=== PATIENT | male | born 1945 | race Two or more races ===

== ENCOUNTER 2022-11-18 09:07 | Inpatient (IN) | payer MEDICARE, MEDICAID ==
[~2022-11-18] VITALS: Ht 175.3 cm; Wt 85.5 kg
[2022-11-18 09:43] LABS: Basophils # (auto) 0.1 10 ^3/uL (0-0.2); Basophils % (auto) 0.6 % (0.0-2.0); Eosinophils # (auto) 0.1 10 ^3/uL (0-0.8); Eosinophils % (auto) 1.3 % (0.0-7.0); Hematocrit 41.9 % (41.0-53.0); Hemoglobin 14.8 g/dL (13.5-17.5); Lymphocytes # (auto) 1.4 10 ^3/uL (0.4-5.4); Lymphocytes % (auto) 14.1 % (10.0-50.0); Mean Corpuscular Hemoglobin 32.8 pg (28.0-32.0); Mean Corpuscular Hgb Conc. 35.3 g/dL (32.0-36.0); Monocytes # (auto) 0.7 10 ^3/uL (0-1.3); Monocytes % (auto) 6.7 % (0.0-12.0); Neutrophils # (auto) 7.6 10 ^3/uL (1.6-8.6); Neutrophils % (auto) 77.3 % (37.0-80.0); Nucleated Red Blood Cells % 0.5 %; Red Blood Cells 4.51 10^6/uL (4.5-5.90); White Blood Cell 9.8 10^3/uL (4.4-10.8)
[2022-11-18 09:56] LABS: Calcium 8.8 mg/dL (8.5-10.1); Magnesium 2.2 mg/dL (1.6-2.6); Potassium 4.4 mmol/L (3.5-5.1)
[2022-11-18 09:59] LABS: BUN/Creatinine Ratio 16.9; INR 1.05 (0.9-1.15); Partial Thromboplastin Time 28.8 sec (24.6-33.4)
[2022-11-18] MEDS ORDERED: LABETALOL HCL 5 MG/ML 4ML SYRINGE IV ONE (10:15)
[2022-11-18] MEDS ORDERED: methylPREDNISolone SOD SUCC 125 MG/2 ML VL IV ONE (11:00)
[2022-11-18] MEDS ORDERED: CLOPIDOGREL BISULFATE 75 MG TAB PO ONE (11:00)
[2022-11-18] MEDS ORDERED: ACETAMINOPHEN 325 MG TAB PO PRN (11:45)
[2022-11-18] MEDS ORDERED: NITROGLYCERIN 0.4 MG SL TAB SL PRN (11:45)
[2022-11-18] MEDS ORDERED: MORPHINE SULFATE INJ 2 MG/ml SYRG IV PRN (11:45)
[2022-11-18] MEDS: SODIUM CHLORIDE 0.9% 1,000 ML IV SCH (12:29)
[2022-11-18 12:54] LABS: Urine Bacteria FEW /hpf (None Seen); Urine Blood Negative /uL (Negative); Urine Specific Gravity 1.009 (1.001-1.035); Urine WBC 2 /hpf (0 - 3)
[2022-11-18 13:16] LABS: Alcohol, Urine < 3.0 mg/dL (0-10); Amphetamine Screen, Urine NEGATIVE (NEGATIVE); Barbiturate Scree,Urine NEGATIVE (NEGATIVE); Benzodiazephine Screen, Urine NEGATIVE (NEGATIVE); Cannabinoid Screen, Urine NEGATIVE (NEGATIVE); Cocaine Screen, Urine NEGATIVE (NEGATIVE); Opiate Scree,Urine NEGATIVE (NEGATIVE); Phencyclidine Screen, Urine NEGATIVE (NEGATIVE)
[2022-11-18] MEDS: hydrALAZINE HCL 20 MG/ML VL IV PRN ×2 (14:20→20:30)
[2022-11-18] MEDS ORDERED: ENAL20TA8 PO (21:30)
[2022-11-18] MEDS ORDERED: LORazepam 2MG/ML-1ML VIAL IV PRN (21:30)
[2022-11-18 22:00] VITALS: BP 161/85
[2022-11-19 01:00] VITALS: BP 139/76
[2022-11-19] MEDS: SODIUM CHLORIDE 0.9% 1,000 ML IV SCH ×2 (01:05→15:24)
[2022-11-19 05:00] VITALS: BP 140/85
[2022-11-19 06:31] LABS: Basophils # (auto) 0 10 ^3/uL (0-0.2); Basophils % (auto) 0.1 % (0.0-2.0); Eosinophils # (auto) 0 10 ^3/uL (0-0.8); Hematocrit 39.3 % (41.0-53.0); Hemoglobin 13.7 g/dL (13.5-17.5); Lymphocytes # (auto) 0.8 10 ^3/uL (0.4-5.4); Lymphocytes % (auto) 6.8 % (10.0-50.0); Mean Corpuscular Hemoglobin 32.4 pg (28.0-32.0); Mean Corpuscular Volume 92.6 fL (80.0-100.0); Monocytes # (auto) 0.4 10 ^3/uL (0-1.3); Monocytes % (auto) 3.4 % (0.0-12.0); Neutrophils % (auto) 89.7 % (37.0-80.0); Nucleated Red Blood Cells % 0.1 %; Red Blood Cells 4.24 10^6/uL (4.5-5.90); Red Cell Distribution Width 13.1 % (11.8-14.3); White Blood Cell 12.3 10^3/uL (4.4-10.8)
[2022-11-19 06:48] LABS: Calcium 8.2 mg/dL (8.5-10.1); Potassium 3.7 mmol/L (3.5-5.1)
[2022-11-19 06:51] LABS: Albumin 3.2 g/dL (3.4-5.0); BUN/Creatinine Ratio 21.1
[2022-11-19 06:54] LABS: Bilirubin, Total 0.7 mg/dL (0.2-1.0); Total Protein 6.5 g/dL (6.4-8.2)
[2022-11-19] MEDS: hydrALAZINE HCL 20 MG/ML VL IV PRN (08:02)
[2022-11-19 10:00] VITALS: BP 163/83
[2022-11-19] MEDS: CLOPIDOGREL BISULFATE 75 MG TAB PO SCH (10:06)
[2022-11-19] MEDS: ENOXAPARIN SOD 40 MG/0.4 ML SYRINGE SC SCH (10:06)
[2022-11-19] MEDS ORDERED: METOPROLOL TARTRATE 50 MG TAB PO ONE (11:00)
[2022-11-19] MEDS ORDERED: ASPirin 81 mg TAB PO ONE (11:00)
[2022-11-19] MEDS: chlordiazePOXIDE HCL 25 MG CAP PO SCH ×2 (11:34→20:39)
[2022-11-19 11:47] LABS: Cholesterol 187 mg/dL (< 200); HDL Cholesterol 62 mg/dL (40-59); LDL Cholesterol 113 mg/dL (< 100); Triglycerides 98 mg/dL (< 150)
[2022-11-19] MEDS: FOLIC ACID 1 MG, MULTIPLE VITAMIN 10 ML, MAGNESIUM SULF SDV 50% 8 MEQ, THIAMINE INJ 100... INJ SCH ×5 (12:10)
[2022-11-19 17:00] VITALS: BP 155/85
[2022-11-19] MEDS: METOPROLOL TARTRATE 50 MG TAB PO SCH (21:41)
[2022-11-19 22:00] VITALS: BP 164/79
[2022-11-20] MEDS ORDERED: PRED1SUS4 OP (02:37)
[2022-11-20] MEDS: chlordiazePOXIDE HCL 25 MG CAP PO SCH ×3 (04:03→23:06)
[2022-11-20] MEDS: SODIUM CHLORIDE 0.9% 1,000 ML IV SCH (04:04)
[2022-11-20 05:00] VITALS: BP 147/80
[2022-11-20] MEDS: prednisoLONE ACETATE 1% OPTH SUSP 5ML LEFTEYE SCH ×4 (06:57→23:06)
[2022-11-20 08:30] VITALS: BP 148/81
[2022-11-20] MEDS ORDERED: IOHEXOL 350 MG/ML 100ML IJ ONE (08:59)
[2022-11-20] MEDS: ASPirin 81 mg TAB PO SCH (09:43)
[2022-11-20] MEDS: METOPROLOL TARTRATE 50 MG TAB PO SCH ×2 (09:43→23:06)
[2022-11-20] MEDS: CLOPIDOGREL BISULFATE 75 MG TAB PO SCH (09:43)
[2022-11-20] MEDS: ENOXAPARIN SOD 40 MG/0.4 ML SYRINGE SC SCH (09:43)
[2022-11-20] MEDS: hydrALAZINE HCL 20 MG/ML VL IV PRN (12:18)
[2022-11-20] MEDS: FOLIC ACID 1 MG, MULTIPLE VITAMIN 10 ML, MAGNESIUM SULF SDV 50% 8 MEQ, THIAMINE INJ 100... INJ SCH ×5 (12:20)
[2022-11-20 12:30] VITALS: BP 157/82
[2022-11-20 16:25] VITALS: BP 124/61
[2022-11-20 22:00] VITALS: BP 135/75
[2022-11-21 05:00] VITALS: BP 144/77
[2022-11-21] MEDS: prednisoLONE ACETATE 1% OPTH SUSP 5ML LEFTEYE SCH ×4 (06:05→22:15)
[2022-11-21] MEDS: CLOPIDOGREL BISULFATE 75 MG TAB PO SCH (08:34)
[2022-11-21] MEDS: ENOXAPARIN SOD 40 MG/0.4 ML SYRINGE SC SCH (08:34)
[2022-11-21] MEDS: ASPirin 81 mg TAB PO SCH (08:34)
[2022-11-21] MEDS: METOPROLOL TARTRATE 50 MG TAB PO SCH ×2 (08:35→22:09)
[2022-11-21 09:00] VITALS: BP 162/96
[2022-11-21] MEDS ORDERED: CLOPIDOGREL BISULFATE 75 MG TAB PO SCH (09:45)
[2022-11-21] MEDS ORDERED: chlordiazePOXIDE HCL 25 MG CAP PO SCH ×2 (09:45→10:00)
[2022-11-21] MEDS: PANTOPRAZOLE 40 MG TAB PO SCH (10:35)
[2022-11-21] MEDS: predniSONE 20 MG TAB PO SCH (10:35)
[2022-11-21] MEDS: FOLIC ACID 1 MG, MULTIPLE VITAMIN 10 ML, MAGNESIUM SULF SDV 50% 8 MEQ, THIAMINE INJ 100... INJ SCH ×5 (12:29)
[2022-11-21 13:00] VITALS: BP 145/75
[2022-11-21 16:50] VITALS: BP 142/87
[2022-11-21 22:00] VITALS: BP 147/65
[2022-11-21] MEDS ORDERED: ATORVASTATIN 20 MG TAB PO SCH (22:00)
[2022-11-21] MEDS: chlordiazePOXIDE HCL 25 MG CAP PO SCH (22:08)
[2022-11-22 05:00] VITALS: BP 167/105
[2022-11-22] MEDS: hydrALAZINE HCL 20 MG/ML VL IV PRN (05:31)
[2022-11-22] MEDS: prednisoLONE ACETATE 1% OPTH SUSP 5ML LEFTEYE SCH ×2 (05:31→12:00)
[2022-11-22] MEDS ORDERED: chlordiazePOXIDE HCL 25 MG CAP PO SCH (07:00)
[2022-11-22 08:37] VITALS: BP 118/67
[2022-11-22] MEDS ORDERED: THIA100T5 PO (08:48)
[2022-11-22] MEDS ORDERED: CHL25C PO (08:48)
[2022-11-22] MEDS ORDERED: ASPI-463 PO (08:48)
[2022-11-22] MEDS ORDERED: ATO40T PO (08:48)
[2022-11-22] MEDS ORDERED: FOLI1TAB6 PO (08:48)
[2022-11-22] MEDS ORDERED: MET50T PO (08:48)
[2022-11-22] MEDS ORDERED: MULT1TAB95 PO (08:48)
[2022-11-22] MEDS ORDERED: CLOP75TA28 PO (08:48)
[2022-11-22] MEDS ORDERED: PRED20TA2 PO (08:50)
[2022-11-22] MEDS: predniSONE 20 MG TAB PO SCH (09:24)
[2022-11-22] MEDS: chlordiazePOXIDE HCL 25 MG CAP PO SCH (09:24)
[2022-11-22] MEDS: ASPirin 81 mg TAB PO SCH (09:24)
[2022-11-22] MEDS: ENOXAPARIN SOD 40 MG/0.4 ML SYRINGE SC SCH (09:24)
[2022-11-22] MEDS: PANTOPRAZOLE 40 MG TAB PO SCH (09:25)
[2022-11-22] MEDS: METOPROLOL TARTRATE 50 MG TAB PO SCH (09:25)
[2022-11-22] MEDS ORDERED: CLOPIDOGREL BISULFATE 75 MG TAB PO SCH (10:00)
[2022-11-22 11:20] VITALS: BP 118/67
[2022-11-22] MEDS: FOLIC ACID 1 MG, MULTIPLE VITAMIN 10 ML, MAGNESIUM SULF SDV 50% 8 MEQ, THIAMINE INJ 100... INJ SCH ×5 (12:00)
[2022-11-22 12:34] VITALS: BP 142/81
== END 2022-11-22 14:16 | disposition home health service (06) | DRG 45 ==
LOC: ER 09:07 → TELE 11:33 → TELE-WESTW 20:59
PROVIDERS: ADMIT Nurse Practitioner Family; ATTEND Family Medicine
DX: I63.9 Cerebral infarction, unspecified (principal); G81.94 Hemiplegia, unspecified affecting left nondominant side; I27.20 Pulmonary hypertension, unspecified; E78.00 Pure hypercholesterolemia, unspecified; G51.0 Bell's palsy; I10 Essential (primary) hypertension; I65.21 Occlusion and stenosis of right carotid artery; K14.8 Other diseases of tongue; F10.239 Alcohol dependence with withdrawal, unspecified; R82.4 Acetonuria; F17.200 Nicotine dependence, unspecified, uncomplicated; M19.09 Primary osteoarthritis, other specified site; Z20.822 Contact with and (suspected) exposure to COVID-19; Z82.49 Family history of ischemic heart disease and other diseases of the circulatory system; Z83.3 Family history of diabetes mellitus; Z79.899 Other long term (current) drug therapy; Z79.82 Long term (current) use of aspirin; Z79.02 Long term (current) use of antithrombotics/antiplatelets; Z98.42 Cataract extraction status, left eye; Z82.61 Family history of arthritis; Z88.8 Allergy status to other drugs, medicaments and biological substances
CPT/HCPCS: 36415; 70450; 70498; 70551; 71045; 80053; 80061; 80307; 81001; 83735; 83880; 84484; 85025; 85610; 85730; 87426; 93005; 93306; 93886; 96374; 96375; 97110; 97116; 97163; 97530; 99291; G0378; J3490

== ENCOUNTER → 2022-12-21 | Outpatient (CLI) | payer MEDICARE, MEDICAID ==
[~2022-12-21] MED LIST: ASPI-463 PO; ATO40T PO; CHL25C PO; CLOP75TA28 PO; ENAL20TA8 PO; FOLI1TAB6 PO; MET50T PO; MULT1TAB95 PO; PRED1SUS4 OP; PRED20TA2 PO; THIA100T5 PO
[2022-12-21 07:45] LABS: Basophils # (auto) 0.1 10 ^3/uL (0-0.2); Eosinophils # (auto) 0.5 10 ^3/uL (0-0.8); Monocytes # (auto) 0.6 10 ^3/uL (0-1.3)
[2022-12-21 07:47] LABS: Basophils % (auto) 1.4 % (0.0-2.0); Eosinophils % (auto) 7.1 % (0.0-7.0); Hematocrit 42.1 % (41.0-53.0); Lymphocytes # (auto) 1.8 10 ^3/uL (0.4-5.4); Lymphocytes % (auto) 23.2 % (10.0-50.0); Mean Corpuscular Hemoglobin 32.5 pg (28.0-32.0); Mean Corpuscular Hgb Conc. 35.6 g/dL (32.0-36.0); Mean Corpuscular Volume 91.2 fL (80.0-100.0); Monocytes % (auto) 8.3 % (0.0-12.0); Neutrophils # (auto) 4.6 10 ^3/uL (1.6-8.6); Nucleated Red Blood Cells % 0.2 %; Red Blood Cells 4.61 10^6/uL (4.5-5.90); Red Cell Distribution Width 12.8 % (11.8-14.3); White Blood Cell 7.6 10^3/uL (4.4-10.8)
== END | disposition home or self-care (01) ==
LOC: LAB 07:33
PROVIDERS: ATTEND Internal Medicine
DX: I10 Essential (primary) hypertension (principal); D64.9 Anemia, unspecified; D75.839 Thrombocytosis, unspecified; Z86.73 Personal history of transient ischemic attack (TIA), and cerebral infarction without residual deficits
CPT/HCPCS: 36415; 80061; 83540; 84550; 85025

== ENCOUNTER → 2023-01-10 | Outpatient (CLI) | payer MEDICARE, MEDICAID | END | disposition home or self-care (01) | LOC: XYW 07:55 | PROVIDERS: ATTEND Internal Medicine | DX: R06.00 Dyspnea, unspecified (principal) | CPT/HCPCS: 78582; A9540; A9558 ==

== ENCOUNTER → 2023-08-27 | Outpatient (CLI) | payer MEDICARE, MEDICAID ==
[~2023-08-27] MED LIST changes: +ENAL1TAB48 PO; -ENAL20TA8 PO; +FOLI-119 PO; -FOLI1TAB6 PO
== END | disposition home or self-care (01) ==
LOC: XYW 10:30
PROVIDERS: ATTEND Internal Medicine
DX: I34.0 Nonrheumatic mitral (valve) insufficiency (principal); I27.20 Pulmonary hypertension, unspecified
CPT/HCPCS: 93306

== ENCOUNTER → 2024-02-05 | Outpatient (CLI) | payer MEDICARE, MEDICAID ==
[~2024-02-05] MED LIST changes: -ATO40T PO; +ATOR-507 PO
[2024-02-05 09:27] LABS: Eosinophils # (auto) 0.2 10 ^3/uL (0-0.8); Hemoglobin 13.1 g/dL (13.5-17.5); Lymphocytes # (auto) 1.5 10 ^3/uL (0.4-5.4); Mean Corpuscular Hgb Conc. 33.5 g/dL (32.0-36.0); Monocytes # (auto) 0.7 10 ^3/uL (0-1.3)
[2024-02-05 09:28] LABS: Basophils # (auto) 0 10 ^3/uL (0-0.2); Basophils % (auto) 0.5 % (0.0-2.0); Eosinophils % (auto) 2.1 % (0.0-7.0); Lymphocytes % (auto) 17.9 % (10.0-50.0); Mean Corpuscular Hemoglobin 29.2 pg (28.0-32.0); Mean Corpuscular Volume 87.1 fL (80.0-100.0); Monocytes % (auto) 7.7 % (0.0-12.0); Neutrophils # (auto) 6.2 10 ^3/uL (1.6-8.6); Neutrophils % (auto) 71.8 % (37.0-80.0); Nucleated Red Blood Cells % 0.1 %; Red Blood Cells 4.48 10^6/uL (4.5-5.90); Red Cell Distribution Width 15.1 % (11.8-14.3); White Blood Cell 8.6 10^3/uL (4.4-10.8)
[2024-02-05 10:01] LABS: Alanine Aminotransferase 14 U/L (7-40); Albumin 4.5 g/dL (3.2-4.8); Alkaline Phosphatase 72 U/L (46-116); Anion Gap 5 (5-15); Aspartate Aminotransferase 16 U/L (13-40); BUN/Creatinine Ratio 8.8 (10.0-20.0); Bilirubin, Total 0.8 mg/dL (0.2-1.0); Blood Urea Nitrogen 9 mg/dL (9-23); Calcium 9.6 mg/dL (8.5-10.1); Carbon Dioxide 27 mmol/L (20-30); Chloride 106 mmol/L (98-107); Glucose 111 mg/dL (74-106); Potassium 4.4 mmol/L (3.5-5.1); Sodium 138 mmol/L (136-145); Total Protein 6.8 g/dL (5.7-8.2)
[2024-02-05 10:54] LABS: Erythrocyte Sedimentation Rate 5 mm/hr (0-20)
[2024-02-05 11:00] LABS: % Iron Saturation 11.6 % (20-55)
[2024-02-05 11:18] LABS: Prostate Specific Antigen 0.81 ng/mL (0.0-4.0)
[2024-02-05 11:22] LABS: Free T4 (Free Thyroxine) 0.91 ng/dL (0.89-1.76)
[2024-02-05 12:43] LABS: Urine Bacteria FEW /hpf (None Seen); Urine Blood Negative /uL (Negative); Urine Clarity Turbid (Clear); Urine Color Yellow (Yellow); Urine Hyaline Cast MOD /lpf (0 - 2); Urine Mucus FEW (None Seen); Urine Protein, UAD 1+ (Negative); Urine Specific Gravity 1.021 (1.001-1.035); Urine Urobilinogen 2 mg/dL (Negative); Urine WBC 97 /hpf (0 - 3)
== END | disposition home or self-care (01) ==
LOC: LAB 08:46
PROVIDERS: ATTEND Internal Medicine
DX: Z12.5 Encounter for screening for malignant neoplasm of prostate (principal); I10 Essential (primary) hypertension; E83.10 Disorder of iron metabolism, unspecified; D75.839 Thrombocytosis, unspecified
CPT/HCPCS: 36415; 80053; 81001; 82728; 83540; 83550; 84153; 84439; 84443; 85025; 85652

== ENCOUNTER → 2024-07-14 | Outpatient (CLI) | payer MEDICARE, MEDICAID ==
[2024-07-14 09:42] LABS: Eosinophils # (auto) 0.2 10 ^3/uL (0-0.8); Eosinophils % (auto) 2.1 % (0.0-7.0); Hemoglobin 15.1 g/dL (13.5-17.5); Lymphocytes # (auto) 1.3 10 ^3/uL (0.4-5.4); Monocytes # (auto) 0.5 10 ^3/uL (0-1.3); Neutrophils # (auto) 6.1 10 ^3/uL (1.6-8.6); White Blood Cell 8.1 10^3/uL (4.4-10.8)
[2024-07-14 09:46] LABS: Basophils # (auto) 0 10 ^3/uL (0-0.2); Basophils % (auto) 0.4 % (0.0-2.0); Hematocrit 43.7 % (41.0-53.0); Lymphocytes % (auto) 15.7 % (10.0-50.0); Mean Corpuscular Hemoglobin 33.4 pg (28.0-32.0); Mean Corpuscular Hgb Conc. 34.6 g/dL (32.0-36.0); Mean Corpuscular Volume 96.4 fL (80.0-100.0); Monocytes % (auto) 6.5 % (0.0-12.0); Neutrophils % (auto) 75.3 % (37.0-80.0); Platelet Count (auto) 605 10^3/uL (140-450); Red Blood Cells 4.53 10^6/uL (4.5-5.90)
[2024-07-14 10:01] LABS: Alanine Aminotransferase 22 U/L (7-40); Albumin 4.4 g/dL (3.2-4.8); Alkaline Phosphatase 71 U/L (46-116); Anion Gap 7 (5-15); Aspartate Aminotransferase 23 U/L (13-40); BUN/Creatinine Ratio 14.8 (10.0-20.0); Blood Urea Nitrogen 13 mg/dL (9-23); Calcium 9.6 mg/dL (8.7-10.4); Carbon Dioxide 27 mmol/L (20-31); Chloride 108 mmol/L (98-107); Cholesterol 132 mg/dL (< 200); Glucose 111 mg/dL (74-106); HDL Cholesterol 42 mg/dL (40-59); LDL Cholesterol 69 mg/dL (< 100); Potassium 4.4 mmol/L (3.5-5.1); Sodium 142 mmol/L (136-145); Triglycerides 148 mg/dL (< 150)
[2024-07-14 10:02] LABS: Total Protein 6.8 g/dL (5.7-8.2)
[2024-07-14 10:30] LABS: % Iron Saturation 24.7 % (20-55)
[2024-07-14 11:03] LABS: Free T4 (Free Thyroxine) 1.06 ng/dL (0.89-1.76)
== END | disposition home or self-care (01) ==
LOC: LAB 08:50
PROVIDERS: ATTEND Internal Medicine
DX: I10 Essential (primary) hypertension (principal); D75.839 Thrombocytosis, unspecified; D47.3 Essential (hemorrhagic) thrombocythemia; Z79.899 Other long term (current) drug therapy
CPT/HCPCS: 36415; 80053; 80061; 82607; 83036; 83540; 83550; 84439; 84443; 85025

== ENCOUNTER → 2024-09-30 | Outpatient (CLI) | payer MEDICARE, MEDICAID | END | disposition home or self-care (01) | LOC: LAB 12:29 | PROVIDERS: ATTEND Internal Medicine | DX: Z12.11 Encounter for screening for malignant neoplasm of colon (principal) | CPT/HCPCS: 82270 ==

== ENCOUNTER 2025-06-17 12:15 | Inpatient (IN) | payer MEDICARE, MEDICAID ==
[~2025-06-17] VITALS: Ht 175.3 cm; Wt 95.5 kg
[2025-06-17] MEDS: POTASSIUM CHLORIDE 40 MEQ, LIDOCAINE 1% (LOCAL ANESTH.) 4 ML in SODIUM CHL 0.9% 250 ML IV ONE (08:00)
[2025-06-17] MEDS: GASTROGRAFIN 120 ML SOL ONE (12:21)
--- NOTE | 2025-06-17 13:03 | ED.PDOC ---
History of Present Illness HPI Comments 79-year-old male who is Indian-speaking presents to the ER with daughter who is translating it did that the patient has prior medical history of hypertension and a chief complaint of abdominal pain/distention. Daughter reports on the patient having abdominal pain 06/03/2025 for which the patient has been given [id number] medications in his not working. The patient currently complaining of abdomen is distention/constipation. Daughter talked to the patient's PCP and stating with the patient's has diarrhea, loss of appetite, low blood pressure of yesterday being 80s systolic and the PCP informed them to come to the ER. Denies chills, fever, N/V, SOB, CP. No other associated symptoms, modifiers, recent injuries or sick contacts present at this time. Chief Complaint: Abdominal Pain Time Seen by MD: 13:00 Reviewed Notes: Nurses Notes, Medications, Allergies Allergies: Coded Allergies: NO KNOWN ALLERGIES (Unverified , 11/18/22) Home Meds Active Scripts Prednisone (Prednisone) 20 Mg Tab, 60 MG PO DAILY for 10 Days, #30 MG Prov:HIGINIO ORTIZ MD 11/22/22 Multiple Vitamin (Multi Vitamin) 1 Tab Tab, 1 TAB PO DAILY, #30 TAB Prov:HIGINIO ORTIZ MD 11/22/22 Folic Acid (Folic Acid) 1 Mg Tab, 1 MG PO DAILY, #30 TAB Prov:HIGINIO ORTIZ MD 11/22/22 Thiamine Hcl (Thiamine Hcl) 100 Mg Tab, 1 TAB PO DAILY, #30 TAB 3 Refills Prov:HIGINIO ORTIZ MD 11/22/22 Chlordiazepoxide Hcl (Librium) 25 Mg Cp, 25 MG PO TID, #30 CAP Prov:HIGINIO ORTIZ MD 11/22/22 Metoprolol Tartrate (LOPRESSOR TABLET) 50 Mg Tb, 1 TAB PO BID, #180 TAB 1 Refill Prov:HIGINIO ORTIZ MD 11/22/22 Atorvastatin Calcium (Lipitor) 40 Mg Tab, 1 TAB PO QPM, #90 TAB 3 Refills Prov:HIGINIO ORTIZ MD 11/22/22 Clopidogrel Bisulfate (Plavix) 75 Mg Tab, 1 TAB PO DAILY, #21 TAB 1 Refill Prov:HIGINIO ORTIZ MD 11/22/22 Aspirin (ASPIRIN/ENTERIC) 81 Mg Tab, 81 MG PO DAILY, #90 TAB Prov:HIGINIO ORTIZ MD 11/22/22 Reported Medications Prednisolone Acetate (Ophth) (Pred Forte) 1 % Ara, 1 % OP QID, ML 11/20/22 Enalapril Maleate (Enalapril Maleate) 20 Mg Tab, 1 TAB PO DAILY 11/18/22 Information Source: Patient Mode of Arrival: Ambulatory Severity: Moderate Timing: Weeks Duration: Since onset Prehospital treatment: None Past Medical History PAST MEDICAL HISTORY: HTN Surgical History: Denies all surgeries Family History Family History: Reviewed,noncontributory to illness, Unknown Social History Smoker: Non-Smoker Alcohol: Denies ETOH Use Drugs: Denies Drug Use Lives In: Home Constitutional: denies: chills, diaphoresis, fatigue, fever, malaise, sweats, weakness, others EENTM: denies: blurred vision, double vision, ear bleeding, ear discharge, ear drainage, ear pain, ear ringing, eye pain, eye redness, hearing loss, mouth pain, mouth swelling, nasal discharge, nose bleeding, nose congestion, nose pain, photophobia, tearing, throat pain, throat swelling, voice changes, others Respiratory: denies: cough, hemoptysis, orthopnea, SOB at rest, shortness of breath, SOB with excertion, stridor, wheezing, others Cardiovascular: denies: chest pain, dizzy spells, diaphoresis, Dyspnea on exertion, edema, irregular heart beat, left arm pain, lightheadedness, palpitations, PND, syncope, others Gastrointestinal: reports: abdomen distended, abdominal pain, diarrhea, poor appetite; denies: blood streaked bowels, constipated, dysphagia, difficulty swallowing, hematemesis, melena, nausea, poor fluid intake, rectal bleeding, rectal pain, vomiting, others Genitourinary: denies: burning, dysuria, flank pain, frequency, hematuria, incontinence, penile discharge, penile sore, pain, testicle pain, testicle swelling, urgency, others Neurological: denies: dizziness, fainting, headache, left sided numbness, left sided weakness, numbness, paresthesia, pre-existing deficit, right sided numbness, right sided weakness, seizure, speech problems, tingling, tremors, weakness, others Musculoskeletal: denies: back pain, gout, joint pain, joint swelling, muscle pain, muscle stiffness, neck pain, others Integumetry: denies: bruises, change in color, change in hair/nails, dryness, laceration, lesions, lumps, rash, wounds, others Allergic/Immunocompromised: denies: Difficulty Healing, Frequent Infections, Hives, Itching, others Hematologic/Lymphatic: denies: anemia, blood clots, easy bleeding, easy bruising, swollen glands, others Endocrine: denies: excessive hunger, excessive sweating, excessive thirst, excessive urination, flushing, intolerance to cold, intolerance to heat, unexplained weight gain, unexplained weight loss, others Psychiatric: denies: anxiety, bipolar disorder, depression, hopeless, panic disorder, schizophrenia, sleepless, suicidal, others All Other Systems: Reviewed and Negative Physical Exam General Appearance: No Apparent Distress, Normal HEENT: Normal ENT Inspection, Pharynx Normal, TMs Normal Neck: Full Range of Motion, Non-Tender, Normal, Normal Inspection Respiratory: Chest Non-Tender, Lungs Clear, No Accessory Muscle Use, No Respiratory Distress, Normal Breath Sounds Cardiovascular: No Edema, No JVD, No Murmur, No Gallop, Normal Peripheral Pulses, Regular Rate/Rhythm Breast Exam: Deferred Gastrointestinal: No Organomegaly, Non Tender, No Pulsatile Mass, Normal Bowel Sounds, Soft Genitalia: Deferred Pelvic: Deferred Rectal: Deferred Extremities: No calf tenderness, Normal capillary refill, Normal inspection, Normal range of motion, Non-tender, No pedal edema Musculoskeletal : Apperance: Normal Neurologic: Alert, special events assistant II-XII nml as Tested, No Motor Deficits, Normal Affect, Normal Mood, No Sensory Deficits Cerebellar Function: Normal Reflexes: Normal Skin: Dry, Normal Color, Warm Lymphatic: No Adenopathy Was a procedure done? Was a procedure done?: No Differential Dx Considerations may include: Electrolyte abnormality, infectious etiology, malignancy, constipation X-Ray, Labs, Meds, VS Vital Signs Date Time Temp Pulse Resp B/P (MAP) Pulse Ox O2 Delivery O2 Flow Rate FiO2 06/17/25 15:52 99 16 133/76 (95) 97 06/17/25 12:23 97.7 122 18 134/85 94 97.7 Lab Test 06/17/25 13:07 Range/Units White Blood Count 7.6 4.4-10.8 10^3/uL Red Blood Count 3.95 L 4.5-5.90 10^6/uL Hemoglobin 14.5 13.5-17.5 g/dL Hematocrit 41.1 41.0-53.0 % Mean Corpuscular Volume 104.1 H 80.0-100.0 fL Mean Corpuscular Hemoglobin 36.7 H 28.0-32.0 pg Mean Corpuscular Hemoglobin Concent 35.2 32.0-36.0 g/dL Red Cell Distribution Width 15.7 H 11.8-14.3 % Platelet Count 728 H 140-450 10^3/uL Mean Platelet Volume 6.8 L 6.9-10.8 fL Neutrophils (%) (Auto) 73.8 37.0-80.0 % Lymphocytes (%) (Auto) 17.1 10.0-50.0 % Monocytes (%) (Auto) 7.7 0.0-12.0 % Eosinophils (%) (Auto) 0.9 0.0-7.0 % Basophils (%) (Auto) 0.5 0.0-2.0 % Neutrophils # (Auto) 5.6 1.6-8.6 10 ^3/uL Lymphocytes # (Auto) 1.3 0.4-5.4 10 ^3/uL Monocytes # (Auto) 0.6 0-1.3 10 ^3/uL Eosinophils # (Auto) 0.1 0-0.8 10 ^3/uL Basophils # (Auto) 0 0-0.2 10 ^3/uL Nucleated Red Blood Cells 0.1 % Sodium Level 138 136-145 mmol/L Potassium Level 4.1 3.5-5.1 mmol/L Chloride Level 101 98-107 mmol/L Carbon Dioxide Level 25 20-31 mmol/L Anion Gap 12 5-15 Blood Urea Nitrogen 34 H 9-23 mg/dL Creatinine 1.30 0.700-1.30 mg/dL Glomerular Filtration Rate Calc 57 >90 mL/min BUN/Creatinine Ratio 26.2 H 10.0-20.0 Serum Glucose 118 H 74-106 mg/dL Calcium Level 8.8 8.7-10.4 mg/dL Time of 1ST Reevaluation: 13:30 Reevaluation 1ST: Unchanged Patient Education/Counseling: Diagnosis, Treatment, Prognosis Family Education/Counseling: Diagnosis, Treatment, Prognosis SEPSIS Sepsis Screen Date sepsis recognized/suspect: Jun 17, 2025 Time Sepsis recognized/suspect: 1224 Recent Procedure: No On Antibiotic Therapy: No Respiratory Rate >20: No Heart Rate >90: Yes Temp<36 C (96.8 F) or >38.3 C: No SBP <90 or MAP <65 mmHG: No New Acute Mental Status Change: No Is the patient on CPAP, BIPAP,: No Physician Orders Ct Ab Pel With Iv Con Only (06/17/25 12:53) Vital Signs Date Time Temp Pulse Resp B/P (MAP) Pulse Ox O2 Delivery O2 Flow Rate FiO2 06/17/25 15:52 99 16 133/76 (95) 97 06/17/25 12:23 97.7 122 18 134/85 94 97.7 Laboratory Tests Test 06/17/25 13:07 White Blood Count 7.6 10^3/uL (4.4-10.8) Departure 1 Departure Time of Disposition: 16:35 (Patient presented with abdominal pain that was concerning for possible appendicits, gastritis, cholecystitis, colitis, gastroenteritis, sbo, or orther possible surgical emergency. Data: 1. I ordered and reviewed the result of at least 3 labs including a CBC, BMP, and Urinalysis. 2. I independently interpreted the following tests: CT Abdomen and Pelvis is concerning for malignancy .Risk:This patient has a high risk of morbidity due to further diagnostic testing or treatment and may suffer from an acute abdominal process disorder. Workup reveals concern for malignancy and intractable abdominal pain and patient should be admitted for further workup. and possible expert consultation. ) Impression: Primary Impression: Intractable abdominal pain Additional Impression: Suspected malignant neoplasm Disposition: ADMITTED INPATIENT Admit to: Med Surg Condition: Serious Critical Care Note Critical Care Time?: Yes Critical care comment: Intractable abdominal pain Authorized and Performed by: Maurice Galaviz MD Total critical care time: Approximately 38 minutes Due to a high probability of clinically significant, life threatening deterioration, the patient required my highest level of preparedness to inte rvene emergently and I personally spent this critical care time directly and personally managing the patient. This critical care time included obtaining a history; examining the patient; pulse oximetry; ordering and review of studies; arranging urgent treatment with development of a management plan; evaluation of patient's response to treatment; frequent reassessment; and, discussions with other providers. This critical care time was performed to assess and manage the high probability of imminent, life-threatening deterioration that could result in multi-organ failure. It was exclusive of separately billable procedures and treating other patients and teaching time. Please see my other sections and the rest of the note for further information on patient assessment and treatment. Stability Stability form required: No I personally scribed for MAURICE GALAVIZ MD ([email or web address]) on 06/17/25 at 13:03. Electronically submitted by Melchor Neri ([email or web address]). MAURICE GALAVIZ MD Jun 17, 2025 13:03
[2025-06-17 13:36] LABS: Hemoglobin 14.5 g/dL (13.5-17.5)
[2025-06-17 13:39] LABS: Hematocrit 41.1 % (41.0-53.0); Mean Corpuscular Hemoglobin 36.7 pg (28.0-32.0); Mean Corpuscular Volume 104.1 fL (80.0-100.0); Nucleated Red Blood Cells % 0.1 %
[2025-06-17 13:49] LABS: Anion Gap 12 (5-15); Carbon Dioxide 25 mmol/L (20-31); Chloride 101 mmol/L (98-107); Potassium 4.1 mmol/L (3.5-5.1); Sodium 138 mmol/L (136-145)
[2025-06-17 13:50] LABS: Calcium 8.8 mg/dL (8.7-10.4)
[2025-06-17 13:55] LABS: BUN/Creatinine Ratio 26.2 (10.0-20.0)
[2025-06-17 13:59] LABS: Blood Urea Nitrogen 34 mg/dL (9-23); Glucose 118 mg/dL (74-106)
--- NOTE | 2025-06-17 15:31 | DVH ---
Indication: abdominal pain Technique: CT axial images of the abdomen and pelvis are obtained with intravenous contrast. Coronal and sagittal reformats were obtained. Radiation Dose Information: CTDI volume is 18.17 mGy. Dose-length product is 1110.97 mGy*cm Comparison: None FINDINGS: The lung bases demonstrate no pleural effusion. Cardiomegaly. Adrenal glands, spleen and pancreas unremarkable. No enhancing hepatic lesion. No CT evidence for c holelithiasis. No hydronephrosis. Stomach is partially distended. Small bowel loops are moderately distended. There is bowel wall thickening and fluid distention of the ascending and transverse colon. There is l uminal narrowing of the splenic flexure of the colon with tiny surrounding nodes up to 10 mm. Abdominal aorta normal in caliber. Atherosclerotic disease. Bladder is partially distended. No cameron e pelvic fluid. No inguinal lymphadenopathy. Fat containing left inguinal hernia measuring 2.5 x 2.1 cm. [id number] bilateral sacroiliac degenerative joint disease IMPRESSION: There is irregular bowel wall narrowing in the region of the splenic flexure of the colon with surrou nding lymph nodes up to 10 mm, highly concerning for colon neoplasm. Recommend GI consultation for c olonoscopy to evaluate. More proximal distention of the ascending and transverse colon with bowel wall thickening and fluid d istention, likely secondary to the underlying colonic neoplasm resulting in obstruction Cardiomegaly. Other findings as described.
[2025-06-17] MEDS: SODIUM CHLORIDE 0.9% 1,000 ML IV ONE ×2 (16:45→17:30)
[2025-06-17] MEDS: IOHEXOL 300 MG/ML 100ML BOTTLE IJ ONE (17:28)
[2025-06-17] MEDS: ONDANSETRON HCL 4 MG/2 ML VIAL IV ONE ×2 (17:30→17:31)
[2025-06-17] MEDS: MORPHINE SULFATE 4 MG/ML SYR/VIAL IV ONE (17:30)
[2025-06-17 17:35] VITALS: PULSE 84; PULSE 85; RESP 19; O2SAT 95
[2025-06-17] MEDS ORDERED: HYDROcodone-ACET 5/325MG TAB PO PRN (19:45)
[2025-06-17] MEDS ORDERED: ACETAMINOPHEN 325 MG TAB PO PRN (19:45)
[2025-06-17] MEDS ORDERED: ONDANSETRON HCL 4 MG/2 ML VIAL IV PRN (19:45)
--- NOTE | 2025-06-17 19:56 | DVHHPRES ---
History of Present Illness Resident Creating Document: JHHumaVikramANDREE SueCALEB RESIDENT Reason for Visit: Abdominal pain and constipation History of Present Illness Patient is a 79-year-old male with a medical history of hypertension,, thrombocytosis since to the ER with a chief complaint of abdominal pain and con stipation with the last 2 weeks. Patient has a complaint daughter who translated and reported that the patient has had abdominal pain for the last 2 weeks associated with a difficulty in passing stools. Initially patient was passing very hard stools with straining to point that he would have sweating while defecation. In the last few days patient has been passing loose watery st ools and his last bowel movement was 2 days ago. They also reported 2 episodes of vomiting about 4 days ago. Patient denies having a colonoscopy ever before and a couple of months ago he had some blood in stool. They deny any history of inflammatory bowel disease, colon cancer in the family. Patient denies any fever, night sweats, significant weight loss. Initial CT abdomen pelvis with the IV contrast showed narrowing near the splenic flexure of the colon with tiny surrounding nodes measuring up to 10 mm with wall thickening and fluid distention of ascending and transverse colon. Past medical history: As per HPI Past surgical history: none Social history: Patient lives with the family and denies smoking, alcohol, drug use Family history: No relevant history of colon cancer, inflammatory bowel disease Home medications: Plavix, valsartan 160 mg, atorvastatin 40 mg Review of Systems Gastrointestinal: Abdominal Pain, Constipation Allergies: Coded Allergies: NO KNOWN ALLERGIES (Unverified , 11/18/22) Medications Current Medications Medications Dose Ordered Sig/Babak Route Start Time Stop Time Status Last Admin Dose Admin Atorvastatin Calcium 40 mg HS PO 06/17/25 22:00 Valsartan 160 mg DAILY PO 06/18/25 10:00 Metoprolol Tartrate 50 mg BID PO 06/17/25 22:00 Clopidogrel Bisulfate 75 mg DAILY PO 06/18/25 10:00 Acetaminophen/ Hydrocodone Bitart 1 tab Q4HP PRN PO 06/17/25 19:45 Ondansetron HCl 4 mg Q4HP PRN IV 06/17/25 19:45 Acetaminophen 650 mg Q6HP PRN PO 06/17/25 19:45 Pantoprazole Sodium 40 mg DAILY IV 06/18/25 10:00 UNV Ceftriaxone Sodium 50 ml @ 100 mls/hr DAILY@09 IV 06/18/25 09:00 UNV Metronidazole 100 ml @ 100 mls/hr Q8HR IV 06/17/25 22:00 UNV Sodium Chloride 1,000 ml @ 100 mls/hr Q10H IV 06/17/25 19:30 UNV Ondansetron HCl 4 mg Q6HPRN PRN IV 06/17/25 19:30 UNV Morphine Sulfate 2 mg Q6HPRN PRN IV 06/17/25 19:30 UNV Exam Vital Signs Vital Signs Date Time Temp Pulse Resp B/P (MAP) Pulse Ox O2 Delivery O2 Flow Rate FiO2 06/17/25 18:59 95 Room Air* 0 21 06/17/25 17:35 85 19 06/17/25 17:26 98.0 142/66 (91) 98.0 Exam Gen - no pallor, no icterus, no LAD, no edema . Skin - Patients skin is warm and dry. HEENT - normocephalic, atraumatic, moist mucous membranes. Neck - full ROM, no LAD, no JVD Pulmonary - B/L equal breath sounds, no crackles, no wheezing cardiovascular - regular S1,S2 heard, no added sounds, no murmurs heard. GI - distended, nontender abdomen. no hepatospleenomegaly. Bowel sounds normoactive Neurological - Patient is A/O X 3 . Bilateral upper extremity strength 5/5, bilateral lower extremity strength 5/5, no facial droop, normal speech, no tremor, no sensory deficiets. Labs/Xrays Labs Test 06/17/25 13:07 Range/Units White Blood Count 7.6 4.4-10.8 10^3/uL Red Blood Count 3.95 L 4.5-5.90 10^6/uL Hemoglobin 14.5 13.5-17.5 g/dL Hematocrit 41.1 41.0-53.0 % Mean Corpuscular Volume 104.1 H 80.0-100.0 fL Mean Corpuscular Hemoglobin 36.7 H 28.0-32.0 pg Mean Corpuscular Hemoglobin Concent 35.2 32.0-36.0 g/dL Red Cell Distribution Width 15.7 H 11.8-14.3 % Platelet Count 728 H 140-450 10^3/uL Mean Platelet Volume 6.8 L 6.9-10.8 fL Neutrophils (%) (Auto) 73.8 37.0-80.0 % Lymphocytes (%) (Auto) 17.1 10.0-50.0 % Monocytes (%) (Auto) 7.7 0.0-12.0 % Eosinophils (%) (Auto) 0.9 0.0-7.0 % Basophils (%) (Auto) 0.5 0.0-2.0 % Neutrophils # (Auto) 5.6 1.6-8.6 10 ^3/uL Lymphocytes # (Auto) 1.3 0.4-5.4 10 ^3/uL Monocytes # (Auto) 0.6 0-1.3 10 ^3/uL Eosinophils # (Auto) 0.1 0-0.8 10 ^3/uL Basophils # (Auto) 0 0-0.2 10 ^3/uL Nucleated Red Blood Cells 0.1 % Sodium Level 138 136-145 mmol/L Potassium Level 4.1 3.5-5.1 mmol/L Chloride Level 101 98-107 mmol/L Carbon Dioxide Level 25 20-31 mmol/L Anion Gap 12 5-15 Blood Urea Nitrogen 34 H 9-23 mg/dL Creatinine 1.30 0.700-1.30 mg/dL Glomerular Filtration Rate Calc 57 >90 mL/min BUN/Creatinine Ratio 26.2 H 10.0-20.0 Serum Glucose 118 H 74-106 mg/dL Calcium Level 8.8 8.7-10.4 mg/dL SEPSIS Sepsis Screen Date sepsis recognized/suspect: Jun 17, 2025 Time Sepsis recognized/suspect: 1857 Recent Procedure: No On Antibiotic Therapy: No Respiratory Rate >20: No Heart Rate >90: No Temp<36 C (96.8 F) or >38.3 C: No SBP <90 or MAP <65 mmHG: No New Acute Mental Status Change: No Is the patient on CPAP, BIPAP,: No Physician Orders Ct Ab Pel With Iv Con Only (06/17/25 12:53) * Gi Dvh Plumber Assistant (06/17/25 19:31) Atorvastatin (Lipitor) (06/17/25 22:00) Valsartan (Diovan) (06/18/25 10:00) Metoprolol Tartrate Tablet (Lopressor Ta (06/17/25 22:00) Clopidogrel Bisulfate (Plavix) (06/18/25 10:00) Basic Metabolic Panel (06/18/25 04:00) Admit (06/17/25:31) Hydrocodone-Acet 5/325mg Tab (Mccrory 5/32 (06/17/25 19:45) Ondansetron Hcl (Zofran) (06/17/25 19:45) Complete Blood Count (06/18/25 04:00) Condition: Stable (06/17/25:31) Acetaminophen Tablet (Tylenol Tablet) (06/17/25 19:45) Clear Liq Diet (06/18/25 Breakfast) Bedrest With Bathroom Privileg (06/17/25:) Admit (06/17/25:) Oxygen By Nasal Cannula (06/17/25:) Stat Ekg For Chest Pain (06/17/25:) Notify Md Of Changes From Base (06/17/25:) Basic Metabolic Panel (06/17/25:) Lactic Acid W/ Reflex Order (06/17/25:25) Stool Occult Blood (06/17/25:) Urinalysis (06/17/25:25) Pantoprazole (Protonix) (06/17/25 19:30) Pantoprazole (Protonix) (06/18/25 10:00) Ceftriaxone 1gm/50ml (Rocephin) (06/18/25 09:00) Ceftriaxone 1gm/50ml (Rocephin) (06/17/25 19:30) Metronidazole 500mg/100ml (Flagyl 500mg/ (06/17/25 22:00) Sodium Chloride 0.9% (06/17/25 19:30) Ondansetron Hcl (Zofran) (06/17/25 19:30) Morphine Sulfate Injection (06/17/25 19:30) * Surgical Consult (06/17/25 ) Vital Signs Date Time Temp Pulse Resp B/P (MAP) Pulse Ox O2 Delivery O2 Flow Rate FiO2 06/17/25 18:59 95 Room Air* 0 21 06/17/25 17:35 85 19 95 Room Air* 0 21 06/17/25 17:26 98.0 82 17 142/66 (91) 96 98.0 06/17/25 15:52 99 16 133/76 (95) 97 06/17/25 12:23 97.7 122 18 134/85 94 97.7 Laboratory Tests Test 06/17/25 13:07 White Blood Count 7.6 10^3/uL (4.4-10.8) Medications Medications Dose Ordered Sig/Babak Route Start Time Stop Time Status Last Admin Dose Admin Sodium Chloride 1,000 ml @ 1,000 mls/hr Q1H ONCE IV 06/17/25 13:00 06/17/25 13:59 DC 06/17/25 17:30 1,000 MLS/HR Sodium Chloride 1,000 ml @ 1,000 mls/hr Q1H ONCE IV 06/17/25 16:45 06/17/25 17:44 DC 06/17/25 16:45 1,000 MLS/HR Assessment/Plan Assessment/Plan Acute intractable abdominal pain Possible large bowel obstruction with colonic neoplasm Severe constipation Acute colitis History of hypertensive heart disease - CT abdomen pelvis with the contrast showed irregular bowel wall narrowing in t he region of the splenic flexure of the colon with surrounding lymph nodes up to 10 mm, highly concerning for colon neoplasm. - IV fluids - GI consultation - GoLYTELY for bowel prep - IV antibiotics PUD prophylaxis: Protonix Goals of care discussed with the patient and the daughter for over 25 minutes. Full code Time spent: 43 minutes Plan discussed with Dr. Mitchell Plan discussed with: Patient, Daughter My Orders Orders - LASHA OVALLE RESIDENT Procedure Category Date Status Time Admit ADMIT 06/17/25 Transmitted 19:25 Oxygen By Nasal RT 06/17/25 Transmitted Cannula 19:25 Stat Ekg For Chest JULIETTE 06/17/25 In Process Pain 19:25 Notify Md Of Changes JULIETTE 06/17/25 In Process From Base 19:25 Basic Metabolic Panel LAB 06/17/25 Logged 19:25 Lactic Acid W/ Reflex LAB 06/17/25 Logged Order 19:25 Stool Occult Blood LAB 06/17/25 Logged 19:25 Urinalysis LAB 06/17/25 Logged 19:25 Pantoprazole PHA 06/17/25 Logged (Protonix) 19:30 Pantoprazole PHA 06/18/25 Logged (Protonix) 10:00 Ceftriaxone 1gm/50ml PHA 06/18/25 Logged (Rocephin) 09:00 Ceftriaxone 1gm/50ml PHA 06/17/25 Logged (Rocephin) 19:30 Metronidazole PHA 06/17/25 Logged 500mg/100ml (Flagyl 22:00 Sodium Chloride 0.9% PHA 06/17/25 Logged 19:30 Ondansetron Hcl PHA 06/17/25 Logged (Zofran) 19:30 Morphine Sulfate PHA 06/17/25 Logged Injection 19:30 * Surgical Consult CONS 06/17/25 Transmitted Date of Service: Jun 18, 2025 Billing Provider: HONG MITCHELL MD Common Visit Codes: [id number] INP/OBS CARE (HIGH) Secondary Visit Codes: [id number] CARE PLAN 30 MINUTES LASHA OVALLE RESIDENT Jun 17, 2025 19:56 HONG MITCHELL MD Jun 20, 2025 21:11
[2025-06-17] MEDS: SODIUM CHLORIDE 0.9% 1,000 ML IV SCH (20:30)
[2025-06-17] MEDS ORDERED: MORPHINE SULFATE 4 MG/ML SYR/VIAL IV PRN (20:30)
[2025-06-17] MEDS: PANTOPRAZOLE 40 MG/10 ML VIAL INJ IV ONE (20:35)
[2025-06-17 20:38] LABS: Chloride 105 mmol/L (98-107); Sodium 140 mmol/L (136-145)
[2025-06-17 20:39] LABS: Anion Gap 12 (5-15); Carbon Dioxide 23 mmol/L (20-31)
[2025-06-17 20:40] LABS: Calcium 8.0 mg/dL (8.7-10.4); Potassium 3.4 mmol/L (3.5-5.1)
[2025-06-17 20:44] LABS: BUN/Creatinine Ratio 26.5 (10.0-20.0); Blood Urea Nitrogen 27 mg/dL (9-23); Glucose 101 mg/dL (74-106)
[2025-06-17] MEDS ORDERED: GOLYTELY 4L KIT PO ONE (21:15)
[2025-06-17] MEDS ORDERED: ATORVASTATIN 20 MG TAB PO SCH (22:00)
[2025-06-17] MEDS ORDERED: METOPROLOL TARTRATE 50 MG TAB PO SCH (22:00)
[2025-06-17 23:09] VITALS: BP 149/90; PULSE 89; RESP 17; TEMP 98.1; O2SAT 97
[2025-06-18] VITALS (8 sets, daily range): BP systolic 134–169; BP diastolic 71–95; PULSE 78–87; RESP 16–18; TEMP 97.2–98.4; O2SAT 93–97
[2025-06-18] MEDS ORDERED: LACTULOSE 20Gm/30ML SOLN PO PRN (00:15)
[2025-06-18 07:18] LABS: Anion Gap 10 (5-15); Carbon Dioxide 24 mmol/L (20-31); Potassium 3.7 mmol/L (3.5-5.1); Sodium 142 mmol/L (136-145)
[2025-06-18 07:24] LABS: BUN/Creatinine Ratio 22.8 (10.0-20.0); Blood Urea Nitrogen 21 mg/dL (9-23); Glucose 87 mg/dL (74-106)
[2025-06-18 07:27] LABS: Calcium 7.8 mg/dL (8.7-10.4); Chloride 108 mmol/L (98-107)
[2025-06-18 07:31] LABS: Hemoglobin 12.3 g/dL (13.5-17.5); Nucleated Red Blood Cells % 0.0 %
[2025-06-18 07:40] LABS: Hematocrit 34.4 % (41.0-53.0); Mean Corpuscular Hemoglobin 37.5 pg (28.0-32.0); Mean Corpuscular Volume 104.9 fL (80.0-100.0)
[2025-06-18] MEDS ORDERED: VALS1TAB58 PO (08:39)
[2025-06-18] MEDS ORDERED: HYDR500C3 PO (08:39)
[2025-06-18] MEDS ORDERED: CYAN100042 PO (08:39)
--- NOTE | 2025-06-18 08:39 | DVHPNRES ---
Progress Note Date Seen: Jun 18, 2025 Resident Creating Document: PACO THOMAS RESIDENT Medical Necessity Reason Pt with a Central, PICC or Fol: No (RN) Subjective Review of Systems Patient is a 79-year-old male with a medical history of hypertension,, thrombocytosis since to the ER with a chief complaint of abdominal pain and constipation with the last 2 weeks. Patient has a complaint daughter who translated and reported that the patient has had abdominal pain for the last 2 weeks associated with a difficulty in passing stools. Initially patient was passing very hard stools with straining to point that he would have sweating while defecation. In the last few days patient has been passing loose watery stools and his last bowel movement was 2 days ago. They also reported 2 episodes of vomiting about 4 days ago. Patient denies having a colonoscopy ever before and a couple of months ago he had some blood in stool. They deny any history of inflammatory bowel disease, colon cancer in the family. Patient denies any fever, night sweats, significant weight loss. Initial CT abdomen pelvis with the IV contrast showed narrowing near the splenic flexure of the colon with tiny surrounding nodes measuring up to 10 mm with wall thickening and fluid distention of ascending and transverse colon. Past medical history: As per HPI Past surgical history: none Social history: Patient lives with the family and denies smoking, alcohol, drug use Family history: No relevant history of colon cancer, inflammatory bowel disease Home medications: Plavix, valsartan 160 mg, atorvastatin 40 mg Patient was seen and examined at bedside. He reports having constipation for 10 days, he also reports having per rectal blood on straining for defecation. He did not have a bowel movement. The daughter was at bedside. All the questions were answered and the plan was explained. Objective vital signs Vital Sign Date Time Temp Pulse Resp B/P (MAP) Pulse Ox O2 Delivery O2 Flow Rate FiO2 06/18/25 05:00 97.2 78 18 144/83 (103) 95 97.2 06/17/25 23:09 Room Air* 0 21 Total Intake and Output 06/17/25 06/17/25 06/18/25 15:00 23:00 07:00 Intake Total 2000 ml 0 ml Balance 2000 ml 0 ml medications Current Medications Medications Dose Ordered Sig/Babak Route Start Time Stop Time Status Last Admin Dose Admin Pantoprazole Sodium 40 mg DAILY IV 06/18/25 10:00 Ceftriaxone Sodium 50 ml @ 100 mls/hr DAILY@09 IV 06/18/25 09:00 Metronidazole 100 ml @ 100 mls/hr Q8HR IV 06/17/25 22:00 06/18/25 06:23 100 MLS/HR Sodium Chloride 1,000 ml @ 100 mls/hr Q10H IV 06/17/25 19:30 06/17/25 20:30 100 MLS/HR Ondansetron HCl 4 mg Q6HPRN PRN IV 06/17/25 19:30 Morphine Sulfate 2 mg Q6HPRN PRN IV 06/17/25 20:30 Lactulose 15 ml DAILY PRN PO 06/18/25 00:15 Examination Exam Gen - no pallor, no icterus, no LAD, no edema . Skin - Patients skin is warm and dry. HEENT - normocephalic, atraumatic, moist mucous membranes. Neck - full ROM, no LAD, no JVD Pulmonary - B/L equal breath sounds, no crackles, no wheezing cardiovascular - regular S1,S2 heard, no added sounds, no murmurs heard. GI - distended, nontender abdomen. no hepatospleenomegaly. Bowel sounds increased, Neurological - Patient is A/O X 3 . Bilateral upper extremity strength 5/5, bilateral lower extremity strength 5/5, no facial droop, normal speech, no tremor, no sensory deficiets. laboratory and microbiology Laboratory Tests 06/18/25 05:24 Test 06/18/25 05:24 Range/Units Serum Glucose 87 74-106 mg/dL Labs and/or images reviewed: Labs reviewed by me, Image(s) reviewed by me Problem List/Assessment/Plan Problem List/Assessment/Plan Acute intractable abdominal pain Possible large bowel obstruction with colonic neoplasm Severe constipation Acute colitis History of hypertensive heart disease - CT abdomen pelvis with the contrast showed irregular bowel wall narrowing in the region of the splenic flexure of the colon with surrounding lymph nodes up to 10 mm, highly concerning for colon neoplasm. -surgery and GI on board -NG tube placed - IV fluids - GI consultation appreciated -Colonoscopy scheduled for tomorrow (06/19/2025) - GoLYTELY for bowel prep - IV antibiotics PUD prophylaxis: Protonix DVT prophylaxis: Goals of care discussed with the patient and the daughter for over 25 minutes. Full code Time spent: 43 minutes Plan discussed with Dr. Wetzel Plan discussed with: Patient, Daughter Plan discussed with: Patient, Daughter, Other (RN) My Orders My Orders Orders - PACO THOMAS RESIDENT Procedure Category Date Status Time Potassium Chl PHA 06/18/25 In Process 20meq/100ml 07:15 Date of Service: Jun 18, 2025 Billing Provider: HONG WETZEL MD Common Visit Codes: [id number] INP/OBS CARE(HIGH) PACO THOMAS Jun 18, 2025 08:38 HONG WETZEL MD Jun 20, 2025 21:12
[2025-06-18] MEDS: PANTOPRAZOLE 40 MG/10 ML VIAL INJ IV SCH (09:37)
[2025-06-18 09:38] LABS: Urine Protein, UAD TRACE (Negative)
[2025-06-18 09:54] LABS: Alanine Aminotransferase 19.0 U/L (7-40); Albumin 3.6 g/dL (3.2-4.8); Alkaline Phosphatase 105.0 U/L (46-116); Bilirubin, Direct 0.3 mg/dL (<0.3); Bilirubin, Total 0.7 mg/dL (0.2-1.0); Total Protein 5.8 g/dL (5.7-8.2)
[2025-06-18] MEDS ORDERED: VALSARTAN 80 MG TAB PO SCH (10:00)
[2025-06-18] MEDS ORDERED: CLOPIDOGREL BISULFATE 75 MG TAB PO SCH (10:00)
[2025-06-18] MEDS: GOLYTELY 4L KIT PO ONE ×2 (14:00→15:54)
--- NOTE | 2025-06-18 14:43 | DVHINCON2 ---
GI Consult Consult Note GI consult note Date of Consultation: 06/18/2025 Chief Complaint: Possible malignant neoplasm Referring Physician: Nestor TORRES H&P: 79-year-old male admitted with complains of abdominal pain and constipation for the last two weeks. Patient daughter at bedside is translating. Patient was starting to have very hard stool, but recently is having watery loose stool in the last two days. Today patient attempted bowel movement but no stool slight red blood only. No nausea or vomiting at this time. Admits to having some weight loss unsure how much weight that the patient has lost. No colonoscopy in past. Patient on Plavix which has been stopped at this time Past Medical History: HTN, thrombocytosis Past Surgical History: Denies Social History: NO smoking, drinking ETOH and use of illegal drugs. Family History: Noncontributory Review of Systems: Constitutional: no fever, chill, weight loss HEENT: no eye pain, no hearing loss, no oral lesion, no scleral icterus Heart: no chest pain, no chest pressure Lung: no cough, no dyspnea with exertion Abdomen: see HPI Physical exam: General: NAD, AAOX3 Chest: lung elena clear to auscultation Heart: RRR, no murmur Abdomen: Mild-distended, no tenderness to palpation, +BS Labs: Labs Test 06/18/25 08:30 06/18/25 05:24 06/17/25 20:02 Range/Units Urine Color Yellow Yellow Urine Clarity Clear Clear Urine pH 5.5 5.0-9.0 Urine Specific [place] 1.044 H 1.001-1.035 Urine Protein Trace H Negative Urine Ketones 1+ H Negative Urine Blood Negative Negative /uL Urine Nitrite 2+ H Negative Urine Bilirubin Negative Negative Urine Urobilinogen Normal Negative mg/dL Urine Leukocyte Esterase 2+ Negative /uL Urine RBC 2 0 - 3 /hpf Urine Microscopic WBC 67 H 0-3 /HPF Urine Squamous Epithelial Cells Few <5 /hpf Urine Bacteria Many H None Seen /hpf Urine Mucus Few None Seen Urine Glucose Normal Normal mg/dL White Blood Count 7.6 4.4-10.8 10^3/uL Red Blood Count 3.28 L 4.5-5.90 10^6/uL Hemoglobin 12.3 #L 13.5-17.5 g/dL Hematocrit 34.4 #L 41.0-53.0 % Mean Corpuscular Volume 104.9 H 80.0-100.0 fL Mean Corpuscular Hemoglobin 37.5 H 28.0-32.0 pg Mean Corpuscular Hemoglobin Concent 35.8 32.0-36.0 g/dL Red Cell Distribution Width 16.2 H 11.8-14.3 % Platelet Count 557 H 140-450 10^3/uL Mean Platelet Volume 6.7 L 6.9-10.8 fL Neutrophils (%) (Auto) 73.7 37.0-80.0 % Lymphocytes (%) (Auto) 17.5 10.0-50.0 % Monocytes (%) (Auto) 6.9 0.0-12.0 % Eosinophils (%) (Auto) 1.3 0.0-7.0 % Basophils (%) (Auto) 0.6 0.0-2.0 % Neutrophils # (Auto) 5.6 1.6-8.6 10 ^3/uL Lymphocytes # (Auto) 1.3 0.4-5.4 10 ^3/uL Monocytes # (Auto) 0.5 0-1.3 10 ^3/uL Eosinophils # (Auto) 0.1 0-0.8 10 ^3/uL Basophils # (Auto) 0 0-0.2 10 ^3/uL Nucleated Red Blood Cells 0.0 % Sodium Level 142 136-145 mmol/L Potassium Level 3.7 3.5-5.1 mmol/L Chloride Level 108 H 98-107 mmol/L Carbon Dioxide Level 24 20-31 mmol/L Anion Gap 10 5-15 Blood Urea Nitrogen 21 9-23 mg/dL Creatinine 0.92 0.700-1.30 mg/dL Glomerular Filtration Rate Calc 86 >90 mL/min BUN/Creatinine Ratio 22.8 H 10.0-20.0 Serum Glucose 87 74-106 mg/dL Calcium Level 7.8 L 8.7-10.4 mg/dL Total Bilirubin 0.7 0.2-1.0 mg/dL Direct Bilirubin 0.3 <0.3 mg/dL Aspartate Amino Transferase (AST) 22 13-40 U/L Alanine Aminotransferase (ALT) 19 7-40 U/L Alkaline Phosphatase 105 46-116 U/L Total Protein 5.8 5.7-8.2 g/dL Albumin 3.6 3.2-4.8 g/dL Lactic Acid Level 1.6 0.4-2.0 mmol/L Magnesium Level 2.4 1.6-2.6 mg/dL Imaging: CT abdomen pelvis IMPRESSION: There is irregular bowel wall narrowing in the region of the splenic flexure of the colon with surrounding lymph nodes up to 10 mm, highly concerning for colon neoplasm. Recommend GI consultation for colonoscopy to evaluate. More proximal distention of the ascending and transverse colon with bowel wall thickening and fluid distention, likely secondary to the underlying colonic neoplasm resulting in obstruction Cardiomegaly. Other findings as described. Assessment: Abdominal pain Abnormal CT findings narrowing of colon splenic flexure Plan: Discussed with Dr. Salmon - Pt will be scheduled for colonoscopy tomorrow 06/19/2025. Pt was informed of the risks (bleeding, infection, perforation, reaction to sedation medications and cardiopulmonary arrest) and benefit and is agreeable to undergo the procedures. Discussed plan with patient, daughter at bedside and hospital team Thank you for this consult Date of Service: Jun 18, 2025 Billing Provider: SCOTT ORTIZ Common Visit Codes: CONSULT ONLY Consultation Codes: [id number] CONSULT <60MIN SCOTT ORTIZ Jun 18, 2025 14:43
[2025-06-18] MEDS: POTASSIUM CHL 20MEQ/100ML 100 ML IV ONE (15:52)
[2025-06-18 16:24] LABS: INR 1.09 (0.9-1.15); Prothrombin Time 11.5 sec (9.3-11.8)
--- NOTE | 2025-06-18 22:12 | DVHINCON2 ---
Consultation - Surgical Date Seen: Jun 18, 2025 Referring Physician Reason for Consultation CT concerning for large bowel obstruction History of Present Illness History of Present Illness Mr. Lebron is a 79-year-old male who presented to the hospital due to abdominal distention and pain that has been going on since June 03. States that the pain was on and off but then it intensified in the last few da ys. Since his distention started he has lost appetite and has been more constipated. His last bowel movement was on June 16 and it was loose, states that he is passing flatus. Before all this started he had daily bowel movements. Denies any weight loss, has a associated loss of appetite due to feeling bloated. Denies any blood in the stool. Denies any past history of abdominal issues. Denied history of colonoscopy. Denies fevers, chills, changes in urinary habits. Denies any personal or family history of colon cancer or cancer of any kind. Past Medical/Surgical History Past Medical/Surgical History PMH hypertension elevated platelets on hydroxy urea PSH denies Family and Social History Family and Social History Family history noncontributory for any GI malignancy or cancers in general. ETOH past heavy beer drinker T Ob/drugs denies Allergies and medications Allergies: Coded Allergies: NO KNOWN ALLERGIES (Unverified , 11/18/22) Home Meds Active Scripts Prednisone (Prednisone) 20 Mg Tab, 60 MG PO DAILY for 10 Days, #30 MG Prov:HIGINIO ORTIZ MD 11/22/22 Multiple Vitamin (Multi Vitamin) 1 Tab Tab, 1 TAB PO DAILY, #30 TAB Prov:HIGINIO ORTIZ MD 11/22/22 Folic Acid (Folic Acid) 1 Mg Tab, 1 MG PO DAILY, #30 TAB Prov:HIGINIO ORTIZ MD 11/22/22 Thiamine Hcl (Thiamine Hcl) 100 Mg Tab, 1 TAB PO DAILY, #30 TAB 3 Refills Prov:HIGINIO ORTIZ MD 11/22/22 Chlordiazepoxide Hcl (Librium) 25 Mg Cp, 25 MG PO TID, #30 CAP Prov:HIGINIO ORTIZ MD 11/22/22 Metoprolol Tartrate (LOPRESSOR TABLET) 50 Mg Tb, 1 TAB PO BID, #180 TAB 1 Refill Prov:HIGINIO ORTIZ MD 11/22/22 Atorvastatin Calcium (Lipitor) 40 Mg Tab, 1 TAB PO QPM, #90 TAB 3 Refills Prov:HIGINIO ORTIZ MD 11/22/22 Clopidogrel Bisulfate (Plavix) 75 Mg Tab, 1 TAB PO DAILY, #21 TAB 1 Refill Prov:HIGINIO ORTIZ MD 11/22/22 Aspirin (ASPIRIN/ENTERIC) 81 Mg Tab, 81 MG PO DAILY, #90 TAB Prov:HIGINIO ORTIZ MD 11/22/22 Reported Medications Cyanocobalamin (Vitamin B-12) 1,000 Mcg Tab, 1 TAB PO DAILY 06/18/25 Valsartan (Valsartan) 160 Mg Tab, 1 TAB PO DAILY 06/18/25 Hydroxyurea (Hydroxyurea) 500 Mg Cap, CAP PO 06/18/25 Prednisolone Acetate (Ophth) (Pred Forte) 1 % Ara, 1 % OP QID, ML 11/20/22 Enalapril Maleate (Enalapril Maleate) 20 Mg Tab, 1 TAB PO DAILY 11/18/22 Review of systems Review of Systems: HEENT:Normal, CVS:Normal, RESPIRATORY:Normal, GI:Abnormal (See HPI), :Normal, MSK:Normal, NEURO:Normal Examination Vital signs Vital Signs Date Time Temp Pulse Resp B/P (MAP) Pulse Ox O2 Delivery O2 Flow Rate FiO2 06/18/25 16:36 98.3 78 17 145/84 (104) 93 98.3 06/18/25 08:00 Room Air* 0 21 Medications Current Medications Medications (Trade) Dose Ordered Sig/Babak Route PRN Reason Start Time Stop Time Status Last Admin Valsartan (Diovan) 160 mg DAILY PO 06/18/25 10:00 06/17/25 19:55 DC Clopidogrel Bisulfate (Plavix) 75 mg DAILY PO 06/18/25 10:00 06/17/25 19:55 DC Pantoprazole Sodium (Protonix) 40 mg DAILY IV 06/18/25 10:00 06/18/25 09:37 Ceftriaxone Sodium 50 ml @ 100 mls/hr DAILY@09 IV 06/18/25 09:00 06/18/25 09:38 Lactulose 15 ml DAILY PRN PO FOR STOMACH DISTRESS 06/18/25 00:15 Laboratory Labs Test 06/18/25 15:40 06/18/25 08:30 06/18/25 05:24 06/17/25 20:02 Range/Units Prothrombin Time 11.5 9.3-11.8 sec Prothrombin Time INR 1.09 0.9-1.15 Urine Color Yellow Yellow Urine Clarity Clear Clear Urine pH 5.5 5.0-9.0 Urine Specific [place] 1.044 H 1.001-1.035 Urine Protein Trace H Negative Urine Ketones 1+ H Negative Urine Blood Negative Negative /uL Urine Nitrite 2+ H Negative Urine Bilirubin Negative Negative Urine Urobilinogen Normal Negative mg/dL Urine Leukocyte Esterase 2+ Negative /uL Urine RBC 2 0 - 3 /hpf Urine Microscopic WBC 67 H 0-3 /HPF Urine Squamous Epithelial Cells Few <5 /hpf Urine Bacteria Many H None Seen /hpf Urine Mucus Few None Seen Urine Glucose Normal Normal mg/dL White Blood Count 7.6 4.4-10.8 10^3/uL Red Blood Count 3.28 L 4.5-5.90 10^6/uL Hemoglobin 12.3 #L 13.5-17.5 g/dL Hematocrit 34.4 #L 41.0-53.0 % Mean Corpuscular Volume 104.9 H 80.0-100.0 fL Mean Corpuscular Hemoglobin 37.5 H 28.0-32.0 pg Mean Corpuscular Hemoglobin Concent 35.8 32.0-36.0 g/dL Red Cell Distribution Width 16.2 H 11.8-14.3 % Platelet Count 557 H 140-450 10^3/uL Mean Platelet Volume 6.7 L 6.9-10.8 fL Neutrophils (%) (Auto) 73.7 37.0-80.0 % Lymphocytes (%) (Auto) 17.5 10.0-50.0 % Monocytes (%) (Auto) 6.9 0.0-12.0 % Eosinophils (%) (Auto) 1.3 0.0-7.0 % Basophils (%) (Auto) 0.6 0.0-2.0 % Neutrophils # (Auto) 5.6 1.6-8.6 10 ^3/uL Lymphocytes # (Auto) 1.3 0.4-5.4 10 ^3/uL Monocytes # (Auto) 0.5 0-1.3 10 ^3/uL Eosinophils # (Auto) 0.1 0-0.8 10 ^3/uL Basophils # (Auto) 0 0-0.2 10 ^3/uL Nucleated Red Blood Cells 0.0 % Sodium Level 142 136-145 mmol/L Potassium Level 3.7 3.5-5.1 mmol/L Chloride Level 108 H 98-107 mmol/L Carbon Dioxide Level 24 20-31 mmol/L Anion Gap 10 5-15 Blood Urea Nitrogen 21 9-23 mg/dL Creatinine 0.92 0.700-1.30 mg/dL Glomerular Filtration Rate Calc 86 >90 mL/min BUN/Creatinine Ratio 22.8 H 10.0-20.0 Serum Glucose 87 74-106 mg/dL Calcium Level 7.8 L 8.7-10.4 mg/dL Total Bilirubin 0.7 0.2-1.0 mg/dL Direct Bilirubin 0.3 <0.3 mg/dL Aspartate Amino Transferase (AST) 22 13-40 U/L Alanine Aminotransferase (ALT) 19 7-40 U/L Alkaline Phosphatase 105 46-116 U/L Total Protein 5.8 5.7-8.2 g/dL Albumin 3.6 3.2-4.8 g/dL Lactic Acid Level 1.6 0.4-2.0 mmol/L Magnesium Level 2.4 1.6-2.6 mg/dL Examination: GENERAL:Normal, HEENT:Normal (No icterus), ABDOMEN:Normal (Distended, no scars, no masses, soft, depressible, left upper quadrant ten derness, no rebound, no guarding) Problem List/Assessment/Plan Problems: (1) Suspected malignant neoplasm Assessment and Plan Mr. Lebron is a 79-year-old male who presented to the ED with abdominal pain. CT was reviewed and shows colonic distention from cecum to splenic flexure, pass the splenic flexure ther is an area of distal decompression, possibly caused by a mass. Given the patient is still passing flatus and had a bowel movement yesterday I recommend GI for colonoscopy. We will discuss additional plan once I have colonoscopy results. 1. We will follow-up colonoscopy results 2. Tumor markers: CEA, CA 19 9, CA 125 3. NPO except medications Plan discussed with Plan discussed with: Patient, Daughter Visit Coding Surgery Date of Service if different f: Jun 18, 2025 Billing Provider: JEANMARIE RAY MD Surgery Visit Codes: [id number] - INP CONSULT <110 MIN JEANMARIE RAY MD Jun 18, 2025 22:12
[2025-06-19] VITALS (8 sets, daily range): BP systolic 129–155; BP diastolic 82–94; PULSE 85–135; RESP 17–21; TEMP 97.4–98.3; O2SAT 92–98
[2025-06-19] MEDS: MAGNESIUM CITRATE SOLUTION 300 ML BTL PO ONE (05:24)
--- NOTE | 2025-06-19 05:48 | DVH ---
CHEST RADIOGRAPH Indication: PRE OP Technique: Single frontal view of the chest was obtained COMPARISON: XY CHEST TWO VIEWS ROUTINE on DOS: 12/04/22, XY CHEST XRAY 1 VIEW on DOS: 11/18/22 FINDINGS: Lines and Tubes: None Lungs: Clear Pleura: No effusion. No pneumothorax. Cardiomediastinal contours: Unremarkable Bones: Unremarkable IMPRESSION: 1. No acute disease.
[2025-06-19] MEDS: GOLYTELY 4L KIT PO ONE (06:00)
[2025-06-19 06:45] LABS: Hemoglobin 12.9 g/dL (13.5-17.5); Mean Corpuscular Hemoglobin 37.5 pg (28.0-32.0); Nucleated Red Blood Cells % 0.0 %
[2025-06-19 06:47] LABS: Hematocrit 35.9 % (41.0-53.0); Mean Corpuscular Volume 104.3 fL (80.0-100.0)
[2025-06-19 07:07] LABS: INR 1.09 (0.9-1.15); Partial Thromboplastin Time 28.1 SEC (24.5-34.5); Prothrombin Time 11.5 sec (9.3-11.8)
[2025-06-19 07:17] LABS: Potassium 3.9 mmol/L (3.5-5.1); Sodium 142 mmol/L (136-145)
[2025-06-19 07:18] LABS: Anion Gap 12 (5-15); Carbon Dioxide 22 mmol/L (20-31)
[2025-06-19 07:23] LABS: BUN/Creatinine Ratio 15.6 (10.0-20.0); Blood Urea Nitrogen 12 mg/dL (9-23); Glucose 81 mg/dL (74-106)
[2025-06-19 07:24] LABS: Calcium 8.3 mg/dL (8.7-10.4); Chloride 108 mmol/L (98-107)
[2025-06-19] MEDS ORDERED: PROPOFOL 10 MG/ML 20 ML IV ONE (10:52)
[2025-06-19] MEDS ORDERED: METOCLOPRAMIDE HCL 5MG/ml INJ 2ml VIAL ONE (10:52)
[2025-06-19] MEDS ORDERED: ONDANSETRON HCL 4 MG/2 ML VIAL ONE (10:52)
[2025-06-19] MEDS ORDERED: LIDOCAINE 2% (LOCAL ANESTH.) PF 5ml SDV ONE (10:52)
[2025-06-19] MEDS ORDERED: SODIUM CHLORIDE LOCK 10 ML ONE (11:06)
--- NOTE | 2025-06-19 11:08 | DVHOP2 ---
Operative Report DATE OF OPERATION: 06/19/25 PROCEDURE: Incomplete Colonoscopy/sigmoidoscopy PREOPERATIVE INDICATION: The patient is a 79 -year-old male undergoing colonoscopy for colonic distention and abnormal finding GI tract imaging POSTOPERATIVE DIAGNOSES: 1. Incomplete colonoscopy examination up to the descending colon because of a large amount of formed residual stool in the rectosigmoid and also in the descending colon beyond which the colonoscope could not be advanced Gentle colonic decompression was performed PROCEDURE PERFORMED BY: Waqar Salmon M.D. SCOPE: Olympus videocolonoscope. ASA CLASS: 3 PREOPERATIVE MEDICATIONS: Mac sedation, Yevgeniy figueroa PROCEDURE IN DETAIL: After obtaining an informed consent, the patient was placed on left lateral decubitus position. He was then sedated with the above medications. A rectal examination was performed that was normal. The colonoscope was then passed through the anus into the rectosigmoid upto the descending colon The patient had a large amount of solid formed residual stool in the rectosigmoid and the descending colon limiting visualization I could not advance the colonoscope safely beyond this area. Gentle colonic decompression was performed. The colonoscope was then withdrawn. The patient tolerated the procedure well without difficulty. WITHDRAWAL TIME: Not Applicable QUALITY OF THE PREP: [place] Bowel Prep score: Poor prep COMPLICATIONS : None SPECIMENS: None DISPOSITION: Transfer back to the floor Stable PLAN: 1. Repeat colonoscopy after further attempts at a bowel prep including tap water enemas 2. If the patient continues to have abdominal distention we can insert NG tube to low intermittent suction and possibly give him the bowel prep through there WAQAR SALMON MD Jun 19, 2025 11:08
--- NOTE | 2025-06-19 15:05 | DVHPN2 ---
Progress Note - Surgical Date Seen: Jun 19, 2025 Post op day Post op day: 0 Subjective Patient reports: No new complaints (Patient is still distended, stated that he had a very small bowel movement this morning, no complaints of the pain.) Review of Systems: Deferred Objective Vital signs Vital Sign Date Time Temp Pulse Resp B/P (MAP) Pulse Ox O2 Delivery O2 Flow Rate FiO2 06/19/25 11:54 114 19 129/74 (92) 94 06/19/25 11:06 98.0 98.0 06/19/25 11:06 Mask 6.0 06/19/25 07:40 21 Total Intake and Output 06/18/25 06/18/25 06/19/25 15:00 23:00 07:00 Intake Total 1250 ml 0 ml 100 ml Balance 1250 ml 0 ml 100 ml Medications Current Medications Medications Dose Ordered Sig/Babak Route Start Time Stop Time Status Last Admin Dose Admin Pantoprazole Sodium 40 mg DAILY IV 06/18/25 10:00 06/19/25 13:28 40 MG Ceftriaxone Sodium 50 ml @ 100 mls/hr DAILY@09 IV 06/18/25 09:00 06/19/25 13:29 100 MLS/HR Metronidazole 100 ml @ 100 mls/hr Q8HR IV 06/17/25 22:00 06/19/25 13:28 100 MLS/HR Sodium Chloride 1,000 ml @ 100 mls/hr Q10H IV 06/17/25 19:30 06/19/25 13:28 100 MLS/HR Ondansetron HCl 4 mg Q6HPRN PRN IV 06/17/25 19:30 Morphine Sulfate 2 mg Q6HPRN PRN IV 06/17/25 20:30 Lactulose 15 ml DAILY PRN PO 06/18/25 00:15 Laboratory Laboratory Tests 06/19/25 05:20 Test 06/19/25 05:20 Range/Units Serum Glucose 81 74-106 mg/dL Examination: GENERAL:Normal, ABDOMEN:Abnormal (Distended, soft, depressible, nontender) Labs and/or images reviewed: Labs reviewed by me (No leukocytosis) Problem List/Assessment/Plan Problems: (1) Suspected malignant neoplasm Assessment and Plan Mr. Lebron is a 79-year-old male who presented to the ED with abdominal pain. CT was reviewed and shows colonic distention from cecum to splenic flexure, pass the splenic flexure ther is an area of distal decompression, possibly caused by a mass. Given the patient is still passing flatus and had a bowel movement yesterday I recommend GI for colonoscopy. We will discuss additional plan once I have colonoscopy results. Interval: Patient went down for colonoscopy today, but it could not be completed due to the amount of stool proximal to the presumed lesion. Colonoscopy was aborted. Patient is currently getting bowel prep for repeat colonoscopy. Patient does not recall having flatus but they have a small bowel movement this morning without the use of cathartics. We will continue to monitor patient's progression and we will await colonoscopy results. Discussed with the patient and daughter that if his health starts declining I may need to perform an emergency surgery, which in his case would be exploratory laparotomy and likely bowel resection. 1. We will follow-up colonoscopy results 2. Tumor markers: CEA, CA 19 9, CA 125 3. NPO except medications My Orders My Orders Orders - JEANMARIE RAY MD Procedure Category Date Status Time Carbohydrate Antigen LAB 06/19/25 In Process 19-9 04:00 Cancer Antigen (Ca) LAB 06/19/25 In Process 125 04:00 Plan discussed with Plan discussed with: Patient, Daughter Visit Coding Surgery Date of Service if different f: Jun 19, 2025 Billing Provider: JEANMARIE RAY MD Surgery Visit Codes: [id number] INP/OBS CARE(HIGH) JEANMARIE RAY MD Jun 19, 2025 15:05
--- NOTE | 2025-06-19 15:14 | DVH ---
CHEST RADIOGRAPH Indication: NG Tube placement Technique: Single frontal view of the chest was obtained Comparison: XY CHEST PORTABLE on DOS: 06/19/25, XY CHEST XRAY 1 VIEW on DOS: 11/18/22 FINDINGS: Lines and Tubes: Enteric tube below the left diaphragm in the stomach. Lungs: No focal consolidation. Pleura: No effusion. No pneumothorax. Cardiomediastinal contours: Unremarkable Bones: No acute osseous abnormality. IMPRESSION: 1. Enteric tube in the stomach.
--- NOTE | 2025-06-19 20:09 | DVHPNRES ---
Progress Note Date Seen: Jun 19, 2025 Resident Creating Document: PACO THOMAS RESIDENT Medical Necessity Reason Pt with a Central, PICC or Fol: No (RN) Subjective Review of Systems Patient is a 79-year-old male with a medical history of hypertension,, thrombocytosis since to the ER with a chief complaint of abdominal pain and constipation with the last 2 weeks. Patient has a complaint daughter who translated and reported that the patient has had abdominal pain for the last 2 weeks associated with a difficulty in passing stools. Initially patient was passing very hard stools with straining to point that he would have sweating while defecation. In the last few days patient has been passing loose watery stools and his last bowel movement was 2 days ago. They also reported 2 episodes of vomiting about 4 days ago. Patient denies having a colonoscopy ever before and a couple of months ago he had some blood in stool. They deny any history of inflammatory bowel disease, colon cancer in the family. Patient denies any fever, night sweats, significant weight loss. Initial CT abdomen pelvis with the IV contrast showed narrowing near the splenic flexure of the colon with tiny surrounding nodes measuring up to 10 mm with wall thickening and fluid distention of ascending and transverse colon. Past medical history: As per HPI Past surgical history: none Social history: Patient lives with the family and denies smoking, alcohol, drug use Family history: No relevant history of colon cancer, inflammatory bowel disease Home medications: Plavix, valsartan 160 mg, atorvastatin 40 mg The patient was seen and examined at bedside. Overnight events were reviewed. The patient reports feeling 'muy mal" or very bad, it was difficult to tolerate the colonoscopy preparation, with very minimal bowel movement.No other new complaints reported. Objective vital signs Vital Sign Date Time Temp Pulse Resp B/P (MAP) Pulse Ox O2 Delivery O2 Flow Rate FiO2 06/19/25 13:00 98.1 118 20 129/87 (101) 92 98.1 06/19/25 11:06 Mask 6.0 06/19/25 07:40 21 Total Intake and Output 06/18/25 06/18/25 06/19/25 15:00 23:00 07:00 Intake Total 1250 ml 0 ml 100 ml Balance 1250 ml 0 ml 100 ml medications Current Medications Medications Dose Ordered Sig/Babak Route Start Time Stop Time Status Last Admin Dose Admin Pantoprazole Sodium 40 mg DAILY IV 06/18/25 10:00 06/19/25 13:28 40 MG Ceftriaxone Sodium 50 ml @ 100 mls/hr DAILY@09 IV 06/18/25 09:00 06/19/25 13:29 100 MLS/HR Metronidazole 100 ml @ 100 mls/hr Q8HR IV 06/17/25 22:00 06/19/25 13:28 100 MLS/HR Sodium Chloride 1,000 ml @ 100 mls/hr Q10H IV 06/17/25 19:30 06/19/25 13:28 100 MLS/HR Ondansetron HCl 4 mg Q6HPRN PRN IV 06/17/25 19:30 Morphine Sulfate 2 mg Q6HPRN PRN IV 06/17/25 20:30 Lactulose 15 ml DAILY PRN PO 06/18/25 00:15 Examination Exam Gen - no pallor, no icterus, no LAD, no edema . Skin - Patients skin is warm and dry. HEENT - normocephalic, atraumatic, moist mucous membranes. Neck - full ROM, no LAD, no JVD Pulmonary - B/L equal breath sounds, no crackles, no wheezing cardiovascular - regular S1,S2 heard, no added sounds, no murmurs heard. GI - distended, nontender abdomen. no hepatospleenomegaly. Bowel sounds increased, Neurological - Patient is A/O X 3 . Bilateral upper extremity strength 5/5, bilateral lower extremity strength 5/5, no facial droop, normal speech, no tremor, no sensory deficiets. laboratory and microbiology Laboratory Tests 06/19/25 05:20 Test 06/19/25 05:20 Range/Units Serum Glucose 81 74-106 mg/dL Labs and/or images reviewed: Labs reviewed by me, Image(s) reviewed by me Problem List/Assessment/Plan Problem List/Assessment/Plan Acute intractable abdominal pain Possible large bowel obstruction with colonic neoplasm Severe constipation Acute colitis History of hypertensive heart disease - CT abdomen pelvis with the contrast showed irregular bowel wall narrowing in the region of the splenic flexure of the colon with surrounding lymph nodes up to 10 mm, highly concerning for colon neoplasm. -surgery and GI on board -The patient is scheduled for colonoscopy tomorrow (06/19/2025) - IV fluids - GI consultation-appreciated -Patient was taken for colonoscopy, however, it was aborted due to stool burden proximal to the possible lesion. -Bowel preparation for repaeat colonoscopy. -Surgery follow up. -CEA-normal, Ca-19-9 and Ca 125 pending. - GoLYTELY for bowel prep - IV antibiotics PUD prophylaxis: Protonix Goals of care discussed with the patient and the daughter for over 25 minutes. Full code Time spent: 43 minutes Plan discussed with Plan discussed with: Patient, Daughter Plan discussed with: Patient, Other (RN) My Orders My Orders Orders - PACO THOMAS Procedure Category Date Status Time Chest Portable XY 06/19/25 Resulted 05:00 Basic Metabolic Panel LAB 06/20/25 Verified 04:00 Complete Blood Count LAB 06/20/25 Verified 04:00 PACO THOMAS Jun 19, 2025 20:09
[2025-06-20] VITALS (8 sets, daily range): BP systolic 134–158; BP diastolic 81–96; PULSE 85–106; RESP 15–21; TEMP 97.2–98.2; O2SAT 92–98
[2025-06-20 06:10] LABS: Hematocrit 34.1 % (41.0-53.0); Hemoglobin 12.2 g/dL (13.5-17.5); Mean Corpuscular Hemoglobin 37.7 pg (28.0-32.0); Mean Corpuscular Volume 105.4 fL (80.0-100.0); Nucleated Red Blood Cells % 0.0 %
[2025-06-20 06:19] LABS: Anion Gap 13 (5-15); Carbon Dioxide 23 mmol/L (20-31); Potassium 3.8 mmol/L (3.5-5.1); Sodium 144 mmol/L (136-145)
[2025-06-20 06:23] LABS: Calcium 8.2 mg/dL (8.7-10.4); Chloride 108 mmol/L (98-107)
[2025-06-20 06:25] LABS: Glucose 92 mg/dL (74-106)
[2025-06-20 06:26] LABS: BUN/Creatinine Ratio 12.7 (10.0-20.0); Blood Urea Nitrogen 10 mg/dL (9-23)
--- NOTE | 2025-06-20 10:50 | DVHPN2 ---
Progress Note - Surgical Date Seen: Jun 20, 2025 Post op day Post op day: 0 Subjective Patient reports: No new complaints (Patient states abdomen is less distended, nonpainful, had a liquid bowel movement this morning.) Review of Systems: Deferred Objective Vital signs Vital Sign Date Time Temp Pulse Resp B/P (MAP) Pulse Ox O2 Delivery O2 Flow Rate FiO2 06/20/25 09:10 97.2 106 17 147/88 (107) 98 97.2 06/19/25 20:00 Room Air* 0 21 Total Intake and Output 06/19/25 06/19/25 06/20/25 15:00 23:00 07:00 Intake Total 200 ml 50 ml 820 ml Output Total 170 ml Balance 200 ml -120 ml 820 ml Medications Current Medications Medications Dose Ordered Sig/Babak Route Start Time Stop Time Status Last Admin Dose Admin Pantoprazole Sodium 40 mg DAILY IV 06/18/25 10:00 06/20/25 10:23 40 MG Ceftriaxone Sodium 50 ml @ 100 mls/hr DAILY@09 IV 06/18/25 09:00 06/20/25 10:23 100 MLS/HR Metronidazole 100 ml @ 100 mls/hr Q8HR IV 06/17/25 22:00 06/20/25 05:48 100 MLS/HR Sodium Chloride 1,000 ml @ 100 mls/hr Q10H IV 06/17/25 19:30 06/19/25 21:30 100 MLS/HR Ondansetron HCl 4 mg Q6HPRN PRN IV 06/17/25 19:30 Morphine Sulfate 2 mg Q6HPRN PRN IV 06/17/25 20:30 Lactulose 15 ml DAILY PRN PO 06/18/25 00:15 Hydromorphone HCl 0.25 mg Q6HR PRN IV 06/20/25 09:45 UNV Laboratory Laboratory Tests 06/20/25 05:13 Test 06/20/25 05:13 Range/Units Serum Glucose 92 74-106 mg/dL Examination: GENERAL:Normal, HEENT:Normal, ABDOMEN:Abnormal (Distended (but much improved), soft, depressible, no scars, no tenderness) Labs and/or images reviewed: Labs reviewed by me (No leukocytosis CMP within normal limits, tumor markers negative) Problem List/Assessment/Plan Assessment and Plan Mr. Lebron is a 79-year-old male who presented to the ED with abdominal pain. CT was reviewed and shows colonic distention from cecum to splenic flexure, pass the splenic flexure ther is an area of distal decompression, possibly caused by a mass. Given the patient is still passing flatus and had a bowel movement yesterday I recommend GI for colonoscopy. We will discuss additional plan once I have colonoscopy results. Interval: Patient is currently getting prepped for possible colonoscopy on Sunday. I recommend instilling GoLYTELY through the NG tube via feeding tube pump and give the gal in 24 hours. The rate should be set at 5.3 ounces/hour. If patient starts getting abdominal pain, more distended, and feeling sick stop the bowel prep. Tumor markers are all negative. 1. We will follow-up colonoscopy results 2. Run GoLYTELY with a feeding pump via the NG tube at a rate of 5.3 ounces/hour 3. NPO except medications 4. Stop the GoLYTELY infusion if patient starts getting more distended, starts getting abdominal pain or feeling sick. Plan discussed with Plan discussed with: Patient, Daughter Visit Coding Surgery Date of Service if different f: Jun 20, 2025 Billing Provider: JEANMARIE RAY MD Surgery Visit Codes: [id number] INP/OBS CARE(HIGH) JEANMARIE RAY MD Jun 20, 2025 10:50
--- NOTE | 2025-06-20 13:21 | DVHPNRES ---
Progress Note Date Seen: Jun 20, 2025 Resident Creating Document: FLORENCIO HORTA RESIDENT Medical Necessity Reason Pt with a Central, PICC or Fol: No (RN) Subjective Review of Systems Patient was seen and examined at bedside. She states feeling well, denies any significant abdominal pain, nausea, vomiting. She has NG tube to suction draining brownish material. Colonoscopy was unsuccessful today due to poor bowel prep, patient will undergo a repeat colonoscopy after adequate bowel regimen. In Service Coordinator and surgeon are following. Plan was comprehensively explained to family member. Objective vital signs Vital Sign Date Time Temp Pulse Resp B/P (MAP) Pulse Ox O2 Delivery O2 Flow Rate FiO2 06/20/25 13:00 97.2 91 15 157/92 (113) 92 97.2 06/19/25 20:00 Room Air* 0 21 Total Intake and Output 06/19/25 06/19/25 06/20/25 15:00 23:00 07:00 Intake Total 200 ml 50 ml 820 ml Output Total 170 ml Balance 200 ml -120 ml 820 ml medications Current Medications Medications Dose Ordered Sig/Babak Route Start Time Stop Time Status Last Admin Dose Admin Pantoprazole Sodium 40 mg DAILY IV 06/18/25 10:00 06/20/25 10:23 40 MG Ceftriaxone Sodium 50 ml @ 100 mls/hr DAILY@09 IV 06/18/25 09:00 06/20/25 10:23 100 MLS/HR Metronidazole 100 ml @ 100 mls/hr Q8HR IV 06/17/25 22:00 06/20/25 05:48 100 MLS/HR Sodium Chloride 1,000 ml @ 100 mls/hr Q10H IV 06/17/25 19:30 06/19/25 21:30 100 MLS/HR Ondansetron HCl 4 mg Q6HPRN PRN IV 06/17/25 19:30 Morphine Sulfate 2 mg Q6HPRN PRN IV 06/17/25 20:30 Lactulose 15 ml DAILY PRN PO 06/18/25 00:15 Hydromorphone HCl 0.25 mg Q6HR PRN IV 06/20/25 11:00 Examination Gen - no pallor, no icterus, no LAD, no edema . Skin - Patients skin is warm and dry. HEENT - normocephalic, atraumatic, moist mucous membranes. Neck - full ROM, no LAD, no JVD Pulmonary - B/L equal breath sounds, no crackles, no wheezing cardiovascular - regular S1,S2 heard, no added sounds, no murmurs heard. GI - distended, nontender abdomen. no hepatospleenomegaly. Bowel sounds increased, Neurological - Patient is A/O X 3 . Bilateral upper extremity strength 5/5, bilateral lower extremity strength 5/5 laboratory and microbiology Laboratory Tests 06/20/25 05:13 Test 06/20/25 05:13 Range/Units Serum Glucose 92 74-106 mg/dL Labs and/or images reviewed: Labs reviewed by me, Image(s) reviewed by me Problem List/Assessment/Plan Problem List/Assessment/Plan Acute intractable abdominal pain Possible large bowel obstruction with colonic neoplasm Severe constipation Acute colitis History of hypertensive heart disease - CT abdomen pelvis with the contrast showed irregular bowel wall narrowing in the region of the splenic flexure of the colon with surrounding lymph nodes up to 10 mm, highly concerning for colon neoplasm. -surgery and GI on board -The patient underwent colonoscopy (06/19/2025), but was unsuccessful due to poor bowel prep, GI will attempt another colonoscopy after Golytely be administer thru NG tube. -Bowel preparation for repeat colonoscopy thru NG tube. Run GoLYTELY with a feeding pump via the NG tube at a rate of 5.3 ounces/hour NPO except medications Stop the GoLYTELY infusion if patient starts getting more distended, starts getting abdominal pain or feeling sick. -Surgery follow up. -CEA-normal, Ca-19-9 and Ca 125 normal. - IV antibiotics - IV fluids PUD prophylaxis: Protonix Goals of care discussed with the patient and the daughter for over 25 minutes. Full code Time spent: 43 minutes Plan discussed with Plan discussed with: Patient, Other (RN) My Orders My Orders Orders - FLORENCIO HORTA RESIDENT Procedure Category Date Status Time Hydromorphone Hcl Inj PHA 06/20/25 In Process (Dilaudid Injectio 11:00 Labetalol Hcl PHA 06/20/25 Logged (Labetalol Hcl) 12:45 Hemoglobin & LAB 06/21/25 Verified Hematocrit 04:00 Basic Metabolic Panel LAB 06/21/25 Verified 04:00 Date of Service: Jun 20, 2025 Billing Provider: PASHA LANG MD Common Visit Codes: [id number] INP/OBS CARE(HIGH) FLORENCIO HORTA RESIDENT Jun 20, 2025 13:21 PASHA LANG MD Jun 21, 2025 00:10
[2025-06-20] MEDS: LABETALOL HCL 20 MG/4 ML VL IV ONE ×2 (14:15→18:45)
[2025-06-20] MEDS: LABETALOL HCL 20 MG/4 ML VL IV PRN (18:45)
--- NOTE | 2025-06-20 21:28 | DVHPN2 ---
Progress Note - Dictate Date Seen: Jun 20, 2025 Medical Necessity Reason Pt with a Central, PICC or Fol: No (RN) Subjective Patient seen at bedside, he had an NG tube inserted last night NG tube output is about a L since yesterday currently meza bile and green bile Patient had a small bowel movement Tumor markers negative vital signs Vital Sign Date Time Temp Pulse Resp B/P (MAP) Pulse Ox O2 Delivery O2 Flow Rate FiO2 06/20/25 21:00 98.2 87 18 154/87 (109) 94 98.2 06/20/25 08:00 Room Air* 0 21 Total Intake and Output 06/19/25 06/19/25 06/20/25 15:00 23:00 07:00 Intake Total 200 ml 50 ml 820 ml Output Total 170 ml Balance 200 ml -120 ml 820 ml medications Current Medications Medications Dose Ordered Sig/Babak Route Start Time Stop Time Status Last Admin Dose Admin Pantoprazole Sodium 40 mg DAILY IV 06/18/25 10:00 06/20/25 10:23 40 MG Ceftriaxone Sodium 50 ml @ 100 mls/hr DAILY@09 IV 06/18/25 09:00 06/20/25 10:23 100 MLS/HR Metronidazole 100 ml @ 100 mls/hr Q8HR IV 06/17/25 22:00 06/20/25 21:13 100 MLS/HR Sodium Chloride 1,000 ml @ 100 mls/hr Q10H IV 06/17/25 19:30 06/20/25 18:30 100 MLS/HR Ondansetron HCl 4 mg Q6HPRN PRN IV 06/17/25 19:30 Morphine Sulfate 2 mg Q6HPRN PRN IV 06/17/25 20:30 Lactulose 15 ml DAILY PRN PO 06/18/25 00:15 Hydromorphone HCl 0.25 mg Q6HR PRN IV 06/20/25 11:00 Labetalol HCl 5 mg Q6HPRN PRN IV 06/20/25 15:15 06/20/25 18:45 5 MG objective GENERAL:Normal, HEENT:Normal, ABDOMEN:Abnormal (Distended (but much improved), soft, depressible, no scars, no tenderness) laboratory and microbiology Laboratory Tests 06/20/25 05:13 Test 06/20/25 05:13 Range/Units Serum Glucose 92 74-106 mg/dL Problems(with codes): (1) Constipation (2) Suspected malignant neoplasm (3) Intractable abdominal pain (4) CVA (cerebral vascular accident) (5) Garcia's palsy Prognosis Plan I discussed the case with surgical consult Patient appeared to have large formed stool beyond the suspected area of narrowing or obstruction which likely suggests no significant obstruction Patient will be started on a bowel prep via the NG tube and I will going to clamp the NG tube We will give him fleets enema or tap water enema Patient will undergo bowel prep starting tonight and also through tomorrow I will schedule him for a tentative repeat attempt at a colonoscopy on 06/22/2025 Plan discussed with: Patient, Daughter, Other (Nurse and Dr Cota) WAQAR CUEVAS MD Jun 20, 2025 21:28
[2025-06-21] VITALS (8 sets, daily range): BP systolic 146–175; BP diastolic 89–103; PULSE 76–92; RESP 17–20; TEMP 97.7–98.6; O2SAT 92–96
[2025-06-21] MEDS: MAGNESIUM CITRATE SOLUTION 300 ML BTL PO ONE (00:36)
[2025-06-21] MEDS: hydrALAZINE HCL 20 MG/ML VL IV ONE (00:41)
[2025-06-21 05:23] LABS: Hematocrit 35.6 % (41.0-53.0)
[2025-06-21 05:24] LABS: Potassium 3.7 mmol/L (3.5-5.1)
[2025-06-21 05:25] LABS: Anion Gap 13 (5-15); Carbon Dioxide 22 mmol/L (20-31); Hemoglobin 12.6 g/dL (13.5-17.5)
[2025-06-21 05:30] LABS: Calcium 8.1 mg/dL (8.7-10.4); Chloride 111 mmol/L (98-107); Glucose 95 mg/dL (74-106); Sodium 146 mmol/L (136-145)
[2025-06-21 05:31] LABS: BUN/Creatinine Ratio 8.9 (10.0-20.0); Blood Urea Nitrogen 7 mg/dL (9-23)
[2025-06-21] MEDS: D5W/SOD CHL 0.45% 1,000 ML IV SCH (09:15)
--- NOTE | 2025-06-21 10:20 | DVHPN2 ---
Progress Note - Surgical Date Seen: Jun 21, 2025 Post op day Post op day: 0 Subjective Patient reports: No new complaints (complaining of distentiion, had 2 BMs yesterday (liquid)) Review of Systems: Deferred Objective Vital signs Vital Sign Date Time Temp Pulse Resp B/P (MAP) Pulse Ox O2 Delivery O2 Flow Rate FiO2 06/21/25 09:00 98.2 92 20 148/89 (108) 96 98.2 06/20/25 20:00 Room Air* 0 21 Total Intake and Output 06/20/25 06/20/25 06/21/25 14:59 22:59 06:59 Intake Total 100 ml 500 ml Output Total 500 ml Balance -400 ml 500 ml Medications Current Medications Medications Dose Ordered Sig/Babak Route Start Time Stop Time Status Last Admin Dose Admin Pantoprazole Sodium 40 mg DAILY IV 06/18/25 10:00 06/20/25 10:23 40 MG Ceftriaxone Sodium 50 ml @ 100 mls/hr DAILY@09 IV 06/18/25 09:00 06/20/25 10:23 100 MLS/HR Metronidazole 100 ml @ 100 mls/hr Q8HR IV 06/17/25 22:00 06/21/25 05:16 100 MLS/HR Ondansetron HCl 4 mg Q6HPRN PRN IV 06/17/25 19:30 Morphine Sulfate 2 mg Q6HPRN PRN IV 06/17/25 20:30 Lactulose 15 ml DAILY PRN PO 06/18/25 00:15 Hydromorphone HCl 0.25 mg Q6HR PRN IV 06/20/25 11:00 Labetalol HCl 5 mg Q6HPRN PRN IV 06/20/25 15:15 06/21/25 05:04 5 MG Dextrose/Sodium Chloride 1,000 ml @ 75 mls/hr [id number] IV 06/21/25 09:15 Laboratory Laboratory Tests 06/21/25 04:15 06/20/25 05:13 Test 06/21/25 04:15 Range/Units Serum Glucose 95 74-106 mg/dL Examination: GENERAL:Normal, ABDOMEN:Abnormal (Distended, soft, depressible, nontender) Problem List/Assessment/Plan Assessment and Plan Mr. Lebron is a 79-year-old male who presented to the ED with abdominal pain. CT was reviewed and shows colonic distention from cecum to splenic flexure, pass the splenic flexure ther is an area of distal decompression, possibly caused by a mass. Given the patient is still passing flatus and had a bowel movement yesterday I recommend GI for colonoscopy. We will discuss additional plan once I have colonoscopy results. Interval: Patient is currently getting prepped for possible colonoscopy on Sunday. I recommend instilling GoLYTELY through the NG tube via feeding tube pump and give the gal in 24 hours. The rate should be set at 5.3 ounces/hour. If patient starts getting abdominal pain, more distended, and feeling sick stop the bowel prep. Tumor markers are all negative. 1. We will follow-up colonoscopy results 2. Run GoLYTELY with a feeding pump via the NG tube at a rate of 5.3 ounces/hour, which equals 128oz in 24 hrs 3. NPO except medications 4. Stop the GoLYTELY infusion if patient starts getting more distended, starts getting abdominal pain or feeling sick. Plan discussed with Plan discussed with: Patient, Daughter Visit Coding Surgery Date of Service if different f: Jun 21, 2025 Billing Provider: JEANMARIE RAY MD Surgery Visit Codes: [id number] INP/OBS CARE(HIGH) JEANMARIE RAY MD Jun 21, 2025 10:20
[2025-06-21] MEDS: GOLYTELY 4L KIT PO ONE (11:45)
--- NOTE | 2025-06-21 13:20 | DVH ---
Date: 06/21/2025 12:52 PM Examination: XY KUB ABDOMEN SINGLE VIEW History: possible large bowel obstruction Comparison: None TECHNIQUE: Frontal views of the abdomen was obtained. FINDINGS: Enteric tube below the diaphragm appears to be in the 2nd portion of the duodenum. Bowel gas pattern is unremarkable. The lung bases are unremarkable. No acute osseous abnormality identified. IMPRESSION: 1. Nonobstructive bowel gas pattern. 2. Enteric tube appears to be in the 2nd portion of the duodenum.
--- NOTE | 2025-06-21 15:30 | DVHPNRES ---
Progress Note Date Seen: Jun 21, 2025 Resident Creating Document: PACO THOMAS RESIDENT Medical Necessity Reason Pt with a Central, PICC or Fol: No (RN) Subjective Review of Systems Patient is a 79-year-old male with a medical history of hypertension,, thrombocytosis since to the ER with a chief complaint of abdominal pain and constipation with the last 2 weeks. Patient has a complaint daughter who translated and reported that the patient has had abdominal pain for the last 2 weeks associated with a difficulty in passing stools. Initially patient was passing very hard stools with straining to point that he would have sweating while defecation. In the last few days patient has been passing loose watery stools and his last bowel movement was 2 days ago. They also reported 2 episodes of vomiting about 4 days ago. Patient denies having a colonoscopy ever before and a couple of months ago he had some blood in stool. They deny any history of inflammatory bowel disease, colon cancer in the family. Patient denies any fever, night sweats, significant weight loss. Initial CT abdomen pelvis with the IV contrast showed narrowing near the splenic flexure of the colon with tiny surrounding nodes measuring up to 10 mm with wall thickening and fluid distention of ascending and transverse colon. Past medical history: As per HPI Past surgical history: none Social history: Patient lives with the family and denies smoking, alcohol, drug use Family history: No relevant history of colon cancer, inflammatory bowel disease Home medications: Plavix, valsartan 160 mg, atorvastatin 40 mg The patient was seen and examined at bedside. Overnight events were reviewed. The daughter was at bedside, the patient reports feeling comfortable with will bowel prep. All questions were answered at bedside. No new complaints reported. Objective vital signs Vital Sign Date Time Temp Pulse Resp B/P (MAP) Pulse Ox O2 Delivery O2 Flow Rate FiO2 06/21/25 12: 98.6 91 20 146/89 (108) 92 98.6 06/21/25 08:00 Room Air* 0 21 Total Intake and Output 06/20/25 06/20/25 06/21/25 15:00 23:00 07:00 Intake Total 100 ml 500 ml Output Total 500 ml Balance -400 ml 500 ml medications Current Medications Medications Dose Ordered Sig/Babak Route Start Time Stop Time Status Last Admin Dose Admin Pantoprazole Sodium 40 mg DAILY IV 06/18/25 10:00 06/21/25 10:00 40 MG Ceftriaxone Sodium 50 ml @ 100 mls/hr DAILY@09 IV 06/18/25 09:00 06/21/25 09:00 100 MLS/HR Metronidazole 100 ml @ 100 mls/hr Q8HR IV 06/17/25 22:00 06/21/25 14:21 100 MLS/HR Ondansetron HCl 4 mg Q6HPRN PRN IV 06/17/25 19:30 Morphine Sulfate 2 mg Q6HPRN PRN IV 06/17/25 20:30 Lactulose 15 ml DAILY PRN PO 06/18/25 00:15 Hydromorphone HCl 0.25 mg Q6HR PRN IV 06/20/25 11:00 Labetalol HCl 5 mg Q6HPRN PRN IV 06/20/25 15:15 06/21/25 05:04 5 MG Dextrose/Sodium Chloride 1,000 ml @ 75 mls/hr [id number] IV 06/21/25 09:15 06/21/25 09:15 75 MLS/HR Examination Pt is lying on bed General Appearance: Alert, Oriented X3, Cooperative, Mild distress, NG tube placed HEENT: Atraumatic, Mucous membranes moist/pink Respiratory: Clear to auscultation, Normal air movement, No added sounds Cardiovascular: Regular rate, Normal S1, Normal S2, No murmurs Abdominal/ : Active bowel sounds, Soft, no distention, no tenderness Extremities: No edema, Normal pulses, No tenderness/swelling Skin: No Significant rash, except past surgical scars Neuro: Normal speech, sensorimotor deficits none Psych/Mental Status: Mental status NL, Mood NL Nurse was there as strategic consultant during examination laboratory and microbiology Laboratory Tests 06/21/25 04:15 06/20/25 05:13 Test 06/21/25 04:15 Range/Units Serum Glucose 95 74-106 mg/dL Labs and/or images reviewed: Labs reviewed by me, Image(s) reviewed by me Problem List/Assessment/Plan Problem List/Assessment/Plan Acute intractable abdominal pain Possible large bowel obstruction with colonic neoplasm Severe constipation Acute colitis History of hypertensive heart disease - CT abdomen pelvis with the contrast showed irregular bowel wall narrowing in the region of the splenic flexure of the colon with surrounding lymph nodes up to 10 mm, highly concerning for colon neoplasm. -surgery and GI on board -The patient underwent colonoscopy (06/19/2025), but was unsuccessful due to poor bowel prep, GI will attempt another colonoscopy probably on 06/22/2025 after Golytely be administer thru NG tube. -Bowel preparation for repeat colonoscopy thru NG tube. Run GoLYTELY with a feeding pump via the NG tube at a rate of 5.3 ounces/hour NPO except medications Stop the GoLYTELY infusion if patient starts getting more distended, starts getting abdominal pain or feeling sick. -Surgery follow up. -CEA-normal, Ca-19-9 and Ca 125 normal. - IV ceftriaxone and metronidazole. - IV fluids PUD prophylaxis: Protonix Goals of care discussed with the patient and the daughter for over 25 minutes. Full code Time spent: 43 minutes Plan discussed with Plan discussed with: Patient, Daughter, Other (RN) Date of Service: Jun 21, 2025 Billing Provider: PASHA LANG MD Common Visit Codes: [id number] INP/OBS CARE(HIGH) PACO THOMAS RESIDENT Jun 21, 2025 15:30 PASHA LANG MD Jun 21, 2025 21:13
--- NOTE | 2025-06-21 17:59 | DVHPN2 ---
Progress Note - Dictate Date Seen: Jun 21, 2025 Medical Necessity Reason Pt with a Central, PICC or Fol: No (RN) Subjective Patient was seen at bedside, patient has been started on a bowel prep He had two liquid bowel movements last night after the tap water enema Patient was given a dose of Mag citrate via the NG tube and currently he is getting GoLYTELY via the NG tube NG tube is clamped Abdomen is mildly distended and obese vital signs Vital Sign Date Time Temp Pulse Resp B/P (MAP) Pulse Ox O2 Delivery O2 Flow Rate FiO2 06/21/25 12:25 98.6 91 20 146/89 (108) 92 98.6 06/21/25 08:00 Room Air* 0 21 Total Intake and Output 06/20/25 06/20/25 06/21/25 15:00 23:00 07:00 Intake Total 100 ml 500 ml Output Total 500 ml Balance -400 ml 500 ml medications Current Medications Medications Dose Ordered Sig/Babak Route Start Time Stop Time Status Last Admin Dose Admin Pantoprazole Sodium 40 mg DAILY IV 06/18/25 10:00 06/21/25 10:00 40 MG Ceftriaxone Sodium 50 ml @ 100 mls/hr DAILY@09 IV 06/18/25 09:00 06/21/25 09:00 100 MLS/HR Metronidazole 100 ml @ 100 mls/hr Q8HR IV 06/17/25 22:00 06/21/25 14:21 100 MLS/HR Ondansetron HCl 4 mg Q6HPRN PRN IV 06/17/25 19:30 Morphine Sulfate 2 mg Q6HPRN PRN IV 06/17/25 20:30 Lactulose 15 ml DAILY PRN PO 06/18/25 00:15 Hydromorphone HCl 0.25 mg Q6HR PRN IV 06/20/25 11:00 Labetalol HCl 5 mg Q6HPRN PRN IV 06/20/25 15:15 06/21/25 05:04 5 MG Dextrose/Sodium Chloride 1,000 ml @ 75 mls/hr [id number] IV 06/21/25 09:15 06/21/25 09:15 75 MLS/HR objective GENERAL:Normal, HEENT:Normal, ABDOMEN:Abnormal (Distended (but much improved), soft, depressible, no scars, no tenderness) laboratory and microbiology Laboratory Tests 06/21/25 04:15 06/20/25 05:13 Test 06/21/25 04:15 Range/Units Serum Glucose 95 74-106 mg/dL Abd X RAY IMPRESSION: 1. Nonobstructive bowel gas pattern. 2. Enteric tube appears to be in the 2nd portion of the duodenum. Problems(with codes): (1) CVA (cerebral vascular accident) (2) Garcia's palsy (3) Constipation (4) Suspected malignant neoplasm (5) Intractable abdominal pain Prognosis Plan Continue attempts at a bowel prep Patient will get another tap water enema today He is getting ice chips and some clear liquids Patient is rescheduled for a sigmoidoscopy/colonoscopy on 06/22/2025 Plan discussed with: Patient, Daughter, Other (Dr Cota and Nurse) WAQAR CUEVAS MD Jun 21, 2025 17:59
[2025-06-22] VITALS (10 sets, daily range): BP systolic 149–173; BP diastolic 85–99; PULSE 75–105; RESP 18–25; TEMP 98.1–98.9; O2SAT 93–98
[2025-06-22 05:54] LABS: Hemoglobin 11.4 g/dL (13.5-17.5); Nucleated Red Blood Cells % 0.1 %
[2025-06-22 05:57] LABS: Hematocrit 32.1 % (41.0-53.0); Mean Corpuscular Hemoglobin 37.3 pg (28.0-32.0); Mean Corpuscular Volume 105.2 fL (80.0-100.0)
[2025-06-22 06:06] LABS: Anion Gap 13 (5-15); Carbon Dioxide 25 mmol/L (20-31); Chloride 107 mmol/L (98-107); Potassium 3.6 mmol/L (3.5-5.1); Sodium 145 mmol/L (136-145)
[2025-06-22 06:12] LABS: BUN/Creatinine Ratio 10.5 (10.0-20.0); Glucose 85 mg/dL (74-106)
[2025-06-22 06:22] LABS: Blood Urea Nitrogen 8 mg/dL (9-23); Calcium 7.9 mg/dL (8.7-10.4)
--- NOTE | 2025-06-22 06:25 | DVH ---
CHEST RADIOGRAPH Indication: NG TUBE PLACEMENT Technique: Single frontal view of the chest was obtained Comparison: XY CHEST XRAY 1 VIEW on DOS: 06/19/25 FINDINGS: Lines and Tubes: The enteric tube terminates in the stomach. Lungs: No focal consolidation. Pleura: No effusion. No pneumothorax. Cardiomediastinal contours: Cardiomegaly. Bones: No acute osseous abnormality. IMPRESSION: 1. Enteric tube terminates in the stomach.
[2025-06-22] MEDS: MAGNESIUM CITRATE SOLUTION 300 ML BTL PO ONE (06:37)
[2025-06-22] MEDS: LABETALOL HCL 20 MG/4 ML VL IV PRN (10:24)
--- NOTE | 2025-06-22 13:11 | DVHPN2 ---
Progress Note - Surgical Date Seen: Jun 22, 2025 Post op day Post op day: 0 Subjective Review of Systems: Deferred Objective Vital signs Vital Sign Date Time Temp Pulse Resp B/P (MAP) Pulse Ox O2 Delivery O2 Flow Rate FiO2 06/22/25 10:24 84 173/97 06/22/25 08:26 98.8 20 94 98.8 06/22/25 08:00 Room Air* 0 21 Total Intake and Output 06/21/25 06/21/25 06/22/25 15:00 23:00 07:00 Intake Total 200 ml Output Total 850 ml Balance -850 ml 200 ml Medications Current Medications Medications Dose Ordered Sig/Babak Route Start Time Stop Time Status Last Admin Dose Admin Pantoprazole Sodium 40 mg DAILY IV 06/18/25 10:00 06/22/25 10:24 40 MG Ceftriaxone Sodium 50 ml @ 100 mls/hr DAILY@09 IV 06/18/25 09:00 06/22/25 09:00 100 MLS/HR Metronidazole 100 ml @ 100 mls/hr Q8HR IV 06/17/25 22:00 06/22/25 05:13 100 MLS/HR Ondansetron HCl 4 mg Q6HPRN PRN IV 06/17/25 19:30 Morphine Sulfate 2 mg Q6HPRN PRN IV 06/17/25 20:30 Lactulose 15 ml DAILY PRN PO 06/18/25 00:15 Hydromorphone HCl 0.25 mg Q6HR PRN IV 06/20/25 11:00 Dextrose/Sodium Chloride 1,000 ml @ 75 mls/hr [id number] IV 06/21/25 09:15 06/21/25 09:15 75 MLS/HR Labetalol HCl 10 mg Q6HPRN PRN IV 06/22/25 09:00 06/22/25 10:24 10 MG Laboratory Laboratory Tests 06/22/25 05:02 Test 06/22/25 05:02 Range/Units Serum Glucose 85 74-106 mg/dL Examination: GENERAL:Normal, ABDOMEN:Abnormal (Distended, soft, depressible, nontender) Problem List/Assessment/Plan Assessment and Plan Mr. Lebron is a 79-year-old male who presented to the ED with abdominal pain. CT was reviewed and shows colonic distention from cecum to splenic flexure, pass the splenic flexure ther is an area of distal decompression, possibly caused by a mass. Given the patient is still passing flatus and had a bowel movement yesterday I recommend GI for colonoscopy. We will discuss additional plan once I have colonoscopy results. Interval: Patient will likely undergo colonoscopy today, we will follow colonoscopy results. Patient more distended this morning although had 3 liquid bowel movements yesterday and 1 more this a.m. 1. We will follow-up colonoscopy results 2. NPO except meds medication Plan discussed with Plan discussed with: Patient, Daughter Visit Coding Surgery Date of Service if different f: Jun 22, 2025 Billing Provider: JEANMARIE RAY MD Surgery Visit Codes: [id number] INP/OBS CARE(HIGH) JEANMARIE RAY MD Jun 22, 2025 13:11
[2025-06-22] MEDS ORDERED: PROPOFOL 10 MG/ML 20 ML IV ONE (13:58)
--- NOTE | 2025-06-22 14:54 | DVHOP2 ---
Operative Report DATE OF OPERATION: 06/22/25 PROCEDURE: Colonoscopy with biopsy and Jacqueline ink injection. PREOPERATIVE INDICATION: The patient is a 79 -year-old male undergoing colonoscopy for suspected large bowel obstruction with splenic flexure abnormality POSTOPERATIVE DIAGNOSES: 1. Patient had an obstructing ulcerated circumferential masslike area in the distal transverse/ proximal splenic flexure area at about 60-65 cm above the anal verge This had a pinpoint opening and the colonoscope could not be advanced beyond this area. Biopsies were obtained and Jacqueline ink injection was placed distal to the tumor 2. The remaining visualized portion of the left colon were normal and he had trace internal hemorrhoids. Colonic decompression was also performed PROCEDURE PERFORMED BY: Waqar Salmon M.D. SCOPE: Olympus videocolonoscope. ASA CLASS: 3 PREOPERATIVE MEDICATIONS: Dr. Kelly Robbins PROCEDURE IN DETAIL: After obtaining an informed consent, the patient was placed on left lateral decubitus position. He was then sedated with the above medications. A rectal examination was performed that was normal. The colonoscope was then passed through the anus into the rectosigmoid and through the descending colon up to the splenic flexure area. Patient had a obstructing ulcerated circumferential masslike area with a pinpoint opening The colonoscope could not be advanced beyond this area as there appeared to be almost near completely obstructed Biopsies were obtained from this area and 5 ml Jacqueline ink was placed distal to the tumor area The remaining descending sigmoid and rectal area were normal and on retroflexion he had trace hemorrhoids The colonoscope was then withdrawn. The patient tolerated the procedure well without difficulty. WITHDRAWAL TIME: Not applicable QUALITY OF THE PREP: [place] Bowel Prep score: Not applicable, better visualizat ion of the left colon COMPLICATIONS : None SPECIMENS: Splenic flexure mass biopsies DISPOSITION: Transfer back to the floor Stable PLAN: 1. Keep NPO and NG tube to low intermittent suction 2. IV TPN, IV antibiotics 3. Results reviewed with surgical consult as the patient will likely need surgical intervention to relieve colonic obstruction WAQAR SALMON MD Jun 22, 2025 14:54
[2025-06-22] MEDS: ONDANSETRON HCL 4 MG/2 ML VIAL IV PRN (16:37)
[2025-06-22] MEDS: HYDROMORPHONE HCL 1 MG/ML INJ IV PRN (16:37)
--- NOTE | 2025-06-22 19:04 | DVHPNRES ---
Progress Note Date Seen: Jun 22, 2025 Resident Creating Document: PACO THOMAS RESIDENT Medical Necessity Reason Pt with a Central, PICC or Fol: No (RN) Subjective Review of Systems Patient is a 79-year-old male with a medical history of hypertension,, thrombocytosis since to the ER with a chief complaint of abdominal pain and constipation with the last 2 weeks. Patient has a complaint daughter who translated and reported that the patient has had abdominal pain for the last 2 weeks associated with a difficulty in passing stools. Initially patient was passing very hard stools with straining to point that he would have sweating while defecation. In the last few days patient has been passing loose watery stools and his last bowel movement was 2 days ago. They also reported 2 episodes of vomiting about 4 days ago. Patient denies having a colonoscopy ever before and a couple of months ago he had some blood in stool. They deny any history of inflammatory bowel disease, colon cancer in the family. Patient denies any fever, night sweats, significant weight loss. Initial CT abdomen pelvis with the IV contrast showed narrowing near the splenic flexure of the colon with tiny surrounding nodes measuring up to 10 mm with wall thickening and fluid distention of ascending and transverse colon. Past medical history: As per HPI Past surgical history: none Social history: Patient lives with the family and denies smoking, alcohol, drug use Family history: No relevant history of colon cancer, inflammatory bowel disease Home medications: Plavix, valsartan 160 mg, atorvastatin 40 mg The patient was seen and examined at bedside. Overnight events were reviewed. The daughter and son was at bedside, the patient was taking bowel prep, had bowel movements 2 times. All questions were answered at bedside. No new complaints reported. Objective vital signs Vital Sign Date Time Temp Pulse Resp B/P (MAP) Pulse Ox O2 Delivery O2 Flow Rate FiO2 06/22/25 17:00 98.9 92 20 149/85 (106) 93 98.9 06/22/25 14:26 Room Air 0 06/22/25 14:26 96 Total Intake and Output 06/21/25 06/21/25 06/22/25 15:00 23:00 07:00 Intake Total 200 ml Output Total 850 ml Balance -850 ml 200 ml medications Current Medications Medications Dose Ordered Sig/Babak Route Start Time Stop Time Status Last Admin Dose Admin Pantoprazole Sodium 40 mg DAILY IV 06/18/25 10:00 06/22/25 10:24 40 MG Ceftriaxone Sodium 50 ml @ 100 mls/hr DAILY@09 IV 06/18/25 09:00 06/22/25 09:00 100 MLS/HR Metronidazole 100 ml @ 100 mls/hr Q8HR IV 06/17/25 22:00 06/22/25 14:45 100 MLS/HR Ondansetron HCl 4 mg Q6HPRN PRN IV 06/17/25 19:30 06/22/25 16:37 4 MG Morphine Sulfate 2 mg Q6HPRN PRN IV 06/17/25 20:30 Hydromorphone HCl 0.25 mg Q6HR PRN IV 06/20/25 11:00 06/22/25 16:37 0.25 MG Dextrose/Sodium Chloride 1,000 ml @ 75 mls/hr [id number] IV 06/21/25 09:15 06/21/25 09:15 75 MLS/HR Labetalol HCl 10 mg Q6HPRN PRN IV 06/22/25 09:00 06/22/25 10:24 10 MG Examination Examination Pt is lying on bed General Appearance: Alert, Oriented X3, Cooperative, Mild distress, NG tube placed HEENT: Atraumatic, Mucous membranes moist/pink Respiratory: Clear to auscultation, Normal air movement, No added sounds Cardiovascular: Regular rate, Normal S1, Normal S2, No murmurs Abdominal/ : Active bowel sounds, Soft, no distention, no tenderness Extremities: No edema, Normal pulses, No tenderness/swelling Skin: No Significant rash, except past surgical scars Neuro: Normal speech, sensorimotor deficits none Psych/Mental Status: Mental status NL, Mood NL Nurse was there as screedman during examination laboratory and microbiology Laboratory Tests 06/22/25 05:02 Test 06/22/25 05:02 Range/Units Serum Glucose 85 74-106 mg/dL Labs and/or images reviewed: Labs reviewed by me, Image(s) reviewed by me Problem List/Assessment/Plan Problem List/Assessment/Plan Acute intractable abdominal pain Possible large bowel obstruction with colonic neoplasm Severe constipation Acute colitis History of hypertensive heart disease - CT abdomen pelvis with the contrast showed irregular bowel wall narrowing in the region of the splenic flexure of the colon with surrounding lymph nodes up to 10 mm, highly concerning for colon neoplasm. -surgery and GI on board -The patient underwent colonoscopy (06/19/2025), but was unsuccessful due to poor bowel prep, GI will attempt another colonoscopy probably on 06/22/2025 after Golytely be administer thru NG tube. -Bowel preparation for repeat colonoscopy thru NG tube. Run GoLYTELY with a feeding pump via the NG tube at a rate of 5.3 ounces/hour NPO except medications Stop the GoLYTELY infusion if patient starts getting more distended, starts getting abdominal pain or feeling sick. -Surgery follow up. -CEA-normal, Ca-19-9 and Ca 125 normal. - IV ceftriaxone and metronidazole. - IV fluids -colonoscopy by Dr. Salmon: Ulcerated mass at the splenic flexure, obstructing, Jacqueline ink placed at the site. -strict NPO -patient will undergo exploratory laparotomy, bowel resection, possible ostomy and all indicated procedures on 06/23/2025. -NG tube to LIS PUD prophylaxis: Protonix Goals of care discussed with the patient and the daughter for over 25 minutes. Full code Time spent: 43 minutes Plan discussed with , patient, daughter and son. Plan discussed with: Patient, Daughter, Other (RN) Date of Service: Jun 22, 2025 Billing Provider: PASHA LANG MD Common Visit Codes: [id number] INP/OBS CARE(HIGH) PACO THOMAS RESIDENT Jun 22, 2025 19:04 PASHA LANG MD Jun 23, 2025 09:54
[2025-06-23] VITALS (42 sets, daily range): BP systolic 74–145; BP diastolic 45–100; PULSE 68–193; RESP 11–28; TEMP 97.7–99.5; O2SAT 90–100
[2025-06-23 06:45] LABS: Hematocrit 37.1 % (41.0-53.0); Hemoglobin 13.2 g/dL (13.5-17.5); Mean Corpuscular Hemoglobin 37.3 pg (28.0-32.0); Mean Corpuscular Volume 104.7 fL (80.0-100.0); Nucleated Red Blood Cells % 0.0 %
[2025-06-23 06:59] LABS: Chloride 104 mmol/L (98-107)
[2025-06-23 07:00] LABS: Anion Gap 14 (5-15); Carbon Dioxide 27 mmol/L (20-31)
[2025-06-23 07:05] LABS: BUN/Creatinine Ratio 9.7 (10.0-20.0); Blood Urea Nitrogen 9 mg/dL (9-23); Calcium 8.4 mg/dL (8.7-10.4); Glucose 126 mg/dL (74-106); Potassium 3.4 mmol/L (3.5-5.1); Sodium 145 mmol/L (136-145)
[2025-06-23] MEDS ORDERED: fentaNYL CITRATE 5 ML ONE (07:06)
[2025-06-23] MEDS ORDERED: PHENYLEPHRINE HCL 10 MG/ML VL ONE (07:07)
[2025-06-23] MEDS ORDERED: PROPOFOL 10 MG/ML 20 ML IV ONE (07:07)
[2025-06-23] MEDS ORDERED: HYDROmorphone HCL 2 MG/ML VL/or syr ONE (07:07)
[2025-06-23] MEDS ORDERED: POTASSIUM CHL 20MEQ/100ML 100 ML IV SCH (08:30)
[2025-06-23] MEDS ORDERED: ROCURONIUM 10MG/ML 10ML VIAL IV ONE ×2 (08:38→13:13)
[2025-06-23] MEDS ORDERED: SUGAMMADEX 200mg/2ml Vial (100MG/ML) IV ONE (14:00)
[2025-06-23] MEDS ORDERED: HYDROmorphone HCL 2 MG/ML VL/or syr IV PRN ×2 (14:30)
[2025-06-23] MEDS ORDERED: ONDANSETRON HCL 4 MG/2 ML VIAL IV PRN (14:30)
[2025-06-23] MEDS ORDERED: OXYCODONE W/ ACETAMINOPHEN 5/325MG TABLET PO PRN ×2 (14:30)
[2025-06-23] MEDS ORDERED: ACETAMINOPHEN IV 1000 MG/100ML (10MG/ML) IV PRN (14:30)
[2025-06-23] MEDS: BUPIVACAINE 0.25% INJ 50ML VIAL ONE (14:48)
[2025-06-23] MEDS: POVIDONE IODINE 10 % TOPICAL OINT 30GM TOP ONE (14:48)
[2025-06-23] MEDS: SUCCINYLCHOLINE CHLORIDE 20 MG/ML 10ML VIAL IV ONE (14:49)
[2025-06-23] MEDS: ceFAZolin 2 GM/D5W50ml 0 ML IV ONE (14:49)
--- NOTE | 2025-06-23 15:05 | DVHOP2 ---
Operative Report - 2 Report Details Date: 06/23/25 Preop Diagnosis: Large bowel obstruction due to splenic flexure mass Postop Diagnosis: Same Surgeon: Myron Brantley MD Anesthesiologist: Dr. Mendoza Anesthesia: General Drains: 19 Slovak round channel drain placed in the left gutter adjacent to the anastomosis and exiting on the right lower quadrant Consent: The patient was informed of the risks and benefits of the procedure. These include but are not limited to complications of anesthesia, postoperative infection, incomplete relief of symptoms, recurrence of symptoms, damage to blood vessels, nerves and tendons, deep venous thrombosis, pulmonary embolism and possible need for repeat surgery in the future. Complications: None Estimated Blood Loss: 100 mL Fluids: 3 L Findings: Obstructing mass at the splenic flexure, with tattoo proximal to it. Proximal colonic dilation and distal decompression. No signs of metastatic disease. Indications for Surgery: Large bowel obstruction due to splenic flexure mass. Colonoscopy performed by Dr. Salmon unable to pass through the mass. Name of Procedure Performed Exploratory laparotomy, Segmental colectomy, splenic flexure takedown, hepatic flexure takedown, primary isoperistaltic stapled anastomosis, abdominal washout, drain placement Procedure Details Procedure Details: Upon arrival to the operating room the patient was transferred to the operating table and placed in the supine position with arms extended. General endotracheal anesthesia was induced. Patient was then placed in the lithotomy position. Time-out was observed. Patient was prepped and draped in the standard sterile surgical fashion with chlorhexidine over abdominal area and Betadine-Betadine on the perineal area. I then proceeded to make a midline laparotomy from xiphoid process to 3 cm below the umbilicus. I then placed retractors on the left abdominal wall, and proceeded to observe and palpate from the descending colon up to the splenic flexure. Immediately prior to the splenic flexure I saw the tattoo placed by GI during the colonoscopy, proximal to a mass that was right at the splenic flexure. I then proceeded to elevate the transverse colon cephalad and retract the small bowel to the right upper quadrant, covered in moist laparotomy pads, to expose our working area. I then started a lateral to medial approach on the descending colon/sigmoid colon junc tion, I retracted it medially and incised the white line of Toldt. I carried out this dissection all the way to the splenic flexure. I then proceeded to partly take the splenic flexure from the inferior aspect, until I could not reach anymore. I then directed my attention to the gastrocolic ligament, and proceeded to incise the gastrocolic ligament and opened up the lesser sac, working my way towards the splenic flexure. Once the gastrocolic ligament was completely opened, I was able to have a better visualization from the lower aspect of the splenic flexure and took down the entire splenic flexure. Then with a combination of blunt finger dissection and cautery I was able to carefully dissect the colon off of Gerota's fascia. Ureter was clearly visible at the pelvic brim, and it was unharmed. Once the colon was midline, I retracted it up, putting some tension on it and was able to visualize the left colic artery. At this point I decided to perform a segmental colon resection. I made a mesenteric rent adjacent to the base of the left colic artery, and then was able to double clamp the artery, once proximal once distal, I utilized Metzenbaum scissors to cut the artery. I then placed 2, 0 silk ties at the proximal left colic stump, tied it down and removed the clamp. Left colic artery was hemostatic. I then carried this mesenteric rent vertically up towards the descending colon wall at about the midportion of the descending colon. I then transected distally at mid descending colon with a 75 mm blue lo ad MIGUEL A. Now I directed my attention to the transverse colon, proximal to the mass. And utilizing retraction I was able to identify the left branch of the middle colic artery. I then made a mesenteric rent right at its base, and proceeded to clamp it both distal and proximal. Metzenbaum scissors were used to transected. I then ligated with 2, 0 silk ties the proximal artery stump. Clamp was removed and it was hemostatic. I then utilized the Harmonic device to take the mesocolon, right at its base where it was loosely/see through peritoneum. This I encountered the venous drainage from the resected segment of colon, it was isolated, tied with 0 silk and cut. I then completed the mesocolon resection. Specimen was then passed off for pathology. I then resected the omentum off of the proximal 3rd of transverse colon adjacent to the resected transverse colon with harmonic and passed it off for pathology also. I then proceeded to inspect the retroperitoneal floor, retroperitoneum and Gerota's fascia was intact, as well as the left ureter. I then proceeded to inspect the entire colon I found a serosal tear at the distal descending colon approximately 1-1/2 cm in length, serosal tear was imbricated with 3-0 Vicryl suture in running fashion. I also noted another serosal tear on the anterior mesenteric border of the 1st 3rd of the transverse colon, it was a proximally 3 cm in length, it was also imbricated with 3-0 Vicryl suture in running fashion. The rest of the colon looked good. I then took a look at the liver, no signs of metastatic disease seen. Given that both the proximal and distal quadrants of the colon look healthy and well perfused I decided to perform an isoperistaltic anastomosis. Before the anastomosis had a mobilize the sigmoid colon off of the retroperitoneum, I did this carefully and in the avascular plane. I then had to finish opening the gastrocolic ligament entirely towards the hepatic flexure, and I took down the hepatic flexure, to be able to mobilize and oppose both colonic ends without tension. I then placed 2 stay sutures of 3-0 silk at the anti mesenteric border of both the transverse and descending colon, and secured them in place. I then made rent on both colonic limbs, large enough to pass the limbs of the stapler. The proximal limb was decompressed using the rent, and we drain 1-2 L of enteric content, and had minimal spillage, but we had protected the peritoneal cavity with towels. I then performed an isoperistaltic colocolonic anastomosis utilizing a 75 mm MIGUEL A blue load. Common channel was inspected, it was hemostatic, and a proximally 2-3 cm in length. Anastomosis was tension-free, well-perfused and with adequate common channel size. The common channel enterotomy was closed with a running 3-0 Vicryl. I a limb of omentum, to patch it over the anastomosis and common channel closure. I then placed 3 seromuscular interrupted sutures on both limbs of the anastomosis, laid the limb of omentum over and tied the sutures over the top, effectively patching the anastomosis with the omentum. I then proceeded to inspect the resected area for any signs of bleeding, there was none. It was completely hemostatic. I then placed a 19 Slovak round channel drain on the left gutter adjacent to the anastomosis and exiting through the right lower quadrant, drain secured in place with a 2-0 nylon. I then proceeded to wash out the peritoneal cavity copiously until effluent was clear. When I then reinspected our operative site for any signs of bleeding, again it was hemostatic. We then redraped for clean closure. I then closed the fascia with running #1 PDS x2 and tied at the center. I then washed out the subcu tissue with Betadine and sterile saline. I bovied several oozing spots the subcu tissue, achieved hemostasis. I then closed the skin with petey. All counts complete and correct at the end of the procedure. Sacha dressing was placed over the incision. Patient tolerated the procedure well and was transferred to PACU in stable condition. Specimen: Segmental colectomy containing splenic flexure mass Transverse colon omentum Condition Stable Disposition Still a Patient MYRON RAY MD Jun 23, 2025 15:05
[2025-06-23 16:14] LABS: Base Excess -4.7 mmol/L (-2.0-3.0)
--- NOTE | 2025-06-23 16:56 | DVH ---
CHEST RADIOGRAPH Indication: TACHYCARDIAC POST SX Technique: XY CHEST XRAY 1 VIEW COMPARISON: 06/22/2025 FINDINGS: Nasogastric tube projects towards the distal stomach. The cardiac silhouette is enlarged. The lungs demonstrate bilateral patchy airspace opacities. The pu lmonary vasculature is prominent. Small bilateral pleural effusions. There is no pneumothorax. IMPRESSION: Cardiomegaly with pulmonary vascular congestion and bilateral patchy airspace opacities. Small bilateral pleural effusions.
[2025-06-23] MEDS: FUROSEMIDE 40 MG/4 ML VIAL IV ONE (18:00)
[2025-06-23] MEDS: ACETAMINOPHEN 650 mg PER 20.3 mL UD GT SCH (18:00)
[2025-06-23] MEDS: ADENOSINE 6 MG/2 ML INJ IV ONE (18:04)
[2025-06-23] MEDS: SODIUM CHLORIDE 0.9% 500 ML IV ONE (18:05)
[2025-06-23] MEDS: POTASSIUM CHL 20MEQ/100ML 100 ML IV SCH (18:16)
--- NOTE | 2025-06-23 18:52 | DVHPNRES ---
Progress Note Date Seen: Jun 23, 2025 Resident Creating Document: PACO THOMAS RESIDENT Medical Necessity Reason Pt with a Central, PICC or Fol: No (RN) Subjective Review of Systems Patient is a 79-year-old male with a medical history of hypertension,, thrombocytosis since to the ER with a chief complaint of abdominal pain and constipation with the last 2 weeks. Patient has a complaint daughter who translated and reported that the patient has had abdominal pain for the last 2 weeks associated with a difficulty in passing stools. Initially patient was passing very hard stools with straining to point that he would have sweating while defecation. In the last few days patient has been passing loose watery stools and his last bowel movement was 2 days ago. They also reported 2 episodes of vomiting about 4 days ago. Patient denies having a colonoscopy ever before and a couple of months ago he had some blood in stool. They deny any history of inflammatory bowel disease, colon cancer in the family. Patient denies any fever, night sweats, significant weight loss. Initial CT abdomen pelvis with the IV contrast showed narrowing near the splenic flexure of the colon with tiny surrounding nodes measuring up to 10 mm with wall thickening and fluid distention of ascending and transverse colon. Past medical history: As per HPI Past surgical history: none Social history: Patient lives with the family and denies smoking, alcohol, drug use Family history: No relevant history of colon cancer, inflammatory bowel disease Home medications: Plavix, valsartan 160 mg, atorvastatin 40 mg The patient was seen and examined at bedside. Overnight events were reviewed. The patient underwent bowel resection surgery yesterday. Was seen postoperatively,revealed tachycardia. ABG showed metabolic acidosis, EKG was normal. No new complaints reported. Objective vital signs Vital Sign Date Time Temp Pulse Resp B/P (MAP) Pulse Ox O2 Delivery O2 Flow Rate FiO2 06/23/25 18:15 136 19 96/57 (70) 97 06/23/25 17:30 99.0 99.0 06/23/25 16:32 7.0 58 06/23/25 16:19 Oxymizer Total Intake and Output 06/22/25 06/22/25 06/23/25 15:00 23:00 07:00 Intake Total 25 ml 100 ml 1100 ml Output Total 500 ml Balance 25 ml -400 ml 1100 ml medications Current Medications Medications Dose Ordered Sig/Babak Route Start Time Stop Time Status Last Admin Dose Admin Pantoprazole Sodium 40 mg DAILY IV 06/18/25 10:00 06/22/25 10:24 40 MG Ceftriaxone Sodium 50 ml @ 100 mls/hr DAILY@09 IV 06/18/25 09:00 06/22/25 09:00 100 MLS/HR Metronidazole 100 ml @ 100 mls/hr Q8HR IV 06/17/25 22:00 06/22/25 21:42 100 MLS/HR Ondansetron HCl 4 mg Q6HPRN PRN IV 06/17/25 19:30 06/22/25 16:37 4 MG Morphine Sulfate 2 mg Q6HPRN PRN IV 06/17/25 20:30 Hydromorphone HCl 0.25 mg Q6HR PRN IV 06/20/25 11:00 06/22/25 16:37 0.25 MG Labetalol HCl 10 mg Q6HPRN PRN IV 06/22/25 09:00 06/22/25 10:24 10 MG Potassium Chloride 100 ml @ 50 mls/hr Q2H IV 06/23/25 08:30 06/23/25 12:29 Cancel Acetaminophen 650 mg Q6HR GT 06/23/25 18:00 Ketorolac Tromethamine 15 mg Q8HR IV 06/23/25 22:00 06/28/25 21:59 Oxycodone/ Acetaminophen 1 tab Q4HP PRN PO 06/23/25 14:30 Oxycodone/ Acetaminophen 2 tab Q4HP PRN PO 06/23/25 14:30 Hydromorphone HCl 0.5 mg Q6HR PRN IV 06/23/25 14:30 Potassium Chloride 100 ml @ 50 mls/hr Q2H IV 06/23/25 18:00 06/23/25 21:59 06/23/25 18:16 50 MLS/HR Examination Pt is lying on bed General Appearance: Alert, Oriented X3, Cooperative, Mild distress HEENT: Atraumatic, Mucous membranes moist/pink Respiratory: Clear to auscultation, Normal air movement, No added sounds Cardiovascular: Regular rate, Normal S1, Normal S2, No murmurs Abdominal/ : Surgical bandage placed Extremities: No edema, Normal pulses, No tenderness/swelling Skin: No Significant rash, except past surgical scars Neuro: Normal speech, sensorimotor deficits none Psych/Mental Status: Mental status NL, Mood NL 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 laboratory and microbiology Laboratory Tests 06/23/25 05:54 Test 06/23/25 05:54 Range/Units Serum Glucose 126 H 74-106 mg/dL Labs and/or images reviewed: Labs reviewed by me, Image(s) reviewed by me Problem List/Assessment/Plan Problem List/Assessment/Plan Acute intractable abdominal pain Possible large bowel obstruction with colonic neoplasm Severe constipation Acute colitis History of hypertensive heart disease - CT abdomen pelvis with the contrast showed irregular bowel wall narrowing in the region of the splenic flexure of the colon with surrounding lymph nodes up to 10 mm, highly concerning for colon neoplasm. -surgery and GI on board -The patient underwent colonoscopy (06/19/2025), but was unsuccessful due to poor bowel prep, GI will attempt another colonoscopy probably on 06/22/2025 after Golytely be administer thru NG tube. -Bowel preparation for repeat colonoscopy thru NG tube. Run GoLYTELY with a feeding pump via the NG tube at a rate of 5.3 ounces/hour NPO except medications Stop the GoLYTELY infusion if patient starts getting more distended, starts getting abdominal pain or feeling sick. -Surgery follow up. -CEA-normal, Ca-19-9 and Ca 125 normal. - IV ceftriaxone and metronidazole. - IV fluids -colonoscopy by Dr. Salmon: Ulcerated mass at the splenic flexure, obstructing, Jacqueline ink placed at the site. -pathology reports revealed adenocarcinoma of the colon -strict NPO -patient underwent Exploratory laparotomy, Segmental colectomy, splenic flexure takedown, hepatic flexure takedown, primary isoperistaltic stapled anastomosis, abdominal washout, drain placement -postoperative tachycardia was noted, conservative management IV fluid given. EKG repeated no significant finding -ABG reveals metabolic acidosis, conservative management given -NG tube to LIS PUD prophylaxis: Protonix Goals of care discussed with the patient and the daughter for over 25 minutes. Full code Time spent: 43 minutes Plan discussed with , patient, daughter and son. Plan discussed with: Patient, Other (RN) My Orders My Orders Orders - PACO THOMAS RESIDENT Procedure Category Date Status Time Potassium Chl PHA 06/23/25 In Process 20meq/100ml 18:00 Dietary Evaluation Review Comments: Advance to diet texture as tolerated when medically feasible Encourage and monitor intakes to meet his needs at least at 75% Expected Outcomes/Goals: maintain BW Date of Service: Jun 23, 2025 Billing Provider: PASHA LANG MD Common Visit Codes: [id number] INP/OBS CARE(HIGH) PACO THOMAS RESIDENT Jun 23, 2025 18:52 PASHA LANG MD Jun 24, 2025 11:49
--- NOTE | 2025-06-23 19:19 | DVHPN2 ---
Progress Note - Dictate Date Seen: Jun 23, 2025 Medical Necessity Reason Pt with a Central, PICC or Fol: No (RN) Subjective Notified by pathologist that my biopsies of the splenic flexure mass showed adenocarcinoma He underwent laparotomy today with segmental colectomy hepatic and splenic flexure takedown and drain placement vital signs Vital Sign Date Time Temp Pulse Resp B/P (MAP) Pulse Ox O2 Delivery O2 Flow Rate FiO2 06/23/25 18:15 136 19 96/57 (70) 97 06/23/25 17:30 99.0 99.0 06/23/25 16:32 7.0 58 06/23/25 16:19 Oxymizer Total Intake and Output 06/22/25 06/22/25 06/23/25 15:00 23:00 07:00 Intake Total 25 ml 100 ml 1100 ml Output Total 500 ml Balance 25 ml -400 ml 1100 ml medications Current Medications Medications Dose Ordered Sig/Babak Route Start Time Stop Time Status Last Admin Dose Admin Pantoprazole Sodium 40 mg DAILY IV 06/18/25 10:00 06/22/25 10:24 40 MG Ceftriaxone Sodium 50 ml @ 100 mls/hr DAILY@09 IV 06/18/25 09:00 06/22/25 09:00 100 MLS/HR Metronidazole 100 ml @ 100 mls/hr Q8HR IV 06/17/25 22:00 06/22/25 21:42 100 MLS/HR Ondansetron HCl 4 mg Q6HPRN PRN IV 06/17/25 19:30 06/22/25 16:37 4 MG Morphine Sulfate 2 mg Q6HPRN PRN IV 06/17/25 20:30 Hydromorphone HCl 0.25 mg Q6HR PRN IV 06/20/25 11:00 06/22/25 16:37 0.25 MG Labetalol HCl 10 mg Q6HPRN PRN IV 06/22/25 09:00 06/22/25 10:24 10 MG Potassium Chloride 100 ml @ 50 mls/hr Q2H IV 06/23/25 08:30 06/23/25 12:29 Cancel Acetaminophen 650 mg Q6HR GT 06/23/25 18:00 Ketorolac Tromethamine 15 mg Q8HR IV 06/23/25 22:00 06/28/25 21:59 Oxycodone/ Acetaminophen 1 tab Q4HP PRN PO 06/23/25 14:30 Oxycodone/ Acetaminophen 2 tab Q4HP PRN PO 06/23/25 14:30 Hydromorphone HCl 0.5 mg Q6HR PRN IV 06/23/25 14:30 Potassium Chloride 100 ml @ 50 mls/hr Q2H IV 06/23/25 18:00 06/23/25 21:59 06/23/25 18:16 50 MLS/HR objective GENERAL:Normal, HEENT:Normal, ABDOMEN:Abnormal (Distended (but much improved), soft, depressible, no scars, no tenderness) laboratory and microbiology Laboratory Tests 06/23/25 05:54 Test 06/23/25 05:54 Range/Units Serum Glucose 126 H 74-106 mg/dL Problems(with codes): (1) CVA (cerebral vascular accident) (2) Constipation (3) Suspected malignant neoplasm (4) Intractable abdominal pain (5) 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
[2025-06-23 19:48] LABS: Hematocrit 48.1 % (41.0-53.0); Hemoglobin 16.2 g/dL (13.5-17.5)
[2025-06-23 20:20] LABS: Potassium 4.1 mmol/L (3.5-5.1)
[2025-06-23 20:21] LABS: Anion Gap 14 (5-15); Carbon Dioxide 22 mmol/L (20-31)
[2025-06-23 20:26] LABS: BUN/Creatinine Ratio 6.3 (10.0-20.0); Blood Urea Nitrogen 9 mg/dL (9-23)
[2025-06-23 21:16] LABS: Calcium 7.8 mg/dL (8.7-10.4); Chloride 109 mmol/L (98-107); Glucose 130 mg/dL (74-106); Sodium 145 mmol/L (136-145)
--- NOTE | 2025-06-23 21:30 | DVH ---
CTA Chest with intravenous contrast INDICATION: rule out PE. Chest pain. COMPARISON: XY CHEST XRAY 1 VIEW on DOS: 06/23/25, XY CHEST XRAY 1 VIEW on DOS: 06/22/25, XY CHEST XR AY 1 VIEW on DOS: 06/19/25, XY CHEST PORTABLE on DOS: 06/19/25, CT CT ANGIO NECK CONTRAST on DOS: 11/08 11/30 TECHNIQUE: Multidetector spiral CTA of the chest was performed of the chest with intravenous contrast . PULMONARY ANGIOGRAPHY PROTOCOL was utilized using a bolus-tracking technique centered on the main p ulmonary artery. Axial, coronal and sagittal multiplanar and MIP reformats were performed. Radiation Dose : 1. Chest: CTDI volume is 26.95 mGy. Dose-length product is 959.92 mGy*cm The dose indicators for CT are the volume Computed Tomography (CT) Dose Index (CTDIvol) and the Dose Length Product (DLP), and are measured in units of mGy and mGy-cm, respectively. These indicators are not patient dose, but values generated from the CT scanner acquisition factors. The report includes radiation exposure data for exposures received during this examination. Findings: Pulmonary artery: No pulmonary embolism Lower neck: Normal thyroid. Lungs: Mild dependent atelectasis/consolidation. Mild diffuse interlobular septal thickening. Heart/Vascular Structures: Multichamber cardiac enlargement. Trace pericardial effusion. Lymph Nodes: No adenopathy Pleura: Trace bilateral pleural effusions. Musculoskeletal: No acute osseous abnormality. Soft tissues: Normal. Upper abdomen: Postsurgical changes in the upper abdomen with a few tiny locules of free air. IMPRESSION: No pulmonary embolism. Mild interstitial edema. Trace bilateral pleural effusions with mild bibasilar atelectatic changes. Through tiny locules of air in the upper abdomen, presumably postsurgical
[2025-06-23] MEDS: KETOROLAC TROMETH 30 MG/ML 1ML VIAL IV SCH (22:27)
[2025-06-24] VITALS (45 sets, daily range): BP systolic 88–117; BP diastolic 56–75; PULSE 96–128; RESP 14–31; TEMP 97.4–99.5; O2SAT 92–98
[2025-06-24 00:14] LABS: Lactic Acid w/Reflex 2.3 mmol/L (0.4-2.0)
[2025-06-24] MEDS ORDERED: SODIUM CHLORIDE 0.9% 500 ML IV ONE (00:45)
[2025-06-24 01:10] LABS: Base Excess -2.0 mmol/L (-2.0-3.0)
[2025-06-24] MEDS: SODIUM CHLORIDE 0.9% 1,000 ML IV ONE ×3 (01:19→17:11)
[2025-06-24 01:40] LABS: Hemoglobin 13.7 g/dL (13.5-17.5); Nucleated Red Blood Cells % 0.0 %
[2025-06-24 01:42] LABS: Hematocrit 40.2 % (41.0-53.0); Mean Corpuscular Hemoglobin 36.6 pg (28.0-32.0); Mean Corpuscular Volume 107.7 fL (80.0-100.0)
[2025-06-24 01:48] LABS: INR 1.31 (0.9-1.15); Partial Thromboplastin Time 27.7 SEC (24.5-34.5); Prothrombin Time 13.5 sec (9.3-11.8)
[2025-06-24 02:03] LABS: Alanine Aminotransferase 24 U/L (7-40); Alkaline Phosphatase 60 U/L (46-116); Anion Gap 11 (5-15); BUN/Creatinine Ratio 7.1 (10.0-20.0); Blood Urea Nitrogen 13 mg/dL (9-23); Carbon Dioxide 26 mmol/L (20-31); Magnesium 1.9 mg/dL (1.6-2.6); Potassium 4.4 mmol/L (3.5-5.1); Sodium 145 mmol/L (136-145)
[2025-06-24 02:08] LABS: Albumin 2.8 g/dL (3.2-4.8); Bilirubin, Total 2.0 mg/dL (0.2-1.0); Calcium 7.4 mg/dL (8.7-10.4); Chloride 108 mmol/L (98-107); Glucose 120 mg/dL (74-106); Total Protein 4.5 g/dL (5.7-8.2)
--- NOTE | 2025-06-24 06:44 | DVH ---
EXAM: XY CHEST PORTABLE HISTORY: WHEEZING COMPARISON: XY CHEST XRAY 1 VIEW on DOS: 06/23/25, XY CHEST XRAY 1 VIEW on DOS: 06/22/25, XY CHEST XR AY 1 VIEW on DOS: 06/19/25, XY CHEST PORTABLE on DOS: 06/19/25, XY CHEST XRAY 1 VIEW on DOS: 11/18/22, CT scan of the chest dated 06/23/2025 TECHNIQUE: Portable AP view of the chest was performed. FINDINGS: Lung volumes are quite low. Bilateral lower lobe infiltrates are better characterized on prior CT sca n. No pneumothorax or pulmonary edema. The heart is enlarged. IMPRESSION: 1. Bilateral lower lobe infiltrates and cardiomegaly, stable. 2. Low lung volumes, stable.
[2025-06-24 07:09] LABS: Hemoglobin 13.3 g/dL (13.5-17.5); Mean Corpuscular Volume 108.5 fL (80.0-100.0); Nucleated Red Blood Cells % 0.0 %
[2025-06-24 07:11] LABS: Hematocrit 39.6 % (41.0-53.0); Mean Corpuscular Hemoglobin 36.3 pg (28.0-32.0)
[2025-06-24 07:15] LABS: Alanine Aminotransferase 26 U/L (7-40); Alkaline Phosphatase 59 U/L (46-116); Anion Gap 13 (5-15); BUN/Creatinine Ratio 6.6 (10.0-20.0); Blood Urea Nitrogen 12 mg/dL (9-23); Carbon Dioxide 22 mmol/L (20-31); Magnesium 1.9 mg/dL (1.6-2.6); Potassium 4.3 mmol/L (3.5-5.1)
[2025-06-24] MEDS: IOHEXOL 350 MG/ML 100ML IJ ONE (07:18)
[2025-06-24 07:20] LABS: Albumin 2.9 g/dL (3.2-4.8); Bilirubin, Total 2.1 mg/dL (0.2-1.0); Calcium 7.4 mg/dL (8.7-10.4); Chloride 111 mmol/L (98-107); Glucose 119 mg/dL (74-106); Sodium 146 mmol/L (136-145); Total Protein 4.7 g/dL (5.7-8.2)
[2025-06-24 07:25] LABS: Lactic Acid w/Reflex 2.2 mmol/L (0.4-2.0)
[2025-06-24] MEDS ORDERED: MORPHINE SULFATE 4 MG/ML SYR/VIAL IV PRN (07:45)
[2025-06-24] MEDS: SODIUM CHLORIDE 0.9% 500 ML IV ONE ×2 (08:15→12:43)
--- NOTE | 2025-06-24 09:52 | DVH ---
History: Abdominal distention post op Comparison Study: XY KUB ABDOMEN SINGLE VIEW on DOS: 06/21/25, CT CT AB PEL WITH IV CON ONLY on DOS: 06/17/25 TECHNIQUE: Multidetector CT of the abdomen and pelvis was performed from lower chest to pubic symphys is without the use of intravenous contrast. Axial, coronal and sagittal multiplanar reformats were pe rformed by the technologist on a separate workstation. Radiation Dose Information: CT Dose: CTDI volume is 21.51 mGy. Dose-length product is 1378.22 mGy*cm All CT scans at this medical facility are performed using dose modulation techniques as appropriate t o a performed exam including the following: Automated exposure control was utilized; Adjustment of th e MA And/or KV according to patient size; And use of iterative reconstruction technique. FINDINGS: There are small pleural effusions with adjacent lower lobe atelectasis right greater than left. There is cardiomegaly with no significant pericardiac fusion. Mitral valvulus calcifications are present Liver: The liver is normal in size. Noncontrast appearance of liver. Gallbladder and biliary Tree: Unremarkable. Spleen: Unremarkable. Pancreas: Unremarkable. Adrenal Glands: Unremarkable. Kidneys: Mild diffuse cortical thickening of both kidneys with no hydronephrosis prior Bladder: Decompressed with morales catheter in place. Bowel: Patient is status post splenic flexure / proximal descending colon resection with colonic susanne stomosis. There is no likely that fluid collection or air around the colonic anastomosis. There are s cattered intraperitoneal air bubbles. There is fatty stranding and minimal intraperitoneal fluid with no loculated fluid collection to suggest abscess. There is a surgical drain in place with tip later al to the colonic anastomosis. There is diffuse bowel thickening of the ascending and transverse colo n with slight fluid distension. There is no small bowel distension. There is pneumotosis intestinalis . Lymphadenopathy: No enlarged lymph nodes. Vasculature: The visualized abdominal aorta is normal in size and caliber. Evaluation of the vascular structures is limited due to lack of intravenous contrast. Pelvic Organs: Unremarkable. Musculoskeletal: No acute osseous abnormality. Soft tissues: Fat containing left inguinal hernia. IMPRESSION: 1. Status post splenic flexure / proximal descending colon resection and primary colo-colonic anastom osis. No surrounding loculated fluid collection or air to suggest anastomosis leak . 2. Slight distension and diffuse wall thickening of the upstream colon involving the transverse and a scending colon suggestive of acute colitis. 3. Fat stranding and minimal intraperitoneal fluid and scattered foci of extraluminal air likely post operative in nature . No organized fluid collection to suggest abscess .
[2025-06-24] MEDS: SODIUM CHLORIDE 0.9% 1,000 ML IV SCH (11:11)
--- NOTE | 2025-06-24 11:26 | DVHPN2 ---
Progress Note - Surgical Date Seen: Jun 24, 2025 Post op day Post op day: 1 Subjective Patient reports: No new complaints (Patient complaining of postsurgical pain, has a NG tube, no complaints of abdominal distention, had 2 bowel movements after the surgery) Review of Systems: Deferred Objective Vital signs Vital Sign Date Time Temp Pulse Resp B/P (MAP) Pulse Ox O2 Delivery O2 Flow Rate FiO2 06/24/25 10:39 116 24 102/61 06/24/25 08:30 94 06/24/25 08:00 98.7 98.7 06/24/25 08:00 Nasal Cannula* 4 36 Total Intake and Output 06/23/25 06/23/25 06/24/25 15:00 23:00 07:00 Intake Total 250 ml 500 ml 1200 ml Output Total 400 ml 330 ml Balance 250 ml 100 ml 870 ml Medications Current Medications Medications Dose Ordered Sig/Babak Route Start Time Stop Time Status Last Admin Dose Admin Pantoprazole Sodium 40 mg DAILY IV 06/18/25 10:00 06/24/25 09:23 40 MG Ceftriaxone Sodium 50 ml @ 100 mls/hr DAILY@09 IV 06/18/25 09:00 06/24/25 09:22 100 MLS/HR Metronidazole 100 ml @ 100 mls/hr Q8HR IV 06/17/25 22:00 06/24/25 06:00 100 MLS/HR Ondansetron HCl 4 mg Q6HPRN PRN IV 06/17/25 19:30 06/22/25 16:37 4 MG Hydromorphone HCl 0.25 mg Q6HR PRN IV 06/20/25 11:00 06/24/25 10:09 0.25 MG Labetalol HCl 10 mg Q6HPRN PRN IV 06/22/25 09:00 06/22/25 10:24 10 MG Potassium Chloride 100 ml @ 50 mls/hr Q2H IV 06/23/25 08:30 06/23/25 12:29 Cancel Acetaminophen 650 mg Q6HR GT 06/23/25 18:00 Oxycodone/ Acetaminophen 1 tab Q4HP PRN PO 06/23/25 14:30 Oxycodone/ Acetaminophen 2 tab Q4HP PRN PO 06/23/25 14:30 Hydromorphone HCl 0.5 mg Q6HR PRN IV 06/23/25 14:30 Morphine Sulfate 2 mg Q6HPRN PRN IV 06/24/25 07:45 Sodium Chloride 1,000 ml @ 120 mls/hr Q8H20M IV 06/24/25 10:15 Laboratory Laboratory Tests 06/24/25 06:07 Test 06/24/25 06:07 Range/Units Serum Glucose 119 H 74-106 mg/dL Examination: GENERAL:Normal, HEENT:Normal (NG tube in place with very minimal output), ABDOMEN:Abnormal (Mild distention, midline wound with a marivel dressing in place, right lower quadrant drain with approximately 25 mL of serosanguineous output, appropriate tenderness, no rebound, no guarding) Problem List/Assessment/Plan Assessment and Plan Mr. Lebron is a 79-year-old male who presented to the ED with abdominal pain. CT was reviewed and shows colonic distention from cecum to splenic flexure, pass the splenic flexure there is an area of distal decompression, possibly caused by a mass. 06/23: Exploratory laparotomy, segmental colectomy, splenic flexure takedown, hepatic flexure takedown, primary stapled anastomosis, drain placement Interval: Patient is currently postop day 1 from exploratory laparotomy, segmental colon resection of splenic flexure mass. Patient doing well this morning, with some complaints of abdominal pain, but appropriate tenderness. CT scan of the abdomen and pelvis was done this a.m. apparently for abdominal distention, although his abdomen is less distended than yesterday and he is postop day 1 from a surgery, CT scan did not show anything abnormal other than postsurgical changes. He also had a CTA of the chest, that was also negative. He has pain medicines were held, for this apparent abdominal distention; this was highly inappropriate given that the patient is in the postop period and needs pain control. Patient has a NG tube to low intermittent suctioned he is okay to take p.o. pain medicines, nursing communication order was placed stating that if you give oral medicines clamp the NG tube for 30-60 minutes after. Patient also needs to ambulate and be out of bed, he will also need incentive spirometry. Patient has not ANNE MARIE, this likely is due to his obstruction and inability to take p.o., coupled with NG tube suctioning and inadequate fluid resuscitation. 1. NPO except medications 2. NG tube to LIS 3. Okay for oral medicines, clamp NG tube for 30 to 60 minutes after medicine administration. If patient wants to ambulate NG tube can also be clamped for ambulation. 4. Pain regimen: Tylenol 650 mg p.o. every 6 hours, Toradol 15 mg IV every 8 hours, Percocet 5 and 10 mg p.o. PRN moderate and severe pain, Dilaudid 0.5 mg IV for breakthrough pain control 5. Incentive spirometry 6. Strip drain b.i.d. and prn, empty and record drain output b.i.d. and p.r.n. 7. Out of bed and ambulate 8. Maintain Ray due to ANNE MARIE 9. IV fluids: Normal saline at 120 mL/hour 10. Continue with ceftriaxone and metronidazole for 4 days postop, until 06/28 11. A.m. labs: CBC, BMP, magnesium level, phosphate level My Orders My Orders Orders - JEANMARIE RAY MD Procedure Category Date Status Time Npo Except For JULIETTE 06/23/25 In Process Medications 14:21 Npo (Nothing By DIET 06/23/25 Transmitted Mouth) Diet Dinner Acetaminophen PHA 06/23/25 In Process Solution Oral 18:00 Oxycodone W/ Acet PHA 06/23/25 In Process 5/325mg Tab (Percocet 14:30 Oxycodone W/ Acet PHA 06/23/25 In Process 5/325mg Tab (Percocet 14:30 Hydromorphone PHA 06/23/25 In Process Injection (Dilaudid 14:30 Sodium Chloride 0.9% PHA 06/24/25 In Process 10:15 Refer To Physical JULIETTE 06/24/25 In Process Therapy 10:19 Communication Order ORDERS 06/24/25 Transmitted 11:07 Communication Order ORDERS 06/24/25 Transmitted 11:07 Complete Blood Count LAB 06/25/25 Verified 04:00 Basic Metabolic Panel LAB 06/25/25 Verified 04:00 Magnesium LAB 06/25/25 Verified 04:00 Phosphorus LAB 06/25/25 Verified 04:00 Out Of Bed Ambulate JULIETTE 06/24/25 In Process 11:11 Plan discussed with Plan discussed with: Patient, Daughter Visit Coding Surgery Date of Service if different f: Jun 24, 2025 Billing Provider: JEANMARIE RAY MD Surgery Visit Codes: [id number] INP/OBS CARE(HIGH) JEANMARIE RAY MD Jun 24, 2025 11:26
[2025-06-24] MEDS ORDERED: CLINIMIX PER PHARMACY 0 ML IV SCH (12:45)
--- NOTE | 2025-06-24 13:44 | DVHPN2 ---
Progress Note - Dictate Date Seen: Jun 24, 2025 Medical Necessity Reason Pt with a Central, PICC or Fol: No (RN) Subjective Postop day 1. S/P resection of splenic flexure tumor Patient has had two bowel movements NG tube output is minimal Mild abdominal distention and discomfort Notified by pathologist that my biopsies of the splenic flexure mass showed adenocarcinoma vital signs Vital Sign Date Time Temp Pulse Resp B/P (MAP) Pulse Ox O2 Delivery O2 Flow Rate FiO2 06/24/25 13:00 111 30 89/60 (70) 94 06/24/25 12:00 Nasal Cannula* 4 36 06/24/25 12:00 97.6 97.6 Total Intake and Output 06/23/25 06/23/25 06/24/25 15:00 23:00 07:00 Intake Total 250 ml 500 ml 1200 ml Output Total 400 ml 330 ml Balance 250 ml 100 ml 870 ml medications Current Medications Medications Dose Ordered Sig/Babak Route Start Time Stop Time Status Last Admin Dose Admin Pantoprazole Sodium 40 mg DAILY IV 06/18/25 10:00 06/24/25 09:23 40 MG Ceftriaxone Sodium 50 ml @ 100 mls/hr DAILY@09 IV 06/18/25 09:00 06/24/25 09:22 100 MLS/HR Metronidazole 100 ml @ 100 mls/hr Q8HR IV 06/17/25 22:00 06/24/25 06:00 100 MLS/HR Ondansetron HCl 4 mg Q6HPRN PRN IV 06/17/25 19:30 06/22/25 16:37 4 MG Hydromorphone HCl 0.25 mg Q6HR PRN IV 06/20/25 11:00 06/24/25 10:09 0.25 MG Labetalol HCl 10 mg Q6HPRN PRN IV 06/22/25 09:00 06/22/25 10:24 10 MG Potassium Chloride 100 ml @ 50 mls/hr Q2H IV 06/23/25 08:30 06/23/25 12:29 Cancel Acetaminophen 650 mg Q6HR GT 06/23/25 18:00 06/24/25 11:20 650 MG Oxycodone/ Acetaminophen 1 tab Q4HP PRN PO 06/23/25 14:30 Oxycodone/ Acetaminophen 2 tab Q4HP PRN PO 06/23/25 14:30 Hydromorphone HCl 0.5 mg Q6HR PRN IV 06/23/25 14:30 Morphine Sulfate 2 mg Q6HPRN PRN IV 06/24/25 07:45 Sodium Chloride 1,000 ml @ 120 mls/hr Q8H20M IV 06/24/25 10:15 06/24/25 11:11 120 MLS/HR Amino Acids 0 ml @ 0 mls/hr PER PHARMACY IV 06/24/25 12:45 UNV objective GENERAL:Normal, HEENT:Normal, ABDOMEN:Abnormal binder in place, dressing is dry, soft, Extremities without clubbing cyanosis or edema Neuro alert oriented x3 with no focal deficit laboratory and microbiology Laboratory Tests 06/24/25 06:07 Test 06/24/25 06:07 Range/Units Serum Glucose 119 H 74-106 mg/dL Problems(with codes): (1) 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
[2025-06-24] MEDS: ENOXAPARIN SOD 40 MG/0.4 ML SYRINGE SC ONE (14:25)
[2025-06-24 14:28] LABS: Potassium 4.6 mmol/L (3.5-5.1)
[2025-06-24 14:29] LABS: Anion Gap 11 (5-15); Carbon Dioxide 23 mmol/L (20-31)
[2025-06-24 14:34] LABS: BUN/Creatinine Ratio 11.0 (10.0-20.0); Blood Urea Nitrogen 20 mg/dL (9-23)
[2025-06-24 14:50] LABS: Calcium 6.8 mg/dL (8.7-10.4); Chloride 113 mmol/L (98-107); Glucose 119 mg/dL (74-106); Sodium 147 mmol/L (136-145)
[2025-06-24] MEDS: DOXYCYCLINE 100MG/100ML 100 ML IV SCH (15:20)
[2025-06-24 15:38] LABS: Magnesium 1.8 mg/dL (1.6-2.6)
[2025-06-24] MEDS: MAGNESIUM SULFATE 1GM/100ML 100 ML IV ONE (17:27)
[2025-06-24] MEDS: AMINO ACID INFUSION IN D10W 1,000 ML IV SCH (21:33)
[2025-06-24] MEDS: FUROSEMIDE 20 MG/2 ML VIAL IV ONE (23:06)
--- NOTE | 2025-06-24 23:16 | DVHPNRES ---
Progress Note Date Seen: Jun 24, 2025 Resident Creating Document: JHHumaJLASHA Sue RESIDENT Medical Necessity Reason Pt with a Central, PICC or Fol: No (RN) Subjective Review of Systems Patient seen and examined at the bedside Status post exploratory laparotomy day 1 Patient's abdomen is adequately tender, mildly distended, CT abdomen pelvis was done which did not show any leak Patient remained to be tachycardic, fluids were given, tachycardia improved and blood pressure improved Urine output noted to be low, challenge with 20 mg of Lasix Objective vital signs Vital Sign Date Time Temp Pulse Resp B/P (MAP) Pulse Ox O2 Delivery O2 Flow Rate FiO2 06/24/25 23:06 117/56 06/24/25 22:00 105 06/24/25 22:00 26 96 06/24/25 20:00 97.8 97.8 06/24/25 20:00 Nasal Cannula* 4 36 Total Intake and Output 06/23/25 06/23/25 06/24/25 15:00 23:00 07:00 Intake Total 250 ml 500 ml 1200 ml Output Total 400 ml 330 ml Balance 250 ml 100 ml 870 ml medications Current Medications Medications Dose Ordered Sig/Babak Route Start Time Stop Time Status Last Admin Dose Admin Pantoprazole Sodium 40 mg DAILY IV 06/18/25 10:00 06/24/25 09:23 40 MG Ceftriaxone Sodium 50 ml @ 100 mls/hr DAILY@09 IV 06/18/25 09:00 06/24/25 09:22 100 MLS/HR Metronidazole 100 ml @ 100 mls/hr Q8HR IV 06/17/25 22:00 06/24/25 21:33 100 MLS/HR Ondansetron HCl 4 mg Q6HPRN PRN IV 06/17/25 19:30 06/22/25 16:37 4 MG Hydromorphone HCl 0.25 mg Q6HR PRN IV 06/20/25 11:00 06/24/25 10:09 0.25 MG Labetalol HCl 10 mg Q6HPRN PRN IV 06/22/25 09:00 06/22/25 10:24 10 MG Potassium Chloride 100 ml @ 50 mls/hr Q2H IV 06/23/25 08:30 06/23/25 12:29 Cancel Acetaminophen 650 mg Q6HR GT 06/23/25 18:00 06/24/25 17:06 650 MG Hydromorphone HCl 0.5 mg Q6HR PRN IV 06/23/25 14:30 Morphine Sulfate 2 mg Q6HPRN PRN IV 06/24/25 07:45 Amino Acids 0 ml @ 0 mls/hr PER PHARMACY IV 06/24/25 12:45 Doxycycline Hyclate 100 ml @ 50 mls/hr Q12H IV 06/24/25 13:45 06/24/25 15:20 50 MLS/HR Enoxaparin Sodium 40 mg DAILY SC 06/25/25 10:00 Diagnostic Test (Pha) 1 strip Q6HR 06/25/25 00:00 Insulin Human Regular FOLLOW SLIDING SCALE Q6HR SC 06/25/25 00:00 Dextrose 50 ml UD IV 06/25/25 00:00 Amino Acids/ Electrolytes/ Dextrose 1,000 ml @ 41 mls/hr DAILY@2200 IV 06/24/25 22:00 06/24/25 21:33 41 MLS/HR Examination Gen - no pallor, no icterus, no cyanosis, no edema . Skin - Patients skin is warm and dry. HEENT - normocephalic, atraumatic, moist mucous membranes. Neck - full ROM, no LAD, no JVD Pulmonary - B/L clear breath sounds with left lower lobe rales, no wheezing cardiovascular - regular S1,S2 heard, no added sounds, no murmurs heard. peripheral pulses normal radial 2+, pedal 2+. capillary refill normal <2 secs. GI - status post exploratory laparotomy with a midline scar, wound VAC and MAURICE drain Neurological - Patient is A/O X 3 . Bilateral upper extremity strength 4/5, bilateral lower extremity strength 4/5, no facial droop, normal speech, no tremor, no sensory deficiets. laboratory and microbiology Laboratory Tests 06/24/25 14:10 06/24/25 06:07 Test 06/24/25 14:10 Range/Units Serum Glucose 119 H 74-106 mg/dL Microbiology Date/Time Source Procedure Growth Status 06/23/25 18:59 Nose MRSA Screen - Final Complete Problem List/Assessment/Plan Problem List/Assessment/Plan Acute intractable abdominal pain severe constipation Large bowel obstruction with mass at the splenic flexure s/p Exploratory laparotomy - Initial CT abdomen pelvis with the contrast showed irregular bowel wall narrowing in the region of the splenic flexure of the colon with surrounding lymph nodes up to 10 mm, highly concerning for colon neoplasm. - Initial colonoscopy unsuccessful d/t poor bowel prep, repeat colonoscopy done on 06/22 showed ulcerated mass at the distal transverse colon/ splenic flexure causing severe obstruction - patient underwent exploratory reportedly on 06/23 with Segmental colectomy, splenic flexure takedown, hepatic flexure takedown, primary isoperistaltic stapled anastomosis - pending biposy report - CEA-normal, Ca-19-9 and Ca 125 normal - IV ABX ceftriaxone and flagyl - postop CT abdomen pelvis done on 06/24, showed no anastomotic leak, sludge changes suggestive of acute colitis, minimal fluid and fat stranding likely postoperative changes - after the surgery patient has been NPO, started on PPN Acute hypoxic respiratory failure likely due to pulmonary edema Aspiration Pneumonia likely due to Gram+/-bacteria - while in the surgery patient got 3 L of fluid, postop patient was tachycardic with elevated lactic acid to be resuscitated with more fluids, given soft blood pressures we are judiciously using Lasix, urine output improving - IV antibiotics ceftriaxone and doxycycline - oxygen at 4 L/min History of hypertensive heart disease Concentric left ventricular hypertrophy - echo shows LVEF 65% - IV lasix for diuresis SIRS with organ dysfunction - resuscitated with IV fluids - IV antibiotics ceftriaxone, doxycycline, metronidazole ANNE MARIE likely prerenal due to VMN - IV fluids - decreased urine output, challenge with a IV Lasix low doses, improved urine output PUD prophylaxis: Protonix DVT prophylaxis: enoxaparin prophylactic dose Goals of care discussed with the patient and the daughter for over 27 minutes. Full code Critical care time spent: 56 minutes Plan discussed with Plan discussed with: Patient, Daughter, Other (JESSIKA Nava) My Orders My Orders Orders - LASHA OVALLE RESIDENT Procedure Category Date Status Time Morphine Sulfate PHA 06/24/25 In Process Injection 07:45 Incentive Spirometry ORDERS 06/24/25 Transmitted 08:02 Communication Order ORDERS 06/24/25 Transmitted 13:18 Doxycycline PHA 06/24/25 In Process 100mg/100ml 13:45 Enoxaparin Sodium PHA 06/25/25 In Process (Lovenox) 10:00 Sodium Chloride 0.9% PHA 06/24/25 In Process 16:30 Dietary Evaluation Review Comments: Advance to diet texture as tolerated when medically feasible Encourage and monitor intakes to meet his needs at least at 75% Expected Outcomes/Goals: maintain BW Date of Service: Jun 24, 2025 Billing Provider: PASHA LANG MD Common Visit Codes: [id number] INP/OBS CARE(HIGH) LASHA OVALLE RESIDENT Jun 24, 2025 23:16 PASHA LANG MD Jun 25, 2025 22:30
[2025-06-24] MEDS: FUROSEMIDE 20 MG/2 ML VIAL ONE (23:32)
[2025-06-25] VITALS (25 sets, daily range): BP systolic 86–128; BP diastolic 49–71; PULSE 82–113; RESP 19–30; TEMP 97.6–98.3; O2SAT 94–98
[2025-06-25] MEDS ORDERED: DEXTROSE (50%) 50ML SYRG IV SCH
[2025-06-25] MEDS: InsuLIN REG 1unit/0.01ml Soln (100units/ml) SC SCH (00:15)
[2025-06-25] MEDS: ACCU-CHEK COMFORT CURVE STRIP VI SCH (00:15)
[2025-06-25] MEDS: InsuLIN REG 1unit/0.01ml Soln (100units/ml) ONE (00:16)
[2025-06-25 04:10] LABS: Hematocrit 33.3 % (41.0-53.0); Hemoglobin 11.1 g/dL (13.5-17.5); Mean Corpuscular Hemoglobin 36.5 pg (28.0-32.0); Mean Corpuscular Volume 109.4 fL (80.0-100.0); Nucleated Red Blood Cells % 0.0 %
[2025-06-25 04:18] LABS: Anion Gap 11.0 (5-15); Carbon Dioxide 22.0 mmol/L (20-31); Potassium 3.7 mmol/L (3.5-5.1)
[2025-06-25 04:24] LABS: BUN/Creatinine Ratio 10.7 (10.0-20.0); Blood Urea Nitrogen 19.0 mg/dL (9-23); Calcium 6.8 mg/dL (8.7-10.4); Chloride 113.0 mmol/L (98-107); Glucose 163.0 mg/dL (74-106); Magnesium 2.2 mg/dL (1.6-2.6); Sodium 146.0 mmol/L (136-145)
[2025-06-25 04:31] LABS: Albumin 2.9 g/dL (3.2-4.8)
[2025-06-25] MEDS: CALCIUM GLUC 1,000mg/50ml-NS 50 ML IV ONE (06:00)
[2025-06-25] MEDS: POTASSIUM CHL 20MEQ/100ML 100 ML IV ONE (06:00)
[2025-06-25] MEDS: SODIUM CHLORIDE 0.9% 500 ML IV ONE (06:15)
[2025-06-25 06:49] LABS: Base Excess -1.7 mmol/L (-2.0-3.0)
[2025-06-25] MEDS: POTASSIUM PHOSPHATE 22 MEQ in SODIUM CHL 0.9% 100 ML IV ONE (09:41)
[2025-06-25] MEDS: ENOXAPARIN SOD 40 MG/0.4 ML SYRINGE SC SCH (09:42)
[2025-06-25] MEDS: METOPROLOL TARTRATE 25 MG TAB PO ONE (10:30)
--- NOTE | 2025-06-25 10:32 | DVHSR ---
APPROVED REPORT EXAM: Two-dimensional and M-mode echocardiogram with Doppler and color Doppler. Blood Pressure: 90/63 mmHg INDICATION Pulm Edema RISK FACTORS Height: 69, Weight: 194 DIMENSIONS LVDd4.1 (3.8-5.7cm)LA (2D) (1.9-4.0cm)Aortic Root3.8 (2.0-3.7cm) LVDs2.9 (2.5-4.0cm)LA (MM) (1.9-4.0cm)Aortic Cusp Exc1.9 (1.5-2.0cm) EF (%) 57.0 (55-70%)Rt. Atrium (1.9-4.0cm)Asc. Aorta cm Mitral Valve MitralMitral Stenosis E wave0.69m/sMV Mean GR.3mmHg A wave1.42m/sMV Peak GR.9mmHg E/A ratio0.52D MVAcm2 DECEL [id number] 1/2 [id number] IVRTmsDop MVA5.53cm2 Aortic Valve Aortic ValveAortic Stenosis V11.62m/Ronny Mean GR.6mmHg V21.74m/Ronny Peak GR.12mmHg LVOT Diameter1.7 (1.8-2.4cm)Doppler AVA2.11cm2 Tricuspid Valve TR Velocity2.78m/s [id number] Other Information Technically limited study due to high heart rate. Patient has abdominal binder on unable to do sub v iew. Conclusion Technically good study. Sinus rhythm. Concentric LVH. Aortic root enlargement. Mild mitral annular calcification. EF of 65% with normal RV function. Unremarkable Doppler. No pericardial effusion masses or vegetations.
--- NOTE | 2025-06-25 11:25 | DVH ---
CHEST RADIOGRAPH Indication: SOB Technique: XY CHEST XRAY 1 VIEW COMPARISON: None FINDINGS: The cardiac silhouette is enlarged. The lungs demonstrate bilateral patchy airspace opacities, left-g [id number]. The pulmonary vasculature is prominent. Small to moderate left and small right ple ural effusions. There is no pneumothorax. Nasogastric tube projects towards distal stomach /duodenum. IMPRESSION: As above
[2025-06-25 12:05] LABS: Hematocrit 34.0 % (41.0-53.0); Hemoglobin 10.4 g/dL (13.5-17.5)
[2025-06-25] MEDS: FUROSEMIDE 20 MG/2 ML VIAL IV ONE (13:00)
[2025-06-25] MEDS ORDERED: TPN PER PHARMACY 0 ML IV SCH (13:00)
--- NOTE | 2025-06-25 13:28 | DVHPN2 ---
Progress Note - Surgical Date Seen: Jun 25, 2025 Post op day Post op day: 2 Subjective Patient reports: Feels better (Still sore from the surgery but feeling better, had 5 bowel movements no blood, ambulated yesterday, passing gas) Review of Systems: Deferred Objective Vital signs Vital Sign Date Time Temp Pulse Resp B/P (MAP) Pulse Ox O2 Delivery O2 Flow Rate FiO2 06/25/25 12:00 97.8 94 27 107/63 (78) 96 97.8 06/25/25 12:00 Nasal Cannula* 3 32 Total Intake and Output 06/24/25 06/24/25 06/25/25 15:00 23:00 07:00 Intake Total 1300 ml 832 ml 828 ml Output Total 300 ml 480 ml Balance 1300 ml 532 ml 348 ml Medications Current Medications Medications Dose Ordered Sig/Babak Route Start Time Stop Time Status Last Admin Dose Admin Pantoprazole Sodium 40 mg DAILY IV 06/18/25 10:00 06/25/25 09:42 40 MG Ceftriaxone Sodium 50 ml @ 100 mls/hr DAILY@09 IV 06/18/25 09:00 06/25/25 09:15 100 MLS/HR Metronidazole 100 ml @ 100 mls/hr Q8HR IV 06/17/25 22:00 06/25/25 06:23 100 MLS/HR Ondansetron HCl 4 mg Q6HPRN PRN IV 06/17/25 19:30 06/22/25 16:37 4 MG Hydromorphone HCl 0.25 mg Q6HR PRN IV 06/20/25 11:00 06/24/25 10:09 0.25 MG Potassium Chloride 100 ml @ 50 mls/hr Q2H IV 06/23/25 08:30 06/23/25 12:29 Cancel Acetaminophen 650 mg Q6HR GT 06/23/25 18:00 06/25/25 11:47 650 MG Doxycycline Hyclate 100 ml @ 50 mls/hr Q12H IV 06/24/25 13:45 06/25/25 02:06 50 MLS/HR Enoxaparin Sodium 40 mg DAILY SC 06/25/25 10:00 06/25/25 09:42 40 MG Diagnostic Test (Pha) 1 strip Q6HR 06/25/25 00:00 06/25/25 12:20 1 STRIP Insulin Human Regular FOLLOW SLIDING SCALE Q6HR SC 06/25/25 00:00 06/25/25 12:22 4 UNITS Dextrose 50 ml UD IV 06/25/25 00:00 Metoprolol Tartrate 12.5 mg BID PO 06/25/25 22:00 Amino Acids 0 ml @ 0 mls/hr PER PHARMACY IV 06/25/25 13:00 UNV Laboratory Laboratory Tests 06/25/25 11:47 06/25/25 03:43 Test 06/25/25 03:43 Range/Units Serum Glucose 163 H 74-106 mg/dL Microbiology Date/Time Source Procedure Growth Status 06/23/25 18:59 Nose MRSA Screen - Final Complete Examination: GENERAL:Normal, ABDOMEN:Abnormal (Nondistended, soft, depressible, midline and incision with a marivel dressing in place, right lower quadrant drain with a proximally 15-20 mL of serosanguineous output) Labs and/or images reviewed: Labs reviewed by me (Leukocytosis 17.9 from 22, creatinine downtrending 1.77 from 1.82) Problem List/Assessment/Plan Assessment and Plan Mr. Lebron is a 79-year-old male who presented to the ED with abdominal pain. CT was reviewed and shows colonic distention from cecum to splenic flexure, pass the splenic flexure there is an area of distal decompression, possibly caused by a mass. 06/23: Exploratory laparotomy, segmental colectomy, splenic flexure takedown, hepatic flexure takedown, primary stapled anastomosis, drain placement Interval: Patient is currently postop day 2 from exploratory laparotomy, segmental colon resection of splenic flexure mass. Patient feeling better today, he ambulated yesterday, he had 5 bowel movements, not really hungry but asking for water for dry mouth. Primary team is going to start him on TPN, which I agree. Okay for ice chips and sips of water. 1. NPO except medications, ice chips and sips of water 2. NG tube to LIS 3. Okay for oral medicines, clamp NG tube for 30 to 60 minutes after medicine administration. If patient wants to ambulate NG tube can also be clamped for ambulation. 4. Pain regimen: Tylenol 650 mg p.o. every 6 hours, Toradol 15 mg IV every 8 hours, Percocet 5 and 10 mg p.o. PRN moderate and severe pain, Dilaudid 0.5 mg IV for breakthrough pain control 5. Incentive spirometry 6. Strip drain b.i.d. and prn, empty and record drain output b.i.d. and p.r.n. 7. Out of bed and ambulate 8. Maintain Ray due to ANNE MARIE 9. TPN 10. Continue with ceftriaxone and metronidazole for 4 days postop, until 06/28 11. A.m. labs: CBC, BMP, magnesium level, phosphate level Plan discussed with Plan discussed with: Patient, Daughter Visit Coding Surgery Date of Service if different f: Jun 25, 2025 Billing Provider: JEANMARIE RAY MD Surgery Visit Codes: [id number] INP/OBS CARE(HIGH) JEANMARIE RAY MD Jun 25, 2025 13:28
[2025-06-25] MEDS: LIDOCAINE 1% (LOCAL ANESTH.) PF 5ml SDV ID ONE (19:30)
[2025-06-25 19:35] LABS: Hematocrit 29.7 % (41.0-53.0); Hemoglobin 9.8 g/dL (13.5-17.5)
[2025-06-25] MEDS: METOPROLOL TARTRATE 25 MG TAB PO SCH (21:20)
[2025-06-25] MEDS: AMINO ACID INFUSION IN D10W 1,000 ML IV ONE (21:20)
--- NOTE | 2025-06-25 21:39 | DVHPN2 ---
Progress Note - Dictate Date Seen: Jun 25, 2025 Medical Necessity Reason Pt with a Central, PICC or Fol: No Subjective Postop day 2. S/P resection of splenic flexure tumor Patient has had multiple bowel movements NG tube output is minimal Mild abdominal distention and discomfort Notified by pathologist that my biopsies of the splenic flexure mass showed adenocarcinoma vital signs Vital Sign Date Time Temp Pulse Resp B/P (MAP) Pulse Ox O2 Delivery O2 Flow Rate FiO2 06/25/25 21:20 91 111/56 06/25/25 20:00 28 96 Nasal Cannula* 2 28 06/25/25 20:00 98.3 98.3 Total Intake and Output 06/24/25 06/24/25 06/25/25 15:00 23:00 07:00 Intake Total 1300 ml 832 ml 828 ml Output Total 300 ml 480 ml Balance 1300 ml 532 ml 348 ml medications Current Medications Medications Dose Ordered Sig/Babak Route Start Time Stop Time Status Last Admin Dose Admin Pantoprazole Sodium 40 mg DAILY IV 06/18/25 10:00 06/25/25 09:42 40 MG Ceftriaxone Sodium 50 ml @ 100 mls/hr DAILY@09 IV 06/18/25 09:00 06/25/25 09:15 100 MLS/HR Metronidazole 100 ml @ 100 mls/hr Q8HR IV 06/17/25 22:00 06/25/25 21:20 100 MLS/HR Ondansetron HCl 4 mg Q6HPRN PRN IV 06/17/25 19:30 06/22/25 16:37 4 MG Hydromorphone HCl 0.25 mg Q6HR PRN IV 06/20/25 11:00 06/24/25 10:09 0.25 MG Potassium Chloride 100 ml @ 50 mls/hr Q2H IV 06/23/25 08:30 06/23/25 12:29 Cancel Acetaminophen 650 mg Q6HR GT 06/23/25 18:00 06/25/25 17:37 650 MG Doxycycline Hyclate 100 ml @ 50 mls/hr Q12H IV 06/24/25 13:45 06/25/25 13:57 50 MLS/HR Enoxaparin Sodium 40 mg DAILY SC 06/25/25 10:00 06/25/25 09:42 40 MG Diagnostic Test (Pha) 1 strip Q6HR 06/25/25 00:00 06/25/25 17:36 1 STRIP Insulin Human Regular FOLLOW SLIDING SCALE Q6HR SC 06/25/25 00:00 06/25/25 12:22 4 UNITS Dextrose 50 ml UD IV 06/25/25 00:00 Metoprolol Tartrate 12.5 mg BID PO 06/25/25 22:00 06/25/25 21:20 12.5 MG Amino Acids 0 ml @ 0 mls/hr PER PHARMACY IV 06/25/25 13:00 Sodium Chloride 10 ml QSHIFT@10,22 IV 06/25/25 22:00 objective GENERAL:Normal, HEENT:Normal, ABDOMEN:Abnormal binder in place, dressing is dry, soft, Extremities without clubbing cyanosis or edema Neuro alert oriented x3 with no focal deficit laboratory and microbiology Laboratory Tests 06/25/25 18:20 06/25/25 03:43 Test 06/25/25 03:43 Range/Units Serum Glucose 163 H 74-106 mg/dL Problems(with codes): (1) 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
--- NOTE | 2025-06-25 21:46 | DVHPNRES ---
Progress Note Date Seen: Jun 25, 2025 Resident Creating Document: JHAJLASHA Sue RESIDENT Medical Necessity Reason Pt with a Central, PICC or Fol: No Subjective Review of Systems Patient seen and examined at the bedside Status post exploratory laparotomy day 1 Patient's abdomen is adequately tender, mildly distended, CT abdomen pelvis was done which did not show any leak Patient remained to be tachycardic, fluids were given, tachycardia improved and blood pressure improved Urine output noted to be low, challenge with 20 mg of Lasix Objective vital signs Vital Sign Date Time Temp Pulse Resp B/P (MAP) Pulse Ox O2 Delivery O2 Flow Rate FiO2 06/25/25 21:20 91 111/56 06/25/25 20:00 28 96 Nasal Cannula* 2 28 06/25/25 20:00 98.3 98.3 Total Intake and Output 06/24/25 06/24/25 06/25/25 15:00 23:00 07:00 Intake Total 1300 ml 832 ml 828 ml Output Total 300 ml 480 ml Balance 1300 ml 532 ml 348 ml medications Current Medications Medications Dose Ordered Sig/Babak Route Start Time Stop Time Status Last Admin Dose Admin Pantoprazole Sodium 40 mg DAILY IV 06/18/25 10:00 06/25/25 09:42 40 MG Ceftriaxone Sodium 50 ml @ 100 mls/hr DAILY@09 IV 06/18/25 09:00 06/25/25 09:15 100 MLS/HR Metronidazole 100 ml @ 100 mls/hr Q8HR IV 06/17/25 22:00 06/25/25 21:20 100 MLS/HR Ondansetron HCl 4 mg Q6HPRN PRN IV 06/17/25 19:30 06/22/25 16:37 4 MG Hydromorphone HCl 0.25 mg Q6HR PRN IV 06/20/25 11:00 06/24/25 10:09 0.25 MG Potassium Chloride 100 ml @ 50 mls/hr Q2H IV 06/23/25 08:30 06/23/25 12:29 Cancel Acetaminophen 650 mg Q6HR GT 06/23/25 18:00 06/25/25 17:37 650 MG Doxycycline Hyclate 100 ml @ 50 mls/hr Q12H IV 06/24/25 13:45 06/25/25 13:57 50 MLS/HR Enoxaparin Sodium 40 mg DAILY SC 06/25/25 10:00 06/25/25 09:42 40 MG Diagnostic Test (Pha) 1 strip Q6HR 06/25/25 00:00 06/25/25 17:36 1 STRIP Insulin Human Regular FOLLOW SLIDING SCALE Q6HR SC 06/25/25 00:00 06/25/25 12:22 4 UNITS Dextrose 50 ml UD IV 06/25/25 00:00 Metoprolol Tartrate 12.5 mg BID PO 06/25/25 22:00 06/25/25 21:20 12.5 MG Amino Acids 0 ml @ 0 mls/hr PER PHARMACY IV 06/25/25 13:00 Sodium Chloride 10 ml QSHIFT@10,22 IV 06/25/25 22:00 Examination Gen - no pallor, no icterus, no cyanosis, no edema . Skin - Patients skin is warm and dry. HEENT - normocephalic, atraumatic, moist mucous membranes. Neck - full ROM, no LAD, no JVD Pulmonary - B/L clear breath sounds with left lower lobe rales, no wheezing cardiovascular - regular S1,S2 heard, no added sounds, no murmurs heard. peripheral pulses normal radial 2+, pedal 2+. capillary refill normal <2 secs. GI - status post exploratory laparotomy with a midline scar, wound VAC and MAURICE drain Neurological - Patient is A/O X 3 . Bilateral upper extremity strength 4/5, bilateral lower extremity strength 4/5, no facial droop, normal speech, no tremor, no sensory deficiets. laboratory and microbiology Laboratory Tests 06/25/25 18:20 06/25/25 03:43 Test 06/25/25 03:43 Range/Units Serum Glucose 163 H 74-106 mg/dL Microbiology Date/Time Source Procedure Growth Status 06/23/25 18:59 Nose MRSA Screen - Final Complete Problem List/Assessment/Plan Problem List/Assessment/Plan Acute intractable abdominal pain severe constipation Large bowel obstruction with mass at the splenic flexure s/p Exploratory laparotomy - Initial CT abdomen pelvis with the contrast showed irregular bowel wall narrowing in the region of the splenic flexure of the colon with surrounding lymph nodes up to 10 mm, highly concerning for colon neoplasm. - Initial colonoscopy unsuccessful d/t poor bowel prep, repeat colonoscopy done on 06/22 showed ulcerated mass at the distal transverse colon/ splenic flexure causing severe obstruction - patient underwent exploratory reportedly on 06/23 with Segmental colectomy, splenic flexure takedown, hepatic flexure takedown, primary isoperistaltic stapled anastomosis - pending biposy report - CEA-normal, Ca-19-9 and Ca 125 normal - IV ABX ceftriaxone and flagyl - postop CT abdomen pelvis done on 06/24, showed no anastomotic leak, sludge changes suggestive of acute colitis, minimal fluid and fat stranding likely postoperative changes - after the surgery patient has been NPO with NG to LIS, - started on sips of water and TPN Acute hypoxic respiratory failure likely due to pulmonary edema Aspiration Pneumonia likely due to Gram+/-bacteria - while in the surgery patient got 3 L of fluid, postop patient was tachycardic with elevated lactic acid to be resuscitated with more fluids, given soft blood pressures we are judiciously using Lasix, urine output improving - IV antibiotics ceftriaxone and doxycycline - oxygen requirement decreased to 2L/min History of hypertensive heart disease Concentric left ventricular hypertrophy paroxysmal SVT - echo shows LVEF 65% - IV lasix for diuresis - started on metoprolol tartarate 12.5mg bid SIRS with organ dysfunction - resuscitated with IV fluids - IV antibiotics ceftriaxone, doxycycline, metronidazole ANNE MARIE likely prerenal due to VMN - kidney function improving - IV fluids - decreased urine output, challenge with a IV Lasix low doses, improved urine output PICC line right arm placed on 06/25 PUD prophylaxis: Protonix DVT prophylaxis: held enoxaparin because of decreased H&H Goals of care discussed with the patient and the daughter for over 28 minutes. Full code Critical care time spent: 59 minutes Plan discussed with Plan discussed with: Patient, Daughter, Other (JESSIKA Scott) My Orders My Orders Orders - LASHA OVALLE RESIDENT Procedure Category Date Status Time Notify Provider NOTICE 06/25/25 Transmitted Malnutrition 09:24 Chest Xray 1 View XY 06/25/25 Resulted 10:26 Metoprolol Tartrate PHA 06/25/25 In Process Tablet (Lopressor Ta 22:00 Tpn Per Pharmacy PHA 06/25/25 In Process 13:00 Pt Request For Service PT 06/25/25 Logged 12:54 Amino Acid Infusion PHA 06/25/25 In Process In D10w (Clinimix 4. 22:00 Tpn Per Pharmacy JULIETTE 06/25/25 In Process 22:00 Chest Xray 1 View XY 06/26/25 Logged 04:00 Basic Metabolic Panel LAB 06/26/25 Verified 04:00 Dietary Evaluation Review Comments: Advance to diet texture as tolerated when medically feasible Encourage and monitor intakes to meet his needs at least at 75% Expected Outcomes/Goals: maintain BW Date of Service: Jun 25, 2025 Billing Provider: PASHA LANG MD Common Visit Codes: [id number] INP/OBS CARE(HIGH) LASHA OVALLE RESIDENT Jun 25, 2025 21:46 PASHA LANG MD Jun 25, 2025 22:31
[2025-06-25] MEDS: SODIUM CHLOR 0.9% PF (SALINE LOCK) 10ML VIAL/SYR IV SCH (22:00)
[2025-06-26] VITALS (49 sets, daily range): BP systolic 82–199; BP diastolic 29–81; PULSE 85–118; RESP 13–35; TEMP 97.6–101.3; O2SAT 90–100
--- NOTE | 2025-06-26 03:00 | DVH ---
CHEST RADIOGRAPH Indication: NGT placement Technique: Single frontal view of the chest was obtained COMPARISON: XY CHEST XRAY 1 VIEW on DOS: 06/25/25, XY CHEST PORTABLE on DOS: 06/24/25, CT CT ANGIO CH EST CONTRAST on DOS: 06/23/25, XY CHEST XRAY 1 VIEW on DOS: 06/23/25, XY CHEST XRAY 1 VIEW on DOS: FINDINGS: Lines and Tubes: Enteric catheter terminates within the gastric lumen. Lungs: Mild bibasilar pulmonary airspace disease. Pleura: No effusion. No pneumothorax. Cardiomediastinal contours: Cardiomegaly. Bones: Unremarkable Pneumoperitoneum. IMPRESSION: 1. Enteric catheter terminates within the gastric lumen. 2. Bibasilar pulmonary airspace disease. 3. Cardiomegaly. 4. Pneumoperitoneum.
--- NOTE | 2025-06-26 05:25 | DVH ---
CHEST RADIOGRAPH Indication: NGT placement Technique: Single frontal view of the chest was obtained COMPARISON: XY CHEST PORTABLE on DOS: 06/26/25, XY CHEST XRAY 1 VIEW on DOS: 06/25/25, XY CHEST BIBI BLE on DOS: 06/24/25, CT CT ANGIO CHEST CONTRAST on DOS: 06/23/25, XY CHEST XRAY 1 VIEW on DOS: 06/23 FINDINGS: Lines and Tubes: Enteric catheter remains appropriately positioned within the gastric lumen. Lungs: Stable minimal bibasilar pulmonary airspace disease. Pleura: No effusion. No pneumothorax. Cardiomediastinal contours: Cardiomegaly. Bones: Unremarkable Pneumoperitoneum redemonstrated. IMPRESSION: 1. Enteric catheter remains appropriately positioned within the gastric lumen. 2. Stable minimal bibasilar pulmonary airspace disease. 3. Cardiomegaly. 4. Pneumoperitoneum.
[2025-06-26 05:40] LABS: Hemoglobin 9.4 g/dL (13.5-17.5); Nucleated Red Blood Cells % 0.0 %; Sodium 144 mmol/L (136-145)
[2025-06-26 05:41] LABS: Anion Gap 11 (5-15); Carbon Dioxide 22 mmol/L (20-31); Chloride 111 mmol/L (98-107); Potassium 3.3 mmol/L (3.5-5.1)
[2025-06-26 05:42] LABS: Hematocrit 27.9 % (41.0-53.0); Mean Corpuscular Hemoglobin 36.8 pg (28.0-32.0); Mean Corpuscular Volume 108.6 fL (80.0-100.0)
[2025-06-26 05:45] LABS: Calcium 7.1 mg/dL (8.7-10.4)
[2025-06-26 05:46] LABS: BUN/Creatinine Ratio 17.6 (10.0-20.0); Blood Urea Nitrogen 22 mg/dL (9-23)
[2025-06-26 05:47] LABS: Magnesium 2.0 mg/dL (1.6-2.6)
[2025-06-26 05:59] LABS: Glucose 144 mg/dL (74-106)
[2025-06-26] MEDS: POTASSIUM CHL 20MEQ/100ML 100 ML IV ONE ×2 (07:30→21:02)
[2025-06-26] MEDS: POTASSIUM PHOSPHATE 22 MEQ in SODIUM CHL 0.9% 100 ML IV ONE (08:30)
[2025-06-26 08:44] LABS: Iron 24.0 ug/dL (65-175)
[2025-06-26 08:52] LABS: Total Iron Binding Capacity 142.0 ug/dL (250-425)
[2025-06-26] MEDS: FOLIC ACID 1 MG in D5W 5% 50 ML INJ ONE (09:00)
[2025-06-26] MEDS: FUROSEMIDE 20 MG/2 ML VIAL IV ONE (09:15)
[2025-06-26] MEDS: FOLIC ACID 1 MG in D5W 5% 50 ML INJ SCH (10:00)
[2025-06-26 10:13] LABS: Alkaline Phosphatase 68.0 U/L (46-116); Triglycerides 120.0 mg/dL (< 150)
[2025-06-26 10:17] LABS: Alanine Aminotransferase 68.0 U/L (7-40); Albumin 2.7 g/dL (3.2-4.8); Bilirubin, Direct 1.6 mg/dL (<0.3); Bilirubin, Total 2.1 mg/dL (0.2-1.0); Total Protein 4.7 g/dL (5.7-8.2)
[2025-06-26] MEDS: CYANOCOBALAMIN (B-12) 1000 MCG/1 ML VIAL IM ONE (10:27)
[2025-06-26] MEDS: NEUTRA-PHOS TABLET PO SCH (10:27)
[2025-06-26 10:47] LABS: Hematocrit 27.8 % (41.0-53.0); Hemoglobin 9.3 g/dL (13.5-17.5)
[2025-06-26 11:09] LABS: INR 1.36 (0.9-1.15); Partial Thromboplastin Time 41.1 SEC (24.5-34.5); Prothrombin Time 14.0 sec (9.3-11.8)
--- NOTE | 2025-06-26 11:39 | DVH ---
Date: 06/26/2025 10:57 AM Examination: XY KUB ABDOMEN SINGLE VIEW History: abd sx Comparison: CT CT AB PEL WO CON-NO ORAL OR IV on DOS: 06/24/25, XY KUB ABDOMEN SINGLE VIEW on DOS: , CT CT AB PEL WITH IV CON ONLY on DOS: 06/17/25 TECHNIQUE: Frontal views of the abdomen was obtained. FINDINGS/IMPRESSION: Enteric tube tip projects over the expected region of the stomach. Suggestion of pneumoperitoneum. Left retrocardiac opacity. Paucity of bowel gas bowel gas pattern appears nonobstructive.
[2025-06-26] MEDS ORDERED: ROCURONIUM 10MG/ML 10ML VIAL IV ONE (11:52)
[2025-06-26] MEDS ORDERED: SODIUM CHLORIDE ONE (11:52)
[2025-06-26] MEDS ORDERED: fentaNYL CITRATE 5 ML ONE ×2 (11:52→14:20)
[2025-06-26] MEDS ORDERED: HYDROmorphone HCL 2 MG/ML VL/or syr ONE (11:52)
[2025-06-26] MEDS ORDERED: LIDOCAINE 1% INJ PF 5ML AMP ONE (11:52)
[2025-06-26] MEDS ORDERED: LIDOCAINE HCL 2% TOP JELLY 5ML TOP ONE (11:52)
[2025-06-26] MEDS ORDERED: KETAMINE 50mg/ML 1ml syringe ONE (11:52)
[2025-06-26] MEDS ORDERED: MIDAZOLAM HCL 2MG/2ML 2ml VIAL (1mg/ml) ONE (11:52)
[2025-06-26] MEDS ORDERED: fentaNYL CITRATE 100 MCG/2 ML VL ONE (11:52)
--- NOTE | 2025-06-26 12:03 | DVHPN2 ---
Progress Note - Surgical Date Seen: Jun 26, 2025 Post op day Post op day: 3 Subjective Patient reports: Feels worse (Patient is having more abdominal pain, and starting to feel distended.) Review of Systems: Deferred Objective Vital signs Vital Sign Date Time Temp Pulse Resp B/P (MAP) Pulse Ox O2 Delivery O2 Flow Rate FiO2 06/26/25 09:30 88 138/73 06/26/25 06:00 27 95 06/26/25 04:00 Nasal Cannula* 2 28 06/26/25 04:00 98.0 98.0 Total Intake and Output 06/25/25 06/25/25 06/26/25 15:00 23:00 07:00 Intake Total 528 ml 537 ml 628 ml Output Total 675 ml 425 ml Balance 528 ml -138 ml 203 ml Medications Current Medications Medications Dose Ordered Sig/Babak Route Start Time Stop Time Status Last Admin Dose Admin Pantoprazole Sodium 40 mg DAILY IV 06/18/25 10:00 06/26/25 09:30 40 MG Ceftriaxone Sodium 50 ml @ 100 mls/hr DAILY@09 IV 06/18/25 09:00 06/26/25 08:32 100 MLS/HR Metronidazole 100 ml @ 100 mls/hr Q8HR IV 06/17/25 22:00 06/26/25 05:11 100 MLS/HR Ondansetron HCl 4 mg Q6HPRN PRN IV 06/17/25 19:30 06/22/25 16:37 4 MG Hydromorphone HCl 0.25 mg Q6HR PRN IV 06/20/25 11:00 06/24/25 10:09 0.25 MG Potassium Chloride 100 ml @ 50 mls/hr Q2H IV 06/23/25 08:30 06/23/25 12:29 Cancel Acetaminophen 650 mg Q6HR GT 06/23/25 18:00 06/26/25 05:12 650 MG Doxycycline Hyclate 100 ml @ 50 mls/hr Q12H IV 06/24/25 13:45 06/26/25 01:48 50 MLS/HR Diagnostic Test (Pha) 1 strip Q6HR 06/25/25 00:00 06/26/25 05:13 1 STRIP Insulin Human Regular FOLLOW SLIDING SCALE Q6HR SC 06/25/25 00:00 06/26/25 05:13 2 UNITS Dextrose 50 ml UD IV 06/25/25 00:00 Metoprolol Tartrate 12.5 mg BID PO 06/25/25 22:00 06/26/25 09:30 12.5 MG Amino Acids 0 ml @ 0 mls/hr PER PHARMACY IV 06/25/25 13:00 Sodium Chloride 10 ml QSHIFT@10,22 IV 06/25/25 22:00 06/26/25 09:30 10 ML Sodium Phosphate 2 tab BID PO 06/26/25 10:00 06/27/25 10:00 06/26/25 10:27 2 TAB Iron Sucrose 110 ml @ 110 mls/hr DAILY@1200 IV 06/26/25 12:00 06/30/25 12:59 Folic Acid 1 mg/ Dextrose 50.2 ml @ 200.8 mls/ hr DAILY INJ 06/26/25 10:00 06/26/25 10:00 200.8 MLS/HR Fat Emulsion Intravenous 50 ml/ Potassium Phosphate 22 meq/ Calcium Gluconate 4.56 meq/ Magnesium Sulfate 4 meq/ Multivitamins 10 ml/Amino Acids/ Dextrose/Purified Water 875.8064 ml @ 36 mls/hr [id number] IV 06/26/25 22:00 06/27/25 21:59 Laboratory Laboratory Tests 06/26/25 10:20 06/26/25 04:35 Test 06/26/25 04:35 Range/Units Serum Glucose 144 H 74-106 mg/dL Microbiology Date/Time Source Procedure Growth Status 06/23/25 18:59 Nose MRSA Screen - Final Complete Examination: GENERAL:Normal, ABDOMEN:Abnormal (Distended, incision site with petey in plates and murky drainage coming from inferior aspect of incision, drain with what looks like enteric content, soft, depressible, generalized tenderness) Labs and/or images reviewed: Labs reviewed by me (Leukocytosis down trending taught 0.7 from 17), Image(s) reviewed by me (Stat KUB ordered, and shows pneumoperitoneum) Problem List/Assessment/Plan Assessment and Plan Mr. Lebron is a 79-year-old male who presented to the ED with abdominal pain. CT was reviewed and shows colonic distention from cecum to splenic flexure, pass the splenic flexure there is an area of distal decompression, possibly caused by a mass. 06/23: Exploratory laparotomy, segmental colectomy, splenic flexure takedown, hepatic flexure takedown, primary stapled anastomosis, drain placement Interval: Patient is currently postop day 3 from exploratory laparotomy, segmental colon resection of splenic flexure mass. Patient feeling worse today, with increased abdominal pain. Drain with what looks like enteric content. I ordered a stat KUB shows pneumoperitoneum. This is concerning for anastomotic breakdown. We will take patient for re-exploration today. 1. On-call to OR for exploratory laparotomy, bowel resection, ostomy, possible temporary abdominal closure, and all indicated procedures 2. NPO 3. NG tube to LIS 4. Okay for oral medicines, clamp NG tube for 30 to 60 minutes after medicine administration. If patient wants to ambulate NG tube can also be clamped for ambulation. 5. Pain regimen: Tylenol 650 mg p.o. every 6 hours, Toradol 15 mg IV every 8 hours, Percocet 5 and 10 mg p.o. PRN moderate and severe pain, Dilaudid 0.5 mg IV for breakthrough pain control 6. Incentive spirometry 7. Strip drain b.i.d. and prn, empty and record drain output b.i.d. and p.r.n. 8. Out of bed and ambulate 9. Maintain Ray due to ANNE MARIE 10. TPN 11. Continue with ceftriaxone and metronidazole for 4 days postop, until 06/28 12. A.m. labs: CBC, BMP, magnesium level, phosphate level My Orders My Orders Orders - JEANMARIE RAY MD Procedure Category Date Status Time Communication Order ORDERS 06/25/25 Transmitted 11:30 Pota Phos & Sod Phos PHA 06/26/25 In Process Tablet (Neutra-Phos 10:00 Kub Abdomen Single XY 06/26/25 Resulted View 10:57 Type And Screen BBK 06/26/25 Logged 11:40 Obtain Consent For: ORDERS 06/26/25 Transmitted 11:45 Obtain Consent For JULIETTE 06/26/25 In Process Anesthesia 11:45 Plan discussed with Plan discussed with: Patient, Daughter Visit Coding Surgery Date of Service if different f: Jun 26, 2025 Billing Provider: JEANMARIE RAY MD Surgery Visit Codes: [id number] INP/OBS CARE(HIGH) JEANMARIE RAY MD Jun 26, 2025 12:03
--- NOTE | 2025-06-26 12:06 | ECG ---
[facility] [place] Test Date: 2025-06-25 Test Time: 01:57:13 Pat Name: LAURA MCKEON Department: Room: [address] [place] [id number] Gender: M Telehealth Director: NITHYA : 1945 Requested By: FLORENCIO THACKER Order Number: [id number] Reading MD: Charlie Azul Measurements Intervals [place] Rate: 165 P: 36 RI: 111 QRS: 10 QRSD: 84 T: 30 QT: 308 QTc: 511 Interpretive Statements Supraventricular tachycardia Borderline low voltage, extremity leads Borderline T abnormalities, inferior leads Electronically Signed On 06-27-2025 17:35:21 PDT by Charlie Azul Please click the below link to view image of tracing.
[2025-06-26] MEDS: IRON SUCROSE COMPLEX 110 ML IV SCH (12:08)
[2025-06-26] MEDS: NOREPINEPHRINE 8 MG/250ML KIT 250 ML IV ONE (13:35)
--- NOTE | 2025-06-26 14:25 | DVHPNRES ---
Progress Note Date Seen: Jun 26, 2025 Resident Creating Document: JHHumaJLASHA Sue RESIDENT Medical Necessity Reason Pt with a Central, PICC or Fol: No Subjective Review of Systems Patient seen and examined at the bedside Status post exploratory laparotomy day 3 Chest x-ray in the morning showed pneumoperitoneum, followed by a KUB H&H trended from 9.8 to 9.3 Patient went to surgery again Status post surgery patient shifted to ICU Objective vital signs Vital Sign Date Time Temp Pulse Resp B/P (MAP) Pulse Ox O2 Delivery O2 Flow Rate FiO2 06/26/25 12:00 24 98 Nasal Cannula* 2 28 06/26/25 10:30 96 140/71 06/26/25 04:00 98.0 98.0 Total Intake and Output 06/25/25 06/25/25 06/26/25 15:00 23:00 07:00 Intake Total 528 ml 537 ml 628 ml Output Total 675 ml 425 ml Balance 528 ml -138 ml 203 ml medications Current Medications Medications Dose Ordered Sig/Babak Route Start Time Stop Time Status Last Admin Dose Admin Pantoprazole Sodium 40 mg DAILY IV 06/18/25 10:00 06/26/25 09:30 40 MG Ceftriaxone Sodium 50 ml @ 100 mls/hr DAILY@09 IV 06/18/25 09:00 06/26/25 08:32 100 MLS/HR Metronidazole 100 ml @ 100 mls/hr Q8HR IV 06/17/25 22:00 06/26/25 05:11 100 MLS/HR Ondansetron HCl 4 mg Q6HPRN PRN IV 06/17/25 19:30 06/22/25 16:37 4 MG Hydromorphone HCl 0.25 mg Q6HR PRN IV 06/20/25 11:00 06/24/25 10:09 0.25 MG Potassium Chloride 100 ml @ 50 mls/hr Q2H IV 06/23/25 08:30 06/23/25 12:29 Cancel Acetaminophen 650 mg Q6HR GT 06/23/25 18:00 06/26/25 05:12 650 MG Doxycycline Hyclate 100 ml @ 50 mls/hr Q12H IV 06/24/25 13:45 06/26/25 01:48 50 MLS/HR Diagnostic Test (Pha) 1 strip Q6HR 06/25/25 00:00 06/26/25 12:08 1 STRIP Insulin Human Regular FOLLOW SLIDING SCALE Q6HR SC 06/25/25 00:00 06/26/25 12:11 4 UNITS Dextrose 50 ml UD IV 06/25/25 00:00 Metoprolol Tartrate 12.5 mg BID PO 06/25/25 22:00 06/26/25 09:30 12.5 MG Amino Acids 0 ml @ 0 mls/hr PER PHARMACY IV 06/25/25 13:00 Sodium Chloride 10 ml QSHIFT@10,22 IV 06/25/25 22:00 06/26/25 09:30 10 ML Sodium Phosphate 2 tab BID PO 06/26/25 10:00 06/27/25 10:00 06/26/25 10:27 2 TAB Iron Sucrose 110 ml @ 110 mls/hr DAILY@1200 IV 06/26/25 12:00 06/30/25 12:59 06/26/25 12:08 110 MLS/HR Folic Acid 1 mg/ Dextrose 50.2 ml @ 200.8 mls/ hr DAILY INJ 06/26/25 10:00 06/26/25 10:00 200.8 MLS/HR Fat Emulsion Intravenous 50 ml/ Potassium Phosphate 22 meq/ Calcium Gluconate 4.56 meq/ Magnesium Sulfate 4 meq/ Multivitamins 10 ml/Amino Acids/ Dextrose/Purified Water 875.8064 ml @ 36 mls/hr [id number] IV 06/26/25 22:00 06/27/25 21:59 Midazolam HCl 50 ml @ 1 mls/hr Q24H IV 06/26/25 13:00 Fentanyl Citrate 250 ml @ 2.5 mls/hr Q24H IV 06/26/25 13:00 Examination Gen - no pallor, no icterus, no cyanosis, no edema . Skin - Patients skin is warm and dry. HEENT - normocephalic, atraumatic, moist mucous membranes. Neck - full ROM, no LAD, no JVD Pulmonary - B/L clear breath sounds with left lower lobe rales, no wheezing cardiovascular - regular S1,S2 heard, no added sounds, no murmurs heard. peripheral pulses normal radial 2+, pedal 2+. capillary refill normal <2 secs. GI - status post exploratory laparotomy with a midline scar, wound VAC and MAURICE drain, increased tenderness to palpation Neurological - Patient is A/O X 3 . Bilateral upper extremity strength 4/5, bilateral lower extremity strength 4/5, no facial droop, normal speech, no tremor, no sensory deficiets. laboratory and microbiology Laboratory Tests 06/26/25 10:20 06/26/25 04:35 Test 06/26/25 04:35 Range/Units Serum Glucose 144 H 74-106 mg/dL Microbiology Date/Time Source Procedure Growth Status 06/23/25 18:59 Nose MRSA Screen - Final Complete Problem List/Assessment/Plan Problem List/Assessment/Plan Acute intractable abdominal pain severe constipation Large bowel obstruction with mass at the splenic flexure s/p Exploratory laparotomy Pneumoperitoneum s/p exploratory laparotomy - Initial CT abdomen pelvis with the contrast showed irregular bowel wall narrowing in the region of the splenic flexure of the colon with surrounding lymph nodes up to 10 mm, highly concerning for colon neoplasm. - Initial colonoscopy unsuccessful d/t poor bowel prep, repeat colonoscopy done on 06/22 showed ulcerated mass at the distal transverse colon/ splenic flexure causing severe obstruction - patient underwent exploratory reportedly on 06/23 with Segmental colectomy, splenic flexure takedown, hepatic flexure takedown, primary isoperistaltic stapled anastomosis - pending biposy report - CEA-normal, Ca-19-9 and Ca 125 normal - IV ABX ceftriaxone and flagyl - postop CT abdomen pelvis done on 06/24, showed no anastomotic leak, sludge changes suggestive of acute colitis, minimal fluid and fat stranding likely postoperative changes - after the surgery patient has been NPO with NG to LIS, - on TPN - patient was seen to have a pneumoperitoneum with increased tenderness to palpation, taken back to OR today Acute hypoxic respiratory failure likely due to pulmonary edema Aspiration Pneumonia likely due to Gram+/-bacteria Status post surgery on mechanical ventilation - while in the surgery patient got 3 L of fluid, postop patient was tachycardic with elevated lactic acid to be resuscitated with more fluids, given soft blood pressures we are judiciously using Lasix, urine output improving - IV antibiotics ceftriaxone and doxycycline - minimal ventilator settings with a PEEP of 5, VT 500, FiO2 30%, ABG showed mixed respiratory alkalosis with metabolic acidosis History of hypertensive heart disease Concentric left ventricular hypertrophy paroxysmal SVT - echo shows LVEF 65% - IV lasix for diuresis, currently held Sepsis likely due to intra-abdominal infection SIRS with organ dysfunction - resuscitated with IV fluids - IV antibiotics Zosyn and doxycycline ANNE MARIE likely prerenal due to VMN - kidney function improving - IV fluids - decreased urine output, challenge with a IV Lasix low doses - urine output improving Microcytic hyperchromic anemia Coagulopathy Patient is [employer] H&H downtrending, IV iron, vitamin B12 and folic acid given Elevated PT INR, 5 mg vitamin K given PICC line right arm placed on 06/25 PUD prophylaxis: Protonix DVT prophylaxis: held enoxaparin because of decreased H&H Goals of care discussed with the patient and the daughter for over 24 minutes. Full code Critical care time spent: 63 minutes Plan discussed with Plan discussed with: Patient, Daughter, Other (RN Ciera) My Orders My Orders Orders - LASHA OVALLE Procedure Category Date Status Time Iron Sucrose Complex PHA 06/26/25 In Process (Venofer) 12:00 Folic Acid PHA 06/26/25 In Process 10:00 Amino Acid PHA 06/26/25 In Process Infusion... W/Fat 22:00 Comprehensive LAB 06/27/25 Verified Metabolic Panel 05:00 Phosphorus LAB 06/27/25 Verified 05:00 Magnesium LAB 06/27/25 Verified 05:00 Tpn Per Pharmacy JULIETTE 06/26/25 In Process 22:00 Dietary Evaluation Review Comments: Advance to diet texture as tolerated when medically feasible Encourage and monitor intakes to meet his needs at least at 75% Expected Outcomes/Goals: maintain BW Date of Service: Jun 26, 2025 Billing Provider: PASHA LANG MD Common Visit Codes: [id number] INP/OBS CARE(HIGH) LASHA OVALLE RESIDENT Jun 26, 2025 14:25 PASHA LANG MD Jun 26, 2025 23:47
--- NOTE | 2025-06-26 16:10 | DVHOP2 ---
Operative Report - 2 Report Details Date: 06/26/25 Preop Diagnosis: Anastomotic leak Postop Diagnosis: Same Surgeon: Myron Brantley MD Tunnel Man: Dewey Meredith NP Anesthesiologist: Dr. Mendoza Anesthesia: General Drains: Previous surgery 19 Azeri round channel drain on left gutter and exiting out of the right lower quadrant. Medela open abdomen temporary closure device Consent: The patient was informed of the risks and benefits of the procedure. These include but are not limited to complications of anesthesia, postoperative infection, incomplete relief of symptoms, recurrence of symptoms, damage to blood vessels, nerves and tendons, deep venous thrombosis, pulmonary embolism and possible need for repeat surgery in the future. Complications: None Estimated Blood Loss: 10 mL Findings: Common enterostomy anastomotic leak Indications for Surgery: Anastomotic leak with stool in drain and evidence of pneumoperitoneum on KUB. Name of Procedure Performed Exploratory laparotomy, anastomotic resection, washout, end colostomy, temporary abdominal closure Procedure Details Procedure Details: Upon arrival to the operating room the patient was transferred to the operating table and placed in the supine position with arms extended. General endotracheal anesthesia was induced. Time-out was observed patient was prepped and draped in the standard sterile surgical fashion with Betadine-Betadine. I then proceeded to remove the previously placed petey and bluntly open the skin and subcutaneous tissue. Some murky fluid was seen in the subcu tissue. I then proceeded to open and remove the previously placed PDS fascial stitch, entry into the peritoneal cavity. I immediately noticed some murky fluid in the per itoneal cavity and this some suctioning. Utilizing retractors I was able to see the area of the prior anastomosis. I then irrigated over the area, and removed some thin fibrinous tissue and adhesions bluntly. I then removed the stitches that were holding in place a omental pedicle over the anastomosis. Once the pedicle was out of the way I was able to see a home in the common enterostomy of the anastomosis, with dawson leakage of stool. Bowel did not appear to have any compromise blood supply. I then decided to resect the anastomosis. I made proximal and distal to the anastomosis, mesenteric rents and transected at both sites with a MIGUEL A 75 mm green load. Anastomosis was passed off as specimen. I then proceeded to copiously irrigate the peritoneal cavity with large amounts of warm sterile saline. I then looked at the proximal transverse colon, it looked healthy. I then decided to bring an end-colostomy utilizing the transverse colon. To prepare the colon for the ostomy, I had a free the omentum off of it, I denuded a proximally 5 inches of transverse colon from its overlying omentum. I also dissected straight down through its mesocolon with harmonic device, to be able to get adequate mobility. I decided to bring the ostomy at the left midabdomen, transverse colon reached without tension. I then decided to make the circular skin incision at the ostomy site, I also dissected the subcu circumferentially all the way down to fascia. I then made a cruciate incision in the fascia, split the rectus muscle a middle cruciate incision in the posterior fascia. Hole was/enough to past 2 of my fingers with ease. Transverse colon was then passed through the fascia and out the skin, without tension, a proximally 3 in of transverse colon well above the skin level. Limb of transverse colon had good blood supply. I then open the transverse colon immediately below the staple line with cautery on cut mode. I then proceeded to mature the colostomy with 4 cardinal points Brooking stitches, of 3-0 Vicryl. I then placed additional 3-0 Vicryl stitches, interrupted in between each of the cardinal stitches. Transverse colon mucosa, looked a little bit congested likely due to the manipulation and stitches. I then decided to leave the abdominal cavity open and placed a temporary abdominal dressing, to take a 2nd look tomorrow and no wash out the peritoneal cavity. A medela temporary abdominal closure device was used and on suctioned setting of -125. All counts complete and correct at the end of the procedure. Ostomy appliance was placed over the ostomy. Patient tolerated the procedure well and was transferred to ICU in stable condition. Specimen: Segmental colectomy containing splenic flexure mass Transverse colon omentum Condition Stable Disposition Still a Patient MYRON RAY MD Jun 26, 2025 16:10
[2025-06-26] MEDS: fentaNYL Drip 2500mCg/250mlNS 250 ML IV SCH (16:20)
[2025-06-26] MEDS: MIDAZOLAM DRIP 50 mg/50mL 50 ML IV SCH (16:20)
--- NOTE | 2025-06-26 16:31 | DVH ---
Exam: US US GUIDED VASCULAR ACCESS Clinical History: picc line placement Comparison: CT CT ANGIO NECK CONTRAST on DOS: 11/20/22, US CAROTID DUPLX W COLOR DOP on DOS: 11/18/22 Findings: Targeted sonographic evaluation of the arm vein was obtained utilizing grayscale and color Doppler im aging. IMPRESSION: Sonographic assistance for peripherally inserted central line placement. Please refer to procedural r eport for detailed findings.
[2025-06-26] MEDS: SODIUM CHLORIDE 0.9% 500 ML IV ONE (17:45)
[2025-06-26] MEDS ORDERED: DEXTROSE (50%) 50ML SYRG IV PRN (17:45)
[2025-06-26] MEDS: InsuLIN REG 1unit/0.01ml Soln (100units/ml) SC SCH (18:00)
--- NOTE | 2025-06-26 18:17 | DVH ---
CHEST RADIOGRAPH Indication: SOB Technique: Single frontal view of the chest was obtained Comparison: XY CHEST PORTABLE on DOS: 06/26/25, XY CHEST PORTABLE on DOS: 06/26/25, XY CHEST XRAY 1 V IEW on DOS: 06/25/25 FINDINGS: Lines and Tubes: Endotracheal tube in place 0.9 cm above the nila. Recommend withdrawal to 2 -3 cm. Enteric tube below the left diaphragm in the stomach Lungs: No focal consolidation. Pleura: No effusion. No pneumothorax. Cardiomediastinal contours: Unremarkable Bones: No acute osseous abnormality. IMPRESSION: 1. No acute cardiopulmonary disease.
[2025-06-26] MEDS: ACCU-CHEK COMFORT CURVE STRIP VI SCH (18:21)
[2025-06-26] MEDS: phytonadione 10 MG in SODIUM CHL 0.9% 50 ML IV ONE (18:31)
[2025-06-26 18:54] LABS: Sodium 144 mmol/L (136-145)
[2025-06-26 18:55] LABS: Anion Gap 8 (5-15); Carbon Dioxide 24 mmol/L (20-31)
[2025-06-26 19:01] LABS: BUN/Creatinine Ratio 20.7 (10.0-20.0); Blood Urea Nitrogen 19 mg/dL (9-23)
[2025-06-26 19:12] LABS: Base Excess -5.6 mmol/L (-2.0-3.0)
[2025-06-26 19:19] LABS: Calcium 6.8 mg/dL (8.7-10.4); Chloride 112 mmol/L (98-107); Glucose 134 mg/dL (74-106); Magnesium 1.5 mg/dL (1.6-2.6); Potassium 3.2 mmol/L (3.5-5.1)
[2025-06-26 19:29] LABS: Hematocrit 30.7 % (41.0-53.0); Hemoglobin 10.2 g/dL (13.5-17.5); Mean Corpuscular Hemoglobin 35.4 pg (28.0-32.0); Mean Corpuscular Volume 106.8 fL (80.0-100.0); Nucleated Red Blood Cells % 0.1 %
[2025-06-26] MEDS: MAGNESIUM SULFATE 1GM/100ML 100 ML IV SCH (20:50)
--- NOTE | 2025-06-26 20:53 | DVHPN2 ---
Progress Note - Dictate Date Seen: Jun 26, 2025 Medical Necessity Reason Pt with a Central, PICC or Fol: No Subjective Postop day 3. S/P resection of splenic flexure tumor Patient was taken back for expiratory laparotomy today because of suspected anastomotic leak Patient's anastomosis was revised and patient was given a colostomy and because of contamination the wound was left open Patient is currently intubated sedated in the ICU Notified by pathologist that my biopsies of the splenic flexure mass showed adenocarcinoma vital signs Vital Sign Date Time Temp Pulse Resp B/P (MAP) Pulse Ox O2 Delivery O2 Flow Rate FiO2 06/26/25 20:45 108/50 06/26/25 20:30 118 16 100 50 06/26/25 18:30 99.9 99.9 06/26/25 17:52 Mechanical Ventilator+ 06/26/25 12:00 2 Total Intake and Output 06/25/25 06/25/25 06/26/25 15:00 23:00 07:00 Intake Total 528 ml 537 ml 628 ml Output Total 675 ml 425 ml Balance 528 ml -138 ml 203 ml medications Current Medications Medications Dose Ordered Sig/Babak Route Start Time Stop Time Status Last Admin Dose Admin Pantoprazole Sodium 40 mg DAILY IV 06/18/25 10:00 06/26/25 09:30 40 MG Ondansetron HCl 4 mg Q6HPRN PRN IV 06/17/25 19:30 06/22/25 16:37 4 MG Potassium Chloride 100 ml @ 50 mls/hr Q2H IV 06/23/25 08:30 06/23/25 12:29 Cancel Amino Acids 0 ml @ 0 mls/hr PER PHARMACY IV 06/25/25 13:00 Sodium Chloride 10 ml QSHIFT@10,22 IV 06/25/25 22:00 06/26/25 09:30 10 ML Iron Sucrose 110 ml @ 110 mls/hr DAILY@1200 IV 06/26/25 12:00 06/30/25 12:59 06/26/25 12:08 110 MLS/HR Folic Acid 1 mg/ Dextrose 50.2 ml @ 200.8 mls/ hr DAILY INJ 06/26/25 10:00 06/26/25 10:00 200.8 MLS/HR Fat Emulsion Intravenous 50 ml/ Potassium Phosphate 22 meq/ Calcium Gluconate 4.56 meq/ Magnesium Sulfate 4 meq/ Multivitamins 10 ml/Amino Acids/ Dextrose/Purified Water 875.8064 ml @ 36 mls/hr [id number] IV 06/26/25 22:00 06/27/25 21:59 Midazolam HCl 50 ml @ 1 mls/hr Q24H IV 06/26/25 13:00 06/26/25 20:45 5 MLS/HR Fentanyl Citrate 250 ml @ 2.5 mls/hr Q24H IV 06/26/25 13:00 06/26/25 16:20 2.5 MLS/HR Piperacillin Sod/ Tazobactam Sod 100 ml @ 25 mls/hr Q8HR IV 06/26/25 22:00 Diagnostic Test (Pha) 1 strip Q6HR 06/26/25 18:00 06/26/25 18:21 1 STRIP Insulin Human Regular Q6HR SC 06/26/25 18:00 Dextrose 50 ml UD PRN IV 06/26/25 17:45 Acetaminophen 650 mg Q6HP PRN GT 06/26/25 18:00 Doxycycline Hyclate 100 ml @ 50 mls/hr Q12HR@0400,1600 IV 06/27/25 04:00 Magnesium Sulfate/ Dextrose 100 ml @ 100 mls/hr Q1HR IV 06/26/25 20:00 06/26/25 22:59 06/26/25 20:50 100 MLS/HR objective GENERAL:Normal, HEENT:Normal, ABDOMEN:Abnormal binder in place, dressing is dry, soft, Extremities without clubbing cyanosis or edema Neuro alert oriented x3 with no focal deficit laboratory and microbiology Laboratory Tests 06/26/25 18:19 Test 06/26/25 18:19 Range/Units Serum Glucose 134 H 74-106 mg/dL Problems(with codes): (1) Abnormal finding on GI tract imaging (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
[2025-06-26] MEDS: ACETAMINOPHEN 650 mg PER 20.3 mL UD GT PRN (21:00)
[2025-06-26] MEDS: CALCIUM GLUC 1,000mg/50ml-NS 50 ML IV ONE (21:15)
[2025-06-26] MEDS: NOREPINEPHRINE 8 MG/250ML KIT 250 ML IV SCH (21:30)
[2025-06-26] MEDS: PIPERACILLIN-TAZOB 3.375GM 100 ML IV SCH (21:31)
[2025-06-26] MEDS: POTASSIUM PHOSPHATE 44 MEQ in D5W 5% 250 ML IV ONE (22:09)
[2025-06-26] MEDS: FAT EMULSION IV NR (22:20)
[2025-06-26] MEDS: [UNRECOGNIZED DRUG - OTHER] IV NR (22:20)
[2025-06-26] MEDS: CALCIUM GLUC IV NR (22:20)
[2025-06-26] MEDS: POTASSIUM PHOSPHATE IV NR (22:20)
[2025-06-27] VITALS (106 sets, daily range): BP systolic 70–182; BP diastolic 41–97; PULSE 74–121; RESP 15–20; TEMP 97.5–100.8; O2SAT 90–100
[2025-06-27] MEDS: DOXYCYCLINE 100MG/100ML 100 ML IV SCH (04:14)
[2025-06-27 04:27] LABS: Hematocrit 27.9 % (41.0-53.0); Hemoglobin 9.2 g/dL (13.5-17.5); Mean Corpuscular Hemoglobin 36.3 pg (28.0-32.0); Mean Corpuscular Volume 109.8 fL (80.0-100.0); Nucleated Red Blood Cells % 0.0 %
[2025-06-27 04:42] LABS: Alkaline Phosphatase 63 U/L (46-116); Anion Gap 8 (5-15); BUN/Creatinine Ratio 17.3 (10.0-20.0); Blood Urea Nitrogen 14 mg/dL (9-23); Magnesium 2.1 mg/dL (1.6-2.6); Sodium 142 mmol/L (136-145)
[2025-06-27 04:45] LABS: INR 1.15 (0.9-1.15); Partial Thromboplastin Time 46.9 SEC (24.5-34.5); Prothrombin Time 12.0 sec (9.3-11.8)
[2025-06-27 04:55] LABS: Alanine Aminotransferase 47 U/L (7-40); Albumin 2.1 g/dL (3.2-4.8); Bilirubin, Total 1.7 mg/dL (0.2-1.0); Carbon Dioxide 20 mmol/L (20-31); Chloride 114 mmol/L (98-107); Glucose 225 mg/dL (74-106); Potassium 3.4 mmol/L (3.5-5.1); Total Protein 3.7 g/dL (5.7-8.2)
[2025-06-27 04:56] LABS: Calcium 6.0 mg/dL (8.7-10.4)
[2025-06-27] MEDS: CALCIUM GLUC 1,000mg/50ml-NS 50 ML IV SCH (05:37)
--- NOTE | 2025-06-27 06:02 | DVH ---
CHEST RADIOGRAPH Indication: ventilated Technique: Single frontal view of the chest was obtained COMPARISON: XY CHEST XRAY 1 VIEW on DOS: 06/26/25, XY CHEST PORTABLE on DOS: 06/26/25, XY CHEST BIBI BLE on DOS: 06/26/25, XY CHEST XRAY 1 VIEW on DOS: 06/25/25, XY CHEST PORTABLE on DOS: 06/24/25 FINDINGS: Lines and Tubes: Unchanged. Lungs: Mild interval progression in left pleural effusion and left basilar pulmonary airspace disease . No pneumothorax. Cardiomediastinal contours: Unremarkable Bones: Unremarkable IMPRESSION: 1. Mild interval progression in left pleural effusion and left basilar pulmonary airspace disease. 2. Lines and tubes unchanged.
[2025-06-27] MEDS: POTASSIUM CHL 20MEQ/100ML 100 ML IV SCH (06:54)
[2025-06-27 06:57] LABS: Base Excess -5.6 mmol/L (-2.0-3.0)
[2025-06-27] MEDS ORDERED: fentaNYL CITRATE 100 MCG/2 ML VL ONE (07:31)
[2025-06-27] MEDS: ALBUMIN 25% 100 ML IV ONE (07:40)
[2025-06-27] MEDS ORDERED: ROCURONIUM 10MG/ML 10ML VIAL IV ONE (08:29)
[2025-06-27] MEDS ORDERED: MIDAZOLAM HCL 2MG/2ML 2ml VIAL (1mg/ml) ONE (08:30)
[2025-06-27] MEDS: CATHFLO ACTIVASE (ALTEPLASE) 2 MG VIAL IV ONE (09:45)
[2025-06-27] MEDS: FUROSEMIDE 40 MG/4 ML VIAL IV ONE (09:45)
[2025-06-27] MEDS ORDERED: LABETALOL HCL 20 MG/4 ML VL IV PRN (09:45)
--- NOTE | 2025-06-27 10:33 | DVHPN2 ---
Progress Note - Surgical Date Seen: Jun 27, 2025 Post op day Post op day: 4 Subjective Patient reports: Other (Intubated and sedated due to open abdomen) Review of Systems: Deferred Objective Vital signs Vital Sign Date Time Temp Pulse Resp B/P (MAP) Pulse Ox O2 Delivery O2 Flow Rate FiO2 06/27/25 10:00 30 06/27/25 09:57 16 100 Mechanical Ventilator+ 06/27/25 09:45 97.5 114 182/77 (112) 207.5 149/97 (114) 06/26/25 20:00 0 Total Intake and Output 06/26/25 06/26/25 06/27/25 15:00 23:00 07:00 Intake Total 116 ml 873.25 ml 1186.50 ml Output Total 1475 ml 525 ml Balance 116 ml -601.75 ml 661.50 ml Medications Current Medications Medications Dose Ordered Sig/Babak Route Start Time Stop Time Status Last Admin Dose Admin Pantoprazole Sodium 40 mg DAILY IV 06/18/25 10:00 06/27/25 10:23 40 MG Ondansetron HCl 4 mg Q6HPRN PRN IV 06/17/25 19:30 06/22/25 16:37 4 MG Potassium Chloride 100 ml @ 50 mls/hr Q2H IV 06/23/25 08:30 06/23/25 12:29 Cancel Amino Acids 0 ml @ 0 mls/hr PER PHARMACY IV 06/25/25 13:00 Sodium Chloride 10 ml QSHIFT@10,22 IV 06/25/25 22:00 06/27/25 08:19 10 ML Iron Sucrose 110 ml @ 110 mls/hr DAILY@1200 IV 06/26/25 12:00 06/30/25 12:59 06/26/25 12:08 110 MLS/HR Folic Acid 1 mg/ Dextrose 50.2 ml @ 200.8 mls/ hr DAILY INJ 06/26/25 10:00 06/26/25 10:00 200.8 MLS/HR Fat Emulsion Intravenous 50 ml/ Potassium Phosphate 22 meq/ Calcium Gluconate 4.56 meq/ Magnesium Sulfate 4 meq/ Multivitamins 10 ml/Amino Acids/ Dextrose/Purified Water 875.8064 ml @ 36 mls/hr [id number] IV 06/26/25 22:00 06/27/25 21:59 06/26/25 22:20 36 MLS/HR Midazolam HCl 50 ml @ 1 mls/hr Q24H IV 06/26/25 13:00 06/27/25 06:51 5 MLS/HR Fentanyl Citrate 250 ml @ 2.5 mls/hr Q24H IV 06/26/25 13:00 06/26/25 16:20 2.5 MLS/HR Piperacillin Sod/ Tazobactam Sod 100 ml @ 25 mls/hr Q8HR IV 06/26/25 22:00 06/27/25 05:36 25 MLS/HR Diagnostic Test (Pha) 1 strip Q6HR 06/26/25 18:00 06/27/25 06:00 1 STRIP Insulin Human Regular Q6HR SC 06/26/25 18:00 06/27/25 05:59 3 UNITS Dextrose 50 ml UD PRN IV 06/26/25 17:45 Acetaminophen 650 mg Q6HP PRN GT 06/26/25 18:00 06/26/25 21:00 650 MG Doxycycline Hyclate 100 ml @ 50 mls/hr Q12HR@0400,1600 IV 06/27/25 04:00 06/27/25 04:14 50 MLS/HR Norepinephrine Bitartrate 250 ml @ 3.75 mls/hr Q24H IV 06/26/25 21:30 Labetalol HCl 10 mg Q6HP PRN IV 06/27/25 09:45 Laboratory Laboratory Tests 06/27/25 03:45 Test 06/27/25 03:45 Range/Units Serum Glucose 225 H 74-106 mg/dL Microbiology Date/Time Source Procedure Growth Status 06/26/25 16:43 Sputum Gram Stain Pending Resulted 06/26/25 16:43 Sputum Respiratory Culture - Preliminary Resulted 06/23/25 18:59 Nose MRSA Screen - Final Complete Examination: HEENT:Normal (ET tube and NG tube in place), ABDOMEN:Abnormal (Globose, nondistended, temporary abdominal dressing in place, right lower quadrant MAURICE drain with serosanguineous output), :Normal (Ray in place) Labs and/or images reviewed: Labs reviewed by me (Hemoglobin stable in the 9, no leukocytosis) Problem List/Assessment/Plan Assessment and Plan Mr. Lebron is a 79-year-old male who presented to the ED with abdominal pain. CT was reviewed and shows colonic distention from cecum to splenic flexure, pass the splenic flexure there is an area of distal decompression, possibly caused by a mass. 06/23: Exploratory laparotomy, segmental colectomy, splenic flexure takedown, hepatic flexure takedown, primary stapled anastomosis, drain placement 06/26: Exploratory laparotomy, resection of previous anastomosis, abdominal washout, end colostomy, temporary abdominal closure. Due to anastomotic leak Interval: Patient is currently postop day 4 from the original surgery and postop day 1 from re-exploration due to anastomotic leak. Patient was left with a open abdomen and temporary abdominal dressing, we will take to the OR today for possible abdominal closure. 1. On-call to OR for exploratory laparotomy, and all indicated procedures 2. NPO 3. NG tube to LIS 4. Okay for oral medicines, clamp NG tube for 30 to 60 minutes after medicine administration. If patient wants to ambulate NG tube can also be clamped for ambulation. 5. Pain regimen: Tylenol 650 mg p.o. every 6 hours, Toradol 15 mg IV every 8 hours, Percocet 5 and 10 mg p.o. PRN moderate and severe pain, Dilaudid 0.5 mg IV for breakthrough pain control 6. Incentive spirometry 7. Strip drain b.i.d. and prn, empty and record drain output b.i.d. and p.r.n. 8. Out of bed and ambulate 9. Maintain Ray due to ANNE MARIE 10. TPN 11. Continue with ceftriaxone and metronidazole for 4 days postop, until 06/28 12. A.m. labs: CBC, BMP, magnesium level, phosphate level My Orders My Orders Orders - JEANMARIE RAY MD Procedure Category Date Status Time Kub Abdomen Single XY 06/26/25 Resulted View 10:57 Obtain Consent For: ORDERS 06/26/25 Transmitted 11:45 Obtain Consent For JULIETTE 06/26/25 In Process Anesthesia 11:45 Midazolam Drip 50 PHA 06/26/25 In Process Mg/50ml (Versed Drip 5 13:00 Fentanyl Drip PHA 06/26/25 In Process 2500mcg/250mlns 13:00 Obtain Consent For: ORDERS 06/26/25 Transmitted 16:10 Obtain Consent For JULIETTE 06/26/25 In Process Anesthesia 16:10 Plan discussed with Plan discussed with: Daughter Visit Coding Surgery Date of Service if different f: Jun 27, 2025 Billing Provider: JEANMARIE RAY MD Surgery Visit Codes: [id number] INP/OBS CARE(HIGH) JEANMARIE RAY MD Jun 27, 2025 10:33
--- NOTE | 2025-06-27 10:44 | DVHOP2 ---
Operative Report - 2 Report Details Date: 06/27/25 Preop Diagnosis: Open abdomen Postop Diagnosis: Same Surgeon: Jeanmarie Brantley MD Sound Effects Technician: Dewey Meredith NP Anesthesiologist: Dr. Mendoza Anesthesia: General Drains: 19 Swiss round channel drain x2. One in the left gutter and exiting the right lower quadrant the other drainage in the right gutter and exiting on the left lower quadrant. Skin wound VAC in place Consent: The patient was informed of the risks and benefits of the procedure. These include but are not limited to complications of anesthesia, postoperative infection, incomplete relief of symptoms, recurrence of symptoms, damage to b lood vessels, nerves and tendons, deep venous thrombosis, pulmonary embolism and possible need for repeat surgery in the future. Complications: None Estimated Blood Loss: 2 mL Findings: Dusky ostomy mucosa, but pink and healthy transverse colon limb intraperitoneally. No additional enteric content was found intraperitoneally. Something interloop adhesions and fibrinous tissue. Healthy transverse colon ostomy limb. No bleeding. Indications for Surgery: Open abdomen Name of Procedure Performed Exploratory laparotomy, anastomotic resection, washout, end colostomy, temporary abdominal closure Procedure Details Procedure Details: Upon arrival to the operating room the patient was transferred to the operating table and placed in the supine position with arms extended. Patient presented intubated already due to having an open abdomen. General endotracheal anesthesia was induced. Time-out was observed. The outer temporary abdominal closure device was removed. Patient was then prepped and draped in the standard sterile surgical fashion with Betadine-Betadine. I then removed the inner plastic liner from the temporary abdominal closure device. I immediately noticed some thin interloop small bowel adhesions with some areas of thin fibrinous tissue. I then proceeded to irrigate the peritoneal cavity copiously, and lyse some of this thin adhesions bluntly. I also removed some of the fibrinous tissue from the small bowel loops. I then proceeded to take a look at the transverse colon limb that was going out of the abdominal wall and forming the ostomy. Transverse colon limb was pink and healthy, and without tension. I then proceeded to look through the ostomy, it has some areas of dusky mucosa, but healthy otherwise. I then removed the previously placed MAURICE drain, from the 1st surgery. I then replaced the drain with a brand new MAURICE drain, placed it on the left gutter exiting through the right lower quadrant. I then placed another 19 Swiss MAURICE drain in the right gutter exiting the peritoneum through the left lower quadrant. Both drains secured in place with 2-0 nylon. I then proceeded to wash out again the peritoneal cavity copiously with warm saline, and suctioned the fluid out. No additional spillage was noted, or retained enteric contents from last surgery. The cavity was hemostatic. At this point I decided to close fascia. Fascia was closed with 2 #1 looped PDS, starting at each pole of the wound and meeting in the center. I then irrigated the skin and subcu tissue with additional Betadine wash. Skin was left open, and wound VAC placed in the midline wound. All counts complete and correct at the end the procedure. Patient tolerated the procedure well and was transferred to ICU in stable condition. Specimen: None Condition Stable Disposition Still a Patient JEANMARIE RAY MD Jun 27, 2025 10:44
[2025-06-27] MEDS: SODIUM PHOSPHATES 24 MEQ in SODIUM CHL 0.9% 100 ML IV ONE (12:00)
--- NOTE | 2025-06-27 13:22 | DVHPNRES ---
Progress Note Date Seen: Jun 27, 2025 Resident Creating Document: FLORENCIO HORTA RESIDENT Medical Necessity Reason Pt with a Central, PICC or Fol: No Subjective Review of Systems Patient seen and examined at the bedside, family member present, discussed patient's updates. Status post exploratory laparotomy, 2nd look done today for closure. Patient is currently under sedation and analgesia. She is intubated on mechanical ventilator, no vasopressors. Urine output was 450 mL overnight. Overnight events: Reported SVT events. Corrected calcium, potassium through IV replacement. Objective vital signs Vital Sign Date Time Temp Pulse Resp B/P (MAP) Pulse Ox O2 Delivery O2 Flow Rate FiO2 06/27/25 12:45 98.8 105 16 139/68 (91) 98 209.8 128/83 (98) 06/27/25 12:19 30 06/27/25 12:18 Mechanical Ventilator+ 06/27/25 08:00 0 Total Intake and Output 06/26/25 06/26/25 06/27/25 15:00 23:00 07:00 Intake Total 116 ml 873.25 ml 1186.50 ml Output Total 1475 ml 525 ml Balance 116 ml -601.75 ml 661.50 ml medications Current Medications Medications Dose Ordered Sig/Babak Route Start Time Stop Time Status Last Admin Dose Admin Pantoprazole Sodium 40 mg DAILY IV 06/18/25 10:00 06/27/25 10:23 40 MG Ondansetron HCl 4 mg Q6HPRN PRN IV 06/17/25 19:30 06/22/25 16:37 4 MG Potassium Chloride 100 ml @ 50 mls/hr Q2H IV 06/23/25 08:30 06/23/25 12:29 Cancel Amino Acids 0 ml @ 0 mls/hr PER PHARMACY IV 06/25/25 13:00 Sodium Chloride 10 ml QSHIFT@10,22 IV 06/25/25 22:00 06/27/25 08:19 10 ML Iron Sucrose 110 ml @ 110 mls/hr DAILY@1200 IV 06/26/25 12:00 06/30/25 12:59 06/27/25 11:52 110 MLS/HR Folic Acid 1 mg/ Dextrose 50.2 ml @ 200.8 mls/ hr DAILY INJ 06/26/25 10:00 06/27/25 10:00 200.8 MLS/HR Fat Emulsion Intravenous 50 ml/ Potassium Phosphate 22 meq/ Calcium Gluconate 4.56 meq/ Magnesium Sulfate 4 meq/ Multivitamins 10 ml/Amino Acids/ Dextrose/Purified Water 875.8064 ml @ 36 mls/hr [id number] IV 06/26/25 22:00 06/27/25 21:59 06/26/25 22:20 36 MLS/HR Midazolam HCl 50 ml @ 1 mls/hr Q24H IV 06/26/25 13:00 06/27/25 06:51 5 MLS/HR Fentanyl Citrate 250 ml @ 2.5 mls/hr Q24H IV 06/26/25 13:00 06/26/25 16:20 2.5 MLS/HR Piperacillin Sod/ Tazobactam Sod 100 ml @ 25 mls/hr Q8HR IV 06/26/25 22:00 06/27/25 11:53 25 MLS/HR Diagnostic Test (Pha) 1 strip Q6HR 06/26/25 18:00 06/27/25 10:51 1 STRIP Insulin Human Regular Q6HR SC 06/26/25 18:00 06/27/25 12:00 3 UNITS Dextrose 50 ml UD PRN IV 06/26/25 17:45 Acetaminophen 650 mg Q6HP PRN GT 06/26/25 18:00 06/26/25 21:00 650 MG Doxycycline Hyclate 100 ml @ 50 mls/hr Q12HR@0400,1600 IV 06/27/25 04:00 06/27/25 04:14 50 MLS/HR Norepinephrine Bitartrate 250 ml @ 3.75 mls/hr Q24H IV 06/26/25 21:30 Labetalol HCl 10 mg Q6HP PRN IV 06/27/25 09:45 Propofol 100 ml @ 2.838 mls/ hr Q24H IV 06/27/25 11:00 Fat Emulsion Intravenous 100 ml/Sodium Phosphate 10 meq/ Potassium Acetate 10 meq/Potassium Phosphate 22 meq/ Calcium Gluconate 6.975 meq/ Magnesium Sulfate 4 meq/ Multivitamins 10 ml/Chromium/ Copper/Manganese/ Zinc 1 ml/Amino Acids/Dextrose/ Purified Water 1,139.5 ml @ 47 mls/hr [id number] IV 06/27/25 22:00 06/28/25 21:59 Examination Physical examination as below: General: Sedated, intubated HEENT: Head is normocephalic and atraumatic. Pupils are equal, round, and reactive to light. Extraocular muscles are intact. No nasal discharge. No facial trauma. Intraoral exam shows moist mucous membranes with no tonsillar enlargement or exudate. Neck: Supple with no cervical lymphadenopathy. Heart: Tachycardic, Regular rate without murmur, rub, or gallop. Lungs: Bilateral crackles most prominent on left side. Abdomen: No external sign of injury. Bowel sounds are diminished. Abdomen is soft, nontender, distended, two MAURICE drains, draining serosanguineous fluid. Extremities: Strong peripheral pulses. There is no clubbing, no cyanosis, and no edema. Skin: No rash. Neurologic: Sedated laboratory and microbiology Laboratory Tests 06/27/25 03:45 Test 06/27/25 03:45 Range/Units Serum Glucose 225 H 74-106 mg/dL Microbiology Date/Time Source Procedure Growth Status 06/26/25 16:43 Sputum Gram Stain Pending Resulted 06/26/25 16:43 Sputum Respiratory Culture - Preliminary Resulted 06/23/25 18:59 Nose MRSA Screen - Final Complete Labs and/or images reviewed: Labs reviewed by me, Image(s) reviewed by me Problem List/Assessment/Plan Problem List/Assessment/Plan Acute intractable abdominal pain severe constipation Large bowel obstruction with mass at the splenic flexure s/p Exploratory laparotomy Pneumoperitoneum s/p exploratory laparotomy, 2nd look procedure for closure performed on 06/27 - Initial CT abdomen pelvis with the contrast showed irregular bowel wall narrowing in the region of the splenic flexure of the colon with surrounding lymph nodes up to 10 mm, highly concerning for colon neoplasm. - Initial colonoscopy unsuccessful d/t poor bowel prep, repeat colonoscopy done on 06/22 showed ulcerated mass at the distal transverse colon/ splenic flexure causing severe obstruction - patient underwent exploratory reportedly on 06/23 with Segmental colectomy, splenic flexure takedown, hepatic flexure takedown, primary isoperistaltic stapled anastomosis - pending biposy report - CEA-normal, Ca-19-9 and Ca 125 normal - IV ABX ceftriaxone and flagyl - postop CT abdomen pelvis done on 06/24, showed no anastomotic leak, sludge changes suggestive of acute colitis, minimal fluid and fat stranding likely postoperative changes - after the surgery patient has been NPO with NG to LIS, - on TPN - patient was seen to have a pneumoperitoneum with increased tenderness to palpation, taken back to OR, colostomy was placed - sacroiliac procedure was performed on 06/27, closure was performed two MAURICE drains were placed. Acute hypoxic respiratory failure likely due to pulmonary edema Aspiration Pneumonia likely due to Gram+/-bacteria Status post surgery on mechanical ventilation - while in the surgery patient got 3 L of fluid, postop patient was tachycardic with elevated lactic acid to be resuscitated with more fluids, given soft blood pressures we are judiciously using Lasix, urine output improving - IV antibiotics Zosyn - minimal ventilator settings with a PEEP of 5, VT 500, FiO2 30%, ABG showed mixed respiratory alkalosis with metabolic acidosis Consulted radiation control worker for mechanical ventilator management switched versed for prop continue fentanyl CPAP trial tomorrow History of hypertensive heart disease Concentric left ventricular hypertrophy paroxysmal SVT - echo shows LVEF 65% - IV lasix for diuresis as needed Sepsis likely due to intra-abdominal infection SIRS with organ dysfunction - resuscitated with IV fluids - IV antibiotics Zosyn and doxycycline ANNE MARIE likely prerenal due to VMN - kidney function improving - IV fluids - decreased urine output, challenge with a IV Lasix low doses - urine output improving Microcytic hyperchromic anemia Coagulopathy Patient is Evangelical H&H downtrending, IV iron, vitamin B12 and folic acid given Elevated PT INR, 5 mg vitamin K given PICC line right arm placed on 06/25 PUD prophylaxis: Protonix DVT prophylaxis: held enoxaparin because of decreased H&H Goals of care discussed with the patient and the daughter for over 24 minutes. Full code Critical care time spent: 63 minutes Plan discussed with Plan discussed with: Daughter, Other (RN) My Orders My Orders Orders - FLORENCIO HORTA RESIDENT Procedure Category Date Status Time Labetalol Hcl PHA 06/27/25 In Process (Labetalol Hcl) 09:45 *Consult CONS 06/27/25 Transmitted 10:20 Propofol (Diprivan) PHA 06/27/25 In Process 11:00 Amino Acid PHA 06/27/25 In Process Infusion... W/Fat 22:00 Chest Portable XY 06/28/25 Verified 04:00 Abg W/ Co-Ox RT 06/28/25 Verified 04:00 Dietary Evaluation Review Comments: Advance to diet texture as tolerated when medically feasible Encourage and monitor intakes to meet his needs at least at 75% Expected Outcomes/Goals: maintain BW Date of Service: Jun 27, 2025 Billing Provider: PASHA LANG MD Common Visit Codes: [id number] CARE 30-74 MIN FLORENCIO HORTA RESIDENT Jun 27, 2025 13:22 PASHA LANG MD Jun 27, 2025 22:54
[2025-06-27] MEDS: PROPOFOL 100 ML IV SCH (14:37)
--- NOTE | 2025-06-27 15:48 | DVHINCON2 ---
Date of service: Jun 27, [address] Lowery Reason for Consultation Acute respiratory failure History of Present Illness History Source: Patient, RN Notes, MD Notes Exam Limitations: Clinical condition HPI Patient is a 79-year old gentleman with a history of hypertension who presented with abdominal pain. Was seen in the emergency room where he was found to have large bowel obstruction and he subsequently underwent partial colectomy and colostomy. Patient required additional intervention and underwent wound closure today. He returned back to the ICU postoperatively on mechanical ventilation and pulmonology was consulted to assist in ventilator management. Home Meds Active Scripts Prednisone (Prednisone) 20 Mg Tab, 60 MG PO DAILY for 10 Days, #30 MG Prov:HIGINIO ORTIZ MD 11/22/22 Multiple Vitamin (Multi Vitamin) 1 Tab Tab, 1 TAB PO DAILY, #30 TAB Prov:HIGINIO ORTIZ MD 11/22/22 Folic Acid (Folic Acid) 1 Mg Tab, 1 MG PO DAILY, #30 TAB Prov:HIGINIO ROTIZ MD 11/22/22 Thiamine Hcl (Thiamine Hcl) 100 Mg Tab, 1 TAB PO DAILY, #30 TAB 3 Refills Prov:HIGINIO ORTIZ MD 11/22/22 Chlordiazepoxide Hcl (Librium) 25 Mg Cp, 25 MG PO TID, #30 CAP Prov:HIGINIO ORTIZ MD 11/22/22 Metoprolol Tartrate (LOPRESSOR TABLET) 50 Mg Tb, 1 TAB PO BID, #180 TAB 1 Refill Prov:HIGINIO ORTIZ MD 11/22/22 Atorvastatin Calcium (Lipitor) 40 Mg Tab, 1 TAB PO QPM, #90 TAB 3 Refills Prov:HIGINIO ORTIZ MD 11/22/22 Clopidogrel Bisulfate (Plavix) 75 Mg Tab, 1 TAB PO DAILY, #21 TAB 1 Refill Prov:HIGINIO ORTIZ MD 11/22/22 Aspirin (ASPIRIN/ENTERIC) 81 Mg Tab, 81 MG PO DAILY, #90 TAB Prov:HIGINIO ORTIZ MD 11/22/22 Reported Medications Cyanocobalamin (Vitamin B-12) 1,000 Mcg Tab, 1 TAB PO DAILY 06/18/25 Valsartan (Valsartan) 160 Mg Tab, 1 TAB PO DAILY 06/18/25 Hydroxyurea (Hydroxyurea) 500 Mg Cap, CAP PO 06/18/25 Prednisolone Acetate (Ophth) (Pred Forte) 1 % Ara, 1 % OP QID, ML 11/20/22 Enalapril Maleate (Enalapril Maleate) 20 Mg Tab, 1 TAB PO DAILY 11/18/22 Past Medical History Cardiac: HTN Pulmonary: No pertinent Hx Central Nervous System: No pertinent Hx GI: No pertinent Hx Hemotology/Oncology: No pertinent Hx Hepatobiliary: No pertinent Hx Psychiatric: No pertinent Hx Musculoskeletal: No pertinent Hx Rheumotologic: No pertinent Hx Infectious Disease: No peritnent Hx ENT: No pertinent Hx Renal/: No pertinent Hx Endocrine: No pertinent Hx Dermatology: No pertinent Hx Past Surgical History: No pertinent Hx Family History: Hypertension Patient Family History: Arthritis Diabetes mellitus Hypertension G8 FATHER, Onset:Unknown Smoker: No Hx (Negative) Alocohol: None Drugs: None Lives with: With family Domestic Violence: Neg Review of Systems Comments unable to perform: patient intubated and sedated H&P Exam Vital Signs Vital Signs Date Time Temp Pulse Resp B/P (MAP) Pulse Ox O2 Delivery O2 Flow Rate FiO2 06/27/25 15:37 113 16 76/42 (53) 96 30 06/27/25 15:01 100.4 06/27/25 13:57 Mechanical Ventilator+ 06/27/25 08:00 0 General Appeara: Well developed, Well nourished, Normal Appearance Head Exam: Normal inspection Neck Exam: Normal inspection, Non-tender, Normal alignment Eye Exam: bilateral eye Normal inspection, bilateral eye PERRL, bilateral eye EOMI Ear Exam: bilateral ear Auricle normal, bilateral ear Canal normal, bilateral ear TM normal Nasal Exam: Normal inspection Mouth: Normal Inspection Pulmonary/Respiratory: Decreased breath sounds Cardiovascular/Chest: Normal inspection Peripheral Pulses: 4+ Radial (R), 4+ Radial (L), 4+ Brachial (R), 4+ Brachial (L) Abdominal Exam: Normal bowel sounds Labs/Xrays Labs Test 06/27/25 11:54 06/27/25 06:39 06/27/25 03:45 06/26/25 19:00 Range/Units POC Glucose 178 H 70-106 mg/dl Blood Gas Specimen Type Arterial Blood Gas Sample Site Arterial line Blood Gas Patient Temperature 37.0 Arterial Blood Date Drawn [id number] Arterial Blood pH 7.388 7.350-7.450 Arterial Blood Partial Pressure CO2 31.3 L 35.0-48.0 mmHg Arterial Blood Partial Pressure O2 125.5 H 83.0-108.0 mmHg Arterial Blood HCO3 18.4 L 21.0-28.0 mmol/L Arterial Blood Oxygen Saturation 98.2 H 94.0-98.0 % Arterial Blood Base Excess -5.6 L -2.0-3.0 mmol/L Arterial Blood Oxyhemoglobin 97.6 94.0-98.0 % Arterial Blood Carboxyhemoglobin 0.1 L 0.5-1.5 % Arterial Blood Methemoglobin 0.5 0.0-1.5 % Saad Test N/a Blood Gas Total Hemoglobin 11.70 L 13.5-17.5 g/dL Blood Gas Set Respiration Rate 16.0 Blood Gas Modality Vent - ac FiO2 % 30.0 Blood Gas Tidal Volume 500.0 Blood Gas PEEP or CPAP 5.0 White Blood Count 8.1 4.4-10.8 10^3/uL Red Blood Count 2.54 L 4.5-5.90 10^6/uL Hemoglobin 9.2 L 13.5-17.5 g/dL Hematocrit 27.9 L 41.0-53.0 % Mean Corpuscular Volume 109.8 H 80.0-100.0 fL Mean Corpuscular Hemoglobin 36.3 H 28.0-32.0 pg Mean Corpuscular Hemoglobin Concent 33.1 32.0-36.0 g/dL Red Cell Distribution Width 17.2 H 11.8-14.3 % Platelet Count 372 140-450 10^3/uL Mean Platelet Volume 7.5 6.9-10.8 fL Neutrophils (%) (Auto) 80.8 H 37.0-80.0 % Lymphocytes (%) (Auto) 7.2 L 10.0-50.0 % Monocytes (%) (Auto) 7.0 0.0-12.0 % Eosinophils (%) (Auto) 4.6 0.0-7.0 % Basophils (%) (Auto) 0.4 0.0-2.0 % Neutrophils # (Auto) 6.5 1.6-8.6 10 ^3/uL Lymphocytes # (Auto) 0.6 0.4-5.4 10 ^3/uL Monocytes # (Auto) 0.6 0-1.3 10 ^3/uL Eosinophils # (Auto) 0.4 0-0.8 10 ^3/uL Basophils # (Auto) 0 0-0.2 10 ^3/uL Nucleated Red Blood Cells 0.0 % Prothrombin Time 12.0 H 9.3-11.8 sec Prothrombin Time INR 1.15 0.9-1.15 Activated Partial Thromboplast Time 46.9 H 24.5-34.5 SEC Sodium Level 142 136-145 mmol/L Potassium Level 3.4 L 3.5-5.1 mmol/L Chloride Level 114 H 98-107 mmol/L Carbon Dioxide Level 20 20-31 mmol/L Anion Gap 8 5-15 Blood Urea Nitrogen 14 9-23 mg/dL Creatinine 0.81 0.700-1.30 mg/dL Glomerular Filtration Rate Calc 91 >90 mL/min BUN/Creatinine Ratio 17.3 10.0-20.0 Serum Glucose 225 H 74-106 mg/dL Calcium Level 6.0 *L 8.7-10.4 mg/dL Phosphorus Level 2.0 L 2.4-5.1 mg/dL Magnesium Level 2.1 1.6-2.6 mg/dL Total Bilirubin 1.7 H 0.2-1.0 mg/dL Aspartate Amino Transferase (AST) 68 H 13-40 U/L Alanine Aminotransferase (ALT) 47 H 7-40 U/L Alkaline Phosphatase 63 46-116 U/L Total Protein 3.7 L 5.7-8.2 g/dL Albumin 2.1 L 3.2-4.8 g/dL Blood Gas Spontaneous Rate 16 Blood Gas Spontaneous Tidal Volume 511 Blood Gas Critical Value Read Back Yes Test 06/26/25 18:19 06/26/25 04:35 06/25/25 06:43 06/25/25 03:43 Range/Units Lactic Acid Level 1.3 0.4-2.0 mmol/L Iron Level 24 L 65-175 ug/dL Total Iron Binding Capacity 142 L 250-425 ug/dL Percent Iron Saturation 16.9 L 20-55 % Ferritin 805.4 H 22-322 ng/mL Direct Bilirubin 1.6 H <0.3 mg/dL Triglycerides Level 120 < 150 mg/dL Blood Gas Liter Flow 4.00 Estimated GFR () 48 mL/min Estimated GFR (Non- 40 mL/min Test 06/24/25 00:56 06/23/25 05:54 06/19/25 05:20 06/18/25 08:30 Range/Units Specimen Drawn By Lyn givens md B-Type Natriuretic Peptide 161.23 0-100 pg/mL Carcinoembryonic Antigen 2.27 <=5.0 ng/mL CA 19-9 Antigen 9 0-35 U/mL CA 125 Antigen 45.8 Not Estab. U/mL Urine Color Yellow Yellow Urine Clarity Clear Clear Urine pH 5.5 5.0-9.0 Urine Specific [place] 1.044 H 1.001-1.035 Urine Protein Trace H Negative Urine Ketones 1+ H Negative Urine Blood Negative Negative /uL Urine Nitrite 2+ H Negative Urine Bilirubin Negative Negative Urine Urobilinogen Normal Negative mg/dL Urine Leukocyte Esterase 2+ Negative /uL Urine RBC 2 0 - 3 /hpf Urine Microscopic WBC 67 H 0-3 /HPF Urine Squamous Epithelial Cells Few <5 /hpf Urine Bacteria Many H None Seen /hpf Urine Mucus Few None Seen Urine Glucose Normal Normal mg/dL Microbiology Date/Time Source Procedure Growth Status 06/26/25 16:43 Sputum Gram Stain Pending Resulted 06/26/25 16:43 Sputum Respiratory Culture - Preliminary Resulted 06/26/25 16:20 Nose MRSA Screen - Final Complete Assessment/Plan Plan Impression Acute hypoxemic respiratory failure S/p partial colectomy and colostomy Essential thrombocytosis Left lung pneumonia vs atelectasis Patient seen and examined in ICU Events On mechanical ventilation S/p intubation PEEP 5, FiO2 30% Patient not waking up Labs and imaging reviewed Chest x-ray shows left lower lobe infiltrates consistent with pneumonia ABG reviewed Consistent with hyperchloremic acidosis Management Vent support Titrate to maintain sats 90% or above Sedation holiday in AM If patient follows commands, proceed to weaning trial Pressure support 03/14, extubate when ready Antibiotics Bronchodilators Monitor renal function Monitor electrolytes Supplement as needed Pressors as needed for hemodynamic support To maintain a mean arterial pressure of 65 mmHg DVT prophylaxis Critical care time 35 minutes Plan discussed with: Other (Rn) OSCAR ROSAS MD Jun 27, 2025 15:48
[2025-06-27 19:08] LABS: Hematocrit 30.2 % (41.0-53.0); Hemoglobin 10.0 g/dL (13.5-17.5)
[2025-06-27] MEDS: POTASSIUM ACETATE IV NR (22:28)
[2025-06-27] MEDS: FAT EMULSION IV NR (22:28)
[2025-06-27] MEDS: [UNRECOGNIZED DRUG - OTHER] IV NR (22:28)
[2025-06-27] MEDS: SODIUM PHOSPHATES IV NR (22:28)
[2025-06-28] VITALS (115 sets, daily range): BP systolic 70–150; BP diastolic 35–109; PULSE 79–118; RESP 12–25; TEMP 78.1–100.2; O2SAT 87–100
[2025-06-28 00:44] LABS: Base Excess -4.9 mmol/L (-2.0-3.0)
[2025-06-28 04:38] LABS: Hemoglobin 9.3 g/dL (13.5-17.5); Nucleated Red Blood Cells % 0.0 %
[2025-06-28 04:41] LABS: Hematocrit 27.8 % (41.0-53.0); Mean Corpuscular Hemoglobin 37.0 pg (28.0-32.0); Mean Corpuscular Volume 111.4 fL (80.0-100.0)
[2025-06-28 05:00] LABS: Alkaline Phosphatase 58 U/L (46-116); Anion Gap 10 (5-15); BUN/Creatinine Ratio 17.9 (10.0-20.0); Blood Urea Nitrogen 17 mg/dL (9-23); Carbon Dioxide 23 mmol/L (20-31); Magnesium 2.2 mg/dL (1.6-2.6); Potassium 3.8 mmol/L (3.5-5.1); Sodium 143 mmol/L (136-145)
[2025-06-28 05:22] LABS: Alanine Aminotransferase 47 U/L (7-40); Albumin 2.1 g/dL (3.2-4.8); Bilirubin, Total 1.7 mg/dL (0.2-1.0); Calcium 6.9 mg/dL (8.7-10.4); Chloride 110 mmol/L (98-107); Glucose 187 mg/dL (74-106); Total Protein 3.7 g/dL (5.7-8.2)
--- NOTE | 2025-06-28 06:01 | DVH ---
CHEST RADIOGRAPH Indication: sob Technique: Single frontal view of the chest was obtained Comparison: XY CHEST PORTABLE on DOS: 06/27/25, XY CHEST XRAY 1 VIEW on DOS: 06/26/25, XY CHEST BIBI BLE on DOS: 06/26/25 IMPRESSION: There are low lung volumes. Support lines and tubes appear unchanged in satisfactory position. Mild- to-moderate pulmonary vascular congestion. No sizable effusion or pneumothorax. No significant interv al change.
[2025-06-28] MEDS: POTASSIUM PHOSPHATE 26.4 MEQ in SODIUM CHL 0.9% 100 ML IV ONE (07:15)
--- NOTE | 2025-06-28 07:43 | DVHPN2 ---
Subjective Date Seen: Jun 28, 2025 Post op day Post op day: 1 Patient reports: Other (Intubated and sedated ) Objective Vitals Vital Sign Date Time Temp Pulse Resp B/P (MAP) Pulse Ox O2 Delivery O2 Flow Rate FiO2 06/28/25 06:45 99.5 97 16 102/52 (69) 96 211.1 06/28/25 06:43 30 06/28/25 06:00 Mechanical Ventilator+ 06/27/25 20:00 0 Total Intake and Output 06/27/25 06/27/25 06/28/25 15:00 23:00 07:00 Intake Total 842.038 ml 685.206 ml 622.118 ml Output Total 1545 ml 555 ml Balance 842.038 ml -859.794 ml 67.118 ml Medications Current Medications Medications Dose Ordered Sig/Babak Route Start Time Stop Time Status Last Admin Dose Admin Pantoprazole Sodium 40 mg DAILY IV 06/18/25 10:00 06/27/25 10:23 40 MG Ondansetron HCl 4 mg Q6HPRN PRN IV 06/17/25 19:30 06/22/25 16:37 4 MG Potassium Chloride 100 ml @ 50 mls/hr Q2H IV 06/23/25 08:30 06/23/25 12:29 Cancel Amino Acids 0 ml @ 0 mls/hr PER PHARMACY IV 06/25/25 13:00 Sodium Chloride 10 ml QSHIFT@10,22 IV 06/25/25 22:00 06/27/25 21:34 10 ML Iron Sucrose 110 ml @ 110 mls/hr DAILY@1200 IV 06/26/25 12:00 06/30/25 12:59 06/27/25 11:52 110 MLS/HR Folic Acid 1 mg/ Dextrose 50.2 ml @ 200.8 mls/ hr DAILY INJ 06/26/25 10:00 06/27/25 10:00 200.8 MLS/HR Midazolam HCl 50 ml @ 1 mls/hr Q24H IV 06/26/25 13:00 06/27/25 06:51 5 MLS/HR Fentanyl Citrate 250 ml @ 2.5 mls/hr Q24H IV 06/26/25 13:00 06/27/25 23:39 10 MLS/HR Piperacillin Sod/ Tazobactam Sod 100 ml @ 25 mls/hr Q8HR IV 06/26/25 22:00 06/28/25 05:28 25 MLS/HR Diagnostic Test (Pha) 1 strip Q6HR 06/26/25 18:00 06/28/25 05:28 1 STRIP Insulin Human Regular Q6HR SC 06/26/25 18:00 06/28/25 05:33 2 UNITS Dextrose 50 ml UD PRN IV 06/26/25 17:45 Acetaminophen 650 mg Q6HP PRN GT 06/26/25 18:00 06/27/25 15:01 650 MG Doxycycline Hyclate 100 ml @ 50 mls/hr Q12HR@0400,1600 IV 06/27/25 04:00 06/28/25 03:32 50 MLS/HR Norepinephrine Bitartrate 250 ml @ 3.75 mls/hr Q24H IV 06/26/25 21:30 06/27/25 14:58 3.75 MLS/HR Labetalol HCl 10 mg Q6HP PRN IV 06/27/25 09:45 Propofol 100 ml @ 2.838 mls/ hr Q24H IV 06/27/25 11:00 06/28/25 03:52 2.838 MLS/HR Fat Emulsion Intravenous 100 ml/Sodium Phosphate 10 meq/ Potassium Acetate 10 meq/Potassium Phosphate 22 meq/ Calcium Gluconate 6.975 meq/ Magnesium Sulfate 4 meq/ Multivitamins 10 ml/Chromium/ Copper/Manganese/ Zinc 1 ml/Amino Acids/Dextrose/ Purified Water 1,139.5 ml @ 47 mls/hr [id number] IV 06/27/25 22:00 06/28/25 21:59 06/27/25 22:28 47 MLS/HR General: Other (intubated ) Labs and Microbiology Laboratory Tests 06/28/25 04:09 Test 06/28/25 04:09 Range/Units Serum Glucose 187 H 74-106 mg/dL Ass/Plan Labs and/or images reviewed: Labs reviewed by me, Image(s) reviewed by me Problem List Acute intractable abdominal pain severe constipation Large bowel obstruction with mass at the splenic flexure s/p Exploratory laparotomy Pneumoperitoneum s/p exploratory laparotomy, 2nd look procedure for closure performed on 06/27 - Initial CT abdomen pelvis with the contrast showed irregular bowel wall narrowing in the region of the splenic flexure of the colon with surrounding lymph nodes up to 10 mm, highly concerning for colon neoplasm. - Initial colonoscopy unsuccessful d/t poor bowel prep, repeat colonoscopy done on 06/22 showed ulcerated mass at the distal transverse colon/ splenic flexure causing severe obstruction - patient underwent exploratory reportedly on 06/23 with Segmental colectomy, splenic flexure takedown, hepatic flexure takedown, primary isoperistaltic stapled anastomosis - pending biposy report - CEA-normal, Ca-19-9 and Ca 125 normal - IV ABX ceftriaxone and flagyl - postop CT abdomen pelvis done on 06/24, showed no anastomotic leak, sludge changes suggestive of acute colitis, minimal fluid and fat stranding likely postoperative changes - after the surgery patient has been NPO with NG to LIS, - on TPN - patient was seen to have a pneumoperitoneum with increased tenderness to palpation, taken back to OR, colostomy was placed - sacroiliac procedure was performed on 06/27, closure was performed two MAURICE drains were placed. Acute hypoxic respiratory failure likely due to pulmonary edema Aspiration Pneumonia likely due to Gram+/-bacteria Status post surgery on mechanical ventilation - while in the surgery patient got 3 L of fluid, postop patient was tachycardic with elevated lactic acid to be resuscitated with more fluids, given soft blood pressures we are judiciously using Lasix, urine output improving - IV antibiotics Zosyn - minimal ventilator settings with a PEEP of 5, VT 500, FiO2 30%, ABG showed mixed respiratory alkalosis with metabolic acidosis Consulted chief executive for mechanical ventilator management switched versed for prop continue fentanyl CPAP trial tomorrow History of hypertensive heart disease Concentric left ventricular hypertrophy paroxysmal SVT - echo shows LVEF 65% - IV lasix for diuresis as needed Sepsis likely due to intra-abdominal infection SIRS with organ dysfunction - resuscitated with IV fluids - IV antibiotics Zosyn and doxycycline ANNE MARIE likely prerenal due to VMN - kidney function improving - IV fluids - decreased urine output, challenge with a IV Lasix low doses - urine output improving Microcytic hyperchromic anemia Coagulopathy Patient is Jewish H&H downtrending, IV iron, vitamin B12 and folic acid given Elevated PT INR, 5 mg vitamin K given PICC line right arm placed on 06/25 PUD prophylaxis: Protonix DVT prophylaxis: held enoxaparin because of decreased H&H Goals of care discussed with the patient and the daughter for over 24 minutes. Full code Critical care time spent: 63 minutes Plan discussed with Assessment/Plan wound ok minimal output from wound vac MAURICE drain minimal serous fluid labs and notes reviewed stoma ok with fecal matter abdomen soft Plan: CPAP plan for today No other changes in treatment Prognosis: Good Plan discussed with notified Dr. Cota Visit Coding Surgery Date of Service if different f: Jun 28, 2025 Billing Provider: KAYDEN FLANAGAN MD Surgery Visit Codes: [id number] INP/OBS CARE(HIGH) NEGRO OKEEFE NP Jun 28, 2025 07:43
[2025-06-28] MEDS: DEXMEDETOMIDINE HCL IN D5W 100 ML IV SCH (08:30)
[2025-06-28] MEDS: HYDROmorphone HCL 2 MG/ML VL/or syr IV PRN (08:49)
[2025-06-28] MEDS: FUROSEMIDE 40 MG/4 ML VIAL IV ONE (08:49)
[2025-06-28] MEDS ORDERED: ETOMIDATE (2MG/ML) 10ML VIAL IV ONE (13:08)
[2025-06-28] MEDS ORDERED: LABETALOL HCL 20 MG/4 ML VL IV PRN (14:30)
[2025-06-28] MEDS ORDERED: VANCOMYCIN PER PHARMACY 0 MG IV SCH (14:30)
--- NOTE | 2025-06-28 14:34 | DVHPN2 ---
Progress Note - Dictate Date Seen: Jun 28, 2025 Medical Necessity Reason Pt with a Central, PICC or Fol: No vital signs Vital Sign Date Time Temp Pulse Resp B/P (MAP) Pulse Ox O2 Delivery O2 Flow Rate FiO2 06/28/25 14:09 110 18 138/56 (83) 98 30 06/28/25 13:43 Mechanical Ventilator+ 06/28/25 13:30 100.2 212.4 06/28/25 08:00 0 Total Intake and Output 06/27/25 06/27/25 06/28/25 15:00 23:00 07:00 Intake Total 842.038 ml 685.206 ml 671.618 ml Output Total 1545 ml 555 ml Balance 842.038 ml -859.794 ml 116.618 ml medications Current Medications Medications Dose Ordered Sig/Babak Route Start Time Stop Time Status Last Admin Dose Admin Pantoprazole Sodium 40 mg DAILY IV 06/18/25 10:00 06/28/25 07:49 40 MG Ondansetron HCl 4 mg Q6HPRN PRN IV 06/17/25 19:30 06/22/25 16:37 4 MG Potassium Chloride 100 ml @ 50 mls/hr Q2H IV 06/23/25 08:30 06/23/25 12:29 Cancel Amino Acids 0 ml @ 0 mls/hr PER PHARMACY IV 06/25/25 13:00 Sodium Chloride 10 ml QSHIFT@10,22 IV 06/25/25 22:00 06/28/25 07:49 10 ML Iron Sucrose 110 ml @ 110 mls/hr DAILY@1200 IV 06/26/25 12:00 06/30/25 12:59 06/28/25 11:52 110 MLS/HR Folic Acid 1 mg/ Dextrose 50.2 ml @ 200.8 mls/ hr DAILY INJ 06/26/25 10:00 06/28/25 07:50 200.8 MLS/HR Midazolam HCl 50 ml @ 1 mls/hr Q24H IV 06/26/25 13:00 06/27/25 06:51 5 MLS/HR Fentanyl Citrate 250 ml @ 2.5 mls/hr Q24H IV 06/26/25 13:00 06/27/25 23:39 10 MLS/HR Piperacillin Sod/ Tazobactam Sod 100 ml @ 25 mls/hr Q8HR IV 06/26/25 22:00 06/28/25 12:00 25 MLS/HR Diagnostic Test (Pha) 1 strip Q6HR 06/26/25 18:00 06/28/25 11:45 1 STRIP Insulin Human Regular Q6HR SC 06/26/25 18:00 06/28/25 11:52 2 UNITS Dextrose 50 ml UD PRN IV 06/26/25 17:45 Acetaminophen 650 mg Q6HP PRN GT 06/26/25 18:00 06/27/25 15:01 650 MG Norepinephrine Bitartrate 250 ml @ 3.75 mls/hr Q24H IV 06/26/25 21:30 06/27/25 14:58 3.75 MLS/HR Propofol 100 ml @ 2.838 mls/ hr Q24H IV 06/27/25 11:00 06/28/25 03:52 2.838 MLS/HR Fat Emulsion Intravenous 100 ml/Sodium Phosphate 10 meq/ Potassium Acetate 10 meq/Potassium Phosphate 22 meq/ Calcium Gluconate 6.975 meq/ Magnesium Sulfate 4 meq/ Multivitamins 10 ml/Chromium/ Copper/Manganese/ Zinc 1 ml/Amino Acids/Dextrose/ Purified Water 1,139.5 ml @ 47 mls/hr [id number] IV 06/27/25 22:00 06/28/25 21:59 06/27/25 22:28 47 MLS/HR Hydromorphone HCl 0.5 mg Q4HPRN PRN IV 06/28/25 08:30 06/28/25 08:49 0.5 MG Sodium Acetate 20 meq/Potassium Acetate 20 meq/ Potassium Phosphate 44 meq/ Calcium Gluconate 6.975 meq/ Magnesium Sulfate 2 meq/ Multivitamins 10 ml/Amino Acids/ Dextrose 1,355.5 ml @ 56 mls/hr [id number] IV 06/28/25 22:00 06/29/25 21:59 Vancomycin HCl 0 ml @ 0 mls/hr UD IV 06/28/25 14:30 UNV Labetalol HCl 10 mg Q6HP PRN IV 06/28/25 14:30 UNV laboratory and microbiology Laboratory Tests 06/28/25 04:09 Test 06/28/25 04:09 Range/Units Serum Glucose 187 H 74-106 mg/dL Assessment/Plan Impression Acute hypoxemic respiratory failure Acute COPD exacerbation Pneumonia Atelectasis Patient seen and examined Events On mechanical ventilation S/p intubation PEEP 8, FiO2 40% Patient beginning to wake up Labs and imaging reviewed ABG reviewed Management Vent support Titrate to maintain sats 90% or above Sedation holiday daily If patient follows commands, proceed to weaning trial Pressure support 03/14, extubate when ready Continue antibiotics F/u cultures Bronchodilators Monitor renal function Monitor electrolytes Supplement as needed Pressors as needed for hemodynamic support To maintain a mean arterial pressure of 65 mmHg DVT prophylaxis Critical care time 35 minutes Dietary Evaluation Review Comments: Advance to diet texture as tolerated when medically feasible Encourage and monitor intakes to meet his needs at least at 75% Expected Outcomes/Goals: maintain BW Plan discussed with: Other (Rn) OSCAR ROSAS MD Jun 28, 2025 14:34
--- NOTE | 2025-06-28 15:31 | DVHPNRES ---
Progress Note Date Seen: Jun 28, 2025 Resident Creating Document: JHHumaJLASHA Sue RESIDENT Medical Necessity Reason Pt with a Central, PICC or Fol: No Subjective Review of Systems Patient seen and examined at the bedside CPAP trial today, was put on spontaneous breathing with the pressure support of 8, with spontaneous breathing rate of 16-20 per minute with good tidal volumes Sedation was turned off earlier this morning and patient was started on q.4 0.5 mg Dilaudid for pain Until 3:00 p.m., patient with a RASS of-3 but not responsive adequately, was put on AC mode again CPAP trial in the morning Chest x-ray showed mild congestion following which 40 mg Lasix was given and Urine output noted, improved since yesterday Overnight patient will be put on mild sedation with fentanyl and Precedex if needed Objective vital signs Vital Sign Date Time Temp Pulse Resp B/P (MAP) Pulse Ox O2 Delivery O2 Flow Rate FiO2 06/28/25 14:45 100.0 108 18 131/66 (87) 98 212.0 06/28/25 14:09 30 06/28/25 13:43 Mechanical Ventilator+ 06/28/25 08:00 0 Total Intake and Output 06/27/25 06/27/25 06/28/25 15:00 23:00 07:00 Intake Total 842.038 ml 685.206 ml 671.618 ml Output Total 1545 ml 555 ml Balance 842.038 ml -859.794 ml 116.618 ml medications Current Medications Medications Dose Ordered Sig/Babak Route Start Time Stop Time Status Last Admin Dose Admin Pantoprazole Sodium 40 mg DAILY IV 06/18/25 10:00 06/28/25 07:49 40 MG Ondansetron HCl 4 mg Q6HPRN PRN IV 06/17/25 19:30 06/22/25 16:37 4 MG Potassium Chloride 100 ml @ 50 mls/hr Q2H IV 06/23/25 08:30 06/23/25 12:29 Cancel Amino Acids 0 ml @ 0 mls/hr PER PHARMACY IV 06/25/25 13:00 Sodium Chloride 10 ml QSHIFT@10,22 IV 06/25/25 22:00 06/28/25 07:49 10 ML Iron Sucrose 110 ml @ 110 mls/hr DAILY@1200 IV 06/26/25 12:00 06/30/25 12:59 06/28/25 11:52 110 MLS/HR Folic Acid 1 mg/ Dextrose 50.2 ml @ 200.8 mls/ hr DAILY INJ 06/26/25 10:00 06/28/25 07:50 200.8 MLS/HR Midazolam HCl 50 ml @ 1 mls/hr Q24H IV 06/26/25 13:00 06/27/25 06:51 5 MLS/HR Fentanyl Citrate 250 ml @ 2.5 mls/hr Q24H IV 06/26/25 13:00 06/27/25 23:39 10 MLS/HR Piperacillin Sod/ Tazobactam Sod 100 ml @ 25 mls/hr Q8HR IV 06/26/25 22:00 06/28/25 12:00 25 MLS/HR Diagnostic Test (Pha) 1 strip Q6HR 06/26/25 18:00 06/28/25 11:45 1 STRIP Insulin Human Regular Q6HR SC 06/26/25 18:00 06/28/25 11:52 2 UNITS Dextrose 50 ml UD PRN IV 06/26/25 17:45 Acetaminophen 650 mg Q6HP PRN GT 06/26/25 18:00 06/27/25 15:01 650 MG Norepinephrine Bitartrate 250 ml @ 3.75 mls/hr Q24H IV 06/26/25 21:30 06/27/25 14:58 3.75 MLS/HR Propofol 100 ml @ 2.838 mls/ hr Q24H IV 06/27/25 11:00 06/28/25 03:52 2.838 MLS/HR Fat Emulsion Intravenous 100 ml/Sodium Phosphate 10 meq/ Potassium Acetate 10 meq/Potassium Phosphate 22 meq/ Calcium Gluconate 6.975 meq/ Magnesium Sulfate 4 meq/ Multivitamins 10 ml/Chromium/ Copper/Manganese/ Zinc 1 ml/Amino Acids/Dextrose/ Purified Water 1,139.5 ml @ 47 mls/hr [id number] IV 06/27/25 22:00 06/28/25 21:59 06/27/25 22:28 47 MLS/HR Hydromorphone HCl 0.5 mg Q4HPRN PRN IV 06/28/25 08:30 06/28/25 08:49 0.5 MG Sodium Acetate 20 meq/Potassium Acetate 20 meq/ Potassium Phosphate 44 meq/ Calcium Gluconate 6.975 meq/ Magnesium Sulfate 2 meq/ Multivitamins 10 ml/Amino Acids/ Dextrose 1,355.5 ml @ 56 mls/hr [id number] IV 06/28/25 22:00 06/29/25 21:59 Vancomycin HCl 0 ml @ 0 mls/hr UD IV 06/28/25 14:30 UNV Labetalol HCl 10 mg Q6HP PRN IV 06/28/25 14:30 Vancomycin HCl 250 ml @ 250 mls/hr Q1H IV 06/28/25 15:00 06/28/25 16:59 Examination Gen - no pallor, no icterus, no cyanosis, no edema . Skin - Patients skin is warm and dry. HEENT - normocephalic, atraumatic, moist mucous membranes. Neck - full ROM, no LAD, no JVD Pulmonary - B/L mildly diminished breath sounds with basilar rales more on the left cardiovascular - regular S1,S2 heard, no added sounds, no murmurs heard. peripheral pulses normal radial 2+, pedal 2+. capillary refill normal <2 secs. GI - status post exploratory laparotomy with a midline scar, wound VAC and MAURICE drain, grimacing on palpation Neurological - sedated and on mechanical ventilation, RASS -4 laboratory and microbiology Laboratory Tests 06/28/25 04:09 Test 06/28/25 04:09 Range/Units Serum Glucose 187 H 74-106 mg/dL Microbiology Date/Time Source Procedure Growth Status 06/27/25 18:32 Sputum Gram Stain Pending Resulted 06/27/25 18:32 Sputum Respiratory Culture - Preliminary Resulted 06/26/25 16:20 Nose MRSA Screen - Final Complete Problem List/Assessment/Plan Problem List/Assessment/Plan Acute intractable abdominal pain severe constipation Large bowel obstruction with mass at the splenic flexure s/p Exploratory laparotomy Pneumoperitoneum s/p exploratory laparotomy - Initial CT abdomen pelvis with the contrast showed irregular bowel wall narrowing in the region of the splenic flexure of the colon with surrounding lymph nodes up to 10 mm, highly concerning for colon neoplasm. - Initial colonoscopy unsuccessful d/t poor bowel prep, repeat colonoscopy done on 06/22 showed ulcerated mass at the distal transverse colon/ splenic flexure causing severe obstruction - patient underwent exploratory reportedly on 10/14 with Segmental colectomy, splenic flexure takedown, hepatic flexure takedown, primary isoperistaltic stapled anastomosis - pending biposy report - CEA-normal, Ca-19-9 and Ca 125 normal - IV ABX vancomycin and Zosyn - postop CT abdomen pelvis done on 06/24, showed no anastomotic leak, sludge changes suggestive of acute colitis, minimal fluid and fat stranding likely postoperative changes - 06/26- postop day 2, patient was seen to have pneumoperitoneum with increased tenderness to palpation and was taken to surgery - on 06/26 underwent exploratory laparotomy with a left upper quadrant end colostomy - on 06/27 - temporary abdominal wall closure with a wound VAC Acute hypoxic respiratory failure likely due to pulmonary edema Aspiration Pneumonia likely due to Gram+/-bacteria Status post surgery on mechanical ventilation - IV antibiotics vancomycin and Zosyn - minimal ventilator settings with a PEEP of 5, VT 500, FiO2 30%, - 06/28- ABG compensated, CPAP trial, but the patient had a RASS of -3 to -4, remained on spontaneous breathing for about 5 hours, not responding adequately, put on AC mode - repeat CPAP trial in the a.m. 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 Full code Critical care time spent including CPAP trial: 64 minutes Plan discussed with Plan discussed with: Patient, Daughter, Other (JESSIKA Vang) My Orders My Orders Orders - LASHA OVALLE RESIDENT Procedure Category Date Status Time Hydromorphone PHA 06/28/25 In Process Injection (Dilaudid 08:30 Dexmedetomidine Hcl PHA 06/28/25 In Process In D5w (Precedex) 08:30 Amino Acid PHA 06/28/25 In Process Infusion... W/Sodium 22:00 Comprehensive LAB 06/29/25 Verified Metabolic Panel 04:00 Magnesium LAB 06/29/25 Verified 04:00 Phosphorus LAB 06/29/25 Verified 04:00 Tpn Per Pharmacy JULIETTE 06/28/25 In Process 22:00 Vancomycin Per PHA 06/28/25 Pending Pharmacy 14:30 Labetalol Hcl PHA 06/28/25 In Process (Labetalol Hcl) 14:30 Vancomycin 1gm/250ml PHA 06/28/25 In Process Kit 15:00 Dietary Evaluation Review Comments: Advance to diet texture as tolerated when medically feasible Encourage and monitor intakes to meet his needs at least at 75% Expected Outcomes/Goals: maintain BW Date of Service: Jun 28, 2025 Billing Provider: PASHA LANG MD Common Visit Codes: [id number] INP/OBS CARE(HIGH) LASHA OVALLE RESIDENT Jun 28, 2025 15:30 PASHA LANG MD Jun 28, 2025 22:05
[2025-06-28] MEDS: VANCOMYCIN 1GM/250ML KIT 250 ML IV SCH (15:42)
[2025-06-28 16:48] LABS: Hematocrit 26.8 % (41.0-53.0); Hemoglobin 9.0 g/dL (13.5-17.5); Mean Corpuscular Hemoglobin 36.1 pg (28.0-32.0); Mean Corpuscular Volume 107.8 fL (80.0-100.0)
[2025-06-28 17:09] LABS: Anisocytosis Slight; Giant Platelets Few; Ovalocytes FEW; Total Cells Counted 100.0 (100)
[2025-06-28 17:10] LABS: Macrocytosis Moderate
[2025-06-28] MEDS: TPN PER PHARMACY IV NR (21:08)
[2025-06-29] VITALS (106 sets, daily range): BP systolic 91–147; BP diastolic 43–79; PULSE 19–148; RESP 12–39; TEMP 98.4–99.9; O2SAT 94–100
[2025-06-29 04:23] LABS: Hematocrit 25.4 % (41.0-53.0); Hemoglobin 8.7 g/dL (13.5-17.5); Mean Corpuscular Hemoglobin 37.0 pg (28.0-32.0); Mean Corpuscular Volume 108.5 fL (80.0-100.0); Nucleated Red Blood Cells % 0.1 %
--- NOTE | 2025-06-29 04:39 | DVH ---
CHEST RADIOGRAPH Indication: INTUBATED Technique: Single frontal view of the chest was obtained COMPARISON: XY CHEST PORTABLE on DOS: 06/28/25, XY CHEST PORTABLE on DOS: 06/27/25, XY CHEST XRAY 1 V IEW on DOS: 06/26/25, XY CHEST PORTABLE on DOS: 06/26/25, XY CHEST PORTABLE on DOS: 06/26/25 FINDINGS: Lines and Tubes: Interval retraction of the endotracheal tube such that the tip now projects approxim ately 3.9 cm above the level of the nila. Lungs: Stable appearing mild diffuse prominence of the pulmonary vasculature. No evidence of focal c onsolidation. Pleura: No effusion. No pneumothorax. Cardiomediastinal contours: Cardiomegaly. Bones: Unremarkable IMPRESSION: 1. Interval retraction of the endotracheal tube such that the tip now projects approximately 3.9 cm a alison the level of the nila. Remaining lines and tubes unchanged. 2. Stable cardiomegaly and mild pulmonary vascular congestion.
[2025-06-29 04:42] LABS: Alkaline Phosphatase 86 U/L (46-116); Anion Gap 8 (5-15); BUN/Creatinine Ratio 18.8 (10.0-20.0); Blood Urea Nitrogen 15 mg/dL (9-23); Carbon Dioxide 25 mmol/L (20-31); Sodium 141 mmol/L (136-145)
[2025-06-29 04:49] LABS: Magnesium 1.7 mg/dL (1.6-2.6)
[2025-06-29 05:08] LABS: Alanine Aminotransferase 52 U/L (7-40); Albumin 2.4 g/dL (3.2-4.8); Bilirubin, Total 2.0 mg/dL (0.2-1.0); Calcium 7.0 mg/dL (8.7-10.4); Chloride 108 mmol/L (98-107); Glucose 190 mg/dL (74-106); Potassium 3.2 mmol/L (3.5-5.1); Total Protein 4.4 g/dL (5.7-8.2)
[2025-06-29 06:27] LABS: Base Excess -3.3 mmol/L (-2.0-3.0)
[2025-06-29] MEDS: MAGNESIUM SULFATE 1GM/100ML 100 ML IV ONE (06:29)
--- NOTE | 2025-06-29 06:29 | DVHPNRES ---
Progress Note Date Seen: Jun 29, 2025 Resident Creating Document: AICHA BRAND RESIDENT Medical Necessity Reason Pt with a Central, PICC or Fol: No Subjective Review of Systems Patient seen and examined at bedside CPAP trial yesterday was unsuccessful as patient was unable to follow commands. Patient remained off sedation overnight, is following commands this morning and placed back on CPAP trial. 1+ lower extremity edema, coarse bilateral breath sounds with minimal wheeze, added IV Lasix 40 mg once Objective vital signs Vital Sign Date Time Temp Pulse Resp B/P (MAP) Pulse Ox O2 Delivery O2 Flow Rate FiO2 06/29/25 05:59 19 19 113/61 (78) 100 30 06/29/25 04:00 98.8 209.8 06/29/25 04:00 Mechanical Ventilator+ 06/28/25 20:00 0 Total Intake and Output 06/28/25 06/28/25 06/29/25 15:00 23:00 07:00 Intake Total 721.2 ml 732.5 ml 526.00 ml Output Total 1850 ml Balance 721.2 ml -1117.5 ml 526.00 ml medications Current Medications Medications Dose Ordered Sig/Babak Route Start Time Stop Time Status Last Admin Dose Admin Pantoprazole Sodium 40 mg DAILY IV 06/18/25 10:00 06/28/25 07:49 40 MG Ondansetron HCl 4 mg Q6HPRN PRN IV 06/17/25 19:30 06/22/25 16:37 4 MG Potassium Chloride 100 ml @ 50 mls/hr Q2H IV 06/23/25 08:30 06/23/25 12:29 Cancel Amino Acids 0 ml @ 0 mls/hr PER PHARMACY IV 06/25/25 13:00 Sodium Chloride 10 ml QSHIFT@22 IV 06/25/25 22:00 06/28/25 21:03 10 ML Iron Sucrose 110 ml @ 110 mls/hr DAILY@1200 IV 06/26/25 12:00 06/30/25 12:59 06/28/25 11:52 110 MLS/HR Folic Acid 1 mg/ Dextrose 50.2 ml @ 200.8 mls/ hr DAILY INJ 06/26/25 10:00 06/28/25 07:50 200.8 MLS/HR Fentanyl Citrate 250 ml @ 2.5 mls/hr Q24H IV 06/26/25 13:00 06/27/25 23:39 10 MLS/HR Piperacillin Sod/ Tazobactam Sod 100 ml @ 25 mls/hr Q8HR IV 06/26/25 22:00 06/28/25 21:03 25 MLS/HR Diagnostic Test (Pha) 1 strip Q6HR 06/26/25 18:00 06/29/25 00:28 1 STRIP Insulin Human Regular Q6HR SC 06/26/25 18:00 06/29/25 00:27 3 UNITS Dextrose 50 ml UD PRN IV 06/26/25 17:45 Acetaminophen 650 mg Q6HP PRN GT 06/26/25 18:00 06/28/25 15:45 650 MG Norepinephrine Bitartrate 250 ml @ 3.75 mls/hr Q24H IV 06/26/25 21:30 06/27/25 14:58 3.75 MLS/HR Sodium Acetate 20 meq/Potassium Acetate 20 meq/ Potassium Phosphate 44 meq/ Calcium Gluconate 6.975 meq/ Magnesium Sulfate 2 meq/ Multivitamins 10 ml/Amino Acids/ Dextrose 1,355.5 ml @ 56 mls/hr [id number] IV 06/28/25 22:00 06/29/25 21:59 06/28/25 21:08 56 MLS/HR Vancomycin HCl 0 ml @ 0 mls/hr UD IV 06/28/25 14:30 Labetalol HCl 10 mg Q6HP PRN IV 06/28/25 14:30 Hydromorphone HCl 1 mg Q4HPRN PRN IV 06/28/25 19:45 Potassium Chloride 100 ml @ 50 mls/hr Q2H IV 06/29/25 05:30 06/29/25 09:29 Examination Gen - no pallor, no icterus, no cyanosis, no edema . Skin - Patients skin is warm and dry. HEENT - normocephalic, atraumatic, moist mucous membranes. Equal bilateral constricted but reactive pupils. Pulmonary - coarse bilateral breath sounds, trace wheeze cardiovascular - regular S1,S2 heard, no added sounds, no murmurs heard. peripheral pulses normal radial 2+, pedal 2+. capillary refill normal <2 secs. GI - status post exploratory laparotomy with a midline scar, wound VAC and MAURICE drain, grimacing on palpation. Bilateral MAURICE drains with 20-30 cc serosanguineous drainage. Colostomy noted with dark green stool. laboratory and microbiology Laboratory Tests 06/29/25 03:50 Test 06/29/25 03:50 Range/Units Serum Glucose 190 H 74-106 mg/dL Microbiology Date/Time Source Procedure Growth Status 06/28/25 00:30 Blood Blood Culture - Preliminary NO GROWTH AFTER 24 HOURS OF INCUBATION. Resulted 06/27/25 18:32 Sputum Gram Stain Pending Resulted 06/27/25 18:32 Sputum Respiratory Culture - Preliminary Resulted 06/26/25 16:20 Nose MRSA Screen - Final Complete Labs and/or images reviewed: Labs reviewed by me, Image(s) reviewed by me Problem List/Assessment/Plan Problem List/Assessment/Plan Neurology # off sedation, currently on CPAP trial Cardiovascular # essential hypertension # heart failure with preserved ejection fraction, EF 65% # LVH - IV Lasix 40 mg once yesterday on 06/28/2025, repeated IV Lasix 40 mg once today Respiratory # Ventilator -intubated 06/26/25 -CPAP trial ongoing today, Pressure support 03/14. Possible extubation today # pulmonary edema # Acute hypoxic respiratory failure likely due to above, improving # probable aspiration pneumonia - IV vancomycin, Zosyn Nephrology # hypokalemia - repleted GI # acute intractable abdominal pain # severe constipation, bowel obstruction due to mass # large bowel obstruction with mass at the splenic flexure, # s/p ex lap x2 # s/p pneumoperitoneum, improved # rectal ulceration with probable proctitis - Initial CT abdomen pelvis with the contrast showed irregular bowel wall narrowing in the region of the splenic flexure of the colon with surrounding lymph nodes up to 10 mm, highly concerning for colon neoplasm. - Initial colonoscopy unsuccessful d/t poor bowel prep, repeat colonoscopy done on 06/22 showed ulcerated mass at the distal transverse colon/ splenic flexure causing severe obstruction - patient underwent exploratory reportedly on 06/23 with Segmental colectomy, splenic flexure takedown, hepatic flexure takedown, primary isoperistaltic stapled anastomosis - CEA-normal, Ca-19-9 and Ca 125 normal - postop CT abdomen pelvis done on 06/24, showed no anastomotic leak, sludge changes suggestive of acute colitis, minimal fluid and fat stranding likely postoperative changes - 06/26- postop day 2, patient was seen to have pneumoperitoneum with increased tenderness to palpation and was taken to surgery - on 06/26 underwent exploratory laparotomy with a left upper quadrant end colostomy - on 06/27 - temporary abdominal wall closure with a wound VAC - splenic flexure mass biopsy shows adenocarcinoma, moderately differentiated. # Peptic ulcer prophylaxis -Pantoprazole 40 mg IV daily Infectious disease # sepsis due to intra-abdominal infection versus aspiration pneumonia - IV vancomycin per pharmacy - IV Zosyn Hem/onc # anemia likely of chronic disease - IV iron DVT prophylaxis Held due to anemia Nutrition TPN PICC line placed on 06/25/2025 Physical therapy ordered Critical care time 82 minutes including CPAP trial Code status discussed greater than 20 minutes: Full CODE STATUS. Daughter at bedside explained about the condition of the patient Plan discussed with Dr. Mitchell Plan discussed with: Daughter, Other (RN) Dietary Evaluation Review Comments: Advance to diet texture as tolerated when medically feasible Encourage and monitor intakes to meet his needs at least at 75% Expected Outcomes/Goals: maintain BW Date of Service: Jun 29, 2025 Billing Provider: HONG MITCHELL MD Common Visit Codes: [id number] CARE 30-74 MIN AICHA BRAND RESIDENT Jun 29, 2025 06:29 HONG MITCHELL MD Jul 06, 2025 20:55
[2025-06-29] MEDS: POTASSIUM CHL 20MEQ/100ML 100 ML IV SCH (06:30)
--- NOTE | 2025-06-29 09:30 | DVHPN2 ---
Subjective Date Seen: Jun 29, 2025 Post op day Post op day: 2 Patient reports: Other (Intubated and sedated ) Objective Vitals Vital Sign Date Time Temp Pulse Resp B/P (MAP) Pulse Ox O2 Delivery O2 Flow Rate FiO2 06/29/25 09:13 94 19 103/51 94 30 06/29/25 07:45 99.1 210.4 06/29/25 06:00 Mechanical Ventilator+ 06/28/25 20:00 0 Total Intake and Output 06/28/25 06/28/25 06/29/25 15:00 23:00 07:00 Intake Total 721.2 ml 732.5 ml 639.50 ml Output Total 1850 ml 1075 ml Balance 721.2 ml -1117.5 ml -435.50 ml Medications Current Medications Medications Dose Ordered Sig/Babak Route Start Time Stop Time Status Last Admin Dose Admin Pantoprazole Sodium 40 mg DAILY IV 06/18/25 10:00 06/28/25 07:49 40 MG Ondansetron HCl 4 mg Q6HPRN PRN IV 06/17/25 19:30 06/22/25 16:37 4 MG Potassium Chloride 100 ml @ 50 mls/hr Q2H IV 06/23/25 08:30 06/23/25 12:29 Cancel Amino Acids 0 ml @ 0 mls/hr PER PHARMACY IV 06/25/25 13:00 Sodium Chloride 10 ml QSHIFT@10,22 IV 06/25/25 22:00 06/28/25 21:03 10 ML Iron Sucrose 110 ml @ 110 mls/hr DAILY@1200 IV 06/26/25 12:00 06/30/25 12:59 06/28/25 11:52 110 MLS/HR Folic Acid 1 mg/ Dextrose 50.2 ml @ 200.8 mls/ hr DAILY INJ 06/26/25 10:00 06/28/25 07:50 200.8 MLS/HR Fentanyl Citrate 250 ml @ 2.5 mls/hr Q24H IV 06/26/25 13:00 06/27/25 23:39 10 MLS/HR Piperacillin Sod/ Tazobactam Sod 100 ml @ 25 mls/hr Q8HR IV 06/26/25 22:00 06/29/25 06:00 25 MLS/HR Diagnostic Test (Pha) 1 strip Q6HR 06/26/25 18:00 06/29/25 06:00 1 STRIP Insulin Human Regular Q6HR SC 06/26/25 18:00 06/29/25 06:32 3 UNITS Dextrose 50 ml UD PRN IV 06/26/25 17:45 Acetaminophen 650 mg Q6HP PRN GT 06/26/25 18:00 06/28/25 15:45 650 MG Norepinephrine Bitartrate 250 ml @ 3.75 mls/hr Q24H IV 06/26/25 21:30 06/27/25 14:58 3.75 MLS/HR Sodium Acetate 20 meq/Potassium Acetate 20 meq/ Potassium Phosphate 44 meq/ Calcium Gluconate 6.975 meq/ Magnesium Sulfate 2 meq/ Multivitamins 10 ml/Amino Acids/ Dextrose 1,355.5 ml @ 56 mls/hr [id number] IV 06/28/25 22:00 06/29/25 21:59 06/28/25 21:08 56 MLS/HR Vancomycin HCl 0 ml @ 0 mls/hr UD IV 06/28/25 14:30 Labetalol HCl 10 mg Q6HP PRN IV 06/28/25 14:30 Hydromorphone HCl 1 mg Q4HPRN PRN IV 06/28/25 19:45 Potassium Chloride 100 ml @ 50 mls/hr Q2H IV 06/29/25 05:30 06/29/25 09:29 06/29/25 08:43 50 MLS/HR Fat Emulsion Intravenous 50 ml/ Sodium Phosphate 20 meq/Potassium Acetate 20 meq/ Calcium Gluconate 6.975 meq/ Magnesium Sulfate 8 meq/ Multivitamins 10 ml/Chromium/ Copper/Manganese/ Zinc 1 ml/Insulin Human Regular 5 units/Amino Acids/ Dextrose 1,393.05 ml @ 58 mls/hr Q24H2M IV 06/29/25 22:00 06/30/25 21:59 General: Other (intubated ) Labs and Microbiology Laboratory Tests 06/29/25 03:50 Test 06/29/25 03:50 Range/Units Serum Glucose 190 H 74-106 mg/dL Ass/Plan Labs and/or images reviewed: Labs reviewed by me, Image(s) reviewed by me Problem List Acute intractable abdominal pain severe constipation Large bowel obstruction with mass at the splenic flexure s/p Exploratory laparotomy Pneumoperitoneum s/p exploratory laparotomy - Initial CT abdomen pelvis with the contrast showed irregular bowel wall narrowing in the region of the splenic flexure of the colon with surrounding lymph nodes up to 10 mm, highly concerning for colon neoplasm. - Initial colonoscopy unsuccessful d/t poor bowel prep, repeat colonoscopy done on 06/22 showed ulcerated mass at the distal transverse colon/ splenic flexure causing severe obstruction - patient underwent exploratory reportedly on 06/23 with Segmental colectomy, splenic flexure takedown, hepatic flexure takedown, primary isoperistaltic stapled anastomosis - pending biposy report - CEA-normal, Ca-19-9 and Ca 125 normal - IV ABX vancomycin and Zosyn - postop CT abdomen pelvis done on 06/24, showed no anastomotic leak, sludge changes suggestive of acute colitis, minimal fluid and fat stranding likely postoperative changes - 06/26- postop day 2, patient was seen to have pneumoperitoneum with increased tenderness to palpation and was taken to surgery - on 06/26 underwent exploratory laparotomy with a left upper quadrant end colostomy - on 06/27 - temporary abdominal wall closure with a wound VAC Acute hypoxic respiratory failure likely due to pulmonary edema Aspiration Pneumonia likely due to Gram+/-bacteria Status post surgery on mechanical ventilation - IV antibiotics vancomycin and Zosyn - minimal ventilator settings with a PEEP of 5, VT 500, FiO2 30%, - 06/28- ABG compensated, CPAP trial, but the patient had a RASS of -3 to -4, remained on spontaneous breathing for about 5 hours, not responding adequately, put on AC mode - repeat CPAP trial in the a.m. 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 Full code Critical care time spent including CPAP trial: 64 minutes Plan discussed with Assessment/Plan wound ok minimal output from wound vac MAURICE drain minimal serous fluid labs and notes reviewed stoma ok with fecal matter abdomen soft Plan: CPAP plan for today No other changes in treatment 06/29/2025 - On examination, the patient is arousable with stimuli. - The abdomen is soft.non distended - The stoma appears to be functioning fecal matter present . - The MAURICE drain contains a minimal amount of serous fluid. Assessment: Plan: -continue with the current treatment plan. - Will communicate findings to Dr. Cota. -CPAP today Prognosis: Good Plan discussed with Dr. Cota Visit Coding Surgery Date of Service if different f: Jun 29, 2025 Billing Provider: KAYDEN FLANAGAN MD Surgery Visit Codes: [id number] INP/OBS CARE(HIGH) NEGRO OKEEFE [employer]ER Jun 29, 2025 09:30
[2025-06-29] MEDS: HYDROmorphone HCL 2 MG/ML VL/or syr IV PRN (10:26)
[2025-06-29] MEDS: SODIUM PHOSPHATES 40 MEQ in D5W 5% 250 ML IV ONE (10:27)
[2025-06-29] MEDS ORDERED: VANCOMYCIN 1.5GM/250ML 250 ML IV SCH (11:00)
[2025-06-29] MEDS: VANCOMYCIN 1.5GM/250ML 250 ML IV ONE (12:15)
--- NOTE | 2025-06-29 13:38 | DVHPN2 ---
Progress Note - Dictate Date Seen: Jun 29, 2025 Medical Necessity Reason Pt with a Central, PICC or Fol: No vital signs Vital Sign Date Time Temp Pulse Resp B/P (MAP) Pulse Ox O2 Delivery O2 Flow Rate FiO2 06/29/25 13:10 101 20 135/54 (81) 100 30 06/29/25 12:45 99.5 211.1 06/29/25 06:00 Mechanical Ventilator+ 06/28/25 20:00 0 Total Intake and Output 06/28/25 06/28/25 06/29/25 15:00 23:00 07:00 Intake Total 721.2 ml 732.5 ml 639.50 ml Output Total 1850 ml 1075 ml Balance 721.2 ml -1117.5 ml -435.50 ml medications Current Medications Medications Dose Ordered Sig/Babak Route Start Time Stop Time Status Last Admin Dose Admin Pantoprazole Sodium 40 mg DAILY IV 06/18/25 10:00 06/29/25 10:22 40 MG Ondansetron HCl 4 mg Q6HPRN PRN IV 06/17/25 19:30 06/22/25 16:37 4 MG Potassium Chloride 100 ml @ 50 mls/hr Q2H IV 06/23/25 08:30 06/23/25 12:29 Cancel Amino Acids 0 ml @ 0 mls/hr PER PHARMACY IV 06/25/25 13:00 Sodium Chloride 10 ml QSHIFT@10,22 IV 06/25/25 22:00 06/29/25 10:22 10 ML Iron Sucrose 110 ml @ 110 mls/hr DAILY@1200 IV 06/26/25 12:00 06/30/25 12:59 06/28/25 11:52 110 MLS/HR Folic Acid 1 mg/ Dextrose 50.2 ml @ 200.8 mls/ hr DAILY INJ 06/26/25 10:00 06/29/25 10:23 200.8 MLS/HR Fentanyl Citrate 250 ml @ 2.5 mls/hr Q24H IV 06/26/25 13:00 06/27/25 23:39 10 MLS/HR Piperacillin Sod/ Tazobactam Sod 100 ml @ 25 mls/hr Q8HR IV 06/26/25 22:00 06/29/25 06:00 25 MLS/HR Diagnostic Test (Pha) 1 strip Q6HR 06/26/25 18:00 06/29/25 06:00 1 STRIP Insulin Human Regular Q6HR SC 06/26/25 18:00 06/29/25 06:32 3 UNITS Dextrose 50 ml UD PRN IV 06/26/25 17:45 Acetaminophen 650 mg Q6HP PRN GT 06/26/25 18:00 06/28/25 15:45 650 MG Norepinephrine Bitartrate 250 ml @ 3.75 mls/hr Q24H IV 06/26/25 21:30 06/27/25 14:58 3.75 MLS/HR Sodium Acetate 20 meq/Potassium Acetate 20 meq/ Potassium Phosphate 44 meq/ Calcium Gluconate 6.975 meq/ Magnesium Sulfate 2 meq/ Multivitamins 10 ml/Amino Acids/ Dextrose 1,355.5 ml @ 56 mls/hr [id number] IV 06/28/25 22:00 06/29/25 21:59 06/28/25 21:08 56 MLS/HR Vancomycin HCl 0 ml @ 0 mls/hr UD IV 06/28/25 14:30 Labetalol HCl 10 mg Q6HP PRN IV 06/28/25 14:30 Hydromorphone HCl 1 mg Q4HPRN PRN IV 06/28/25 19:45 06/29/25 10:26 1 MG Fat Emulsion Intravenous 50 ml/ Sodium Phosphate 20 meq/Potassium Acetate 20 meq/ Calcium Gluconate 6.975 meq/ Magnesium Sulfate 8 meq/ Multivitamins 10 ml/Chromium/ Copper/Manganese/ Zinc 1 ml/Insulin Human Regular 5 units/Amino Acids/ Dextrose 1,393.05 ml @ 58 mls/hr Q24H2M IV 06/29/25 22:00 06/30/25 21:59 Vancomycin HCl 250 ml @ 166.667 mls/hr Q24H IV 06/29/25 11:00 UNV laboratory and microbiology Laboratory Tests 06/29/25 03:50 Test 06/29/25 03:50 Range/Units Serum Glucose 190 H 74-106 mg/dL Assessment/Plan Impression Acute hypoxemic respiratory failure Acute COPD exacerbation Pneumonia Atelectasis Patient seen and examined Events On mechanical ventilation S/p intubation Tolerating CPAP Labs and imaging reviewed ABG reviewed Management Vent support Titrate to maintain sats 90% or above Sedation holiday daily If patient follows commands, proceed to weaning trial Pressure support 03/14, extubate when ready Possible extubation today Continue antibiotics F/u cultures Bronchodilators Monitor renal function Monitor electrolytes Supplement as needed Pressors as needed for hemodynamic support To maintain a mean arterial pressure of 65 mmHg DVT prophylaxis Critical care time 35 minutes Dietary Evaluation Review Comments: Advance to diet texture as tolerated when medically feasible Encourage and monitor intakes to meet his needs at least at 75% Expected Outcomes/Goals: maintain BW Plan discussed with: Other (Rn) OSCAR ROSAS MD Jun 29, 2025 13:38
[2025-06-29] MEDS ORDERED: POTASSIUM CHL 20MEQ/100ML 100 ML IV SCH (15:00)
--- NOTE | 2025-06-29 15:38 | DVHPN2 ---
Progress Note Date Seen: Jun 29, 2025 Resident Creating Document: LASHA OVALLE RESIDENT Medical Necessity Reason Pt with a Central, PICC or Fol: No Subjective Review of Systems Patient seen and examined at the bedside Currently on CPAP trial, following commands, probable extubation day Dark brown stool seen in the colostomy bag NG tube to LIS with a minimal suction Currently on TPN Objective vital signs Vital Sign Date Time Temp Pulse Resp B/P (MAP) Pulse Ox O2 Delivery O2 Flow Rate FiO2 06/29/25 15:15 99.5 95 19 128/62 (84) 100 211.1 06/29/25 13:10 30 06/29/25 06:00 Mechanical Ventilator+ 06/28/25 20:00 0 Total Intake and Output 06/28/25 06/28/25 06/29/25 14:59 22:59 06:59 Intake Total 623.7 ml 811.0 ml 708.00 ml Output Total 1850 ml 1075 ml Balance 623.7 ml -1039.0 ml -367.00 ml medications Current Medications Medications Dose Ordered Sig/Babak Route Start Time Stop Time Status Last Admin Dose Admin Pantoprazole Sodium 40 mg DAILY IV 06/18/25 10:00 06/29/25 10:22 40 MG Ondansetron HCl 4 mg Q6HPRN PRN IV 06/17/25 19:30 06/22/25 16:37 4 MG Potassium Chloride 100 ml @ 50 mls/hr Q2H IV 06/23/25 08:30 06/23/25 12:29 Cancel Amino Acids 0 ml @ 0 mls/hr PER PHARMACY IV 06/25/25 13:00 Sodium Chloride 10 ml QSHIFT@10,22 IV 06/25/25 22:00 06/29/25 10:22 10 ML Iron Sucrose 110 ml @ 110 mls/hr DAILY@1200 IV 06/26/25 12:00 06/30/25 12:59 06/28/25 11:52 110 MLS/HR Folic Acid 1 mg/ Dextrose 50.2 ml @ 200.8 mls/ hr DAILY INJ 06/26/25 10:00 06/29/25 10:23 200.8 MLS/HR Fentanyl Citrate 250 ml @ 2.5 mls/hr Q24H IV 06/26/25 13:00 06/27/25 23:39 10 MLS/HR Piperacillin Sod/ Tazobactam Sod 100 ml @ 25 mls/hr Q8HR IV 06/26/25 22:00 06/29/25 06:00 25 MLS/HR Diagnostic Test (Pha) 1 strip Q6HR 06/26/25 18:00 06/29/25 06:00 1 STRIP Insulin Human Regular Q6HR SC 06/26/25 18:00 06/29/25 06:32 3 UNITS Dextrose 50 ml UD PRN IV 06/26/25 17:45 Acetaminophen 650 mg Q6HP PRN GT 06/26/25 18:00 06/28/25 15:45 650 MG Sodium Acetate 20 meq/Potassium Acetate 20 meq/ Potassium Phosphate 44 meq/ Calcium Gluconate 6.975 meq/ Magnesium Sulfate 2 meq/ Multivitamins 10 ml/Amino Acids/ Dextrose 1,355.5 ml @ 56 mls/hr [id number] IV 06/28/25 22:00 06/29/25 21:59 06/28/25 21:08 56 MLS/HR Vancomycin HCl 0 ml @ 0 mls/hr UD IV 06/28/25 14:30 Labetalol HCl 10 mg Q6HP PRN IV 06/28/25 14:30 Hydromorphone HCl 1 mg Q4HPRN PRN IV 06/28/25 19:45 06/29/25 10:26 1 MG Fat Emulsion Intravenous 50 ml/ Sodium Phosphate 20 meq/Potassium Acetate 20 meq/ Calcium Gluconate 6.975 meq/ Magnesium Sulfate 8 meq/ Multivitamins 10 ml/Chromium/ Copper/Manganese/ Zinc 1 ml/Insulin Human Regular 5 units/Amino Acids/ Dextrose 1,393.05 ml @ 58 mls/hr Q24H2M IV 06/29/25 22:00 06/30/25 21:59 Vancomycin HCl 250 ml @ 166.667 mls/hr Q24H IV 06/29/25 11:00 UNV Potassium Chloride 100 ml @ 50 mls/hr Q2H IV 06/29/25 15:00 06/29/25 18:59 UNV Examination Gen - no pallor, no scleral icterus Skin - Patients skin is warm and dry. HEENT - normocephalic, atraumatic, dry mucous membranes. Neck - supple, no lymphadenopathy Pulmonary - B/L equal air entry with a minimal basilar crackles cardiovascular - regular S1,S2 heard GI - distended abdomen with grimacing on palpation. Bowel sounds hypoactive. Midline abdominal incision with a wound VAC. MAURICE drain with serous drainage. Colostomy bag with a brownish stool Neurological - Patient is sedated and on mechanical ventilation laboratory and microbiology Laboratory Tests 06/29/25 03:50 Test 06/29/25 03:50 Range/Units Serum Glucose 190 H 74-106 mg/dL Microbiology Date/Time Source Procedure Growth Status 06/28/25 00:30 Blood Blood Culture - Preliminary NO GROWTH AFTER 24 HOURS OF INCUBATION. Resulted 06/27/25 18:32 Sputum Gram Stain - Final Resulted 06/27/25 18:32 Sputum Respiratory Culture - Preliminary Resulted 06/27/25 18:20 Voided Urine Urine Culture - Preliminary Resulted 06/26/25 16:20 Nose MRSA Screen - Final Complete Problem List/Assessment/Plan Problem List/Assessment/Plan Assessment Acute intractable abdominal pain severe constipation Large bowel obstruction with mass at the splenic flexure s/p Exploratory laparotomy on 06/23 and 06/26 with colostomy Pneumoperitoneum s/p exploratory laparotomy Plan - pending biposy report - CEA-normal, Ca-19-9 and Ca 125 normal - IV ABX vancomycin and Zosyn - NPO, continue on TPN - NG tube to LIS - to advanced diet as per primary surgeon Plan discussed with Dr. Salmon Plan discussed with: Daughter, Other (JESSIKA Jiménez) My Orders My Orders Orders - LASHA OVALLE RESIDENT Procedure Category Date Status Time Cpap Trial For Am ORDERS 06/29/25 Transmitted 04:00 Cpap/Sed Vacation Med ORDERS 06/29/25 Transmitted Weaning 04:00 Chest Portable XY 06/29/25 Resulted 04:00 Hydromorphone PHA 06/28/25 In Process Injection (Dilaudid 19:45 Abg W/ Co-Ox RT 06/30/25 Logged 04:00 Abg W/ Co-Ox RT 06/29/25 Logged 05:41 Amino Acid PHA 06/29/25 In Process Infusion... W/Fat 22:00 Sodium Phosphates PHA 06/29/25 In Process 09:30 Comprehensive LAB 06/30/25 Verified Metabolic Panel 05:00 Magnesium LAB 06/30/25 Verified 05:00 Phosphorus LAB 10/21/25 Verified 05:00 Tpn Per Pharmacy JULIETTE 06/29/25 In Process 22:00 Vancomycin,Random LAB 06/30/25 Verified 05:00 Dietary Evaluation Review Comments: Advance to diet texture as tolerated when medically feasible Encourage and monitor intakes to meet his needs at least at 75% Expected Outcomes/Goals: maintain BW LASHA OVALLE RESIDENT Jun 29, 2025 15:38
[2025-06-29] MEDS: FUROSEMIDE 40 MG/4 ML VIAL IV ONE (16:43)
[2025-06-29] MEDS: TPN PER PHARMACY IV NR (22:43)
[2025-06-30] VITALS (63 sets, daily range): BP systolic 100–178; BP diastolic 46–97; PULSE 81–105; RESP 16–29; TEMP 94.6–99.7; O2SAT 99–100
[2025-06-30 04:02] LABS: Mean Corpuscular Hemoglobin 37.1 pg (28.0-32.0); Mean Corpuscular Volume 108.9 fL (80.0-100.0)
[2025-06-30 04:04] LABS: Hematocrit 27.1 % (41.0-53.0); Hemoglobin 9.2 g/dL (13.5-17.5)
[2025-06-30 04:19] LABS: Anion Gap 8 (5-15); BUN/Creatinine Ratio 16.9 (10.0-20.0); Blood Urea Nitrogen 11 mg/dL (9-23); Carbon Dioxide 26 mmol/L (20-31); Chloride 104 mmol/L (98-107); Magnesium 1.9 mg/dL (1.6-2.6); Sodium 138 mmol/L (136-145)
[2025-06-30 04:30] LABS: Alanine Aminotransferase 52 U/L (7-40); Albumin 2.7 g/dL (3.2-4.8); Alkaline Phosphatase 265 U/L (46-116); Bilirubin, Total 2.3 mg/dL (0.2-1.0); Calcium 7.4 mg/dL (8.7-10.4); Glucose 189 mg/dL (74-106); Potassium 3.3 mmol/L (3.5-5.1); Total Protein 4.8 g/dL (5.7-8.2)
--- NOTE | 2025-06-30 04:38 | DVH ---
CHEST RADIOGRAPH Indication: INTUBATED Technique: Single frontal view of the chest was obtained COMPARISON: XY CHEST PORTABLE on DOS: 06/29/25, XY CHEST PORTABLE on DOS: 06/28/25, XY CHEST PORTABLE on DOS: 06/27/25, XY CHEST XRAY 1 VIEW on DOS: 06/26/25, XY CHEST PORTABLE on DOS: 06/26/25 FINDINGS: Lines and Tubes: Unchanged. Lungs: Stable appearing mild diffuse increased prominence of the pulmonary vasculature. Pleura: No effusion. No pneumothorax. Cardiomediastinal contours: Cardiomegaly. Bones: Unremarkable IMPRESSION: 1. Stable mild pulmonary vascular congestion. 2. Cardiomegaly. 3. Lines and tubes unchanged.
[2025-06-30 05:36] LABS: Macrocytosis Moderate; Total Cells Counted 100.0 (100)
[2025-06-30] MEDS: POTASSIUM CHL 20MEQ/100ML 100 ML IV SCH (06:21)
--- NOTE | 2025-06-30 07:27 | DVHPNRES ---
Progress Note Date Seen: Jun 30, 2025 Resident Creating Document: AICHA BRAND RESIDENT Medical Necessity Reason Pt with a Central, PICC or Fol: No Subjective Review of Systems Patient seen and examined at bedside today Underwent successful extubation Repeated IV Lasix 40 mg once Placed on 3 L O2 via NC NG to LIS remains Objective vital signs Vital Sign Date Time Temp Pulse Resp B/P (MAP) Pulse Ox O2 Delivery O2 Flow Rate FiO2 06/30/25 06:45 98.4 105 25 148/65 (92) 100 209.1 06/30/25 06:20 30 06/30/25 06:00 Mechanical Ventilator+ 06/28/25 20:00 0 Total Intake and Output 06/29/25 06/29/25 06/30/25 15:00 23:00 07:00 Intake Total 838.2 ml 358.5 ml 423.5 ml Output Total 1810 ml 1935 ml Balance 838.2 ml -1451.5 ml -1511.5 ml medications Current Medications Medications Dose Ordered Sig/Babak Route Start Time Stop Time Status Last Admin Dose Admin Pantoprazole Sodium 40 mg DAILY IV 06/18/25 10:00 06/29/25 10:22 40 MG Ondansetron HCl 4 mg Q6HPRN PRN IV 06/17/25 19:30 06/22/25 16:37 4 MG Potassium Chloride 100 ml @ 50 mls/hr Q2H IV 06/23/25 08:30 06/23/25 12:29 Cancel Amino Acids 0 ml @ 0 mls/hr PER PHARMACY IV 06/25/25 13:00 Sodium Chloride 10 ml QSHIFT@10,22 IV 06/25/25 22:00 06/29/25 22:29 10 ML Iron Sucrose 110 ml @ 110 mls/hr DAILY@1200 IV 06/26/25 12:00 06/30/25 12:59 06/29/25 12:00 110 MLS/HR Folic Acid 1 mg/ Dextrose 50.2 ml @ 200.8 mls/ hr DAILY INJ 06/26/25 10:00 06/29/25 10:23 200.8 MLS/HR Fentanyl Citrate 250 ml @ 2.5 mls/hr Q24H IV 06/26/25 13:00 06/29/25 22:30 5 MLS/HR Piperacillin Sod/ Tazobactam Sod 100 ml @ 25 mls/hr Q8HR IV 06/26/25 22:00 06/30/25 06:13 25 MLS/HR Diagnostic Test (Pha) 1 strip Q6HR 06/26/25 18:00 06/30/25 06:12 1 STRIP Insulin Human Regular Q6HR SC 06/26/25 18:00 06/30/25 06:12 4 UNITS Dextrose 50 ml UD PRN IV 06/26/25 17:45 Acetaminophen 650 mg Q6HP PRN GT 06/26/25 18:00 06/28/25 15:45 650 MG Vancomycin HCl 0 ml @ 0 mls/hr UD IV 06/28/25 14:30 Labetalol HCl 10 mg Q6HP PRN IV 06/28/25 14:30 Hydromorphone HCl 1 mg Q4HPRN PRN IV 06/28/25 19:45 06/29/25 10:26 1 MG Fat Emulsion Intravenous 50 ml/ Sodium Phosphate 20 meq/Potassium Acetate 20 meq/ Calcium Gluconate 6.975 meq/ Magnesium Sulfate 8 meq/ Multivitamins 10 ml/Chromium/ Copper/Manganese/ Zinc 1 ml/Insulin Human Regular 5 units/Amino Acids/ Dextrose 1,393.05 ml @ 58 mls/hr Q24H2M IV 06/29/25 22:00 06/30/25 21:59 06/29/25 22:43 58 MLS/HR Vancomycin HCl 250 ml @ 166.667 mls/hr Q24H IV 06/29/25 11:00 UNV Potassium Chloride 100 ml @ 50 mls/hr Q2H IV 06/29/25 15:00 06/29/25 18:59 UNV Potassium Chloride 100 ml @ 50 mls/hr Q2H IV 06/30/25 05:00 06/30/25 08:59 06/30/25 06:21 50 MLS/HR Examination Gen - no pallor, no icterus, no cyanosis, no edema . Skin - Patients skin is warm and dry. HEENT - normocephalic, atraumatic, moist mucous membranes. Equal bilateral constricted but reactive pupils. Pulmonary - coarse bilateral breath sounds, trace wheeze cardiovascular - regular S1,S2 heard, no added sounds, no murmurs heard. peripheral pulses normal radial 2+, pedal 2+. capillary refill normal <2 secs. GI - status post exploratory laparotomy with a midline scar, wound VAC and MAURICE drain, grimacing on palpation. Bilateral MAURICE drains with 20-30 cc serosanguineous drainage. Colostomy noted with dark green stool. laboratory and microbiology Laboratory Tests 06/30/25 03:30 Test 06/30/25 03:30 Range/Units Serum Glucose 189 H 74-106 mg/dL Microbiology Date/Time Source Procedure Growth Status 06/28/25 00:30 Blood Blood Culture - Preliminary NO GROWTH AFTER 48 HOURS OF INCUBATION. Resulted 06/27/25 18:32 Sputum Gram Stain - Final Resulted 06/27/25 18:32 Sputum Respiratory Culture - Preliminary Resulted 06/27/25 18:20 Voided Urine Urine Culture - Preliminary Resulted 06/26/25 16:20 Nose MRSA Screen - Final Complete Labs and/or images reviewed: Labs reviewed by me, Image(s) reviewed by me Problem List/Assessment/Plan Problem List/Assessment/Plan Neurology # off sedation, currently on CPAP trial Cardiovascular # essential hypertension # heart failure with preserved ejection fraction, EF 65% # LVH - IV Lasix 40 mg once yesterday on 06/28/2025, repeated IV Lasix 40 mg once today Respiratory # Ventilator -intubated 06/26/25 - extubated 06/30/2025 # pulmonary edema # Acute hypoxic respiratory failure likely due to above, improving # probable aspiration pneumonia - IV vancomycin, Zosyn - IV Lasix 40 mg once Nephrology # hypokalemia - repleted GI # acute intractable abdominal pain # severe constipation, bowel obstruction due to mass # large bowel obstruction with mass at the splenic flexure, # s/p ex lap x2 # s/p pneumoperitoneum, improved # rectal ulceration with probable proctitis - Initial CT abdomen pelvis with the contrast showed irregular bowel wall narrowing in the region of the splenic flexure of the colon with surrounding lymph nodes up to 10 mm, highly concerning for colon neoplasm. - Initial colonoscopy unsuccessful d/t poor bowel prep, repeat colonoscopy done on 06/22 showed ulcerated mass at the distal transverse colon/ splenic flexure causing severe obstruction - patient underwent exploratory reportedly on 06/23 with Segmental colectomy, splenic flexure takedown, hepatic flexure takedown, primary isoperistaltic stapled anastomosis - CEA-normal, Ca-19-9 and Ca 125 normal - postop CT abdomen pelvis done on 06/24, showed no anastomotic leak, sludge changes suggestive of acute colitis, minimal fluid and fat stranding likely postoperative changes - 06/26- postop day 2, patient was seen to have pneumoperitoneum with increased tenderness to palpation and was taken to surgery - on 06/26 underwent exploratory laparotomy with a left upper quadrant end colostomy - on 06/27 - temporary abdominal wall closure with a wound VAC - splenic flexure mass biopsy shows adenocarcinoma, moderately differentiated. # Peptic ulcer prophylaxis -Pantoprazole 40 mg IV daily Infectious disease # sepsis due to intra-abdominal infection versus aspiration pneumonia - IV vancomycin per pharmacy - IV Zosyn Hem/onc # anemia likely of chronic disease - IV iron DVT prophylaxis Held due to anemia Nutrition TPN PICC line placed on 06/25/2025 Physical therapy ordered Critical care time 82 minutes including CPAP trial Code status discussed greater than 20 minutes: Full CODE STATUS. Daughter at bedside explained about the condition of the patient Plan discussed with Dr. Mitchell Plan discussed with: Daughter, Other (RN) My Orders My Orders Orders - AICHA BRAND Procedure Category Date Status Time Chest Portable XY 06/29/25 Resulted 20:50 Abg W/ Co-Ox RT 06/30/25 Logged 07:23 Dietary Evaluation Review Comments: Advance to diet texture as tolerated when medically feasible Encourage and monitor intakes to meet his needs at least at 75% Expected Outcomes/Goals: maintain BW Date of Service: Jun 30, 2025 Billing Provider: HONG MITCHELL MD Common Visit Codes: [id number] CARE 30-74 MIN AICHA BRAND Jun 30, 2025 07:26 HONG MITCHELL MD Jul 06, 2025 20:55
[2025-06-30 08:01] LABS: Base Excess 2.2 mmol/L (-2.0-3.0)
[2025-06-30] MEDS: MAGNESIUM SULFATE 1GM/100ML 100 ML IV ONE (08:36)
[2025-06-30] MEDS ORDERED: ACETAMINOPHEN 650 mg PER 20.3 mL UD GT SCH (10:00)
[2025-06-30] MEDS: POTASSIUM PHOSPHATE 26.4 MEQ in SODIUM CHL 0.9% 100 ML IV ONE (10:02)
--- NOTE | 2025-06-30 10:19 | MEDREC ---
[facility] ASP Intervention Section I [facility] ASP Intervention: Review courses of therapy (SPUTUM CULTURE POSITIVE FOR YEAST - PLEASE CONSIDER ADDING ANTIFUNGAL IF CLINICALLY RELEVANT ) NELLI SAMUELS PHARMACIST Jun 30, 2025 10:19
--- NOTE | 2025-06-30 10:28 | DVHPN2 ---
Progress Note - Surgical Date Seen: Jun 30, 2025 Post op day Post op day: 7 Subjective Patient reports: No new complaints (Patient is still intubated, without sedation, afebrile with vital stable) Review of Systems: Deferred Objective Vital signs Vital Sign Date Time Temp Pulse Resp B/P (MAP) Pulse Ox O2 Delivery O2 Flow Rate FiO2 06/30/25 09:39 92 21 139/68 (91) 100 30 06/30/25 06:45 98.4 209.1 06/30/25 06:00 Mechanical Ventilator+ 06/28/25 20:00 0 Total Intake and Output 06/29/25 06/29/25 06/30/25 15:00 23:00 07:00 Intake Total 838.2 ml 358.5 ml 423.5 ml Output Total 1810 ml 1935 ml Balance 838.2 ml -1451.5 ml -1511.5 ml Medications Current Medications Medications Dose Ordered Sig/Babak Route Start Time Stop Time Status Last Admin Dose Admin Pantoprazole Sodium 40 mg DAILY IV 06/18/25 10:00 06/29/25 10:22 40 MG Ondansetron HCl 4 mg Q6HPRN PRN IV 06/17/25 19:30 06/22/25 16:37 4 MG Potassium Chloride 100 ml @ 50 mls/hr Q2H IV 06/23/25 08:30 06/23/25 12:29 Cancel Amino Acids 0 ml @ 0 mls/hr PER PHARMACY IV 06/25/25 13:00 Sodium Chloride 10 ml QSHIFT@10,22 IV 06/25/25 22:00 06/29/25 22:29 10 ML Iron Sucrose 110 ml @ 110 mls/hr DAILY@1200 IV 06/26/25 12:00 06/30/25 12:59 06/29/25 12:00 110 MLS/HR Folic Acid 1 mg/ Dextrose 50.2 ml @ 200.8 mls/ hr DAILY INJ 06/26/25 10:00 06/29/25 10:23 200.8 MLS/HR Fentanyl Citrate 250 ml @ 2.5 mls/hr Q24H IV 06/26/25 13:00 06/29/25 22:30 5 MLS/HR Piperacillin Sod/ Tazobactam Sod 100 ml @ 25 mls/hr Q8HR IV 06/26/25 22:00 06/30/25 06:13 25 MLS/HR Diagnostic Test (Pha) 1 strip Q6HR 06/26/25 18:00 06/30/25 06:12 1 STRIP Insulin Human Regular Q6HR SC 06/26/25 18:00 06/30/25 06:12 4 UNITS Dextrose 50 ml UD PRN IV 06/26/25 17:45 Acetaminophen 650 mg Q6HP PRN GT 06/26/25 18:00 06/28/25 15:45 650 MG Vancomycin HCl 0 ml @ 0 mls/hr UD IV 06/28/25 14:30 Labetalol HCl 10 mg Q6HP PRN IV 06/28/25 14:30 Hydromorphone HCl 1 mg Q4HPRN PRN IV 06/28/25 19:45 06/29/25 10:26 1 MG Fat Emulsion Intravenous 50 ml/ Sodium Phosphate 20 meq/Potassium Acetate 20 meq/ Calcium Gluconate 6.975 meq/ Magnesium Sulfate 8 meq/ Multivitamins 10 ml/Chromium/ Copper/Manganese/ Zinc 1 ml/Insulin Human Regular 5 units/Amino Acids/ Dextrose 1,393.05 ml @ 58 mls/hr Q24H2M IV 06/29/25 22:00 06/30/25 21:59 06/29/25 22:43 58 MLS/HR Vancomycin HCl 250 ml @ 166.667 mls/hr Q24H IV 06/29/25 11:00 UNV Potassium Chloride 100 ml @ 50 mls/hr Q2H IV 06/29/25 15:00 06/29/25 18:59 UNV Fat Emulsion Intravenous 50 ml/ Sodium Chloride 20 meq/Sodium Acetate 20 meq/ Potassium Acetate 10 meq/Potassium Phosphate 44 meq/ Calcium Gluconate 6.975 meq/ Magnesium Sulfate 4 meq/ Multivitamins 10 ml/Insulin Human Regular 7 units/ Amino Acids/ Dextrose/Purified Water 1,506.07 ml @ 63 mls/hr [id number] IV 06/30/25 22:00 07/01/25 21:59 Hydromorphone HCl 1 mg Q6HP PRN IV 06/30/25 10:00 UNV Acetaminophen 650 mg Q6HR GT 06/30/25 10:00 UNV Oxycodone/ Acetaminophen 1 tab Q4HP PRN NG 06/30/25 10:00 UNV Oxycodone/ Acetaminophen 2 tab Q4HP PRN NG 06/30/25 10:00 UNV Ketorolac Tromethamine 15 mg Q8HR IV 06/30/25 12:00 07/05/25 11:59 UNV Laboratory Laboratory Tests 06/30/25 03:30 Test 06/30/25 03:30 Range/Units Serum Glucose 189 H 74-106 mg/dL Microbiology Date/Time Source Procedure Growth Status 06/28/25 00:30 Blood Blood Culture - Preliminary NO GROWTH AFTER 48 HOURS OF INCUBATION. Resulted 06/27/25 18:32 Sputum Gram Stain - Final Resulted 06/27/25 18:32 Sputum Respiratory Culture - Preliminary Resulted 06/27/25 18:20 Voided Urine Urine Culture - Preliminary Resulted 06/26/25 16:20 Nose MRSA Screen - Final Complete Examination: GENERAL:Normal (Intubated without sedation, following commands), HEENT:Normal (ETT in place, NG tube in place with minimal gastric drainage 85 mL in last 24 hours), ABDOMEN:Abnormal (Distended, midline incision with wound VAC placed and without surrounding erythema/edema/fluctuance/pus/drainage, soft depressible, tender, no rebound, no guarding, ostomy with loss in mucosa and pink healthy mucosa underneath, ostomy bag with bowel sweat this morning. Had 300 mL of output in the last 24 hours) Labs and/or images reviewed: Labs reviewed by me (No leukocytosis, hemoglobin stable, low potassium getting replaced), Image(s) reviewed by me (Chest x-ray reviewed and shows atelectasis in the right lung, RT and bedside nurse notified) Problem List/Assessment/Plan Assessment and Plan Mr. Lebron is a 79-year-old male who presented to the ED with abdominal pain. CT was reviewed and shows colonic distention from cecum to splenic flexure, pass the splenic flexure there is an area of distal decompression, possibly caused by a mass. 06/23: Exploratory laparotomy, segmental colectomy, splenic flexure takedown, hepatic flexure takedown, primary stapled anastomosis, drain placement 06/26: Exploratory laparotomy, resection of previous anastomosis, abdominal washout, end colostomy, temporary abdominal closure. Due to anastomotic leak 06/27: Exploratory laparotomy, temporary abdominal closure device taken down, washout, drain placed x2, fascial closure Interval: Patient is currently postop day 7 and 3 (last surgery). Patient is still intubated and without sedation, he is following commands. Has a NG tube with minimal output 85 mL over 24 hours, NG tube was troubleshoot it and is working just fine. Has some abdominal distention we will continue with the NG tube to suctioned, okay for p.o. meds for pain, clamp NG tube for 30-45 minutes after p.o. meds administration. Ostomy with sloughing of mucosa, and healthy mucosa underneath. 1. NPO, okay for p.o. meds 2. NG tube to LIS, make clamp NG tube for medication administration. Communication order placed 3. Pain regimen: Tylenol 650 mg p.o. every 6 hours, Toradol 15 mg IV every 8 hours, oxycodone 5 and 10 mg p.o. PRN moderate and severe pain, Dilaudid 1 mg IV for breakthrough pain control 4. Strip drain b.i.d. and prn, empty and record drain output b.i.d. and p.r.n. 5. Ray for strict ins and outs 6. TPN 7. Continue with Zosyn for 7 days after his last surgery, until 07/04 8. A.m. labs: CBC, BMP, magnesium level, phosphate level My Orders My Orders Orders - JEANMARIE RAY MD Procedure Category Date Status Time Hydromorphone PHA 06/30/25 Logged Injection (Dilaudid 10:00 Acetaminophen PHA 06/30/25 Logged Solution Oral 10:00 Oxycodone W/ Acet PHA 06/30/25 Logged 5/325mg Tab (Percocet 10:00 Oxycodone W/ Acet PHA 06/30/25 Logged 5/325mg Tab (Percocet 10:00 Ketorolac Injection PHA 06/30/25 Logged (Toradol Injection) 12:00 Communication Order ORDERS 06/30/25 Transmitted 09:51 Plan discussed with Plan discussed with: Patient, Spouse, Daughter Visit Coding Surgery Date of Service if different f: Jun 30, 2025 Billing Provider: JEANMARIE RAY MD Surgery Visit Codes: [id number] INP/OBS CARE(HIGH) JEANMARIE RAY MD Jun 30, 2025 10:28
[2025-06-30] MEDS: KETOROLAC TROMETH 30 MG/ML 1ML VIAL IV SCH (12:00)
[2025-06-30] MEDS: OXYCODONE W/ ACETAMINOPHEN 5/325MG TABLET NG PRN (12:44)
[2025-06-30] MEDS ORDERED: DEXTROSE (50%) 50ML SYRG IV PRN (14:45)
--- NOTE | 2025-06-30 15:46 | DVHPN2 ---
Progress Note - Dictate Date Seen: Jun 30, 2025 Medical Necessity Reason Pt with a Central, PICC or Fol: No vital signs Vital Sign Date Time Temp Pulse Resp B/P (MAP) Pulse Ox O2 Delivery O2 Flow Rate FiO2 06/30/25 13:18 100 10.0 06/30/25 11:35 92 20 122/59 (80) 30 06/30/25 06:45 98.4 209.1 06/30/25 06:00 Mechanical Ventilator+ Total Intake and Output 06/29/25 06/29/25 06/30/25 15:00 23:00 07:00 Intake Total 838.2 ml 358.5 ml 423.5 ml Output Total 1810 ml 1935 ml Balance 838.2 ml -1451.5 ml -1511.5 ml medications Current Medications Medications Dose Ordered Sig/Babak Route Start Time Stop Time Status Last Admin Dose Admin Pantoprazole Sodium 40 mg DAILY IV 06/18/25 10:00 06/30/25 10:04 40 MG Ondansetron HCl 4 mg Q6HPRN PRN IV 06/17/25 19:30 06/22/25 16:37 4 MG Potassium Chloride 100 ml @ 50 mls/hr Q2H IV 06/23/25 08:30 06/23/25 12:29 Cancel Amino Acids 0 ml @ 0 mls/hr PER PHARMACY IV 06/25/25 13:00 Sodium Chloride 10 ml QSHIFT@10,22 IV 06/25/25 22:00 06/30/25 10:03 10 ML Folic Acid 1 mg/ Dextrose 50.2 ml @ 200.8 mls/ hr DAILY INJ 06/26/25 10:00 06/30/25 10:03 200.8 MLS/HR Fentanyl Citrate 250 ml @ 2.5 mls/hr Q24H IV 06/26/25 13:00 06/29/25 22:30 5 MLS/HR Piperacillin Sod/ Tazobactam Sod 100 ml @ 25 mls/hr Q8HR IV 06/26/25 22:00 06/30/25 14:00 25 MLS/HR Acetaminophen 650 mg Q6HP PRN GT 06/26/25 18:00 06/28/25 15:45 650 MG Vancomycin HCl 0 ml @ 0 mls/hr UD IV 06/28/25 14:30 Labetalol HCl 10 mg Q6HP PRN IV 06/28/25 14:30 Fat Emulsion Intravenous 50 ml/ Sodium Phosphate 20 meq/Potassium Acetate 20 meq/ Calcium Gluconate 6.975 meq/ Magnesium Sulfate 8 meq/ Multivitamins 10 ml/Chromium/ Copper/Manganese/ Zinc 1 ml/Insulin Human Regular 5 units/Amino Acids/ Dextrose 1,393.05 ml @ 58 mls/hr Q24H2M IV 06/29/25 22:00 06/30/25 21:59 06/29/25 22:43 58 MLS/HR Vancomycin HCl 250 ml @ 166.667 mls/hr Q24H IV 06/29/25 11:00 UNV Potassium Chloride 100 ml @ 50 mls/hr Q2H IV 06/29/25 15:00 06/29/25 18:59 UNV Fat Emulsion Intravenous 50 ml/ Sodium Chloride 20 meq/Sodium Acetate 20 meq/ Potassium Acetate 10 meq/Potassium Phosphate 44 meq/ Calcium Gluconate 2.3 meq/Magnesium Sulfate 4 meq/ Multivitamins 10 ml/Insulin Human Regular 7 units/ Amino Acids/ Dextrose/Purified Water 1,496.0162 ml @ 63 mls/hr [id number] IV 06/30/25 22:00 07/01/25 21:59 Hydromorphone HCl 1 mg Q6HP PRN IV 06/30/25 10:00 Oxycodone/ Acetaminophen 1 tab Q4HP PRN NG 06/30/25 10:00 Oxycodone/ Acetaminophen 2 tab Q4HP PRN NG 06/30/25 10:00 06/30/25 12:44 2 TAB Ketorolac Tromethamine 15 mg Q8HR IV 06/30/25 12:00 07/05/25 11:59 Vancomycin HCl 250 ml @ 200 mls/hr DAILY@1800 IV 06/30/25 18:00 Diagnostic Test (Pha) 1 strip ACHS 06/30/25 17:00 Insulin Human Regular HS SC 06/30/25 22:00 Insulin Human Regular AC SC 06/30/25 17:00 Dextrose 50 ml UD PRN IV 06/30/25 14:45 laboratory and microbiology Laboratory Tests 06/30/25 03:30 Test 06/30/25 03:30 Range/Units Serum Glucose 189 H 74-106 mg/dL Assessment/Plan Impression Acute hypoxemic respiratory failure Acute COPD exacerbation Pneumonia Atelectasis Patient seen and examined Events Patient was successfully weaned from mechanical ventilation S/p extubation Transitioned to facemask Labs and imaging reviewed ABG reviewed Management Supplemental oxygen Titrate to maintain sats 90% or above Incentive spirometry Aspiration precautions Continue antibiotics F/u cultures Bronchodilators Monitor renal function Monitor electrolytes Supplement as needed Swallow evaluation DVT prophylaxis Critical care time 35 minutes Dietary Evaluation Review Comments: Advance to diet texture as tolerated when medically feasible Encourage and monitor intakes to meet his needs at least at 75% Expected Outcomes/Goals: maintain BW Plan discussed with: Patient OSCAR ROSAS MD Jun 30, 2025 15:46
[2025-06-30] MEDS: ACCU-CHEK COMFORT CURVE STRIP VI SCH (16:55)
[2025-06-30] MEDS: InsuLIN REG 1unit/0.01ml Soln (100units/ml) SC SCH ×2 (17:01→21:35)
[2025-06-30] MEDS: VANCOMYCIN 1.25GM/250ML 250 ML IV SCH (17:03)
--- NOTE | 2025-06-30 19:13 | DVHPN2 ---
Progress Note Date Seen: Jun 30, 2025 Resident Creating Document: JHHumaJLASHA Sue RESIDENT Medical Necessity Reason Pt with a Central, PICC or Fol: No Subjective Review of Systems Patient seen and examined at the bedside Patient extubated today currently on oxygen via simple mask Dark brown stool seen in the colostomy bag NG tube to LIS with a minimal biliary suction Currently on TPN Objective vital signs Vital Sign Date Time Temp Pulse Resp B/P (MAP) Pulse Ox O2 Delivery O2 Flow Rate FiO2 06/30/25 18:00 90 06/30/25 18:00 18 100 Mechanical Ventilator+ 30 30 06/30/25 13:18 10.0 06/30/25 11:35 122/59 (80) 06/30/25 06:45 98.4 209.1 Total Intake and Output 06/29/25 06/29/25 06/30/25 15:00 23:00 07:00 Intake Total 838.2 ml 358.5 ml 423.5 ml Output Total 1810 ml 1935 ml Balance 838.2 ml -1451.5 ml -1511.5 ml medications Current Medications Medications Dose Ordered Sig/Babak Route Start Time Stop Time Status Last Admin Dose Admin Pantoprazole Sodium 40 mg DAILY IV 06/18/25 10:00 06/30/25 10:04 40 MG Ondansetron HCl 4 mg Q6HPRN PRN IV 06/17/25 19:30 06/22/25 16:37 4 MG Potassium Chloride 100 ml @ 50 mls/hr Q2H IV 06/23/25 08:30 06/23/25 12:29 Cancel Amino Acids 0 ml @ 0 mls/hr PER PHARMACY IV 06/25/25 13:00 Sodium Chloride 10 ml QSHIFT@,22 IV 06/25/25 22:00 06/30/25 10:03 10 ML Folic Acid 1 mg/ Dextrose 50.2 ml @ 200.8 mls/ hr DAILY INJ 06/26/25 10:00 06/30/25 10:03 200.8 MLS/HR Fentanyl Citrate 250 ml @ 2.5 mls/hr Q24H IV 06/26/25 13:00 06/29/25 22:30 5 MLS/HR Piperacillin Sod/ Tazobactam Sod 100 ml @ 25 mls/hr Q8HR IV 06/26/25 22:00 06/30/25 14:00 25 MLS/HR Acetaminophen 650 mg Q6HP PRN GT 06/26/25 18:00 06/28/25 15:45 650 MG Vancomycin HCl 0 ml @ 0 mls/hr UD IV 06/28/25 14:30 Labetalol HCl 10 mg Q6HP PRN IV 06/28/25 14:30 Fat Emulsion Intravenous 50 ml/ Sodium Phosphate 20 meq/Potassium Acetate 20 meq/ Calcium Gluconate 6.975 meq/ Magnesium Sulfate 8 meq/ Multivitamins 10 ml/Chromium/ Copper/Manganese/ Zinc 1 ml/Insulin Human Regular 5 units/Amino Acids/ Dextrose 1,393.05 ml @ 58 mls/hr Q24H2M IV 06/29/25 22:00 06/30/25 21:59 06/29/25 22:43 58 MLS/HR Vancomycin HCl 250 ml @ 166.667 mls/hr Q24H IV 06/29/25 11:00 UNV Potassium Chloride 100 ml @ 50 mls/hr Q2H IV 06/29/25 15:00 06/29/25 18:59 UNV Fat Emulsion Intravenous 50 ml/ Sodium Chloride 20 meq/Sodium Acetate 20 meq/ Potassium Acetate 10 meq/Potassium Phosphate 44 meq/ Calcium Gluconate 2.3 meq/Magnesium Sulfate 4 meq/ Multivitamins 10 ml/Insulin Human Regular 7 units/ Amino Acids/ Dextrose/Purified Water 1,496.0162 ml @ 63 mls/hr [id number] IV 06/30/25 22:00 07/01/25 21:59 Hydromorphone HCl 1 mg Q6HP PRN IV 06/30/25 10:00 Oxycodone/ Acetaminophen 1 tab Q4HP PRN NG 06/30/25 10:00 Oxycodone/ Acetaminophen 2 tab Q4HP PRN NG 06/30/25 10:00 06/30/25 12:44 2 TAB Ketorolac Tromethamine 15 mg Q8HR IV 06/30/25 12:00 07/05/25 11:59 Vancomycin HCl 250 ml @ 200 mls/hr DAILY@1800 IV 06/30/25 18:00 06/30/25 17:03 200 MLS/HR Diagnostic Test (Pha) 1 strip ACHS 06/30/25 17:00 06/30/25 16:55 1 STRIP Insulin Human Regular HS SC 06/30/25 22:00 Insulin Human Regular AC SC 06/30/25 17:00 06/30/25 17:01 6 UNITS Dextrose 50 ml UD PRN IV 06/30/25 14:45 Examination Gen - no pallor, no scleral icterus Skin - Patients skin is warm and dry. HEENT - normocephalic, atraumatic, dry mucous membranes. Neck - supple, no lymphadenopathy Pulmonary - B/L equal air entry with a minimal basilar crackles cardiovascular - regular S1,S2 heard GI - abdominal distention has decreased with decreased tenderness to palpation. Bowel sounds hypoactive. Midline abdominal incision with a wound VAC. MAURICE drain with serous drainage. Colostomy bag with a brownish stool Neurological - Patient is extremity today, slightly drowsy but is following commands laboratory and microbiology Laboratory Tests 06/30/25 03:30 Test 06/30/25 03:30 Range/Units Serum Glucose 189 H 74-106 mg/dL Microbiology Date/Time Source Procedure Growth Status 06/28/25 00:30 Blood Blood Culture - Preliminary NO GROWTH AFTER 48 HOURS OF INCUBATION. Resulted 06/27/25 18:32 Sputum Gram Stain - Final Resulted 06/27/25 18:32 Sputum Respiratory Culture - Preliminary Resulted 06/27/25 18:20 Voided Urine Urine Culture - Preliminary Resulted 06/26/25 16:20 Nose MRSA Screen - Final Complete Problem List/Assessment/Plan Problem List/Assessment/Plan Assessment Acute intractable abdominal pain severe constipation Large bowel obstruction with mass at the splenic flexure s/p Exploratory laparotomy on 06/23 and 06/26 with colostomy Pneumoperitoneum s/p exploratory laparotomy Plan - pending biposy report - CEA-normal, Ca-19-9 and Ca 125 normal - IV ABX vancomycin and Zosyn - NPO, continue on TPN - NG tube to LIS - to advanced diet as per primary surgeon Plan discussed with Dr. Salmon Plan discussed with: Patient, Daughter, Other (JESSIKA Woo) My Orders My Orders Orders - LASHA OVALLE RESIDENT Procedure Category Date Status Time Amino Acid PHA 06/30/25 In Process Infusion... W/Fat 22:00 Comprehensive LAB 07/01/25 Verified Metabolic Panel 04:00 Magnesium LAB 07/01/25 Verified 04:00 Phosphorus LAB 07/01/25 Verified 04:00 Tpn Per Pharmacy [facility] 06/30/25 In Process 22:00 Vancomycin PHA 06/30/25 In Process 1.25gm/250ml 18:00 Vancomycin,Trough LAB 07/03/25 Verified 17:00 Vancomycin Per [facility] 07/03/25 In Process Pharmacy [facility] 18:00 Dietary Evaluation Review Comments: Advance to diet texture as tolerated when medically feasible Encourage and monitor intakes to meet his needs at least at 75% Expected Outcomes/Goals: maintain LASHA OVALLE RESIDENT Jun 30, 2025 19:13
[2025-06-30] MEDS: FUROSEMIDE 40 MG/4 ML VIAL IV ONE (20:16)
[2025-06-30] MEDS: TPN PER PHARMACY IV NR (21:36)
[2025-07-01] VITALS (55 sets, daily range): BP systolic 100–160; BP diastolic 45–85; PULSE 66–100; RESP 16–28; TEMP 97.3–98.4; O2SAT 98–100
[2025-07-01] MEDS: HYDROmorphone HCL 2 MG/ML VL/or syr IV PRN (01:29)
[2025-07-01] MEDS: OXYCODONE W/ ACETAMINOPHEN 5/325MG TABLET NG PRN (03:05)
[2025-07-01 03:41] LABS: Hemoglobin 8.5 g/dL (13.5-17.5)
[2025-07-01 03:44] LABS: Hematocrit 24.4 % (41.0-53.0); Mean Corpuscular Hemoglobin 37.3 pg (28.0-32.0); Mean Corpuscular Volume 107.2 fL (80.0-100.0)
[2025-07-01 04:06] LABS: Anion Gap 8 (5-15); BUN/Creatinine Ratio 25.0 (10.0-20.0); Blood Urea Nitrogen 16 mg/dL (9-23); Carbon Dioxide 30 mmol/L (20-31); Chloride 102 mmol/L (98-107); Magnesium 1.8 mg/dL (1.6-2.6); Sodium 140 mmol/L (136-145)
[2025-07-01 04:08] LABS: Alanine Aminotransferase 43 U/L (7-40); Albumin 2.5 g/dL (3.2-4.8); Alkaline Phosphatase 322 U/L (46-116); Bilirubin, Total 1.6 mg/dL (0.2-1.0); Calcium 7.4 mg/dL (8.7-10.4); Glucose 199 mg/dL (74-106); Potassium 3.1 mmol/L (3.5-5.1); Total Protein 4.6 g/dL (5.7-8.2)
[2025-07-01 04:55] LABS: Macrocytosis Moderate; Total Cells Counted 100.0 (100)
--- NOTE | 2025-07-01 05:01 | DVH ---
CHEST RADIOGRAPH Indication: edema Technique: Single frontal view of the chest was obtained Comparison: XY CHEST PORTABLE on DOS: 06/30/25 FINDINGS: Lines and Tubes: The enteric tube terminates in the stomach. Lungs: Bilateral pulmonary interstitial prominence. Pleura: No effusion. No pneumothorax. Cardiomediastinal contours: Unremarkable Bones: No acute osseous abnormality. IMPRESSION: 1. Bilateral pulmonary interstitial prominence which may reflect pulmonary vascular congestion.
[2025-07-01] MEDS: MAGNESIUM SULFATE 1GM/100ML 100 ML IV ONE (05:03)
[2025-07-01] MEDS: POTASSIUM CHL 20MEQ/100ML 100 ML IV SCH (05:04)
--- NOTE | 2025-07-01 06:45 | DVHPNRES ---
Progress Note Date Seen: Jul 01, 2025 Resident Creating Document: AICHA BRAND RESIDENT Medical Necessity Reason Pt with a Central, PICC or Fol: No Subjective Review of Systems Patient seen and examined at bedside Remains on 3 L O2 via NC Chest x-ray shows bilateral pulmonary interstitial prominence which may reflect pulmonary vascular congestion, started on IV Lasix 40 mg daily Increase sliding scale insulin to aggressive sliding scale Downgraded to telemetry Objective vital signs Vital Sign Date Time Temp Pulse Resp B/P (MAP) Pulse Ox O2 Delivery O2 Flow Rate FiO2 07/01/25 06:15 97.5 81 19 115/60 (78) 100 207.5 07/01/25 06:00 Nasal Cannula* 3 32 Total Intake and Output 06/30/25 06/30/25 07/01/25 15:00 23:00 07:00 Intake Total 598.535 ml 702.667 ml 671 ml Output Total 1235 ml 1440 ml Balance 598.535 ml -532.333 ml -769 ml medications Current Medications Medications Dose Ordered Sig/Babak Route Start Time Stop Time Status Last Admin Dose Admin Pantoprazole Sodium 40 mg DAILY IV 06/18/25 10:00 06/30/25 10:04 40 MG Ondansetron HCl 4 mg Q6HPRN PRN IV 06/17/25 19:30 06/22/25 16:37 4 MG Potassium Chloride 100 ml @ 50 mls/hr Q2H IV 06/23/25 08:30 06/23/25 12:29 Cancel Amino Acids 0 ml @ 0 mls/hr PER PHARMACY IV 06/25/25 13:00 Sodium Chloride 10 ml QSHIFT@ IV 06/25/25 22:00 06/30/25 20:16 10 ML Folic Acid 1 mg/ Dextrose 50.2 ml @ 200.8 mls/ hr DAILY INJ 06/26/25 10:00 06/30/25 10:03 200.8 MLS/HR Fentanyl Citrate 250 ml @ 2.5 mls/hr Q24H IV 06/26/25 13:00 06/29/25 22:30 5 MLS/HR Piperacillin Sod/ Tazobactam Sod 100 ml @ 25 mls/hr Q8HR IV 06/26/25 22:00 07/01/25 05:39 25 MLS/HR Acetaminophen 650 mg Q6HP PRN GT 06/26/25 18:00 06/28/25 15:45 650 MG Vancomycin HCl 0 ml @ 0 mls/hr UD IV 06/28/25 14:30 Labetalol HCl 10 mg Q6HP PRN IV 06/28/25 14:30 Vancomycin HCl 250 ml @ 166.667 mls/hr Q24H IV 06/29/25 11:00 UNV Potassium Chloride 100 ml @ 50 mls/hr Q2H IV 06/29/25 15:00 06/29/25 18:59 UNV Fat Emulsion Intravenous 50 ml/ Sodium Chloride 20 meq/Sodium Acetate 20 meq/ Potassium Acetate 10 meq/Potassium Phosphate 44 meq/ Calcium Gluconate 2.3 meq/Magnesium Sulfate 4 meq/ Multivitamins 10 ml/Insulin Human Regular 7 units/ Amino Acids/ Dextrose/Purified Water 1,496.0162 ml @ 63 mls/hr [id number] IV 06/30/25 22:00 07/01/25 21:59 06/30/25 21:36 63 MLS/HR Hydromorphone HCl 1 mg Q6HP PRN IV 06/30/25 10:00 07/01/25 01:29 1 MG Oxycodone/ Acetaminophen 1 tab Q4HP PRN NG 06/30/25 10:00 07/01/25 03:05 1 TAB Oxycodone/ Acetaminophen 2 tab Q4HP PRN NG 06/30/25 10:00 06/30/25 12:44 2 TAB Ketorolac Tromethamine 15 mg Q8HR IV 06/30/25 12:00 07/05/25 11:59 07/01/25 05:04 15 MG Vancomycin HCl 250 ml @ 200 mls/hr DAILY@1800 IV 06/30/25 18:00 06/30/25 17:03 200 MLS/HR Diagnostic Test (Pha) 1 strip ACHS 06/30/25 17:00 07/01/25 05:39 1 STRIP Insulin Human Regular HS SC 06/30/25 22:00 06/30/25 21:35 4 UNITS Insulin Human Regular AC SC 06/30/25 17:00 07/01/25 05:41 3 UNITS Dextrose 50 ml UD PRN IV 06/30/25 14:45 Potassium Chloride 100 ml @ 50 mls/hr Q2H IV 07/01/25 04:45 07/01/25 10:44 07/01/25 05:04 50 MLS/HR Examination Gen - no pallor, no icterus, no cyanosis, no edema . Skin - Patients skin is warm and dry. HEENT - normocephalic, atraumatic, moist mucous membranes. Equal bilateral constricted but reactive pupils. Pulmonary - coarse bilateral breath sounds, trace wheeze cardiovascular - regular S1,S2 heard, no added sounds, no murmurs heard. peripheral pulses normal radial 2+, pedal 2+. capillary refill normal <2 secs. GI - status post exploratory laparotomy with a midline scar, wound VAC and MAURICE drain, grimacing on palpation. Bilateral MAURICE drains with 20-30 cc serosanguineous drainage. Colostomy noted with dark green stool. laboratory and microbiology Laboratory Tests 07/01/25 03:10 Test 07/01/25 03:10 Range/Units Serum Glucose 199 H 74-106 mg/dL Microbiology Date/Time Source Procedure Growth Status 06/28/25 00:30 Blood Blood Culture - Preliminary NO GROWTH AFTER 72 HOURS OF INCUBATION. Resulted 06/27/25 18:32 Sputum Gram Stain - Final Resulted 06/27/25 18:32 Sputum Respiratory Culture - Preliminary Resulted 06/27/25 18:20 Voided Urine Urine Culture - Preliminary Resulted 06/26/25 16:20 Nose MRSA Screen - Final Complete Labs and/or images reviewed: Labs reviewed by me, Image(s) reviewed by me Problem List/Assessment/Plan Problem List/Assessment/Plan Neurology # off sedation, currently on CPAP trial Cardiovascular # essential hypertension # heart failure with preserved ejection fraction, EF 65% # LVH - IV Lasix 40 mg once yesterday on 06/28/2025, repeated IV Lasix 40 mg once today Respiratory # Ventilator -intubated 06/26/25 - extubated 06/30/2025 # pulmonary edema # Acute hypoxic respiratory failure likely due to above, improving # probable aspiration pneumonia - IV vancomycin, Zosyn , continue Zosyn until 07/04/2025 - IV Lasix 40 mg daily Nephrology # hypokalemia - repleted GI # acute intractable abdominal pain # severe constipation, bowel obstruction due to mass # large bowel obstruction with mass at the splenic flexure, # s/p ex lap x2 # s/p pneumoperitoneum, improved # rectal ulceration with probable proctitis - Initial CT abdomen pelvis with the contrast showed irregular bowel wall narrowing in the region of the splenic flexure of the colon with surrounding lymph nodes up to 10 mm, highly concerning for colon neoplasm. - Initial colonoscopy unsuccessful d/t poor bowel prep, repeat colonoscopy done on 06/22 showed ulcerated mass at the distal transverse colon/ splenic flexure causing severe obstruction - patient underwent exploratory reportedly on 06/23 with Segmental colectomy, splenic flexure takedown, hepatic flexure takedown, primary isoperistaltic stapled anastomosis - CEA-normal, Ca-19-9 and Ca 125 normal - postop CT abdomen pelvis done on 06/24, showed no anastomotic leak, sludge changes suggestive of acute colitis, minimal fluid and fat stranding likely postoperative changes - 06/26- postop day 2, patient was seen to have pneumoperitoneum with increased tenderness to palpation and was taken to surgery - on 06/26 underwent exploratory laparotomy with a left upper quadrant end colostomy - on 06/27 - temporary abdominal wall closure with a wound VAC - splenic flexure mass biopsy shows adenocarcinoma, moderately differentiated. # Peptic ulcer prophylaxis -Pantoprazole 40 mg IV daily Infectious disease # sepsis due to intra-abdominal infection versus aspiration pneumonia - IV vancomycin per pharmacy - IV Zosyn Hem/onc # anemia likely of chronic disease - IV iron DVT prophylaxis Held due to anemia Nutrition TPN, NPO except ice chips and p.o. medication PICC line placed on 06/25/2025 Physical therapy ordered Critical care time 82 minutes including CPAP trial Code status discussed greater than 20 minutes: Full CODE STATUS. Daughter at bedside explained about the condition of the patient Plan discussed with Dr. Mitchell Plan discussed with: Patient, Daughter, Other (RN) My Orders My Orders Orders - AICHA BRAND RESIDENT Procedure Category Date Status Time Cpap Trial For Am ORDERS 06/30/25 Transmitted 09:26 Glucose Blood PHA 06/30/25 In Process (Accu-Chek Comfort 17:00 Insulin R (Human) PHA 06/30/25 In Process (Insulin R) 22:00 Insulin R (Human) PHA 06/30/25 In Process (Insulin R) 17:00 Dextrose 50% Syringe PHA 06/30/25 In Process 14:45 Chest Portable XY 07/01/25 Resulted 04:00 * Swallow Request ST 07/01/25 Transmitted 06:39 Dietary Evaluation Review Comments: Advance to diet texture as tolerated when medically feasible Encourage and monitor intakes to meet his needs at least at 75% Expected Outcomes/Goals: maintain BW Date of Service: Jul 01, 2025 Billing Provider: HONG MITCHELL MD Common Visit Codes: [id number] CARE 30-74 MIN AICHA BRAND RESIDENT Jul 01, 2025 06:45 HONG MITCHELL MD Jul 06, 2025 20:56
[2025-07-01] MEDS: POTASSIUM PHOSPHATE 22 MEQ in SODIUM CHL 0.9% 100 ML IV ONE (11:11)
[2025-07-01] MEDS ORDERED: DEXTROSE (50%) 50ML SYRG IV PRN (11:15)
--- NOTE | 2025-07-01 11:21 | DVHPN2 ---
Progress Note - Surgical Date Seen: Jul 01, 2025 Post op day Post op day: 8 Subjective Patient reports: No new complaints (Patient extubated, having abdominal pain but controlled with the pain meds, afebrile with vital stable, not hungry at this moment.) Review of Systems: Deferred Objective Vital signs Vital Sign Date Time Temp Pulse Resp B/P (MAP) Pulse Ox O2 Delivery O2 Flow Rate FiO2 07/01/25 11:00 98.1 82 26 132/68 (89) 100 208.6 07/01/25 08:00 Nasal Cannula* 3 32 Total Intake and Output 06/30/25 06/30/25 07/01/25 14:59 22:59 06:59 Intake Total 630.868 ml 682.334 ml 834 ml Output Total 1235 ml 1440 ml Balance 630.868 ml -552.666 ml -606 ml Medications Current Medications Medications Dose Ordered Sig/Babak Route Start Time Stop Time Status Last Admin Dose Admin Pantoprazole Sodium 40 mg DAILY IV 06/18/25 10:00 07/01/25 08:55 40 MG Ondansetron HCl 4 mg Q6HPRN PRN IV 06/17/25 19:30 06/22/25 16:37 4 MG Potassium Chloride 100 ml @ 50 mls/hr Q2H IV 06/23/25 08:30 06/23/25 12:29 Cancel Amino Acids 0 ml @ 0 mls/hr PER PHARMACY IV 06/25/25 13:00 Sodium Chloride 10 ml QSHIFT@,22 IV 06/25/25 22:00 07/01/25 08:56 10 ML Folic Acid 1 mg/ Dextrose 50.2 ml @ 200.8 mls/ hr DAILY INJ 06/26/25 10:00 07/01/25 08:58 200.8 MLS/HR Fentanyl Citrate 250 ml @ 2.5 mls/hr Q24H IV 06/26/25 13:00 06/29/25 22:30 5 MLS/HR Piperacillin Sod/ Tazobactam Sod 100 ml @ 25 mls/hr Q8HR IV 06/26/25 22:00 07/01/25 05:39 25 MLS/HR Acetaminophen 650 mg Q6HP PRN GT 06/26/25 18:00 06/28/25 15:45 650 MG Vancomycin HCl 0 ml @ 0 mls/hr UD IV 06/28/25 14:30 Labetalol HCl 10 mg Q6HP PRN IV 06/28/25 14:30 Vancomycin HCl 250 ml @ 166.667 mls/hr Q24H IV 06/29/25 11:00 UNV Potassium Chloride 100 ml @ 50 mls/hr Q2H IV 06/29/25 15:00 06/29/25 18:59 UNV Fat Emulsion Intravenous 50 ml/ Sodium Chloride 20 meq/Sodium Acetate 20 meq/ Potassium Acetate 10 meq/Potassium Phosphate 44 meq/ Calcium Gluconate 2.3 meq/Magnesium Sulfate 4 meq/ Multivitamins 10 ml/Insulin Human Regular 7 units/ Amino Acids/ Dextrose/Purified Water 1,496.0162 ml @ 63 mls/hr [id number] IV 06/30/25 22:00 07/01/25 21:59 06/30/25 21:36 63 MLS/HR Hydromorphone HCl 1 mg Q6HP PRN IV 06/30/25 10:00 07/01/25 01:29 1 MG Oxycodone/ Acetaminophen 1 tab Q4HP PRN NG 06/30/25 10:00 07/01/25 03:05 1 TAB Oxycodone/ Acetaminophen 2 tab Q4HP PRN NG 06/30/25 10:00 07/01/25 11:08 2 TAB Ketorolac Tromethamine 15 mg Q8HR IV 06/30/25 12:00 07/05/25 11:59 07/01/25 05:04 15 MG Vancomycin HCl 250 ml @ 200 mls/hr DAILY@1800 IV 06/30/25 18:00 06/30/25 17:03 200 MLS/HR Fat Emulsion Intravenous 100 ml/Sodium Chloride 30 meq/ Potassium Phosphate 66 meq/ Magnesium Sulfate 10 meq/ Multivitamins 10 ml/Insulin Human Regular 10 units/ Amino Acids/ Dextrose 1,535.1 ml @ 64 mls/hr Q24H IV 07/01/25 22:00 07/02/25 21:59 Micafungin Sodium 100 mg/Sodium Chloride 100 ml @ 100 mls/hr DAILY IV 07/02/25 10:00 UNV Furosemide 40 mg DAILY IV 07/02/25 10:00 UNV Diagnostic Test (Pha) 1 strip IQ4HR 07/01/25 12:00 UNV Insulin Human Regular IQ4HR SC 07/01/25 12:00 UNV Dextrose 50 ml UD PRN IV 07/01/25 11:15 UNV Laboratory Laboratory Tests 07/01/25 03:10 Test 07/01/25 03:10 Range/Units Serum Glucose 199 H 74-106 mg/dL Microbiology Date/Time Source Procedure Growth Status 06/28/25 00:30 Blood Blood Culture - Preliminary NO GROWTH AFTER 72 HOURS OF INCUBATION. Resulted 06/27/25 18:32 Sputum Gram Stain - Final Resulted 06/27/25 18:32 Sputum Respiratory Culture - Preliminary Resulted 06/27/25 18:20 Voided Urine Urine Culture - Preliminary Resulted 06/26/25 16:20 Nose MRSA Screen - Final Complete Examination: GENERAL:Normal, HEENT:Normal, ABDOMEN:Abnormal (Mild distention, incision site with a wound VAC placed and without surrounding signs of infection, ostomy with sloughing of mucosa and health mucosa underneath, ostomy with stool in bag approximately 300 mL in last 24 hours, both drains with minimal serous fluid. Drain 1. 75 mL in 24 hours, drain 2. 90 mL in 24 hours ) Labs and/or images reviewed: Labs reviewed by me (WBC steady at 10, hemoglobin stable), Image(s) reviewed by me (Chest x-ray no right lung atelectasis, patient does have left basilar effusion) Problem List/Assessment/Plan Assessment and Plan Mr. Lebron is a 79-year-old male who presented to the ED with abdominal pain. CT was reviewed and shows colonic distention from cecum to splenic flexure, pass the splenic flexure there is an area of distal decompression, possibly caused by a mass. 06/23: Exploratory laparotomy, segmental colectomy, splenic flexure takedown, hepatic flexure takedown, primary stapled anastomosis, drain placement 06/26: Exploratory laparotomy, resection of previous anastomosis, abdominal washout, end colostomy, temporary abdominal closure. Due to anastomotic leak 06/27: Exploratory laparotomy, temporary abdominal closure device taken down, washout, drain placed x2, fascial closure Interval: Patient is currently postop day 8 and 4 (last surgery). Patient is extubated, pain well controlled with p.o. medicines, not hungry at this time. We will consult wound nurse for wound VAC changes. Ostomy producing 300 mL of stool in last 24 hours. 1. NPO, okay for p.o. meds, sips of water and ice chips 2. NG tube to LIS, make clamp NG tube for medication administration. Communication order placed 3. Pain regimen: Tylenol 650 mg p.o. every 6 hours, Toradol 15 mg IV every 8 hours, oxycodone 5 and 10 mg p.o. PRN moderate and severe pain, Dilaudid 1 mg IV for breakthrough pain control 4. Strip drain b.i.d. and prn, empty and record drain output b.i.d. and p.r.n. 5. Ray for strict ins and outs 6. TPN 7. Continue with Zosyn for 7 days after his last surgery, until 07/04 8. A.m. labs: CBC, BMP, magnesium level, phosphate level 9. Wound nurse consult for wound VAC changes, patient will need home wound VAC also. 10. Case management consulted for home wound VAC 11. Physical therapy consulted My Orders My Orders Orders - JEANMARIE RAY MD Procedure Category Date Status Time Communication Order ORDERS 07/01/25 Transmitted 09:04 * Inspecting Machine Adjuster CONS 07/01/25 Transmitted Consult Npo Except Ice Chips JULIETTE 07/01/25 In Process 09:04 Npo (Nothing By DIET 07/01/25 Transmitted Mouth) Diet Breakfast Refer To Physical JULIETTE 07/01/25 In Process Therapy 09:08 * Wound Consult CONS 07/01/25 Transmitted Pt Request For Service PT 07/01/25 Logged 09:16 Plan discussed with Plan discussed with: Patient, Daughter Visit Coding Surgery Date of Service if different f: Jul 01, 2025 Billing Provider: JEANMARIE RAY MD Surgery Visit Codes: [id number] INP/OBS CARE(HIGH) JEANMARIE RAY MD Jul 01, 2025 11:21
[2025-07-01] MEDS: InsuLIN REG 1unit/0.01ml Soln (100units/ml) SC SCH (11:51)
[2025-07-01] MEDS: ACCU-CHEK COMFORT CURVE STRIP VI SCH (11:52)
[2025-07-01] MEDS: FUROSEMIDE 40 MG/4 ML VIAL IV ONE (12:57)
[2025-07-01] MEDS: MICAFUNGIN SODIUM 100 MG in SODIUM CHL 0.9% 100 ML IV ONE (12:58)
[2025-07-01] MEDS ORDERED: OXYCODONE W/ ACETAMINOPHEN 5/325MG TABLET PO PRN (15:00)
--- NOTE | 2025-07-01 18:59 | DVHPN2 ---
Progress Note - Dictate Date Seen: Jul 01, 2025 Medical Necessity Reason Pt with a Central, PICC or Fol: No vital signs Vital Sign Date Time Temp Pulse Resp B/P (MAP) Pulse Ox O2 Delivery O2 Flow Rate FiO2 07/01/25 18:00 Nasal Cannula* 3 32 07/01/25 16:30 98.1 86 18 151/76 (101) 100 98.1 Total Intake and Output 06/30/25 06/30/25 07/01/25 15:00 23:00 07:00 Intake Total 598.535 ml 702.667 ml 834 ml Output Total 1235 ml 1440 ml Balance 598.535 ml -532.333 ml -606 ml medications Current Medications Medications Dose Ordered Sig/Babak Route Start Time Stop Time Status Last Admin Dose Admin Pantoprazole Sodium 40 mg DAILY IV 06/18/25 10:00 07/01/25 08:55 40 MG Ondansetron HCl 4 mg Q6HPRN PRN IV 06/17/25 19:30 06/22/25 16:37 4 MG Potassium Chloride 100 ml @ 50 mls/hr Q2H IV 06/23/25 08:30 06/23/25 12:29 Cancel Amino Acids 0 ml @ 0 mls/hr PER PHARMACY IV 06/25/25 13:00 Sodium Chloride 10 ml QSHIFT@ IV 06/25/25 22:00 07/01/25 08:56 10 ML Folic Acid 1 mg/ Dextrose 50.2 ml @ 200.8 mls/ hr DAILY INJ 06/26/25 10:00 07/01/25 08:58 200.8 MLS/HR Fentanyl Citrate 250 ml @ 2.5 mls/hr Q24H IV 06/26/25 13:00 06/29/25 22:30 5 MLS/HR Piperacillin Sod/ Tazobactam Sod 100 ml @ 25 mls/hr Q8HR IV 06/26/25 22:00 07/01/25 14:06 25 MLS/HR Acetaminophen 650 mg Q6HP PRN GT 06/26/25 18:00 06/28/25 15:45 650 MG Vancomycin HCl 0 ml @ 0 mls/hr UD IV 06/28/25 14:30 Labetalol HCl 10 mg Q6HP PRN IV 06/28/25 14:30 Vancomycin HCl 250 ml @ 166.667 mls/hr Q24H IV 06/29/25 11:00 UNV Potassium Chloride 100 ml @ 50 mls/hr Q2H IV 06/29/25 15:00 06/29/25 18:59 UNV Fat Emulsion Intravenous 50 ml/ Sodium Chloride 20 meq/Sodium Acetate 20 meq/ Potassium Acetate 10 meq/Potassium Phosphate 44 meq/ Calcium Gluconate 2.3 meq/Magnesium Sulfate 4 meq/ Multivitamins 10 ml/Insulin Human Regular 7 units/ Amino Acids/ Dextrose/Purified Water 1,496.0162 ml @ 63 mls/hr [id number] IV 06/30/25 22:00 07/01/25 21:59 06/30/25 21:36 63 MLS/HR Hydromorphone HCl 1 mg Q6HP PRN IV 06/30/25 10:00 Hold 07/01/25 12:02 1 MG Ketorolac Tromethamine 15 mg Q8HR IV 06/30/25 12:00 07/05/25 11:59 07/01/25 14:10 15 MG Vancomycin HCl 250 ml @ 200 mls/hr DAILY@1800 IV 06/30/25 18:00 07/01/25 18:25 200 MLS/HR Fat Emulsion Intravenous 100 ml/Sodium Chloride 30 meq/ Potassium Phosphate 66 meq/ Magnesium Sulfate 10 meq/ Multivitamins 10 ml/Insulin Human Regular 10 units/ Amino Acids/ Dextrose 1,535.1 ml @ 64 mls/hr Q24H IV 07/01/25 22:00 07/02/25 21:59 Micafungin Sodium 100 mg/Sodium Chloride 100 ml @ 100 mls/hr DAILY IV 07/02/25 10:00 Furosemide 40 mg DAILY IV 07/02/25 10:00 Diagnostic Test (Pha) 1 strip IQ4HR 07/01/25 12:00 07/01/25 15:21 1 STRIP Insulin Human Regular IQ4HR SC 07/01/25 12:00 07/01/25 15:24 8 UNITS Dextrose 50 ml UD PRN IV 07/01/25 11:15 Oxycodone/ Acetaminophen 1 tab Q4HP PRN PO 07/01/25 15:00 Oxycodone/ Acetaminophen 2 tab Q4HP PRN PO 07/01/25 15:00 laboratory and microbiology Laboratory Tests 07/01/25 03:10 Test 07/01/25 03:10 Range/Units Serum Glucose 199 H 74-106 mg/dL Assessment/Plan Impression Acute hypoxemic respiratory failure Acute COPD exacerbation Pneumonia Atelectasis Patient seen and examined on ICU Events S/p extubation to facemask vs stable Labs and imaging reviewed ABG reviewed Management Supplemental oxygen Titrate to maintain sats 90% or above Incentive spirometry Aspiration precautions Continue antibiotics F/u cultures Bronchodilators Monitor renal function Monitor electrolytes Supplement as needed Swallow evaluation DVT prophylaxis Critical care time 35 minutes Dietary Evaluation Review Comments: Advance to diet texture as tolerated when medically feasible Encourage and monitor intakes to meet his needs at least at 75% Expected Outcomes/Goals: maintain BW Plan discussed with: Other (rn) OSCAR ROSAS MD Jul 01, 2025 18:59
--- NOTE | 2025-07-01 19:28 | DVHPN2 ---
Progress Note Date Seen: Jul 01, 2025 Resident Creating Document: LASHA OVALLE RESIDENT Medical Necessity Reason Pt with a Central, PICC or Fol: Yes The following are medically ne: PICC Line Subjective Review of Systems Patient seen and examined at the bedside Reports abdominal pain is getting better, denies nausea, vomiting Abdominal distention has decreased Colostomy output about 150-200 mL Continue on TPN Objective vital signs Vital Sign Date Time Temp Pulse Resp B/P (MAP) Pulse Ox O2 Delivery O2 Flow Rate FiO2 07/01/25 18:00 Nasal Cannula* 3 32 07/01/25 16:30 98.1 86 18 151/76 (101) 100 98.1 Total Intake and Output 06/30/25 06/30/25 07/01/25 15:00 23:00 07:00 Intake Total 598.535 ml 702.667 ml 834 ml Output Total 1235 ml 1440 ml Balance 598.535 ml -532.333 ml -606 ml medications Current Medications Medications Dose Ordered Sig/Babak Route Start Time Stop Time Status Last Admin Dose Admin Pantoprazole Sodium 40 mg DAILY IV 06/18/25 10:00 07/01/25 08:55 40 MG Ondansetron HCl 4 mg Q6HPRN PRN IV 06/17/25 19:30 06/22/25 16:37 4 MG Potassium Chloride 100 ml @ 50 mls/hr Q2H IV 06/23/25 08:30 06/23/25 12:29 Cancel Amino Acids 0 ml @ 0 mls/hr PER PHARMACY IV 06/25/25 13:00 Sodium Chloride 10 ml QSHIFT@ IV 06/25/25 22:00 07/01/25 08:56 10 ML Folic Acid 1 mg/ Dextrose 50.2 ml @ 200.8 mls/ hr DAILY INJ 06/26/25 10:00 07/01/25 08:58 200.8 MLS/HR Fentanyl Citrate 250 ml @ 2.5 mls/hr Q24H IV 06/26/25 13:00 06/29/25 22:30 5 MLS/HR Piperacillin Sod/ Tazobactam Sod 100 ml @ 25 mls/hr Q8HR IV 06/26/25 22:00 07/01/25 14:06 25 MLS/HR Acetaminophen 650 mg Q6HP PRN GT 06/26/25 18:00 06/28/25 15:45 650 MG Vancomycin HCl 0 ml @ 0 mls/hr UD IV 06/28/25 14:30 Labetalol HCl 10 mg Q6HP PRN IV 06/28/25 14:30 Vancomycin HCl 250 ml @ 166.667 mls/hr Q24H IV 06/29/25 11:00 UNV Potassium Chloride 100 ml @ 50 mls/hr Q2H IV 06/29/25 15:00 06/29/25 18:59 UNV Fat Emulsion Intravenous 50 ml/ Sodium Chloride 20 meq/Sodium Acetate 20 meq/ Potassium Acetate 10 meq/Potassium Phosphate 44 meq/ Calcium Gluconate 2.3 meq/Magnesium Sulfate 4 meq/ Multivitamins 10 ml/Insulin Human Regular 7 units/ Amino Acids/ Dextrose/Purified Water 1,496.0162 ml @ 63 mls/hr [id number] IV 06/30/25 22:00 07/01/25 21:59 06/30/25 21:36 63 MLS/HR Hydromorphone HCl 1 mg Q6HP PRN IV 06/30/25 10:00 Hold 07/01/25 12:02 1 MG Ketorolac Tromethamine 15 mg Q8HR IV 06/30/25 12:00 07/05/25 11:59 07/01/25 14:10 15 MG Vancomycin HCl 250 ml @ 200 mls/hr DAILY@1800 IV 06/30/25 18:00 07/01/25 18:25 200 MLS/HR Fat Emulsion Intravenous 100 ml/Sodium Chloride 30 meq/ Potassium Phosphate 66 meq/ Magnesium Sulfate 10 meq/ Multivitamins 10 ml/Insulin Human Regular 10 units/ Amino Acids/ Dextrose 1,535.1 ml @ 64 mls/hr Q24H IV 07/01/25 22:00 07/02/25 21:59 Micafungin Sodium 100 mg/Sodium Chloride 100 ml @ 100 mls/hr DAILY IV 07/02/25 10:00 Furosemide 40 mg DAILY IV 07/02/25 10:00 Diagnostic Test (Pha) 1 strip IQ4HR 07/01/25 12:00 07/01/25 15:21 1 STRIP Insulin Human Regular IQ4HR SC 07/01/25 12:00 07/01/25 15:24 8 UNITS Dextrose 50 ml UD PRN IV 07/01/25 11:15 Oxycodone/ Acetaminophen 1 tab Q4HP PRN PO 07/01/25 15:00 Oxycodone/ Acetaminophen 2 tab Q4HP PRN PO 07/01/25 15:00 Examination Gen - no pallor, no scleral icterus Skin - Patients skin is warm and dry. HEENT - normocephalic, atraumatic, dry mucous membranes. Neck - supple, no lymphadenopathy Pulmonary - B/L equal air entry with a minimal basilar crackles cardiovascular - regular S1,S2 heard GI - abdominal distention has decreased with decreased tenderness to palpation. Bowel sounds hypoactive. Midline abdominal incision with a wound VAC. MAURICE drain with serous drainage. Colostomy bag with a brownish stool Neurological - Patient is extremity today, slightly drowsy but is following commands laboratory and microbiology Laboratory Tests 07/01/25 03:10 Test 07/01/25 03:10 Range/Units Serum Glucose 199 H 74-106 mg/dL Microbiology Date/Time Source Procedure Growth Status 06/28/25 00:30 Blood Blood Culture - Preliminary NO GROWTH AFTER 72 HOURS OF INCUBATION. Resulted 06/27/25 18:32 Sputum Gram Stain - Final Complete 06/27/25 18:32 Respiratory Culture - Final Yeast, not Deisy albicans Presumptive Deisy albicans Complete 06/27/25 18:20 Voided Urine Urine Culture - Final Complete 06/26/25 16:20 Nose MRSA Screen - Final Complete Problem List/Assessment/Plan Problem List/Assessment/Plan Assessment Acute intractable abdominal pain severe constipation Large bowel obstruction with mass at the splenic flexure s/p Exploratory laparotomy on 06/23 and 06/26 with colostomy Pneumoperitoneum s/p exploratory laparotomy Plan - pending biposy report - CEA-normal, Ca-19-9 and Ca 125 normal - IV ABX vancomycin and Zosyn - on TPN, sips of water and ice chips - NG tube to LIS - to advanced diet as per primary surgeon Plan discussed with Dr. Salmon Plan discussed with: Patient, Spouse, Other (JESSIKA Nava) My Orders My Orders Orders - LSAHA OVALLE RESIDENT Procedure Category Date Status Time Amino Acid PHA 07/01/25 In Process Infusion... W/Fat 22:00 Comprehensive LAB 07/02/25 Verified Metabolic Panel 04:00 Magnesium LAB 07/02/25 Verified 04:00 Phosphorus LAB 07/02/25 Verified 04:00 Tpn Per Pharmacy JULIETTE 07/01/25 In Process 09:36 Dietary Evaluation Review Comments: Advance to diet texture as tolerated when medically feasible Encourage and monitor intakes to meet his needs at least at 75% Expected Outcomes/Goals: maintain BW LASHA OVALLE RESIDENT Jul 01, 2025 19:28
[2025-07-01] MEDS: TPN PER PHARMACY IV NR (22:39)
[2025-07-02] VITALS (7 sets, daily range): BP systolic 142–159; BP diastolic 79–90; PULSE 76–93; RESP 8–20; TEMP 97.5–98.6; O2SAT 95–100
[2025-07-02 08:05] LABS: Hemoglobin 9.3 g/dL (13.5-17.5); Nucleated Red Blood Cells % 0.6 %
[2025-07-02 08:07] LABS: Hematocrit 26.8 % (41.0-53.0); Mean Corpuscular Hemoglobin 38.1 pg (28.0-32.0); Mean Corpuscular Volume 109.8 fL (80.0-100.0)
[2025-07-02 08:10] LABS: Anion Gap 9 (5-15); BUN/Creatinine Ratio 24.6 (10.0-20.0); Blood Urea Nitrogen 15 mg/dL (9-23); Carbon Dioxide 28 mmol/L (20-31); Chloride 103 mmol/L (98-107); Magnesium 1.9 mg/dL (1.6-2.6); Potassium 3.8 mmol/L (3.5-5.1); Sodium 140 mmol/L (136-145)
[2025-07-02 08:11] LABS: Bilirubin, Total 1.2 mg/dL (0.2-1.0)
[2025-07-02 08:41] LABS: Alanine Aminotransferase 40 U/L (7-40); Albumin 2.8 g/dL (3.2-4.8); Alkaline Phosphatase 370 U/L (46-116); Calcium 7.4 mg/dL (8.7-10.4); Glucose 202 mg/dL (74-106); Total Protein 5.0 g/dL (5.7-8.2)
[2025-07-02] MEDS: HYDROmorphone HCL 2 MG/ML VL/or syr IV PRN (10:47)
[2025-07-02] MEDS: FUROSEMIDE 40 MG/4 ML VIAL IV SCH (10:47)
[2025-07-02] MEDS: MICAFUNGIN SODIUM 100 MG in SODIUM CHL 0.9% 100 ML IV SCH (11:08)
--- NOTE | 2025-07-02 11:19 | DVHPNRES ---
Progress Note Date Seen: Jul 02, 2025 Resident Creating Document: AICHA BRAND RESIDENT Medical Necessity Reason Pt with a Central, PICC or Fol: Yes The following are medically ne: PICC Line Subjective Review of Systems Patient seen and examined at bedside Overnight episodes of agitation, pulled out NG tube Swallow evaluation scheduled for today Blood glucose consistently elevated despite aggressive sliding scale, added Lantus q.a.m. 10 units Ordered PT evaluation Objective vital signs Vital Sign Date Time Temp Pulse Resp B/P (MAP) Pulse Ox O2 Delivery O2 Flow Rate FiO2 07/02/25 10:47 65 18 117/69 07/02/25 09:00 98.6 100 98.6 07/01/25 20:00 Nasal Cannula* 3 32 Total Intake and Output 07/01/25 07/01/25 07/02/25 15:00 23:00 07:00 Intake Total 854.2 ml 313 ml 100 ml Output Total 1550 ml 1000 ml Balance 854.2 ml -1237 ml -900 ml medications Current Medications Medications Dose Ordered Sig/Babak Route Start Time Stop Time Status Last Admin Dose Admin Pantoprazole Sodium 40 mg DAILY IV 06/18/25 10:00 07/02/25 10:47 40 MG Ondansetron HCl 4 mg Q6HPRN PRN IV 06/17/25 19:30 06/22/25 16:37 4 MG Potassium Chloride 100 ml @ 50 mls/hr Q2H IV 06/23/25 08:30 06/23/25 12:29 Cancel Amino Acids 0 ml @ 0 mls/hr PER PHARMACY IV 06/25/25 13:00 Sodium Chloride 10 ml QSHIFT@ IV 06/25/25 22:00 07/02/25 11:10 10 ML Folic Acid 1 mg/ Dextrose 50.2 ml @ 200.8 mls/ hr DAILY INJ 06/26/25 10:00 07/02/25 11:09 200.8 MLS/HR Piperacillin Sod/ Tazobactam Sod 100 ml @ 25 mls/hr Q8HR IV 06/26/25 22:00 07/02/25 06:19 25 MLS/HR Acetaminophen 650 mg Q6HP PRN GT 06/26/25 18:00 06/28/25 15:45 650 MG Vancomycin HCl 0 ml @ 0 mls/hr UD IV 06/28/25 14:30 Labetalol HCl 10 mg Q6HP PRN IV 06/28/25 14:30 Vancomycin HCl 250 ml @ 166.667 mls/hr Q24H IV 06/29/25 11:00 UNV Potassium Chloride 100 ml @ 50 mls/hr Q2H IV 06/29/25 15:00 06/29/25 18:59 UNV Ketorolac Tromethamine 15 mg Q8HR IV 06/30/25 12:00 07/05/25 11:59 07/02/25 06:19 15 MG Vancomycin HCl 250 ml @ 200 mls/hr DAILY@1800 IV 06/30/25 18:00 07/01/25 18:25 200 MLS/HR Fat Emulsion Intravenous 100 ml/Sodium Chloride 30 meq/ Potassium Phosphate 66 meq/ Magnesium Sulfate 10 meq/ Multivitamins 10 ml/Insulin Human Regular 10 units/ Amino Acids/ Dextrose 1,535.1 ml @ 64 mls/hr Q24H IV 07/01/25 22:00 07/02/25 21:59 07/01/25 22:39 64 MLS/HR Micafungin Sodium 100 mg/Sodium Chloride 100 ml @ 100 mls/hr DAILY IV 07/02/25 10:00 07/02/25 11:08 100 MLS/HR Furosemide 40 mg DAILY IV 07/02/25 10:00 07/02/25 10:47 40 MG Diagnostic Test (Pha) 1 strip IQ4HR 07/01/25 12:00 07/02/25 08:00 1 STRIP Insulin Human Regular IQ4HR SC 07/01/25 12:00 07/02/25 08:30 8 UNITS Dextrose 50 ml UD PRN IV 07/01/25 11:15 Oxycodone/ Acetaminophen 1 tab Q4HP PRN PO 07/01/25 15:00 Oxycodone/ Acetaminophen 2 tab Q4HP PRN PO 07/01/25 15:00 Fat Emulsion Intravenous 50 ml/ Sodium Chloride 30 meq/Potassium Phosphate 44 meq/ Calcium Gluconate 4.65 meq/ Magnesium Sulfate 10 meq/ Multivitamins 10 ml/Insulin Human Regular 12 units/ Amino Acids/ Dextrose 1,590.12 ml @ 66 mls/hr Q24H6M IV 07/02/25 22:00 07/03/25 21:59 Hydromorphone HCl 1 mg Q6HP PRN IV 07/02/25 10:45 07/02/25 10:47 1 MG Examination Gen - no pallor, no icterus, no cyanosis, no edema . Skin - Patients skin is warm and dry. HEENT - normocephalic, atraumatic, moist mucous membranes. Equal bilateral constricted but reactive pupils. Pulmonary - coarse bilateral breath sounds, trace wheeze cardiovascular - regular S1,S2 heard, no added sounds, no murmurs heard. peripheral pulses normal radial 2+, pedal 2+. capillary refill normal <2 secs. GI - status post exploratory laparotomy with a midline scar, wound VAC and MAURICE drain, grimacing on palpation. Bilateral MAURICE drains with 20-30 cc serosanguineous drainage. Colostomy noted with dark green stool. laboratory and microbiology Laboratory Tests 07/02/25 07:13 Test 07/02/25 07:13 Range/Units Serum Glucose 202 H 74-106 mg/dL Microbiology Date/Time Source Procedure Growth Status 06/28/25 00:30 Blood Blood Culture - Preliminary NO GROWTH AFTER 72 HOURS OF INCUBATION. Resulted 06/27/25 18:32 Sputum Gram Stain - Final Complete 06/27/25 18:32 Respiratory Culture - Final Yeast, not Deisy albicans Presumptive Deisy albicans Complete 06/27/25 18:20 Voided Urine Urine Culture - Final Complete 06/26/25 16:20 Nose MRSA Screen - Final Complete Labs and/or images reviewed: Labs reviewed by me, Image(s) reviewed by me Problem List/Assessment/Plan Problem List/Assessment/Plan Neurology # off sedation, currently on CPAP trial Cardiovascular # essential hypertension # heart failure with preserved ejection fraction, EF 65% # LVH - IV Lasix 40 mg once yesterday on 06/28/2025, repeated IV Lasix 40 mg once today Respiratory # Ventilator -intubated 06/26/25 - extubated 06/30/2025 # pulmonary edema # Acute hypoxic respiratory failure likely due to above, improving; not POA # probable aspiration pneumonia, not POA - IV vancomycin, Zosyn , continue Zosyn until 07/04/2025 - IV Lasix 40 mg daily Nephrology # hypokalemia # ANNE MARIE likely hemodynamically mediated, now improved, POA - repleted GI # acute intractable abdominal pain # severe constipation, bowel obstruction due to mass # large bowel obstruction with mass at the splenic flexure, # s/p ex lap x2 # s/p pneumoperitoneum, improved # rectal ulceration with probable proctitis - Initial CT abdomen pelvis with the contrast showed irregular bowel wall narrowing in the region of the splenic flexure of the colon with surrounding lymph nodes up to 10 mm, highly concerning for colon neoplasm. - Initial colonoscopy unsuccessful d/t poor bowel prep, repeat colonoscopy done on 06/22 showed ulcerated mass at the distal transverse colon/ splenic flexure causing severe obstruction - patient underwent exploratory reportedly on 06/23 with Segmental colectomy, splenic flexure takedown, hepatic flexure takedown, primary isoperistaltic stapled anastomosis - CEA-normal, Ca-19-9 and Ca 125 normal - postop CT abdomen pelvis done on 06/24, showed no anastomotic leak, sludge changes suggestive of acute colitis, minimal fluid and fat stranding likely postoperative changes - 06/26- postop day 2, patient was seen to have pneumoperitoneum with increased tenderness to palpation and was taken to surgery - on 06/26 underwent exploratory laparotomy with a left upper quadrant end colostomy - on 06/27 - temporary abdominal wall closure with a wound VAC - splenic flexure mass biopsy shows adenocarcinoma, moderately differentiated. # Peptic ulcer prophylaxis -Pantoprazole 40 mg IV daily Infectious disease # sepsis due to intra-abdominal infection versus aspiration pneumonia, undetermined POA - IV vancomycin per pharmacy - IV Zosyn Hem/onc # anemia likely of chronic disease - IV iron DVT prophylaxis Held due to anemia Nutrition TPN, NPO except ice chips and p.o. medication PICC line placed on 06/25/2025 Physical therapy ordered Critical care time 82 minutes including CPAP trial Code status discussed greater than 20 minutes: Full CODE STATUS. Daughter at bedside explained about the condition of the patient Plan discussed with Dr. Mitchell Plan discussed with: Other (RN) My Orders My Orders Orders - AICHA BRAND RESIDENT Procedure Category Date Status Time Oxycodone W/ Acet PHA 07/01/25 In Process 5/325mg Tab (Percocet 15:00 Oxycodone W/ Acet PHA 07/01/25 In Process 5/325mg Tab (Percocet 15:00 Hemoglobin A1c LAB 07/02/25 Transmitted 11:14 Communication Order ORDERS 07/02/25 Transmitted 11:14 Insulin Lantus PHA 07/02/25 Transmitted (Glargine) (Lantus) 11:15 Dietary Evaluation Review Comments: Advance to diet texture as tolerated when medically feasible Encourage and monitor intakes to meet his needs at least at 75% Expected Outcomes/Goals: maintain BW Date of Service: Jul 02, 2025 Billing Provider: HONG MITCHELL MD Common Visit Codes: [id number] INP/OBS CARE(HIGH) BRANDAICHA RESIDENT Jul 02, 2025 11:19 HONG MITCHELL MD Jul 06, 2025 20:56
[2025-07-02] MEDS: INSULIN LANTUS (GLARGINE) 1 /0.01ml (100units/ml) SC SCH (13:08)
--- NOTE | 2025-07-02 13:10 | DVHPN2 ---
Progress Note - Surgical Date Seen: Jul 02, 2025 Post op day Post op day: 9 Subjective Patient reports: Feels better (Patient feeling slightly better, not burping, NG tube is out, producing through the ostomy, pain control with medication.) Review of Systems: Deferred Objective Vital signs Vital Sign Date Time Temp Pulse Resp B/P (MAP) Pulse Ox O2 Delivery O2 Flow Rate FiO2 07/02/25 10:47 65 18 117/69 07/02/25 09:00 98.6 100 98.6 07/01/25 20:00 Nasal Cannula* 3 32 Total Intake and Output 07/01/25 07/01/25 07/02/25 15:00 23:00 07:00 Intake Total 854.2 ml 313 ml 100 ml Output Total 1550 ml 1000 ml Balance 854.2 ml -1237 ml -900 ml Medications Current Medications Medications Dose Ordered Sig/Babak Route Start Time Stop Time Status Last Admin Dose Admin Pantoprazole Sodium 40 mg DAILY IV 06/18/25 10:00 07/02/25 10:47 40 MG Ondansetron HCl 4 mg Q6HPRN PRN IV 06/17/25 19:30 06/22/25 16:37 4 MG Potassium Chloride 100 ml @ 50 mls/hr Q2H IV 06/23/25 08:30 06/23/25 12:29 Cancel Amino Acids 0 ml @ 0 mls/hr PER PHARMACY IV 06/25/25 13:00 Sodium Chloride 10 ml QSHIFT@10,22 IV 06/25/25 22:00 07/02/25 11:10 10 ML Folic Acid 1 mg/ Dextrose 50.2 ml @ 200.8 mls/ hr DAILY INJ 06/26/25 10:00 07/02/25 11:09 200.8 MLS/HR Piperacillin Sod/ Tazobactam Sod 100 ml @ 25 mls/hr Q8HR IV 06/26/25 22:00 07/02/25 06:19 25 MLS/HR Acetaminophen 650 mg Q6HP PRN GT 06/26/25 18:00 06/28/25 15:45 650 MG Vancomycin HCl 0 ml @ 0 mls/hr UD IV 06/28/25 14:30 Labetalol HCl 10 mg Q6HP PRN IV 06/28/25 14:30 Vancomycin HCl 250 ml @ 166.667 mls/hr Q24H IV 06/29/25 11:00 UNV Potassium Chloride 100 ml @ 50 mls/hr Q2H IV 06/29/25 15:00 06/29/25 18:59 UNV Ketorolac Tromethamine 15 mg Q8HR IV 06/30/25 12:00 07/05/25 11:59 07/02/25 06:19 15 MG Vancomycin HCl 250 ml @ 200 mls/hr DAILY@1800 IV 06/30/25 18:00 07/01/25 18:25 200 MLS/HR Fat Emulsion Intravenous 100 ml/Sodium Chloride 30 meq/ Potassium Phosphate 66 meq/ Magnesium Sulfate 10 meq/ Multivitamins 10 ml/Insulin Human Regular 10 units/ Amino Acids/ Dextrose 1,535.1 ml @ 64 mls/hr Q24H IV 07/01/25 22:00 07/02/25 21:59 07/01/25 22:39 64 MLS/HR Micafungin Sodium 100 mg/Sodium Chloride 100 ml @ 100 mls/hr DAILY IV 07/02/25 10:00 07/02/25 11:08 100 MLS/HR Furosemide 40 mg DAILY IV 07/02/25 10:00 07/02/25 10:47 40 MG Diagnostic Test (Pha) 1 strip IQ4HR 07/01/25 12:00 07/02/25 08:00 1 STRIP Insulin Human Regular IQ4HR SC 07/01/25 12:00 07/02/25 08:30 8 UNITS Dextrose 50 ml UD PRN IV 07/01/25 11:15 Oxycodone/ Acetaminophen 1 tab Q4HP PRN PO 07/01/25 15:00 Oxycodone/ Acetaminophen 2 tab Q4HP PRN PO 07/01/25 15:00 Fat Emulsion Intravenous 50 ml/ Sodium Chloride 30 meq/Potassium Phosphate 44 meq/ Calcium Gluconate 4.65 meq/ Magnesium Sulfate 10 meq/ Multivitamins 10 ml/Insulin Human Regular 12 units/ Amino Acids/ Dextrose 1,590.12 ml @ 66 mls/hr Q24H6M IV 07/02/25 22:00 07/03/25 21:59 Hydromorphone HCl 1 mg Q6HP PRN IV 07/02/25 10:45 07/02/25 10:47 1 MG Insulin Glargine 10 units QAM SC 07/02/25 11:15 Laboratory Laboratory Tests 07/02/25 07:13 Test 07/02/25 07:13 Range/Units Serum Glucose 202 H 74-106 mg/dL Microbiology Date/Time Source Procedure Growth Status 06/28/25 00:30 Blood Blood Culture - Preliminary NO GROWTH AFTER 72 HOURS OF INCUBATION. Resulted 06/27/25 18:32 Sputum Gram Stain - Final Complete 06/27/25 18:32 Respiratory Culture - Final Yeast, not Deisy albicans Presumptive Deisy albicans Complete 06/27/25 18:20 Voided Urine Urine Culture - Final Complete 06/26/25 16:20 Nose MRSA Screen - Final Complete Examination: GENERAL:Normal, ABDOMEN:Abnormal (Globose, midline wound with a wound VAC placed and without surrounding signs of infection, bilateral lower quadrant drains with serous output, ostomy with sloughing mucosa, with healthy mucosa underneath, appropriate tenderness) Labs and/or images reviewed: Labs reviewed by me (No leukocytosis and hemoglobin holding stable) Problem List/Assessment/Plan Assessment and Plan Mr. Leborn is a 79-year-old male who presented to the ED with abdominal pain. CT was reviewed and shows colonic distention from cecum to splenic flexure, pass the splenic flexure there is an area of distal decompression, possibly caused by a mass. 06/23: Exploratory laparotomy, segmental colectomy, splenic flexure takedown, hepatic flexure takedown, primary stapled anastomosis, drain placement 06/26: Exploratory laparotomy, resection of previous anastomosis, abdominal washout, end colostomy, temporary abdominal closure. Due to anastomotic leak 06/27: Exploratory laparotomy, temporary abdominal closure device taken down, washout, drain placed x2, fascial closure Interval: Patient is currently postop day 9 and 5 (last surgery). Patient continues to improve, having postsurgical pain but controlled with medications. Ostomy producing. Drains with very minimal serous output. Patient is pending swallow eval, once he passes a swallow eval he can be started on a clear liquid diet. 1. NPO, okay for p.o. meds, sips of water and ice chips 2. Once he passed a swallow eval he can get advanced to clear liquid diet 3. Pain regimen: Tylenol 650 mg p.o. every 6 hours, Toradol 15 mg IV every 8 hours, oxycodone 5 and 10 mg p.o. PRN moderate and severe pain, Dilaudid 1 mg IV for breakthrough pain control 4. Strip drain b.i.d. and prn, empty and record drain output b.i.d. and p.r.n. 5. Ray for strict ins and outs 6. TPN 7. Continue with Zosyn for 7 days after his last surgery, until 07/04 8. A.m. labs: CBC, BMP, magnesium level, phosphate level 9. Wound nurse consult for wound VAC changes, patient will need home wound VAC also. 10. Case management consulted for home wound VAC 11. Physical therapy consulted My Orders My Orders Orders - JEANMARIE RAY MD Procedure Category Date Status Time Hydromorphone PHA 07/02/25 In Process Injection (Dilaudid 10:45 Plan discussed with Plan discussed with: Patient, Daughter Visit Coding Surgery Date of Service if different f: Jul 02, 2025 Billing Provider: JEANMARIE RAY MD Surgery Visit Codes: [id number] INP/OBS CARE(HIGH) JEANMARIE RAY MD Jul 02, 2025 13:10
[2025-07-02] MEDS: POTASSIUM PHOSPHATE 44 MEQ in D5W 5% 250 ML IV ONE (14:25)
--- NOTE | 2025-07-02 20:56 | DVHPN2 ---
Progress Note - Dictate Date Seen: Jul 02, 2025 Medical Necessity Reason Pt with a Central, PICC or Fol: Yes The following are medically ne: PICC Line Subjective Patient is currently postop day 9 and 5 (last surgery). Patient continues to improve, having postsurgical pain but controlled with medications. Ostomy producing. Drains with very minimal serous output. vital signs Vital Sign Date Time Temp Pulse Resp B/P (MAP) Pulse Ox O2 Delivery O2 Flow Rate FiO2 07/02/25 19:41 82 18 151/76 07/02/25 16:58 98.1 95 98.1 07/02/25 08:00 Nasal Cannula* 3 32 Total Intake and Output 07/01/25 07/01/25 07/02/25 15:00 23:00 07:00 Intake Total 854.2 ml 313 ml 100 ml Output Total 1550 ml 1000 ml Balance 854.2 ml -1237 ml -900 ml medications Current Medications Medications Dose Ordered Sig/Babak Route Start Time Stop Time Status Last Admin Dose Admin Pantoprazole Sodium 40 mg DAILY IV 06/18/25 10:00 07/02/25 10:47 40 MG Ondansetron HCl 4 mg Q6HPRN PRN IV 06/17/25 19:30 06/22/25 16:37 4 MG Potassium Chloride 100 ml @ 50 mls/hr Q2H IV 06/23/25 08:30 06/23/25 12:29 Cancel Amino Acids 0 ml @ 0 mls/hr PER PHARMACY IV 06/25/25 13:00 Sodium Chloride 10 ml QSHIFT@10,22 IV 06/25/25 22:00 07/02/25 11:10 10 ML Folic Acid 1 mg/ Dextrose 50.2 ml @ 200.8 mls/ hr DAILY INJ 06/26/25 10:00 07/02/25 11:09 200.8 MLS/HR Piperacillin Sod/ Tazobactam Sod 100 ml @ 25 mls/hr Q8HR IV 06/26/25 22:00 07/02/25 17:14 25 MLS/HR Acetaminophen 650 mg Q6HP PRN GT 06/26/25 18:00 06/28/25 15:45 650 MG Vancomycin HCl 0 ml @ 0 mls/hr UD IV 06/28/25 14:30 Labetalol HCl 10 mg Q6HP PRN IV 06/28/25 14:30 Vancomycin HCl 250 ml @ 166.667 mls/hr Q24H IV 06/29/25 11:00 UNV Potassium Chloride 100 ml @ 50 mls/hr Q2H IV 06/29/25 15:00 06/29/25 18:59 UNV Ketorolac Tromethamine 15 mg Q8HR IV 06/30/25 12:00 07/05/25 11:59 07/02/25 14:24 15 MG Vancomycin HCl 250 ml @ 200 mls/hr DAILY@1800 IV 06/30/25 18:00 07/02/25 18:38 200 MLS/HR Fat Emulsion Intravenous 100 ml/Sodium Chloride 30 meq/ Potassium Phosphate 66 meq/ Magnesium Sulfate 10 meq/ Multivitamins 10 ml/Insulin Human Regular 10 units/ Amino Acids/ Dextrose 1,535.1 ml @ 64 mls/hr Q24H IV 07/01/25 22:00 07/02/25 21:59 07/01/25 22:39 64 MLS/HR Micafungin Sodium 100 mg/Sodium Chloride 100 ml @ 100 mls/hr DAILY IV 07/02/25 10:00 07/02/25 11:08 100 MLS/HR Furosemide 40 mg DAILY IV 07/02/25 10:00 07/02/25 10:47 40 MG Diagnostic Test (Pha) 1 strip IQ4HR 07/01/25 12:00 07/02/25 16:00 1 STRIP Insulin Human Regular IQ4HR SC 07/01/25 12:00 07/02/25 17:15 4 UNITS Dextrose 50 ml UD PRN IV 07/01/25 11:15 Oxycodone/ Acetaminophen 1 tab Q4HP PRN PO 07/01/25 15:00 Oxycodone/ Acetaminophen 2 tab Q4HP PRN PO 07/01/25 15:00 Fat Emulsion Intravenous 50 ml/ Sodium Chloride 30 meq/Potassium Phosphate 44 meq/ Calcium Gluconate 4.65 meq/ Magnesium Sulfate 10 meq/ Multivitamins 10 ml/Insulin Human Regular 12 units/ Amino Acids/ Dextrose 1,590.12 ml @ 66 mls/hr Q24H6M IV 07/02/25 22:00 07/03/25 21:59 Hydromorphone HCl 1 mg Q6HP PRN IV 07/02/25 10:45 07/02/25 19:41 1 MG Insulin Glargine 10 units QAM SC 07/02/25 11:15 07/02/25 13:08 10 UNITS objective GENERAL:Normal, HEENT:Normal, ABDOMEN:Abnormal binder in place, dressing is dry, soft, Colostomy is functional Extremities without clubbing cyanosis or edema Neuro alert oriented x3 with no focal deficit laboratory and microbiology Laboratory Tests 07/02/25 07:13 Test 07/02/25 07:13 Range/Units Serum Glucose 202 H 74-106 mg/dL Problems(with codes): (1) Abnormal finding on GI tract imaging (2) 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
[2025-07-02] MEDS: TPN PER PHARMACY IV NR (22:28)
[2025-07-03] VITALS (9 sets, daily range): BP systolic 128–157; BP diastolic 71–89; PULSE 74–85; RESP 18–19; TEMP 97.7–98.5; O2SAT 90–100
[2025-07-03 06:27] LABS: Anion Gap 8 (5-15); BUN/Creatinine Ratio 27.0 (10.0-20.0); Bilirubin, Total 1.1 mg/dL (0.2-1.0); Blood Urea Nitrogen 17 mg/dL (9-23); Carbon Dioxide 28 mmol/L (20-31); Chloride 100 mmol/L (98-107); Magnesium 2.1 mg/dL (1.6-2.6); Potassium 3.5 mmol/L (3.5-5.1); Sodium 136 mmol/L (136-145)
[2025-07-03 06:29] LABS: Alanine Aminotransferase 41 U/L (7-40); Albumin 2.9 g/dL (3.2-4.8); Alkaline Phosphatase 466 U/L (46-116); Calcium 7.7 mg/dL (8.7-10.4); Glucose 180 mg/dL (74-106); Total Protein 5.4 g/dL (5.7-8.2)
[2025-07-03 09:03] LABS: Hematocrit 30.3 % (41.0-53.0); Hemoglobin 10.4 g/dL (13.5-17.5); Mean Corpuscular Hemoglobin 37.2 pg (28.0-32.0); Mean Corpuscular Volume 108.9 fL (80.0-100.0); Nucleated Red Blood Cells % 0.1 %
--- NOTE | 2025-07-03 10:39 | DVHPN2 ---
Progress Note - Surgical Date Seen: Jul 03, 2025 Post op day Post op day: 10 Subjective Patient reports: Feels better (Patient feeling better, nondistended, not really hungry but has had some sips of water, pain controlled with pain meds. Vital signs are stable and he is afebrile. Produced 400 mL out of the ostomy bag, bilious) Review of Systems: Deferred Objective Vital signs Vital Sign Date Time Temp Pulse Resp B/P (MAP) Pulse Ox O2 Delivery O2 Flow Rate FiO2 07/03/25 09:35 137/76 07/03/25 09:00 98.1 81 18 100 98.1 07/02/25 20:00 Nasal Cannula* 3 32 Total Intake and Output 07/02/25 07/02/25 07/03/25 15:00 23:00 07:00 Intake Total 876.2 ml 350 ml 100 ml Output Total 2300 ml 400 ml Balance 876.2 ml -1950 ml -300 ml Medications Current Medications Medications Dose Ordered Sig/Babak Route Start Time Stop Time Status Last Admin Dose Admin Pantoprazole Sodium 40 mg DAILY IV 06/18/25 10:00 07/03/25 09:34 40 MG Ondansetron HCl 4 mg Q6HPRN PRN IV 06/17/25 19:30 06/22/25 16:37 4 MG Potassium Chloride 100 ml @ 50 mls/hr Q2H IV 06/23/25 08:30 06/23/25 12:29 Cancel Amino Acids 0 ml @ 0 mls/hr PER PHARMACY IV 06/25/25 13:00 Sodium Chloride 10 ml QSHIFT@,22 IV 06/25/25 22:00 07/03/25 09:35 10 ML Folic Acid 1 mg/ Dextrose 50.2 ml @ 200.8 mls/ hr DAILY INJ 06/26/25 10:00 07/02/25 11:09 200.8 MLS/HR Piperacillin Sod/ Tazobactam Sod 100 ml @ 25 mls/hr Q8HR IV 06/26/25 22:00 07/03/25 05:32 25 MLS/HR Acetaminophen 650 mg Q6HP PRN GT 06/26/25 18:00 06/28/25 15:45 650 MG Vancomycin HCl 0 ml @ 0 mls/hr UD IV 06/28/25 14:30 Labetalol HCl 10 mg Q6HP PRN IV 06/28/25 14:30 Vancomycin HCl 250 ml @ 166.667 mls/hr Q24H IV 06/29/25 11:00 UNV Potassium Chloride 100 ml @ 50 mls/hr Q2H IV 06/29/25 15:00 06/29/25 18:59 UNV Ketorolac Tromethamine 15 mg Q8HR IV 06/30/25 12:00 07/05/25 11:59 07/03/25 05:32 15 MG Vancomycin HCl 250 ml @ 200 mls/hr DAILY@1800 IV 06/30/25 18:00 07/02/25 18:38 200 MLS/HR Micafungin Sodium 100 mg/Sodium Chloride 100 ml @ 100 mls/hr DAILY IV 07/02/25 10:00 07/03/25 09:34 100 MLS/HR Furosemide 40 mg DAILY IV 07/02/25 10:00 07/03/25 09:35 40 MG Diagnostic Test (Pha) 1 strip IQ4HR 07/01/25 12:00 07/03/25 08:25 1 STRIP Insulin Human Regular IQ4HR SC 07/01/25 12:00 07/03/25 08:25 8 UNITS Dextrose 50 ml UD PRN IV 07/01/25 11:15 Oxycodone/ Acetaminophen 1 tab Q4HP PRN PO 07/01/25 15:00 Oxycodone/ Acetaminophen 2 tab Q4HP PRN PO 07/01/25 15:00 Fat Emulsion Intravenous 50 ml/ Sodium Chloride 30 meq/Potassium Phosphate 44 meq/ Calcium Gluconate 4.65 meq/ Magnesium Sulfate 10 meq/ Multivitamins 10 ml/Insulin Human Regular 12 units/ Amino Acids/ Dextrose 1,590.12 ml @ 66 mls/hr Q24H6M IV 07/02/25 22:00 07/03/25 21:59 07/02/25 22:28 66 MLS/HR Hydromorphone HCl 1 mg Q6HP PRN IV 07/02/25 10:45 07/02/25 19:41 1 MG Insulin Glargine 10 units QAM SC 07/02/25 11:15 07/03/25 07:20 10 UNITS Laboratory Laboratory Tests 07/03/25 05:41 Test 07/03/25 05:41 Range/Units Serum Glucose 180 H 74-106 mg/dL Microbiology Date/Time Source Procedure Growth Status 06/28/25 00:30 Blood Blood Culture - Final NO GROWTH AFTER 5 DAYS OF INCUBATION. Complete 06/27/25 18:32 Sputum Gram Stain - Final Complete 06/27/25 18:32 Respiratory Culture - Final Yeast, not Deisy albicans Presumptive Deisy albicans Complete 06/27/25 18:20 Voided Urine Urine Culture - Final Complete 06/26/25 16:20 Nose MRSA Screen - Final Complete Examination: GENERAL:Normal, ABDOMEN:Abnormal (Nondistended, incision site with wound VAC placed and without surrounding signs of infection, bilateral lower quadrants MAURICE drains with minimal serous output, left upper quadrant ostomy with bilious fluid in bag 400 mL in last 24 hours, mucosal sloughing with healthy mucosa underneath appropriate tenderness, appropriate tenderness) Labs and/or images reviewed: Labs reviewed by me (No leukocytosis and hemoglobin stable) Problem List/Assessment/Plan Assessment and Plan Mr. Lebron is a 79-year-old male who presented to the ED with abdominal pain. CT was reviewed and shows colonic distention from cecum to splenic flexure, pass the splenic flexure there is an area of distal decompression, possibly caused by a mass. 06/23: Exploratory laparotomy, segmental colectomy, splenic flexure takedown, hepatic flexure takedown, primary stapled anastomosis, drain placement 06/26: Exploratory laparotomy, resection of previous anastomosis, abdominal washout, end colostomy, temporary abdominal closure. Due to anastomotic leak 06/27: Exploratory laparotomy, temporary abdominal closure device taken down, washout, drain placed x2, fascial closure Interval: Patient is currently postop day 10 and 6 (last surgery). Patient continues to improve, having postsurgical pain but controlled with medications. Ostomy producing bilious output, 400 mL in last 24 hours. Drains with very minimal serous output. Patient is pending swallow eval, once he passes a swallow eval he can be started on a clear liquid diet. 1. NPO, okay for p.o. meds, sips of water and ice chips 2. Once he passed a swallow eval he can get advanced to clear liquid diet 3. Pain regimen: Tylenol 650 mg p.o. every 6 hours, Toradol 15 mg IV every 8 hours, oxycodone 5 and 10 mg p.o. PRN moderate and severe pain, Dilaudid 1 mg IV for breakthrough pain control 4. Strip drain b.i.d. and prn, empty and record drain output b.i.d. and p.r.n. 5. Ray for strict ins and outs 6. TPN 7. Continue with Zosyn for 7 days after his last surgery, until 07/04 8. A.m. labs: CBC, BMP, magnesium level, phosphate level 9. Wound nurse consult for wound VAC changes, patient will need home wound VAC also. 10. Case management consulted for home wound VAC 11. Physical therapy consulted 12. Case management consultation for ostomy supplies My Orders My Orders Orders - JEANMARIE RAY MD Procedure Category Date Status Time Hydromorphone PHA 07/02/25 In Process Injection (Dilaudid 10:45 Plan discussed with Plan discussed with: Patient, Daughter Visit Coding Surgery Date of Service if different f: Jul 03, 2025 Billing Provider: JEANMARIE RAY MD Surgery Visit Codes: [id number] INP/OBS CARE(HIGH) JEANMARIE RAY MD Jul 03, 2025 10:39
--- NOTE | 2025-07-03 13:43 | DVHPNRES ---
Progress Note Date Seen: Jul 03, 2025 Resident Creating Document: AICHA BRAND RESIDENT Medical Necessity Reason Pt with a Central, PICC or Fol: Yes The following are medically ne: PICC Line Subjective Review of Systems Patient seen and examined at bedside Notes some abdominal pain, appropriate to the current postoperative day Pending swallow evaluation Per patient's daughter, they will decide whether they will prefer home health versus SNF for physical therapy Pending wound VAC approval for home Progressing with PT Objective vital signs Vital Sign Date Time Temp Pulse Resp B/P (MAP) Pulse Ox O2 Delivery O2 Flow Rate FiO2 07/03/25 12:54 98 18 143/72 07/03/25 09:00 98.1 100 98.1 07/03/25 08:00 Nasal Cannula* 2 28 Total Intake and Output 07/02/25 07/02/25 07/03/25 15:00 23:00 07:00 Intake Total 876.2 ml 350 ml 100 ml Output Total 2300 ml 400 ml Balance 876.2 ml -1950 ml -300 ml medications Current Medications Medications Dose Ordered Sig/Babak Route Start Time Stop Time Status Last Admin Dose Admin Pantoprazole Sodium 40 mg DAILY IV 06/18/25 10:00 07/03/25 09:34 40 MG Ondansetron HCl 4 mg Q6HPRN PRN IV 06/17/25 19:30 06/22/25 16:37 4 MG Potassium Chloride 100 ml @ 50 mls/hr Q2H IV 06/23/25 08:30 06/23/25 12:29 Cancel Amino Acids 0 ml @ 0 mls/hr PER PHARMACY IV 06/25/25 13:00 Sodium Chloride 10 ml QSHIFT@,22 IV 06/25/25 22:00 07/03/25 09:35 10 ML Folic Acid 1 mg/ Dextrose 50.2 ml @ 200.8 mls/ hr DAILY INJ 06/26/25 10:00 07/02/25 11:09 200.8 MLS/HR Piperacillin Sod/ Tazobactam Sod 100 ml @ 25 mls/hr Q8HR IV 06/26/25 22:00 07/03/25 05:32 25 MLS/HR Acetaminophen 650 mg Q6HP PRN GT 06/26/25 18:00 06/28/25 15:45 650 MG Vancomycin HCl 0 ml @ 0 mls/hr UD IV 06/28/25 14:30 Labetalol HCl 10 mg Q6HP PRN IV 06/28/25 14:30 Vancomycin HCl 250 ml @ 166.667 mls/hr Q24H IV 06/29/25 11:00 UNV Potassium Chloride 100 ml @ 50 mls/hr Q2H IV 06/29/25 15:00 06/29/25 18:59 UNV Ketorolac Tromethamine 15 mg Q8HR IV 06/30/25 12:00 07/05/25 11:59 07/03/25 05:32 15 MG Vancomycin HCl 250 ml @ 200 mls/hr DAILY@1800 IV 06/30/25 18:00 07/02/25 18:38 200 MLS/HR Micafungin Sodium 100 mg/Sodium Chloride 100 ml @ 100 mls/hr DAILY IV 07/02/25 10:00 07/03/25 09:34 100 MLS/HR Furosemide 40 mg DAILY IV 07/02/25 10:00 07/03/25 09:35 40 MG Diagnostic Test (Pha) 1 strip IQ4HR 07/01/25 12:00 07/03/25 12:00 1 STRIP Insulin Human Regular IQ4HR SC 07/01/25 12:00 07/03/25 12:53 4 UNITS Dextrose 50 ml UD PRN IV 07/01/25 11:15 Oxycodone/ Acetaminophen 1 tab Q4HP PRN PO 07/01/25 15:00 Oxycodone/ Acetaminophen 2 tab Q4HP PRN PO 07/01/25 15:00 Fat Emulsion Intravenous 50 ml/ Sodium Chloride 30 meq/Potassium Phosphate 44 meq/ Calcium Gluconate 4.65 meq/ Magnesium Sulfate 10 meq/ Multivitamins 10 ml/Insulin Human Regular 12 units/ Amino Acids/ Dextrose 1,590.12 ml @ 66 mls/hr Q24H6M IV 07/02/25 22:00 07/03/25 21:59 07/02/25 22:28 66 MLS/HR Hydromorphone HCl 1 mg Q6HP PRN IV 07/02/25 10:45 07/03/25 12:54 1 MG Insulin Glargine 10 units QAM SC 07/02/25 11:15 07/03/25 07:20 10 UNITS Fat Emulsion Intravenous 50 ml/ Sodium Chloride 30 meq/Potassium Phosphate 66 meq/ Calcium Gluconate 4.65 meq/ Magnesium Sulfate 10 meq/ Multivitamins 10 ml/Insulin Human Regular 14 units/ Amino Acids/ Dextrose/Purified Water 1,695.14 ml @ 70 mls/hr [id number] IV 07/03/25 22:00 07/04/25 21:59 Examination Gen - no pallor, no icterus, no cyanosis, no edema . Skin - Patients skin is warm and dry. HEENT - normocephalic, atraumatic, moist mucous membranes. Equal bilateral constricted but reactive pupils. Pulmonary - coarse bilateral breath sounds, trace wheeze cardiovascular - regular S1,S2 heard, no added sounds, no murmurs heard. peripheral pulses normal radial 2+, pedal 2+. capillary refill normal <2 secs. GI - status post exploratory laparotomy with a midline scar, wound VAC and MAURICE drain, grimacing on palpation. Bilateral MAURICE drains with 20-30 cc serous drainage. Colostomy noted with dark green/dark brown liquid stool. laboratory and microbiology Laboratory Tests 07/03/25 05:41 Test 07/03/25 05:41 Range/Units Serum Glucose 180 H 74-106 mg/dL Microbiology Date/Time Source Procedure Growth Status 06/28/25 00:30 Blood Blood Culture - Final NO GROWTH AFTER 5 DAYS OF INCUBATION. Complete 06/27/25 18:32 Sputum Gram Stain - Final Complete 06/27/25 18:32 Respiratory Culture - Final Yeast, not Deisy albicans Presumptive Deisy albicans Complete 06/27/25 18:20 Voided Urine Urine Culture - Final Complete 06/26/25 16:20 Nose MRSA Screen - Final Complete Labs and/or images reviewed: Labs reviewed by me, Image(s) reviewed by me Problem List/Assessment/Plan Problem List/Assessment/Plan Neurology # off sedation, currently on CPAP trial Cardiovascular # essential hypertension # heart failure with preserved ejection fraction, EF 65% # LVH - IV Lasix 40 mg once yesterday on 06/28/2025, repeated IV Lasix 40 mg once today Respiratory # Ventilator -intubated 06/26/25 - extubated 06/30/2025 # pulmonary edema # Acute hypoxic respiratory failure likely due to above, improving; not POA # probable aspiration pneumonia, not POA - IV vancomycin, Zosyn , continue Zosyn until 07/04/2025 - IV Lasix 40 mg daily Nephrology # hypokalemia # ANNE MARIE likely hemodynamically mediated, now improved, POA - repleted GI # acute intractable abdominal pain # severe constipation, bowel obstruction due to mass # large bowel obstruction with mass at the splenic flexure, # s/p ex lap x2 # s/p pneumoperitoneum, improved # rectal ulceration with probable proctitis - Initial CT abdomen pelvis with the contrast showed irregular bowel wall narrowing in the region of the splenic flexure of the colon with surrounding lymph nodes up to 10 mm, highly concerning for colon neoplasm. - Initial colonoscopy unsuccessful d/t poor bowel prep, repeat colonoscopy done on 06/22 showed ulcerated mass at the distal transverse colon/ splenic flexure causing severe obstruction - patient underwent exploratory reportedly on 06/23 with Segmental colectomy, splenic flexure takedown, hepatic flexure takedown, primary isoperistaltic stapled anastomosis - CEA-normal, Ca-19-9 and Ca 125 normal - postop CT abdomen pelvis done on 06/24, showed no anastomotic leak, sludge changes suggestive of acute colitis, minimal fluid and fat stranding likely postoperative changes - 06/26- postop day 2, patient was seen to have pneumoperitoneum with increased tenderness to palpation and was taken to surgery - on 06/26 underwent exploratory laparotomy with a left upper quadrant end colostomy - on 06/27 - temporary abdominal wall closure with a wound VAC - splenic flexure mass biopsy shows adenocarcinoma, moderately differentiated. # Peptic ulcer prophylaxis -Pantoprazole 40 mg IV daily Infectious disease # sepsis due to intra-abdominal infection versus aspiration pneumonia, undetermined POA - IV vancomycin per pharmacy - IV Zosyn Hem/onc # anemia likely of chronic disease - IV iron DVT prophylaxis Held due to anemia Nutrition TPN, NPO except ice chips and p.o. medication PICC line placed on 06/25/2025 Physical therapy ordered Critical care time 32 minutes Code status discussed greater than 20 minutes: Full CODE STATUS. Daughter at bedside explained about the condition of the patient Plan discussed with Dr. Mitchell Plan discussed with: Daughter, Other (RN) My Orders My Orders Orders - AICHA BRAND RESIDENT Procedure Category Date Status Time * Home Health Travel Ot CONS 07/03/25 Transmitted Consult Dietary Evaluation Review Comments: Advance to diet texture as tolerated when medically feasible Encourage and monitor intakes to meet his needs at least at 75% Expected Outcomes/Goals: maintain BW Date of Service: Jul 03, 2025 Billing Provider: HONG MITCHELL MD Common Visit Codes: [id number] INP/OBS CARE(HIGH) BRANDAICHA RESIDENT Jul 03, 2025 13:42 HONG MITCHELL MD Jul 06, 2025 20:56
--- NOTE | 2025-07-03 15:10 | DVHPN2 ---
Progress Note Date Seen: Jul 03, 2025 Resident Creating Document: LASHA OVALLE RESIDENT Medical Necessity Reason Pt with a Central, PICC or Fol: Yes The following are medically ne: PICC Line Subjective Review of Systems patient reports abd pain has improved dark brown fluid noted in the colostomy bag denies any nausea/ vomiting Objective vital signs Vital Sign Date Time Temp Pulse Resp B/P (MAP) Pulse Ox O2 Delivery O2 Flow Rate FiO2 07/03/25 13:24 89 17 139/88 07/03/25 09:00 98.1 100 98.1 07/03/25 08:00 Nasal Cannula* 2 28 Total Intake and Output 07/02/25 07/02/25 07/03/25 15:00 23:00 07:00 Intake Total 876.2 ml 350 ml 100 ml Output Total 2300 ml 400 ml Balance 876.2 ml -1950 ml -300 ml medications Current Medications Medications Dose Ordered Sig/Babak Route Start Time Stop Time Status Last Admin Dose Admin Pantoprazole Sodium 40 mg DAILY IV 06/18/25 10:00 07/03/25 09:34 40 MG Ondansetron HCl 4 mg Q6HPRN PRN IV 06/17/25 19:30 06/22/25 16:37 4 MG Potassium Chloride 100 ml @ 50 mls/hr Q2H IV 06/23/25 08:30 06/23/25 12:29 Cancel Amino Acids 0 ml @ 0 mls/hr PER PHARMACY IV 06/25/25 13:00 Sodium Chloride 10 ml QSHIFT@10,22 IV 06/25/25 22:00 07/03/25 09:35 10 ML Folic Acid 1 mg/ Dextrose 50.2 ml @ 200.8 mls/ hr DAILY INJ 06/26/25 10:00 07/02/25 11:09 200.8 MLS/HR Piperacillin Sod/ Tazobactam Sod 100 ml @ 25 mls/hr Q8HR IV 06/26/25 22:00 07/03/25 14:51 25 MLS/HR Acetaminophen 650 mg Q6HP PRN GT 06/26/25 18:00 06/28/25 15:45 650 MG Vancomycin HCl 0 ml @ 0 mls/hr UD IV 06/28/25 14:30 Labetalol HCl 10 mg Q6HP PRN IV 06/28/25 14:30 Vancomycin HCl 250 ml @ 166.667 mls/hr Q24H IV 06/29/25 11:00 UNV Potassium Chloride 100 ml @ 50 mls/hr Q2H IV 06/29/25 15:00 06/29/25 18:59 UNV Ketorolac Tromethamine 15 mg Q8HR IV 06/30/25 12:00 07/05/25 11:59 07/03/25 14:51 15 MG Vancomycin HCl 250 ml @ 200 mls/hr DAILY@1800 IV 06/30/25 18:00 07/02/25 18:38 200 MLS/HR Micafungin Sodium 100 mg/Sodium Chloride 100 ml @ 100 mls/hr DAILY IV 07/02/25 10:00 07/03/25 09:34 100 MLS/HR Furosemide 40 mg DAILY IV 07/02/25 10:00 07/03/25 09:35 40 MG Diagnostic Test (Pha) 1 strip IQ4HR 07/01/25 12:00 07/03/25 12:00 1 STRIP Insulin Human Regular IQ4HR SC 07/01/25 12:00 07/03/25 12:53 4 UNITS Dextrose 50 ml UD PRN IV 07/01/25 11:15 Oxycodone/ Acetaminophen 1 tab Q4HP PRN PO 07/01/25 15:00 Oxycodone/ Acetaminophen 2 tab Q4HP PRN PO 07/01/25 15:00 Fat Emulsion Intravenous 50 ml/ Sodium Chloride 30 meq/Potassium Phosphate 44 meq/ Calcium Gluconate 4.65 meq/ Magnesium Sulfate 10 meq/ Multivitamins 10 ml/Insulin Human Regular 12 units/ Amino Acids/ Dextrose 1,590.12 ml @ 66 mls/hr Q24H6M IV 07/02/25 22:00 07/03/25 21:59 07/02/25 22:28 66 MLS/HR Hydromorphone HCl 1 mg Q6HP PRN IV 07/02/25 10:45 07/03/25 12:54 1 MG Insulin Glargine 10 units QAM SC 07/02/25 11:15 07/03/25 07:20 10 UNITS Fat Emulsion Intravenous 50 ml/ Sodium Chloride 30 meq/Potassium Phosphate 66 meq/ Calcium Gluconate 4.65 meq/ Magnesium Sulfate 10 meq/ Multivitamins 10 ml/Insulin Human Regular 14 units/ Amino Acids/ Dextrose/Purified Water 1,695.14 ml @ 70 mls/hr [id number] IV 07/03/25 22:00 07/04/25 21:59 Examination Gen - no pallor, no scleral icterus Skin - Patients skin is warm and dry. HEENT - normocephalic, atraumatic, dry mucous membranes. Neck - supple, no lymphadenopathy Pulmonary - B/L equal air entry with a minimal basilar crackles more on the left side cardiovascular - regular S1,S2 heard GI - abdominal distention has decreased with decreased tenderness to palpation. Bowel sounds hypoactive. Midline abdominal incision with a wound VAC. MAURICE drain with serous drainage. Colostomy bag with a brownish stool Neurological - Patient is extremity today, slightly drowsy but is following commands laboratory and microbiology Laboratory Tests 07/03/25 05:41 Test 07/03/25 05:41 Range/Units Serum Glucose 180 H 74-106 mg/dL Microbiology Date/Time Source Procedure Growth Status 06/28/25 00:30 Blood Blood Culture - Final NO GROWTH AFTER 5 DAYS OF INCUBATION. Complete 06/27/25 18:32 Sputum Gram Stain - Final Complete 06/27/25 18:32 Respiratory Culture - Final Yeast, not Deisy albicans Presumptive Deisy albicans Complete 06/27/25 18:20 Voided Urine Urine Culture - Final Complete 06/26/25 16:20 Nose MRSA Screen - Final Complete Problem List/Assessment/Plan Problem List/Assessment/Plan Assessment Acute intractable abdominal pain severe constipation Large bowel obstruction with mass at the splenic flexure s/p Exploratory laparotomy on 06/23 and 06/26 with colostomy Pneumoperitoneum s/p exploratory laparotomy Plan - splenic flexure mass biopsy shows adenocarcinoma, moderately differentiated, follow up with PCP and oncologist outpatient - IV ABX vancomycin and Zosyn - on TPN, sips of water and ice chips - swallow evaluation to be done and if the patient clears to be put on clear liquid diet as per the primary surgeon - monitor LFTs Plan discussed with Dr. Salmon Plan discussed with: Patient, Daughter, Other (JESSIKA Harkins) My Orders My Orders Orders - LASHA OVALLE Procedure Category Date Status Time Amino Acid PHA 07/03/25 In Process Infusion... W/Fat 22:00 Comprehensive LAB 07/04/25 Verified Metabolic Panel 04:00 Triglycerides LAB 07/04/25 Verified 04:00 Tpn Per Pharmacy JULIETTE 07/03/25 In Process 22:00 Dietary Evaluation Review Comments: Advance to diet texture as tolerated when medically feasible Encourage and monitor intakes to meet his needs at least at 75% Expected Outcomes/Goals: maintain BW LASHA OVALLE RESIDENT Jul 03, 2025 15:10
[2025-07-03] MEDS: FAT EMULSION IV NR (21:50)
[2025-07-03] MEDS: POTASSIUM PHOSPHATE IV NR (21:50)
[2025-07-03] MEDS: [UNRECOGNIZED DRUG - OTHER] IV NR (21:50)
[2025-07-03] MEDS: SODIUM CHLORIDE IV NR (21:50)
[2025-07-04] VITALS (9 sets, daily range): BP systolic 140–152; BP diastolic 79–86; PULSE 68–77; RESP 18–20; TEMP 97.8–98.7; O2SAT 95–99
[2025-07-04 05:46] LABS: Hematocrit 28.1 % (41.0-53.0); Hemoglobin 9.7 g/dL (13.5-17.5); Mean Corpuscular Hemoglobin 37.0 pg (28.0-32.0); Mean Corpuscular Volume 107.0 fL (80.0-100.0); Nucleated Red Blood Cells % 0.0 %
[2025-07-04 06:10] LABS: Anion Gap 9 (5-15); BUN/Creatinine Ratio 30.6 (10.0-20.0); Blood Urea Nitrogen 19 mg/dL (9-23); Carbon Dioxide 27 mmol/L (20-31); Chloride 100 mmol/L (98-107); Magnesium 2.0 mg/dL (1.6-2.6); Sodium 136 mmol/L (136-145)
[2025-07-04 06:11] LABS: Bilirubin, Total 1.1 mg/dL (0.2-1.0)
[2025-07-04 06:15] LABS: Alanine Aminotransferase 47 U/L (7-40); Albumin 3.0 g/dL (3.2-4.8); Alkaline Phosphatase 425 U/L (46-116); Calcium 7.8 mg/dL (8.7-10.4); Glucose 167 mg/dL (74-106); Potassium 3.4 mmol/L (3.5-5.1); Total Protein 5.6 g/dL (5.7-8.2)
[2025-07-04] MEDS: POTASSIUM CHL 20MEQ/100ML 100 ML IV ONE (11:15)
[2025-07-04] MEDS ORDERED: DEXTROSE (50%) 50ML SYRG IV PRN (12:15)
[2025-07-04] MEDS: PIPERACILLIN-TAZOB 3.375GM 100 ML IV SCH (14:00)
[2025-07-04] MEDS: ACCU-CHEK COMFORT CURVE STRIP VI SCH (17:08)
[2025-07-04] MEDS: InsuLIN REG 1unit/0.01ml Soln (100units/ml) SC SCH (17:12)
--- NOTE | 2025-07-04 17:37 | DVHPNRES ---
Progress Note Date Seen: Jul 04, 2025 Resident Creating Document: EVERT ANNE RESIDENT Medical Necessity Reason Pt with a Central, PICC or Fol: Yes The following are medically ne: PICC Line Subjective Review of Systems patient is stable, improving, telemetry now, chinese speaking, afebrile, tolerating diet, waiting placement. right MAURICE drain discontinued. surgical team aware. Objective vital signs Vital Sign Date Time Temp Pulse Resp B/P (MAP) Pulse Ox O2 Delivery O2 Flow Rate FiO2 07/04/25 17:00 98.4 74 20 145/79 (101) 99 98.4 07/04/25 08:00 Nasal Cannula* 2 28 Total Intake and Output 07/03/25 07/03/25 07/04/25 15:00 23:00 07:00 Intake Total 200 ml 250 ml 500 ml Output Total 2000 ml 1060 ml Balance 200 ml -1750 ml -560 ml medications Current Medications Medications Dose Ordered Sig/Babak Route Start Time Stop Time Status Last Admin Dose Admin Pantoprazole Sodium 40 mg DAILY IV 06/18/25 10:00 07/04/25 08:47 40 MG Ondansetron HCl 4 mg Q6HPRN PRN IV 06/17/25 19:30 06/22/25 16:37 4 MG Potassium Chloride 100 ml @ 50 mls/hr Q2H IV 06/23/25 08:30 06/23/25 12:29 Cancel Amino Acids 0 ml @ 0 mls/hr PER PHARMACY IV 06/25/25 13:00 Sodium Chloride 10 ml QSHIFT@10,22 IV 06/25/25 22:00 07/04/25 08:47 10 ML Folic Acid 1 mg/ Dextrose 50.2 ml @ 200.8 mls/ hr DAILY INJ 06/26/25 10:00 07/04/25 08:48 200.8 MLS/HR Acetaminophen 650 mg Q6HP PRN GT 06/26/25 18:00 06/28/25 15:45 650 MG Vancomycin HCl 0 ml @ 0 mls/hr UD IV 06/28/25 14:30 Labetalol HCl 10 mg Q6HP PRN IV 06/28/25 14:30 Vancomycin HCl 250 ml @ 166.667 mls/hr Q24H IV 06/29/25 11:00 UNV Potassium Chloride 100 ml @ 50 mls/hr Q2H IV 06/29/25 15:00 06/29/25 18:59 UNV Ketorolac Tromethamine 15 mg Q8HR IV 06/30/25 12:00 07/05/25 11:59 07/04/25 13:17 15 MG Vancomycin HCl 250 ml @ 200 mls/hr DAILY@1800 IV 06/30/25 18:00 07/04/25 17:11 200 MLS/HR Micafungin Sodium 100 mg/Sodium Chloride 100 ml @ 100 mls/hr DAILY IV 07/02/25 10:00 07/04/25 08:53 100 MLS/HR Furosemide 40 mg DAILY IV 07/02/25 10:00 07/03/25 09:35 40 MG Insulin Human Regular IQ4HR SC 07/01/25 12:00 07/04/25 12:22 8 UNITS Dextrose 50 ml UD PRN IV 07/01/25 11:15 Oxycodone/ Acetaminophen 1 tab Q4HP PRN PO 07/01/25 15:00 Oxycodone/ Acetaminophen 2 tab Q4HP PRN PO 07/01/25 15:00 Hydromorphone HCl 1 mg Q6HP PRN IV 07/02/25 10:45 07/03/25 12:54 1 MG Insulin Glargine 10 units QAM SC 07/02/25 11:15 07/04/25 07:00 10 UNITS Fat Emulsion Intravenous 50 ml/ Sodium Chloride 30 meq/Potassium Phosphate 66 meq/ Calcium Gluconate 4.65 meq/ Magnesium Sulfate 10 meq/ Multivitamins 10 ml/Insulin Human Regular 14 units/ Amino Acids/ Dextrose/Purified Water 1,695.14 ml @ 70 mls/hr [id number] IV 07/03/25 22:00 07/04/25 21:59 07/03/25 21:50 70 MLS/HR Fat Emulsion Intravenous 50 ml/ Sodium Chloride 30 meq/Potassium Phosphate 66 meq/ Calcium Gluconate 2.3 meq/Magnesium Sulfate 12 meq/ Multivitamins 10 ml/Chromium/ Copper/Manganese/ Zinc 1 ml/Insulin Human Regular 16 units/Amino Acids/ Dextrose 1,591.6062 ml @ 66 mls/hr Q24H7M IV 07/04/25 22:00 07/05/25 21:59 Diagnostic Test (Pha) 1 strip ACHS 07/04/25 17:00 07/04/25 17:08 1 STRIP Insulin Human Regular ACHS SC 07/04/25 17:00 07/04/25 17:12 2 UNITS Dextrose 50 ml UD PRN IV 07/04/25 12:15 Piperacillin Sod/ Tazobactam Sod 100 ml @ 25 mls/hr Q8HR IV 07/04/25 14:00 07/04/25 14:00 25 MLS/HR Examination Gen - no pallor, no scleral icterus Skin - Patients skin is warm and dry. HEENT - normocephalic, atraumatic, dry mucous membranes. Neck - supple, no lymphadenopathy Pulmonary - B/L equal air entry with a minimal basilar crackles more on the left side cardiovascular - regular S1,S2 heard GI - abdominal distention has decreased with decreased tenderness to palpation. Bowel sounds hypoactive. Midline abdominal incision with a wound VAC. MAURICE drain with serous drainage. Colostomy bag with a brownish stool Neurological - Patient is extremity today, slightly drowsy but is following commands laboratory and microbiology Laboratory Tests 07/04/25 05:18 Test 07/04/25 05:18 Range/Units Serum Glucose 167 H 74-106 mg/dL Microbiology Date/Time Source Procedure Growth Status 06/28/25 00:30 Blood Blood Culture - Final NO GROWTH AFTER 5 DAYS OF INCUBATION. Complete 06/27/25 18:32 Sputum Gram Stain - Final Complete 06/27/25 18:32 Respiratory Culture - Final Yeast, not Deisy albicans Presumptive Deisy albicans Complete 06/27/25 18:20 Voided Urine Urine Culture - Final Complete 06/26/25 16:20 Nose MRSA Screen - Final Complete Labs and/or images reviewed: Labs reviewed by me, Image(s) reviewed by me Problem List/Assessment/Plan Problem List/Assessment/Plan Mr Johnston, a 79-year-old male with hypertension and thrombocytosis presents with 2 weeks of abdominal pain and constipation, initially with hard stools and straining, now with loose stools and last BM 2 days ago; also had 2 episodes of vomiting. Denies fever, weight loss, or prior colonoscopy; reports blood in stool months ago. CT shows colonic narrowing near splenic flexure with wall thickening and lymphadenopathy. Patient with large bowel obstruction due to splenic flexure mass, status post two exploratory laparotomies and pneumoperitoneum, currently improving postoperatively; rectal ulceration with probable proctitis noted, and biopsy confirms moderately differentiated adenocarcinoma managed surgically. Currently postop day 9 and 5 from recent surgeries, improving with controlled postsurgical pain, functioning ostomy, and minimal drain output. Downgrated from [facility]/ICU on 07/03 intubated 06/26/25 and extubated 06/30/2025. Assessment and plan: # H/o essential hypertension # heart failure with preserved ejection fraction, EF 65% # LVH, hypertensive heart disease, close to euvolemia repeated IV Lasix 40 mg as needed # S/p Extubating, acute hypoxic respiratory failure # pulmonary edema, stable. # Atelectasis, incentive spirometry, pulmonary toilet # Acute hypoxic respiratory failure likely due to above, improving wean as tolerated to keep SPO2>94% # probable aspiration pneumonia, IV vancomycin, Zosyn , continue Zosyn until 07/04/2025, stop tomorrow. # hypokalemia improved. # ANNE MARIE likely hemodynamically mediated, now improved, # acute intractable abdominal pain improved, controlled. # severe constipation, bowel obstruction due to mass # large bowel obstruction with mass at the splenic flexure, s/p ex lap x2 # s/p pneumoperitoneum, improved postsurgical # rectal ulceration with probable proctitis # splenic flexure mass biopsy shows adenocarcinoma, moderately differentiated. # Peptic ulcer prophylaxis on Pantoprazole 40 mg IV daily # anemia likely of chronic disease # wound care with wound vac bedside, continue to check # Acute care myopathy, PT SNF placement pending SW on board. # TPN, NPO except ice chips and p.o. medication>now on PICC line placed on 06/25/2025 Diet: Passed swallow eval now on full liquid diet. Sub-Specialist: GI and Surgery on board. Code status discussed: Full CODE STATUS. Daughter at bedside explained about the condition of the patient Plan discussed with Dr. Mitchell Care plan needed 41 minutes. Plan discussed with: Patient, Daughter My Orders My Orders Orders - EVERT ANNE RESIDENT Procedure Category Date Status Time Glucose Blood PHA 07/04/25 In Process (Accu-Chek Comfort 17:00 Insulin R (Human) PHA 07/04/25 In Process (Insulin R) 17:00 Dextrose 50% Syringe PHA 07/04/25 In Process 12:15 Piperacillin-Tazob PHA 07/04/25 In Process 3.375gm (Zosyn 3.375g 14:00 Incentive Spirometry ORDERS 07/04/25 Transmitted Q 1hr 13:40 May Have Head Of Bed JULIETTE 07/04/25 In Process up 13:40 Oob To Chair JULIETTE 07/04/25 In Process 13:40 * Wound Consult CONS 07/04/25 Transmitted Dietary Evaluation Review Comments: Advance to diet texture as tolerated when medically feasible Encourage and monitor intakes to meet his needs at least at 75% Expected Outcomes/Goals: maintain BW Date of Service: Jul 04, 2025 Billing Provider: HONG MITCHELL MD Common Visit Codes: [id number] INP/OBS CARE(HIGH) EVERT ANNE RESIDENT Jul 04, 2025 17:37 HONG MITCHELL MD Jul 06, 2025 20:57
[2025-07-04] MEDS: TPN PER PHARMACY IV NR (21:18)
[2025-07-05] VITALS (8 sets, daily range): BP systolic 109–158; BP diastolic 70–91; PULSE 71–82; RESP 18–22; TEMP 98–99; O2SAT 96–100
[2025-07-05 06:18] LABS: Hematocrit 27.8 % (41.0-53.0); Hemoglobin 9.8 g/dL (13.5-17.5); Mean Corpuscular Hemoglobin 37.7 pg (28.0-32.0); Mean Corpuscular Volume 107.2 fL (80.0-100.0)
[2025-07-05 06:53] LABS: Anion Gap 10 (5-15); BUN/Creatinine Ratio 30.0 (10.0-20.0); Blood Urea Nitrogen 18 mg/dL (9-23); Carbon Dioxide 24 mmol/L (20-31); Chloride 102 mmol/L (98-107); Magnesium 2.1 mg/dL (1.6-2.6); Potassium 3.7 mmol/L (3.5-5.1); Sodium 136 mmol/L (136-145)
[2025-07-05 06:54] LABS: Bilirubin, Total 0.9 mg/dL (0.2-1.0)
[2025-07-05 07:00] LABS: Alanine Aminotransferase 49 U/L (7-40); Alkaline Phosphatase 401 U/L (46-116); Calcium 7.6 mg/dL (8.7-10.4); Glucose 175 mg/dL (74-106)
[2025-07-05 07:01] LABS: Albumin 3.0 g/dL (3.2-4.8); Total Protein 5.5 g/dL (5.7-8.2)
[2025-07-05 08:00] LABS: Macrocytosis Moderate; Total Cells Counted 100.0 (100)
--- NOTE | 2025-07-05 08:35 | DVHPN2 ---
Progress Note - Surgical Date Seen: Jul 05, 2025 Post op day Post op day: 12 Subjective Review of Systems: Deferred Objective Vital signs Vital Sign Date Time Temp Pulse Resp B/P (MAP) Pulse Ox O2 Delivery O2 Flow Rate FiO2 07/05/25 05:00 98.8 74 19 146/78 (100) 98 98.8 07/04/25 20:00 Nasal Cannula* 2 28 Total Intake and Output 07/04/25 07/04/25 07/05/25 14:59 22:59 06:59 Intake Total 100 ml 178 ml 380 ml Output Total 100 ml 1475 ml 1550 ml Balance 0 ml -1297 ml -1170 ml Medications Current Medications Medications Dose Ordered Sig/Babak Route Start Time Stop Time Status Last Admin Dose Admin Pantoprazole Sodium 40 mg DAILY IV 06/18/25 10:00 07/04/25 08:47 40 MG Ondansetron HCl 4 mg Q6HPRN PRN IV 06/17/25 19:30 06/22/25 16:37 4 MG Potassium Chloride 100 ml @ 50 mls/hr Q2H IV 06/23/25 08:30 06/23/25 12:29 Cancel Amino Acids 0 ml @ 0 mls/hr PER PHARMACY IV 06/25/25 13:00 Sodium Chloride 10 ml QSHIFT@,22 IV 06/25/25 22:00 07/04/25 21:21 10 ML Folic Acid 1 mg/ Dextrose 50.2 ml @ 200.8 mls/ hr DAILY INJ 06/26/25 10:00 07/04/25 08:48 200.8 MLS/HR Acetaminophen 650 mg Q6HP PRN GT 06/26/25 18:00 06/28/25 15:45 650 MG Vancomycin HCl 0 ml @ 0 mls/hr UD IV 06/28/25 14:30 Labetalol HCl 10 mg Q6HP PRN IV 06/28/25 14:30 Vancomycin HCl 250 ml @ 166.667 mls/hr Q24H IV 06/29/25 11:00 UNV Potassium Chloride 100 ml @ 50 mls/hr Q2H IV 06/29/25 15:00 06/29/25 18:59 UNV Ketorolac Tromethamine 15 mg Q8HR IV 06/30/25 12:00 07/05/25 11:59 07/05/25 06:22 15 MG Vancomycin HCl 250 ml @ 200 mls/hr DAILY@1800 IV 06/30/25 18:00 07/04/25 17:11 200 MLS/HR Micafungin Sodium 100 mg/Sodium Chloride 100 ml @ 100 mls/hr DAILY IV 07/02/25 10:00 07/04/25 08:53 100 MLS/HR Furosemide 40 mg DAILY IV 07/02/25 10:00 07/03/25 09:35 40 MG Dextrose 50 ml UD PRN IV 07/01/25 11:15 Oxycodone/ Acetaminophen 1 tab Q4HP PRN PO 07/01/25 15:00 Oxycodone/ Acetaminophen 2 tab Q4HP PRN PO 07/01/25 15:00 Hydromorphone HCl 1 mg Q6HP PRN IV 07/02/25 10:45 07/03/25 12:54 1 MG Insulin Glargine 10 units QAM SC 07/02/25 11:15 07/05/25 06:21 10 UNITS Fat Emulsion Intravenous 50 ml/ Sodium Chloride 30 meq/Potassium Phosphate 66 meq/ Calcium Gluconate 2.3 meq/Magnesium Sulfate 12 meq/ Multivitamins 10 ml/Chromium/ Copper/Manganese/ Zinc 1 ml/Insulin Human Regular 16 units/Amino Acids/ Dextrose 1,591.6062 ml @ 66 mls/hr Q24H7M IV 07/04/25 22:00 07/05/25 21:59 07/04/25 21:18 66 MLS/HR Diagnostic Test (Pha) 1 strip ACHS 07/04/25 17:00 07/05/25 06:21 1 STRIP Insulin Human Regular ACHS SC 07/04/25 17:00 07/05/25 06:20 3 UNITS Dextrose 50 ml UD PRN IV 07/04/25 12:15 Piperacillin Sod/ Tazobactam Sod 100 ml @ 25 mls/hr Q8HR IV 07/04/25 14:00 07/05/25 06:22 25 MLS/HR Laboratory Laboratory Tests 07/05/25 05:38 Test 07/05/25 05:38 Range/Units Serum Glucose 175 H 74-106 mg/dL Microbiology Date/Time Source Procedure Growth Status 06/28/25 00:30 Blood Blood Culture - Final NO GROWTH AFTER 5 DAYS OF INCUBATION. Complete 06/27/25 18:32 Sputum Gram Stain - Final Complete 06/27/25 18:32 Respiratory Culture - Final Yeast, not Deisy albicans Presumptive Deisy albicans Complete 06/27/25 18:20 Voided Urine Urine Culture - Final Complete 06/26/25 16:20 Nose MRSA Screen - Final Complete Examination: ABDOMEN:Abnormal (Globose, midline incision with wound VAC placed, right side a MAURICE drain displaced and removed, left-sided MAURICE drain with minimal serous serous output, left upper quadrant ostomy with stool in bag and pink mucosa, appropriate tenderness) Labs and/or images reviewed: Labs reviewed by me (No leukocytosis, ) Problem List/Assessment/Plan Assessment and Plan Mr. Lebron is a 79-year-old male who presented to the ED with abdominal pain. CT was reviewed and shows colonic distention from cecum to splenic flexure, pass the splenic flexure there is an area of distal decompression, possibly caused by a mass. 06/23: Exploratory laparotomy, segmental colectomy, splenic flexure takedown, hepatic flexure takedown, primary stapled anastomosis, drain placement 06/26: Exploratory laparotomy, resection of previous anastomosis, abdominal washout, end colostomy, temporary abdominal closure. Due to anastomotic leak 06/27: Exploratory laparotomy, temporary abdominal closure device taken down, washout, drain placed x2, fascial closure Interval: Patient is currently postop day 12 and 8 (last surgery). Patient tolerating full liquid diet. Ostomy producing bilious output, 400 mL in last 24 hours. Drain with very minimal serous output. 1. Full liquid diet and advance as tolerated 2. Wean TPN 3. Pain regimen: Tylenol 650 mg p.o. every 6 hours, Toradol 15 mg IV every 8 hours, oxycodone 5 and 10 mg p.o. PRN moderate and severe pain, Dilaudid 1 mg IV for breakthrough pain control 4. Strip drain b.i.d. and prn, empty and record drain output b.i.d. and p.r.n. 5. Ray for strict ins and outs 6. Continue with Zosyn for 7 days after his last surgery, until 07/04 7. A.m. labs: CBC, BMP, magnesium level, phosphate level 8. Wound nurse consult for wound VAC changes, patient will need home wound VAC also. 9. Case management consulted for home wound VAC 10. Physical therapy consulted 11. Case management consultation for ostomy supplies My Orders My Orders Orders - JEANMARIE RAY MD Procedure Category Date Status Time Full Liq Diet DIET 07/04/25 Transmitted Breakfast Plan discussed with Plan discussed with: Patient, Daughter Visit Coding Surgery Date of Service if different f: Jul 06, 2025 Billing Provider: JEANMARIE RAY MD Surgery Visit Codes: NOT BILLABLE JEANMARIE RAY MD Jul 05, 2025 08:35
--- NOTE | 2025-07-05 10:22 | MEDREC ---
[facility] Intervention Section I [facility] Intervention: Review courses of therapy (PLEASE CONSIDER DISCONTINUE ANTIBIOTICS ZOSYN AND VANCOMYCIN - PER DR TAMEKA XIONG (D/C ZOSYN ON 07/04/25) - PLEASE CONSIDER D/C VANCOMYCIN - NARES SCREENING FOR MRSA HAS A HIGH SPECIFICITY AND NEGATIVE PREDICTIVE VALUE FOR RULING OUT MRSA PNEUMONIA ) NELLI SAMUELS PHARMACIST Jul 05, 2025 10:22
--- NOTE | 2025-07-05 11:25 | DVHPNRES ---
Progress Note Date Seen: Jul 05, 2025 Resident Creating Document: AICHA BRAND RESIDENT Medical Necessity Reason Pt with a Central, PICC or Fol: Yes The following are medically ne: PICC Line Subjective Review of Systems Patient seen and examined at bedside On clear liquid diet Stable H&H, resumed Lovenox prophylactic Family would like SNF for physical therapy, social work administrator consulted Wound VAC delivered to bedside Discharge planning Objective vital signs Vital Sign Date Time Temp Pulse Resp B/P (MAP) Pulse Ox O2 Delivery O2 Flow Rate FiO2 07/05/25 09:00 98.5 82 22 148/78 (101) 98 98.5 07/05/25 08:10 Nasal Cannula* 2 28 Total Intake and Output 07/04/25 07/04/25 07/05/25 15:00 23:00 07:00 Intake Total 100 ml 178 ml 380 ml Output Total 100 ml 1475 ml 1550 ml Balance 0 ml -1297 ml -1170 ml medications Current Medications Medications Dose Ordered Sig/Babak Route Start Time Stop Time Status Last Admin Dose Admin Pantoprazole Sodium 40 mg DAILY IV 06/18/25 10:00 07/04/25 08:47 40 MG Ondansetron HCl 4 mg Q6HPRN PRN IV 06/17/25 19:30 06/22/25 16:37 4 MG Potassium Chloride 100 ml @ 50 mls/hr Q2H IV 06/23/25 08:30 06/23/25 12:29 Cancel Amino Acids 0 ml @ 0 mls/hr PER PHARMACY IV 06/25/25 13:00 Sodium Chloride 10 ml QSHIFT@10,22 IV 06/25/25 22:00 07/04/25 21:21 10 ML Folic Acid 1 mg/ Dextrose 50.2 ml @ 200.8 mls/ hr DAILY INJ 06/26/25 10:00 07/04/25 08:48 200.8 MLS/HR Acetaminophen 650 mg Q6HP PRN GT 06/26/25 18:00 06/28/25 15:45 650 MG Vancomycin HCl 0 ml @ 0 mls/hr UD IV 06/28/25 14:30 Labetalol HCl 10 mg Q6HP PRN IV 06/28/25 14:30 Vancomycin HCl 250 ml @ 166.667 mls/hr Q24H IV 06/29/25 11:00 UNV Potassium Chloride 100 ml @ 50 mls/hr Q2H IV 06/29/25 15:00 06/29/25 18:59 UNV Ketorolac Tromethamine 15 mg Q8HR IV 06/30/25 12:00 07/05/25 11:59 07/05/25 06:22 15 MG Vancomycin HCl 250 ml @ 200 mls/hr DAILY@1800 IV 06/30/25 18:00 07/04/25 17:11 200 MLS/HR Micafungin Sodium 100 mg/Sodium Chloride 100 ml @ 100 mls/hr DAILY IV 07/02/25 10:00 07/04/25 08:53 100 MLS/HR Furosemide 40 mg DAILY IV 07/02/25 10:00 07/03/25 09:35 40 MG Oxycodone/ Acetaminophen 1 tab Q4HP PRN PO 07/01/25 15:00 Oxycodone/ Acetaminophen 2 tab Q4HP PRN PO 07/01/25 15:00 Hydromorphone HCl 1 mg Q6HP PRN IV 07/02/25 10:45 07/03/25 12:54 1 MG Insulin Glargine 10 units QAM SC 07/02/25 11:15 07/05/25 06:21 10 UNITS Fat Emulsion Intravenous 50 ml/ Sodium Chloride 30 meq/Potassium Phosphate 66 meq/ Calcium Gluconate 2.3 meq/Magnesium Sulfate 12 meq/ Multivitamins 10 ml/Chromium/ Copper/Manganese/ Zinc 1 ml/Insulin Human Regular 16 units/Amino Acids/ Dextrose 1,591.6062 ml @ 66 mls/hr Q24H7M IV 07/04/25 22:00 07/05/25 21:59 07/04/25 21:18 66 MLS/HR Diagnostic Test (Pha) 1 strip ACHS 07/04/25 17:00 07/05/25 06:21 1 STRIP Insulin Human Regular ACHS SC 07/04/25 17:00 07/05/25 06:20 3 UNITS Dextrose 50 ml UD PRN IV 07/04/25 12:15 Piperacillin Sod/ Tazobactam Sod 100 ml @ 25 mls/hr Q8HR IV 07/04/25 14:00 07/05/25 06:22 25 MLS/HR Fat Emulsion Intravenous 50 ml/ Sodium Phosphate 60 meq/Calcium Gluconate 2.3 meq/ Magnesium Sulfate 10 meq/ Multivitamins 10 ml/Chromium/ Copper/Manganese/ Zinc 1 ml/Insulin Human Regular 16 units/Amino Acids/ Dextrose 1,583.6062 ml @ 66 mls/hr Q24H IV 07/05/25 22:00 07/06/25 21:59 Enoxaparin Sodium 30 mg DAILY SC 07/06/25 10:00 UNV Examination Gen - no pallor, no icterus, no cyanosis, no edema . Skin - Patients skin is warm and dry. HEENT - normocephalic, atraumatic, moist mucous membranes. Equal bilateral pupils Pulmonary - coarse bilateral breath sounds, trace wheeze cardiovascular - regular S1,S2 heard, no added sounds, no murmurs heard. peripheral pulses normal radial 2+, pedal 2+. capillary refill normal <2 secs. GI - status post exploratory laparotomy with a midline scar, wound VAC and MAURICE drain, grimacing on palpation. Left MAURICE drain minimal yellowish clear output. Colostomy noted with dark green/dark brown liquid stool. laboratory and microbiology Laboratory Tests 07/05/25 05:38 Test 07/05/25 05:38 Range/Units Serum Glucose 175 H 74-106 mg/dL Microbiology Date/Time Source Procedure Growth Status 06/28/25 00:30 Blood Blood Culture - Final NO GROWTH AFTER 5 DAYS OF INCUBATION. Complete 06/27/25 18:32 Sputum Gram Stain - Final Complete 06/27/25 18:32 Respiratory Culture - Final Yeast, not Deisy albicans Presumptive Deisy albicans Complete 06/27/25 18:20 Voided Urine Urine Culture - Final Complete 06/26/25 16:20 Nose MRSA Screen - Final Complete Labs and/or images reviewed: Labs reviewed by me, Image(s) reviewed by me Problem List/Assessment/Plan Problem List/Assessment/Plan Neurology # off sedation, currently on CPAP trial Cardiovascular # essential hypertension # heart failure with preserved ejection fraction, EF 65% # LVH - IV Lasix daily Respiratory # Ventilator -intubated 06/26/25 - extubated 06/30/2025 # pulmonary edema # Acute hypoxic respiratory failure likely due to above, improving; not POA # probable aspiration pneumonia, not POA - IV vancomycin, Zosyn , continue Zosyn until 07/04/2025 - IV Lasix 40 mg daily Nephrology # hypokalemia # ANNE MARIE likely hemodynamically mediated, now improved, POA - repleted GI # acute intractable abdominal pain # severe constipation, bowel obstruction due to mass # large bowel obstruction with mass at the splenic flexure, # s/p ex lap x2 # s/p pneumoperitoneum, improved # rectal ulceration with probable proctitis - Initial CT abdomen pelvis with the contrast showed irregular bowel wall narrowing in the region of the splenic flexure of the colon with surrounding lymph nodes up to 10 mm, highly concerning for colon neoplasm. - Initial colonoscopy unsuccessful d/t poor bowel prep, repeat colonoscopy done on 06/22 showed ulcerated mass at the distal transverse colon/ splenic flexure causing severe obstruction - patient underwent exploratory reportedly on 06/23 with Segmental colectomy, splenic flexure takedown, hepatic flexure takedown, primary isoperistaltic stapled anastomosis - CEA-normal, Ca-19-9 and Ca 125 normal - postop CT abdomen pelvis done on 06/24, showed no anastomotic leak, sludge changes suggestive of acute colitis, minimal fluid and fat stranding likely postoperative changes - 06/26- postop day 2, patient was seen to have pneumoperitoneum with increased tenderness to palpation and was taken to surgery - on 06/26 underwent exploratory laparotomy with a left upper quadrant end colostomy - on 06/27 - temporary abdominal wall closure with a wound VAC - splenic flexure mass biopsy shows adenocarcinoma, moderately differentiated. # Peptic ulcer prophylaxis -Pantoprazole 40 mg IV daily Infectious disease # sepsis due to intra-abdominal infection versus aspiration pneumonia, undetermined POA - IV vancomycin per pharmacy - IV Zosyn Hem/onc # anemia likely of chronic disease - IV iron DVT prophylaxis Resumed 40 mg subcutaneous Lovenox Nutrition Cleared swallow evaluation for mechanical soft diet with thin liquids, place duration on a mechanical soft diet PICC line placed on 06/25/2025 Physical therapy ordered Critical care time 32 minutes Code status discussed greater than 20 minutes: Full CODE STATUS. Daughter at bedside explained about the condition of the patient Plan discussed with Dr. Mitchell Plan discussed with: Patient, Daughter, Other (RN) My Orders My Orders Orders - AICHA BRAND RESIDENT Procedure Category Date Status Time Enoxaparin Sodium PHA 07/06/25 Logged (Lovenox) 10:00 Enoxaparin Sodium PHA 07/05/25 Logged (Lovenox) 11:00 Dietary Evaluation Review Comments: Advance to diet texture as tolerated when medically feasible Encourage and monitor intakes to meet his needs at least at 75% Expected Outcomes/Goals: maintain BW Date of Service: Jul 05, 2025 Billing Provider: HONG MITCHELL MD Common Visit Codes: [id number] INP/OBS CARE(HIGH) AICHA BRAND RESIDENT Jul 05, 2025 11:25 HONG MITCHELL MD Jul 06, 2025 20:57
[2025-07-05] MEDS: OXYCODONE W/ ACETAMINOPHEN 5/325MG TABLET PO PRN (13:33)
[2025-07-05] MEDS: CALCIUM GLUC 1,000mg/50ml-NS 50 ML IV ONE (13:57)
[2025-07-05] MEDS ORDERED: TPN PER PHARMACY IV NR (22:00)
[2025-07-06] VITALS (7 sets, daily range): BP systolic 119–146; BP diastolic 69–85; PULSE 76–89; RESP 16–20; TEMP 97.6–98.8; O2SAT 93–98
[2025-07-06 07:04] LABS: Anion Gap 10 (5-15); BUN/Creatinine Ratio 34.4 (10.0-20.0); Blood Urea Nitrogen 22 mg/dL (9-23); Carbon Dioxide 24 mmol/L (20-31); Chloride 103 mmol/L (98-107); Glucose 78 mg/dL (74-106); Magnesium 2.2 mg/dL (1.6-2.6); Potassium 4.5 mmol/L (3.5-5.1); Sodium 137 mmol/L (136-145)
[2025-07-06 07:05] LABS: Bilirubin, Total 1.2 mg/dL (0.2-1.0)
[2025-07-06 07:13] LABS: Hematocrit 29.3 % (41.0-53.0); Hemoglobin 10.1 g/dL (13.5-17.5); Mean Corpuscular Hemoglobin 36.7 pg (28.0-32.0); Mean Corpuscular Volume 106.2 fL (80.0-100.0); Nucleated Red Blood Cells % 0.1 %
[2025-07-06 07:25] LABS: Alanine Aminotransferase 59 U/L (7-40); Albumin 3.2 g/dL (3.2-4.8); Alkaline Phosphatase 428 U/L (46-116); Calcium 7.9 mg/dL (8.7-10.4); Total Protein 5.6 g/dL (5.7-8.2)
[2025-07-06] MEDS: ENOXAPARIN SOD 40 MG/0.4 ML SYRINGE SC SCH (09:10)
[2025-07-06] MEDS ORDERED: ENOXAPARIN SOD 40 MG/0.4 ML SYRINGE SC SCH (10:00)
--- NOTE | 2025-07-06 12:19 | DVHPN2 ---
Progress Note - Surgical Date Seen: Jul 06, 2025 Post op day Post op day: 13 Subjective Patient reports: Feels better (Patient feeling better, ambulating with the assistance, having ostomy production, tolerating soft bland diet.) Review of Systems: Deferred Objective Vital signs Vital Sign Date Time Temp Pulse Resp B/P (MAP) Pulse Ox O2 Delivery O2 Flow Rate FiO2 07/06/25 09:07 119/70 07/06/25 09:00 98.4 85 18 93 98.4 07/06/25 08:30 Room Air* 0 N/A Nasal Cannula* Total Intake and Output 07/05/25 07/05/25 07/06/25 15:00 23:00 07:00 Intake Total 300.2 ml 990 ml 350 ml Output Total 2925 ml 1030 ml Balance 300.2 ml -1935 ml -680 ml Medications Current Medications Medications Dose Ordered Sig/Babak Route Start Time Stop Time Status Last Admin Dose Admin Pantoprazole Sodium 40 mg DAILY IV 06/18/25 10:00 07/06/25 09:10 40 MG Ondansetron HCl 4 mg Q6HPRN PRN IV 06/17/25 19:30 06/22/25 16:37 4 MG Potassium Chloride 100 ml @ 50 mls/hr Q2H IV 06/23/25 08:30 06/23/25 12:29 Cancel Sodium Chloride 10 ml QSHIFT@ IV 06/25/25 22:00 07/06/25 09:10 10 ML Folic Acid 1 mg/ Dextrose 50.2 ml @ 200.8 mls/ hr DAILY INJ 06/26/25 10:00 07/06/25 09:11 200.8 MLS/HR Acetaminophen 650 mg Q6HP PRN GT 06/26/25 18:00 06/28/25 15:45 650 MG Vancomycin HCl 0 ml @ 0 mls/hr UD IV 06/28/25 14:30 Labetalol HCl 10 mg Q6HP PRN IV 06/28/25 14:30 Vancomycin HCl 250 ml @ 166.667 mls/hr Q24H IV 06/29/25 11:00 UNV Potassium Chloride 100 ml @ 50 mls/hr Q2H IV 06/29/25 15:00 06/29/25 18:59 UNV Vancomycin HCl 250 ml @ 200 mls/hr DAILY@1800 IV 06/30/25 18:00 07/05/25 18:47 200 MLS/HR Micafungin Sodium 100 mg/Sodium Chloride 100 ml @ 100 mls/hr DAILY IV 07/02/25 10:00 07/06/25 09:11 100 MLS/HR Furosemide 40 mg DAILY IV 07/02/25 10:00 07/06/25 09:07 40 MG Oxycodone/ Acetaminophen 1 tab Q4HP PRN PO 07/01/25 15:00 Oxycodone/ Acetaminophen 2 tab Q4HP PRN PO 07/01/25 15:00 07/05/25 20:33 2 TAB Hydromorphone HCl 1 mg Q6HP PRN IV 07/02/25 10:45 07/03/25 12:54 1 MG Diagnostic Test (Pha) 1 strip ACHS 07/04/25 17:00 07/06/25 11:03 1 STRIP Insulin Human Regular ACHS SC 07/04/25 17:00 07/05/25 21:47 3 UNITS Dextrose 50 ml UD PRN IV 07/04/25 12:15 Piperacillin Sod/ Tazobactam Sod 100 ml @ 25 mls/hr Q8HR IV 07/04/25 14:00 07/06/25 05:18 25 MLS/HR Fat Emulsion Intravenous 50 ml/ Sodium Phosphate 60 meq/Calcium Gluconate 2.3 meq/ Magnesium Sulfate 10 meq/ Multivitamins 10 ml/Chromium/ Copper/Manganese/ Zinc 1 ml/Insulin Human Regular 16 units/Amino Acids/ Dextrose 1,583.6062 ml @ 66 mls/hr Q24H IV 07/05/25 22:00 07/06/25 21:59 Cancel Enoxaparin Sodium 40 mg DAILY SC 07/06/25 10:00 07/06/25 09:10 40 MG Laboratory Laboratory Tests 07/06/25 06:29 07/06/25 04:49 Test 07/06/25 04:49 Range/Units Serum Glucose 78 74-106 mg/dL Microbiology Date/Time Source Procedure Growth Status 06/28/25 00:30 Blood Blood Culture - Final NO GROWTH AFTER 5 DAYS OF INCUBATION. Complete 06/27/25 18:32 Sputum Gram Stain - Final Complete 06/27/25 18:32 Respiratory Culture - Final Yeast, not Deisy albicans Presumptive Deisy albicans Complete 06/27/25 18:20 Voided Urine Urine Culture - Final Complete 06/26/25 16:20 Nose MRSA Screen - Final Complete Examination: GENERAL:Normal, ABDOMEN:Abnormal (Globose, midline incision with a wound VAC placed and without surrounding signs of infection, left upper quadrant ostomy with pink mucosa and stool production, left MAURICE drain with minimal serous output, appropriate tenderness) Labs and/or images reviewed: Labs reviewed by me (No leukocytosis) Problem List/Assessment/Plan Assessment and Plan Mr. Lebron is a 79-year-old male who presented to the ED with abdominal pain. CT was reviewed and shows colonic distention from cecum to splenic flexure, pass the splenic flexure there is an area of distal decompression, possibly caused by a mass. 06/23: Exploratory laparotomy, segmental colectomy, splenic flexure takedown, hepatic flexure takedown, primary stapled anastomosis, drain placement 06/26: Exploratory laparotomy, resection of previous anastomosis, abdominal washout, end colostomy, temporary abdominal closure. Due to anastomotic leak 06/27: Exploratory laparotomy, temporary abdominal closure device taken down, washout, drain placed x2, fascial closure Interval: Patient is currently postop day 13 and 9 (last surgery). Patient tolerating soft bland diet, having ostomy output, ambulating with the assistance. Given the MAURICE has very minimal serous output I will discontinue it today. Patient is cleared per surgical standpoint for discharge. 1. Cleared for discharge per surgical standpoint 2. Ostomy teaching/education 3. No lifting over 10 lb for 8 weeks after the surgery. After this timeframe, may slowly increase his physical activity 4. Diet as tolerated 5. Okay to shower, soap and water may run over incision sites and over midline wound. No bathing or swimming. 6. Pain regimen: Tylenol and/or ibuprofen for baseline pain control. Lovell 5/325 mg 1 tablet p.o. every 6 hours p.r.n. severe pain 7. We will follow up with patient at surgery Clinic in 1 week after discharge. 8. MAURICE drain removed My Orders My Orders Orders - JEANMARIE RAY MD Procedure Category Date Status Time Discontinue Ray JULIETTE 07/06/25 Verified Catheter 12:09 Plan discussed with Plan discussed with: Patient, Daughter Visit Coding Surgery Date of Service if different f: Jul 06, 2025 Billing Provider: JEANMARIE RAY MD Surgery Visit Codes: [id number] INP/OBS CARE(HIGH) JEANMARIE RAY MD Jul 06, 2025 12:19
--- NOTE | 2025-07-06 13:21 | DVHDSRES ---
Discharge Summary Date of Admission Resident Creating Document: AICHA BRAND RESIDENT Jun 17, 2025 at 19:31 Date of Discharge: Jul 06, 2025 Admitting Diagnosis Intractable abdominal pain, constipation Labs/Diagnostic Data: Laboratory Results Test 07/06/25 10:58 07/06/25 06:29 07/06/25 04:49 07/05/25 05:38 POC Glucose 126 mg/dl (70-106) White Blood Count 9.8 10^3/uL (4.4-10.8) Red Blood Count 2.76 10^6/uL (4.5-5.90) Hemoglobin 10.1 g/dL (13.5-17.5) Hematocrit 29.3 % (41.0-53.0) Mean Corpuscular Volume 106.2 fL (80.0-100.0) Mean Corpuscular Hemoglobin 36.7 pg (28.0-32.0) Mean Corpuscular Hemoglobin Concent 34.6 g/dL (32.0-36.0) Red Cell Distribution Width 15.5 % (11.8-14.3) Platelet Count 643 10^3/uL (140-450) Mean Platelet Volume 7.2 fL (6.9-10.8) Neutrophils (%) (Auto) 72.1 % (37.0-80.0) Lymphocytes (%) (Auto) 16.0 % (10.0-50.0) Monocytes (%) (Auto) 7.4 % (0.0-12.0) Eosinophils (%) (Auto) 3.1 % (0.0-7.0) Basophils (%) (Auto) 1.4 % (0.0-2.0) Neutrophils # (Auto) 7.1 10 ^3/uL (1.6-8.6) Lymphocytes # (Auto) 1.6 10 ^3/uL (0.4-5.4) Monocytes # (Auto) 0.7 10 ^3/uL (0-1.3) Eosinophils # (Auto) 0.3 10 ^3/uL (0-0.8) Basophils # (Auto) 0.1 10 ^3/uL (0-0.2) Nucleated Red Blood Cells 0.1 % Sodium Level 137 mmol/L (136-145) Potassium Level 4.5 mmol/L (3.5-5.1) Chloride Level 103 mmol/L (98-107) Carbon Dioxide Level 24 mmol/L (20-31) Anion Gap 10 (5-15) Blood Urea Nitrogen 22 mg/dL (9-23) Creatinine 0.64 mg/dL (0.700-1.30) Glomerular Filtration Rate Calc 98 mL/min (>90) BUN/Creatinine Ratio 34.4 (10.0-20.0) Serum Glucose 78 mg/dL (74-106) Calcium Level 7.9 mg/dL (8.7-10.4) Phosphorus Level 3.1 mg/dL (2.4-5.1) Magnesium Level 2.2 mg/dL (1.6-2.6) Total Bilirubin 1.2 mg/dL (0.2-1.0) Aspartate Amino Transferase (AST) 53 U/L (13-40) Alanine Aminotransferase (ALT) 59 U/L (7-40) Alkaline Phosphatase 428 U/L (46-116) Total Protein 5.6 g/dL (5.7-8.2) Albumin 3.2 g/dL (3.2-4.8) Differential Total Cells Counted 100.0 (100) Neutrophils % (Manual) 70 (37.0-80.0) Band Neutrophils % (Manual) 10 Lymphocytes % (Manual) 14 (10.0-50.0) Monocytes % (Manual) 1 (0-12) Eosinophils % (Manual) 4 (0-7) Basophils % (Manual) 0 (0.0-2.0) Metamyelocytes % (manual) 1 Myelocytes % (Manual) 0 Promyelocytes % (Manual) 0 Blast Cells % (Manual) 0 Reactive Lymphocytes 0 Platelet Estimate Increased Macrocytosis Moderate Test 07/04/25 05:18 07/03/25 18:40 07/02/25 07:13 06/30/25 07:52 Triglycerides Level 286 mg/dL (< 150) Vancomycin Level Trough 13.9 ug/mL (5-10) Hemoglobin A1c 5.6 % A1C (<5.7) Blood Gas Specimen Type Arterial Blood Gas Sample Site Right radial Blood Gas Patient Temperature 37.0 Arterial Blood Date Drawn [id number] Arterial Blood pH 7.461 (7.350-7.450) Arterial Blood Partial Pressure CO2 37.4 mmHg (35.0-48.0) Arterial Blood Partial Pressure O2 100.9 mmHg (83.0-108.0) Arterial Blood HCO3 26.1 mmol/L (21.0-28.0) Arterial Blood Oxygen Saturation 97.3 % (94.0-98.0) Arterial Blood Base Excess 2.2 mmol/L (-2.0-3.0) Arterial Blood Oxyhemoglobin 96.7 % (94.0-98.0) Arterial Blood Carboxyhemoglobin 0.3 % (0.5-1.5) Arterial Blood Methemoglobin 0.3 % (0.0-1.5) Saad Test Modified Blood Gas Total Hemoglobin 9.20 g/dL (13.5-17.5) Blood Gas Set Respiration Rate 16.0 Blood Gas Modality Vent - ac FiO2 % 30.0 Blood Gas Tidal Volume 500.0 Blood Gas PEEP or CPAP 5.0 Test 06/30/25 03:30 06/28/25 16:36 06/27/25 03:45 06/26/25 19:00 Random Vancomycin Level 14.6 ug/mL (5-10) Giant Platelets Few Anisocytosis (manual) Slight Ovalocytes Few Lactic Acid Level 1.1 mmol/L (0.4-2.0) Prothrombin Time 12.0 sec (9.3-11.8) Prothrombin Time INR 1.15 (0.9-1.15) Activated Partial Thromboplast Time 46.9 SEC (24.5-34.5) Blood Gas Spontaneous Rate 16 Blood Gas Spontaneous Tidal Volume 511 Blood Gas Critical Value Read Back Yes Test 06/26/25 04:35 06/25/25 06:43 06/25/25 03:43 06/24/25 00:56 Iron Level 24 ug/dL (65-175) Total Iron Binding Capacity 142 ug/dL (250-425) Percent Iron Saturation 16.9 % (20-55) Ferritin 805.4 ng/mL (22-322) Direct Bilirubin 1.6 mg/dL (<0.3) Blood Gas Liter Flow 4.00 Estimated GFR () 48 mL/min Estimated GFR (Non- 40 mL/min Specimen Drawn By Lyn givens md Test 06/23/25 05:54 06/19/25 05:20 06/18/25 08:30 B-Type Natriuretic Peptide 161.23 pg/mL (0-100) Carcinoembryonic Antigen 2.27 ng/mL (<=5.0) CA 19-9 Antigen 9 U/mL (0-35) CA 125 Antigen 45.8 U/mL (Not Estab.) Urine Color Yellow (Yellow) Urine Clarity Clear (Clear) Urine pH 5.5 (5.0-9.0) Urine Specific [place] 1.044 (1.001-1.035) Urine Protein Trace (Negative) Urine Ketones 1+ (Negative) Urine Blood Negative /uL (Negative) Urine Nitrite 2+ (Negative) Urine Bilirubin Negative (Negative) Urine Urobilinogen Normal mg/dL (Negative) Urine Leukocyte Esterase 2+ /uL (Negative) Urine RBC 2 /hpf (0 - 3) Urine Microscopic WBC 67 /HPF (0-3) Urine Squamous Epithelial Cells Few /hpf (<5) Urine Bacteria Many /hpf (None Seen) Urine Mucus Few (None Seen) Urine Glucose Normal mg/dL (Normal) Other Laboratory Tests 07/06/25 06:29 07/06/25 04:49 Brief Hx & Hospital Course: Mr. Lebron, a 79-year-old Malay-speaking male with a history of hypertension and thrombocytosis, presented to the Emergency Department with a two-week history of abdominal pain and constipation. Initially, he experienced hard stools with significant straining, followed by loose stools and two episodes of vomiting. He denied fever, weight loss, or prior colonoscopy, but reported blood in stool a few months prior. CT abdomen/pelvis revealed colonic narrowing near the splenic flexure with wall thickening and lymphadenopathy, concerning for neoplasm. Initial colonoscopy was incomplete due to poor bowel prep; repeat colonoscopy on 06/22 showed an obstructing ulcerated mass at the distal transverse colon/splenic flexure. Biopsies were obtained and Jacqueline ink was placed distal to the lesion. Hospital Course: June 23, 2025: Patient underwent exploratory laparotomy, segmental colectomy, splenic and hepatic flexure takedown, and primary isoperistaltic stapled anastomosis. A 19 [place] round channel drain was placed in the left gutter. June [id number]: Postoperative course complicated by abdominal distention and acute kidney injury. CT abdomen/pelvis showed no anastomotic leak but signs of acute colitis. Patient remained NPO, started on TPN via PICC line placed on 06/25. Developed acute hypoxic respiratory failure and aspiration pneumonia, managed with oxygen therapy, IV antibiotics (ceftriaxone, doxycycline), and diuretics. June 26, 2025: Due to pneumoperitoneum and enteric drainage, patient underwent re-exploration with anastomotic resection, abdominal washout, and end colostomy. Temporary abdominal closure was performed using a Medela VAC device. June 27, 2025: Second-look laparotomy performed. Findings included dusky ostomy mucosa but healthy transverse colon limb. Peritoneal cavity was irrigated, adhesions lysed, and two MAURICE drains placed (left and right gutters). Fascia closed; skin left open with wound VAC. June [id number]: Patient remained intubated, transitioned off sedation, and began CPAP trials. Extubated successfully on 06/30. Continued on IV Zosyn and vancomycin for aspiration pneumonia and intra-abdominal infection. Ostomy functioning with healthy mucosa underneath. June [id number]: Patient clinically improved, tolerating diet, ambulating with assistance. Right MAURICE drain discontinued. Surgical team cleared patient for discharge. Ostomy education initiated. Daughter at bedside informed of patients condition and care plan. 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 Discharge Plan: On day of discharge, patient appeared well and had stable vital signs. Patient was tolerating a mechanical soft diet without any abdominal pain, nausea and/or vomiting. [place] transportation was arranged for the patient, as well as a front wheel walker [id number] DME was arranged for the patient. Details of discharge planning were thoroughly communicated to patient's daughter Ms. Bryan at bedside, were all questions were answered and concerns were addressed in the presence of JESSIKA Vela. Diet: As tolerated; soft bland diet initiated. Activity: Ambulate as tolerated; no lifting >10 lbs for 8 weeks. Wound Care: Shower permitted; no bathing/swimming. Wound VAC in place. Pain Management: Tylenol/Ibuprofen for baseline pain; Bolt 5/325 mg p.o. q6h PRN severe pain. Fluconazole 200 mg for 9 days. Follow-Up: Surgical clinic in 1 week. Oncology at earliest possible, PCP within 1 week. GI in the outpatient clinic. Placement: Home health for physical therapy, home safety evaluation and colostomy management. Patient and family refused [facility] facility placement. Operations or Procedures Technique: CT axial images of the abdomen and pelvis are obtained with intravenous contrast. Coronal and sagittal reformats were obtained. Radiation Dose Information: CTDI volume is 18.17 mGy. Dose-length product is 1110.97 mGy*cm Comparison: None FINDINGS: The lung bases demonstrate no pleural effusion. Cardiomegaly. Adrenal glands, spleen and pancreas unremarkable. No enhancing hepatic lesion. No CT evidence for cholelithiasis. No hydronephrosis. Stomach is partially distended. Small bowel loops are moderately distended. There is bowel wall thickening and fluid distention of the ascending and transverse colon. There is luminal narrowing of the splenic flexure of the colon with tiny surrounding nodes up to 10 mm. Abdominal aorta normal in caliber. Atherosclerotic disease. Bladder is partially distended. No free pelvic fluid. No inguinal lymphadenopathy. Fat containing left inguinal hernia measuring 2.5 x 2.1 cm. [id number] bilateral sacroiliac degenerative joint disease IMPRESSION: There is irregular bowel wall narrowing in the region of the splenic flexure of the colon with surrounding lymph nodes up to 10 mm, highly concerning for colon neoplasm. Recommend GI consultation for colonoscopy to evaluate. More proximal distention of the ascending and transverse colon with bowel wall thickening and fluid distention, likely secondary to the underlying colonic neoplasm resulting in obstruction Cardiomegaly. Other findings as described. Chest with intravenous contrast INDICATION: rule out PE. Chest pain. COMPARISON: XY CHEST XRAY 1 VIEW on DOS: 06/23/25, XY CHEST XRAY 1 VIEW on DOS: 06/22/25, XY CHEST XRAY 1 VIEW on DOS: 06/19/25, XY CHEST PORTABLE on DOS: 06/19/25, CT CT ANGIO NECK CONTRAST on DOS: 11/20/22 TECHNIQUE: Multidetector spiral CTA of the chest was performed of the chest with intravenous contrast. PULMONARY ANGIOGRAPHY PROTOCOL was utilized using a bolus- tracking technique centered on the main pulmonary artery. Axial, coronal and sagittal multiplanar and MIP reformats were performed. Radiation Dose : 1. Chest: CTDI volume is 26.95 mGy. Dose-length product is 959.92 mGy*cm The dose indicators for CT are the volume Computed Tomography (CT) Dose Index (CTDIvol) and the Dose Length Product (DLP), and are measured in units of mGy and mGy-cm, respectively. These indicators are not patient dose, but values generated from the CT scanner acquisition factors. The report includes radiation exposure data for exposures received during this examination. Findings: Pulmonary artery: No pulmonary embolism Lower neck: Normal thyroid. Lungs: Mild dependent atelectasis/consolidation. Mild diffuse interlobular septal thickening. Heart/Vascular Structures: Multichamber cardiac enlargement. Trace pericardial effusion. Lymph Nodes: No adenopathy Pleura: Trace bilateral pleural effusions. Musculoskeletal: No acute osseous abnormality. Soft tissues: Normal. Upper abdomen: Postsurgical changes in the upper abdomen with a few tiny locules of free air. IMPRESSION: No pulmonary embolism. Mild interstitial edema. Trace bilateral pleural effusions with mild bibasilar atelectatic changes. Through tiny locules of air in the upper abdomen, presumably postsurgical Date: 06/21/2025 12:52 PM Examination: XY KUB ABDOMEN SINGLE VIEW History: possible large bowel obstruction Comparison: None TECHNIQUE: Frontal views of the abdomen was obtained. FINDINGS: Enteric tube below the diaphragm appears to be in the 2nd portion of the duodenum. Bowel gas pattern is unremarkable. The lung bases are unremarkable. No acute osseous abnormality identified. IMPRESSION: 1. Nonobstructive bowel gas pattern. 2. Enteric tube appears to be in the 2nd portion of the duodenum. History: Abdominal distention post op Comparison Study: XY KUB ABDOMEN SINGLE VIEW on DOS: 06/21/25, CT CT AB PEL WITH IV CON ONLY on DOS: 06/17/25 TECHNIQUE: Multidetector CT of the abdomen and pelvis was performed from lower chest to pubic symphysis without the use of intravenous contrast. Axial, coronal and sagittal multiplanar reformats were performed by the technologist on a separate workstation. Radiation Dose Information: CT Dose: CTDI volume is 21.51 mGy. Dose-length product is 1378.22 mGy*cm All CT scans at this medical facility are performed using dose modulation techniques as appropriate to a performed exam including the following: Automated exposure control was utilized; Adjustment of the MA And/or KV according to patient size; And use of iterative reconstruction technique. FINDINGS: There are small pleural effusions with adjacent lower lobe atelectasis right greater than left. There is cardiomegaly with no significant pericardiac fusion. Mitral valvulus calcifications are present Liver: The liver is normal in size. Noncontrast appearance of liver. Gallbladder and biliary Tree: Unremarkable. Spleen: Unremarkable. Pancreas: Unremarkable. Adrenal Glands: Unremarkable. Kidneys: Mild diffuse cortical thickening of both kidneys with no hydronephrosis prior Bladder: Decompressed with morales catheter in place. Bowel: Patient is status post splenic flexure / proximal descending colon resection with colonic anastomosis. There is no likely that fluid collection or air around the colonic anastomosis. There are scattered intraperitoneal air bubbles. There is fatty stranding and minimal intraperitoneal fluid with no loculated fluid collection to suggest abscess. There is a surgical drain in place with tip lateral to the colonic anastomosis. There is diffuse bowel thickening of the ascending and transverse colon with slight fluid distension. There is no small bowel distension. There is pneumotosis intestinalis. Lymphadenopathy: No enlarged lymph nodes. Vasculature: The visualized abdominal aorta is normal in size and caliber. Evaluation of the vascular structures is limited due to lack of intravenous contrast. Pelvic Organs: Unremarkable. Musculoskeletal: No acute osseous abnormality. Soft tissues: Fat containing left inguinal hernia. IMPRESSION: 1. Status post splenic flexure / proximal descending colon resection and primary colo-colonic anastomosis. No surrounding loculated fluid collection or air to suggest anastomosis leak . 2. Slight distension and diffuse wall thickening of the upstream colon involving the transverse and ascending colon suggestive of acute colitis. 3. Fat stranding and minimal intraperitoneal fluid and scattered foci of extraluminal air likely postoperative in nature . No organized fluid collection to suggest abscess . Date: 06/26/2025 10:57 AM Examination: XY KUB ABDOMEN SINGLE VIEW History: abd sx Comparison: CT CT AB PEL WO CON-NO ORAL OR IV on DOS: 06/24/25, XY KUB ABDOMEN SINGLE VIEW on DOS: 06/21/25, CT CT AB PEL WITH IV CON ONLY on DOS: 06/17/25 TECHNIQUE: Frontal views of the abdomen was obtained. FINDINGS/IMPRESSION: Enteric tube tip projects over the expected region of the stomach. Suggestion of pneumoperitoneum. Left retrocardiac opacity. Paucity of bowel gas bowel gas pattern appears nonobstructive. Condition at Discharge: Fair Final Diagnosis/Problems List # heart failure with preserved ejection fraction, EF 65% # LVH # Ventilator -intubated 06/26/25 - extubated 06/30/2025 # pulmonary edema # Acute hypoxic respiratory failure likely due to above, improving; not POA # probable aspiration pneumonia, not POA # hypokalemia # ANNE MARIE likely hemodynamically mediated, now improved, POA # acute intractable abdominal pain # severe constipation, bowel obstruction due to mass # large bowel obstruction with mass at the splenic flexure, # s/p ex lap x2 # s/p pneumoperitoneum, improved # rectal ulceration with probable proctitis # Peptic ulcer prophylaxis # sepsis due to intra-abdominal infection versus aspiration pneumonia, undetermined POA # anemia likely of chronic disease Cardiovascular # essential hypertension Discharge Disposition: Home with Health Services Discharge Instruct/Medications Diet: See Comment Diet comment: Continue mechanically soft diet, advance as tolerated. Activity: No Restrictions, As Tolerated Activity comment: Activity: Ambulate as tolerated; no lifting >10 lbs for 8 weeks. Follow Up/Referral: Please follow up with PCP in 1 week Please follow up with Oncology in the outpatient clinic at your earliest convenience Scheduled Aspirin (Aspirin/Enteric), 81 MG PO DAILY Atorvastatin Calcium (Lipitor), 1 TAB PO QPM Chlordiazepoxide Hcl (Librium), 25 MG PO TID Clopidogrel Bisulfate (Plavix), 1 TAB PO DAILY Cyanocobalamin (Vitamin B-12), 1 TAB PO DAILY, (Reported) Enalapril Maleate (Enalapril Maleate), 1 TAB PO DAILY, (Reported) Fluconazole (Fluconazole), 1 TAB PO DAILY Folic Acid (Folic Acid), 1 MG PO DAILY Metoprolol Tartrate (Lopressor Tablet), 1 TAB PO BID Multiple Vitamin (Multi Vitamin), 1 TAB PO DAILY Prednisolone Acetate (Ophth) (Pred Forte), 1 % OP QID, (Reported) Prednisone (Prednisone), 60 MG PO DAILY Thiamine Hcl (Thiamine Hcl), 1 TAB PO DAILY Valsartan (Valsartan), 1 TAB PO DAILY, (Reported) Scheduled PRN Hydrocodone-Acetaminophen (Hydrocodone Bitartrate/AC 5-325 mg), 1 TAB PO Q6HP PRN Miscellaneous Medications Hydroxyurea (Hydroxyurea), CAP PO, (Reported) Discharge Statement: "Patient was advised to return to the ER or call 911 if any headaches, dizziness, shortness of breath, chest pain, abdominal pain, bleeding, fevers, or worsening of medical condition. Patient was counseled about treatment plan, medications, possible side effects, patientverbalized understanding. All questions were answered to the best of my ability. This discharge took greater then 30 minutes in planning, reviewing documentation, counseling the patient, and discussing with other team members." ASSESSMENT ASSESSMENT Assessment Neurology # off sedation, currently on CPAP trial Cardiovascular # essential hypertension # heart failure with preserved ejection fraction, EF 65% # LVH - IV Lasix daily Respiratory # Ventilator -intubated 06/26/25 - extubated 06/30/2025 # pulmonary edema # Acute hypoxic respiratory failure likely due to above, improving; not POA # probable aspiration pneumonia, not POA - IV vancomycin, Zosyn , continue Zosyn until 07/04/2025 - IV Lasix 40 mg daily Nephrology # hypokalemia # ANNE MARIE likely hemodynamically mediated, now improved, POA - repleted GI # acute intractable abdominal pain # severe constipation, bowel obstruction due to mass # large bowel obstruction with mass at the splenic flexure, # s/p ex lap x2 # s/p pneumoperitoneum, improved # rectal ulceration with probable proctitis - Initial CT abdomen pelvis with the contrast showed irregular bowel wall narrowing in the region of the splenic flexure of the colon with surrounding lymph nodes up to 10 mm, highly concerning for colon neoplasm. - Initial colonoscopy unsuccessful d/t poor bowel prep, repeat colonoscopy done on 06/22 showed ulcerated mass at the distal transverse colon/ splenic flexure causing severe obstruction - patient underwent exploratory reportedly on 06/23 with Segmental colectomy, splenic flexure takedown, hepatic flexure takedown, primary isoperistaltic stapled anastomosis - CEA-normal, Ca-19-9 and Ca 125 normal - postop CT abdomen pelvis done on 06/24, showed no anastomotic leak, sludge changes suggestive of acute colitis, minimal fluid and fat stranding likely postoperative changes - 06/26- postop day 2, patient was seen to have pneumoperitoneum with increased tenderness to palpation and was taken to surgery - on 06/26 underwent exploratory laparotomy with a left upper quadrant end colostomy - on 06/27 - temporary abdominal wall closure with a wound VAC - splenic flexure mass biopsy shows adenocarcinoma, moderately differentiated. # Peptic ulcer prophylaxis -Pantoprazole 40 mg IV daily Infectious disease # sepsis due to intra-abdominal infection versus aspiration pneumonia, undetermined POA - IV vancomycin per pharmacy - IV Zosyn Hem/onc # anemia likely of chronic disease Date of Service: Jul 06, 2025 Billing Provider: HONG WETZEL MD Common Visit Codes: 49279-MVN/OBS DISCH DAY >30min AICHA BRAND Jul 06, 2025 13:21 HONG WETZEL MD Jul 06, 2025 20:58
[2025-07-06] MEDS ORDERED: HYDR-4902 PO (14:08)
[2025-07-06] MEDS ORDERED: FLUC200T50 PO (14:56)
--- NOTE | 2025-07-06 17:45 | DVHPN2 ---
Progress Note - Dictate Date Seen: Jul 06, 2025 Medical Necessity Reason Pt with a Central, PICC or Fol: Yes The following are medically ne: PICC Line Subjective No new complaints, patient is awake and alert Patient is tolerating diet Colostomy is functional vital signs Vital Sign Date Time Temp Pulse Resp B/P (MAP) Pulse Ox O2 Delivery O2 Flow Rate FiO2 07/06/25 16:30 98.3 78 19 134/78 (96) 95 98.3 07/06/25 08:30 Room Air* 0 N/A Nasal Cannula* Total Intake and Output 07/05/25 07/05/25 07/06/25 15:00 23:00 07:00 Intake Total 300.2 ml 990 ml 350 ml Output Total 2925 ml 1030 ml Balance 300.2 ml -1935 ml -680 ml medications Current Medications Medications Dose Ordered Sig/Babak Route Start Time Stop Time Status Last Admin Dose Admin Pantoprazole Sodium 40 mg DAILY IV 06/18/25 10:00 07/06/25 09:10 40 MG Ondansetron HCl 4 mg Q6HPRN PRN IV 06/17/25 19:30 06/22/25 16:37 4 MG Potassium Chloride 100 ml @ 50 mls/hr Q2H IV 06/23/25 08:30 06/23/25 12:29 Cancel Sodium Chloride 10 ml QSHIFT@ IV 06/25/25 22:00 07/06/25 09:10 10 ML Folic Acid 1 mg/ Dextrose 50.2 ml @ 200.8 mls/ hr DAILY INJ 06/26/25 10:00 07/06/25 09:11 200.8 MLS/HR Acetaminophen 650 mg Q6HP PRN GT 06/26/25 18:00 06/28/25 15:45 650 MG Vancomycin HCl 0 ml @ 0 mls/hr UD IV 06/28/25 14:30 Labetalol HCl 10 mg Q6HP PRN IV 06/28/25 14:30 Vancomycin HCl 250 ml @ 166.667 mls/hr Q24H IV 06/29/25 11:00 UNV Potassium Chloride 100 ml @ 50 mls/hr Q2H IV 06/29/25 15:00 06/29/25 18:59 UNV Vancomycin HCl 250 ml @ 200 mls/hr DAILY@1800 IV 06/30/25 18:00 07/05/25 18:47 200 MLS/HR Micafungin Sodium 100 mg/Sodium Chloride 100 ml @ 100 mls/hr DAILY IV 07/02/25 10:00 07/06/25 09:11 100 MLS/HR Furosemide 40 mg DAILY IV 07/02/25 10:00 07/06/25 09:07 40 MG Oxycodone/ Acetaminophen 1 tab Q4HP PRN PO 07/01/25 15:00 Oxycodone/ Acetaminophen 2 tab Q4HP PRN PO 07/01/25 15:00 07/05/25 20:33 2 TAB Hydromorphone HCl 1 mg Q6HP PRN IV 07/02/25 10:45 07/03/25 12:54 1 MG Diagnostic Test (Pha) 1 strip ACHS 07/04/25 17:00 07/06/25 11:03 1 STRIP Insulin Human Regular ACHS SC 07/04/25 17:00 07/05/25 21:47 3 UNITS Dextrose 50 ml UD PRN IV 07/04/25 12:15 Piperacillin Sod/ Tazobactam Sod 100 ml @ 25 mls/hr Q8HR IV 07/04/25 14:00 07/06/25 05:18 25 MLS/HR Fat Emulsion Intravenous 50 ml/ Sodium Phosphate 60 meq/Calcium Gluconate 2.3 meq/ Magnesium Sulfate 10 meq/ Multivitamins 10 ml/Chromium/ Copper/Manganese/ Zinc 1 ml/Insulin Human Regular 16 units/Amino Acids/ Dextrose 1,583.6062 ml @ 66 mls/hr Q24H IV 07/05/25 22:00 07/06/25 21:59 Cancel Enoxaparin Sodium 40 mg DAILY SC 07/06/25 10:00 07/06/25 09:10 40 MG objective GENERAL:Normal, HEENT:Normal, ABDOMEN:dressing is dry, soft, Colostomy is functional; wound VAC is in place Extremities without clubbing cyanosis or edema Neuro alert oriented x3 with no focal deficit laboratory and microbiology Laboratory Tests 07/06/25 06:29 07/06/25 04:49 Test 07/06/25 04:49 Range/Units Serum Glucose 78 74-106 mg/dL Problems(with codes): (1) 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
== END 2025-07-06 17:18 | disposition home health service (06) | DRG 329 ==
LOC: ER 12:15 → OVERFLOW 19:31 → TELE-WESTW 19:58 → DOU 06-23 17:46 → ICU WEST 06-26 15:35 → TELE-EAST 07-01 16:35
PROVIDERS: ADMIT Internal Medicine Geriatric Medicine; ATTEND Internal Medicine Geriatric Medicine
PROC: 0DJD8ZZ Inspection of Lower Intestinal Tract, Via Natural or Artificial Opening Endoscopic (ICD-10-PCS; principal; 2025-06-19 10:50)
PROC: 0DBL8ZX Excision of Transverse Colon, Via Natural or Artificial Opening Endoscopic, Diagnostic (ICD-10-PCS; 2025-06-22)
PROC: 0D1M0ZN Bypass Descending Colon to Sigmoid Colon, Open Approach (ICD-10-PCS; 2025-06-23)
PROC: 0DBL0ZZ Excision of Transverse Colon, Open Approach (ICD-10-PCS; 2025-06-23)
PROC: 02HV33Z Insertion of Infusion Device into Superior Vena Cava, Percutaneous Approach (ICD-10-PCS; 2025-06-25)
PROC: B548ZZA Ultrasonography of Superior Vena Cava, Guidance (ICD-10-PCS; 2025-06-25)
PROC: 0DBL0ZZ Excision of Transverse Colon, Open Approach (ICD-10-PCS; 2025-06-26)
PROC: 0BH17EZ Insertion of Endotracheal Airway into Trachea, Via Natural or Artificial Opening (ICD-10-PCS; 2025-06-26)
PROC: 5A1955Z Respiratory Ventilation, Greater than 96 Consecutive Hours (ICD-10-PCS; 2025-06-26)
PROC: 0DB80ZZ Excision of Small Intestine, Open Approach (ICD-10-PCS; 2025-06-27)
PROC: 3E1M38Z Irrigation of Peritoneal Cavity using Irrigating Substance, Percutaneous Approach (ICD-10-PCS; 2025-06-27)
DX: C18.5 Malignant neoplasm of splenic flexure (principal); A41.9 Sepsis, unspecified organism; J96.01 Acute respiratory failure with hypoxia; J69.0 Pneumonitis due to inhalation of food and vomit; J18.9 Pneumonia, unspecified organism; C18.6 Malignant neoplasm of descending colon; K56.50 Intestinal adhesions [bands], unspecified as to partial versus complete obstruction; D68.9 Coagulation defect, unspecified; E87.29 Other acidosis; I47.10 Supraventricular tachycardia, unspecified; J44.0 Chronic obstructive pulmonary disease with (acute) lower respiratory infection; J44.1 Chronic obstructive pulmonary disease with (acute) exacerbation; J98.11 Atelectasis; N17.9 Acute kidney failure, unspecified; E87.3 Alkalosis; I50.30 Unspecified diastolic (congestive) heart failure; K62.6 Ulcer of anus and rectum; I11.0 Hypertensive heart disease with heart failure; E87.6 Hypokalemia; K52.9 Noninfective gastroenteritis and colitis, unspecified; D47.3 Essential (hemorrhagic) thrombocythemia; D50.9 Iron deficiency anemia, unspecified; K62.89 Other specified diseases of anus and rectum; E66.9 Obesity, unspecified; E87.8 Other disorders of electrolyte and fluid balance, not elsewhere classified; Z82.49 Family history of ischemic heart disease and other diseases of the circulatory system; Z83.3 Family history of diabetes mellitus; Z68.27 Body mass index [BMI] 27.0-27.9, adult; Z93.3 Colostomy status; Z79.899 Other long term (current) drug therapy
CPT/HCPCS: 36415; 36569; 36600; 71045; 71275; 74018; 74176; 74177; 76937; 80048; 80053; 80069; 80076; 80202; 81001; 82040; 82378; 82728; 82805; 82962; 83036; 83540; 83550; 83605; 83735; 83880; 84100; 84132; 84478; 85007; 85014; 85018; 85025; 85027; 85610; 85730; 86301; 86304; 86850; 86900; 86901; 87040; 87070; 87077; 87081; 87086; 87205; 92610; 93005; 93306; 94002; 94003; 96365; 96375; 97110; 97116; 97163; 97530; 99291; G0378; J0131; J0153; J0330; J0694; J1756; J1815; J1885; J2003; J2248; J2250; J2405; J2470; J2543; J2704; J3430; J3480; J3490; J7060; J7131; P9047